=== PATIENT | female | born 1970 | race Caucasian/White ===

== ENCOUNTER 2016-07-06 14:39 | Emergency (ER) | payer MEDICAID ==
[~2016-07-06] VITALS: Ht 170.2 cm; Wt 65.8 kg
[~2016-07-06 14:39] MED LIST: DIVA500T53 PO; PROZAC; VEN75XRT PO
[2016-07-06 15:30] LABS: Basophils # (auto) 0 uL; Basophils % (auto) 0.4 % (0.0-2.0); Eosinophils # (auto) 0.1 uL; Eosinophils % (auto) 1.1 % (0.0-7.0); Hematocrit 39.8 % (36.0-46.0); Hemoglobin 13.2 g/dL (12.2-16.2); Lymphocytes # (auto) 1.6 uL; Lymphocytes % (auto) 24.5 % (10.0-50.0); Mean Corpuscular Hemoglobin 29.5 pg (28.0-32.0); Mean Corpuscular Hgb Conc. 33.1 g/dL (32.0-36.0); Mean Platelet Volume 8.3 fL (7.4-10.4); Monocytes # (auto) 0.4 uL; Monocytes % (auto) 5.5 % (0.0-12.0); Neutrophils # (auto) 4.6 uL; Neutrophils % (auto) 68.5 % (37.0-80.0); Platelet Count (auto) 298 10^3/uL (140-450); Red Cell Distribution Width 13.5 % (11.6-16.0); White Blood Cell 6.7 10^3/uL (4.4-10.8)
[2016-07-06 15:55] LABS: Albumin 3.4 g/dL (3.4-5.0); Alkaline Phosphatase 114 U/L (45-117); Anion Gap 11 (5-15); Aspartate Aminotransferase 30 U/L (15-37); Bilirubin, Total 0.3 mg/dL (0.2-1.0); Blood Urea Nitrogen 14 mg/dL (7-18); Calcium 8.7 mg/dL (8.5-10.1); Carbon Dioxide 30 mmol/L (21-32); Chloride 100 mmol/L (98-107); GFR African American 116 mL/min; GFR Non-African American 96 mL/min; Glucose 257 mg/dL (74-106); Magnesium 2.2 mg/dL (1.6-2.6); Potassium 3.8 mmol/L (3.5-5.1); Sodium 141 mmol/L (136-145)
[2016-07-06 20:36] LABS: Urine RBC None Seen /hpf (0 - 4)
[2016-07-06 20:48] LABS: Urine Bilirubin Negative (Negative); Urine Blood Negative /uL (Negative); Urine Color Yellow (Yellow); Urine Ketone Negative (Negative); Urine Nitrite Negative (Negative); Urine Squamous Epithelial Cell FEW /hpf (<5); Urine Urobilinogen Normal (Negative); Urine pH 6.5 (5.0-8.0)
[2016-07-06 20:49] LABS: Urine Glucose 4+ mg/dL (Normal)
[2016-07-06 20:55] VITALS: BP 155/93
[2016-07-06] MEDS ORDERED: LORazepam 2MG/ML-1ML VIAL IV ONE (21:00)
[2016-07-06] MEDS ORDERED: ONDANSETRON HCL 4 MG/2 ML VIAL IV ONE (21:00)
[2016-07-06] MEDS ORDERED: cloNIDine HCL 0.1 MG TAB PO ONE (21:00)
[2016-07-06] MEDS ORDERED: NALBUPHINE HCL 10 MG/1ml INJECTION IV ONE (21:00)
== END 2016-07-06 22:53 | disposition home or self-care (01) ==
LOC: ER 14:39
DX: F41.9 Anxiety disorder, unspecified (principal); E11.65 Type 2 diabetes mellitus with hyperglycemia; I10 Essential (primary) hypertension; F20.9 Schizophrenia, unspecified; F32.9 Major depressive disorder, single episode, unspecified
CPT/HCPCS: 36415; 71020; 80053; 81001; 82962; 83735; 84484; 85025; 93005; 96374; 96375; 99285; J2060; J2300; J2405

== ENCOUNTER 2016-09-25 07:03 | Emergency (ER) | payer SELFPAY ==
[~2016-09-25] VITALS: Ht 172.7 cm; Wt 65.8 kg
[2016-09-25 07:58] LABS: Urine RBC None Seen /hpf (0 - 4)
[2016-09-25] MEDS ORDERED: PHENAZOPYRIDINE HCL 100 MG TAB PO ONE (08:00)
[2016-09-25 08:07] LABS: Urine Blood Negative /uL (Negative); Urine Color Yellow (Yellow); Urine Ketone Negative (Negative); Urine Nitrite Negative (Negative); Urine Squamous Epithelial Cell FEW /hpf (<5); Urine Urobilinogen Normal (Negative); Urine pH 6.5 (5.0-8.0)
[2016-09-25 08:08] LABS: Urine Bilirubin Negative (Negative); Urine Glucose 4+ mg/dL (Normal)
[2016-09-25] MEDS ORDERED: SODIUM CHLORIDE 0.9% 1,000 ML IV ONE ×2 (08:45→10:30)
[2016-09-25 08:57] LABS: Basophils # (auto) 0 uL; Basophils % (auto) 0.4 % (0.0-2.0); CONDITION Y; Eosinophils # (auto) 0.2 uL; Eosinophils % (auto) 3.8 % (0.0-7.0); Hematocrit 42.5 % (36.0-46.0); Hemoglobin 14.7 g/dL (12.2-16.2); Lymphocytes # (auto) 1.6 uL; Lymphocytes % (auto) 34.3 % (10.0-50.0); Mean Corpuscular Hemoglobin 30.2 pg (28.0-32.0); Mean Corpuscular Hgb Conc. 34.6 g/dL (32.0-36.0); Mean Corpuscular Volume 87.2 fL (80.0-100.0); Mean Platelet Volume 9.2 fL (7.4-10.4); Monocytes # (auto) 0.3 uL; Monocytes % (auto) 6.3 % (0.0-12.0); Neutrophils # (auto) 2.6 uL; Neutrophils % (auto) 55.2 % (37.0-80.0); Platelet Count (auto) 182 10^3/uL (140-450); Red Cell Distribution Width 12.6 % (11.6-16.0); White Blood Cell 4.8 10^3/uL (4.4-10.8)
[2016-09-25 09:10] LABS: Albumin 3.7 g/dL (3.4-5.0); BUN/Creatinine Ratio 22.3; Bilirubin, Total 0.5 mg/dL (0.2-1.0); Calcium 9.1 mg/dL (8.5-10.1)
[2016-09-25 09:23] LABS: Potassium 4.7 mmol/L (3.5-5.1)
[2016-09-25] MEDS ORDERED: InsuLIN REG 1unit/0.01ml Soln (100units/ml) ONE ×2 (10:18→10:19)
[2016-09-25 10:26] VITALS: BP 169/95
[2016-09-25] MEDS ORDERED: InsuLIN REG 1unit/0.01ml Soln (100units/ml) IV ONE (10:30)
== END 2016-09-25 11:28 | disposition left against medical advice (07) ==
LOC: ER 07:07
DX: N39.0 Urinary tract infection, site not specified (principal); K59.00 Constipation, unspecified; E11.9 Type 2 diabetes mellitus without complications; I10 Essential (primary) hypertension; Z90.710 Acquired absence of both cervix and uterus; Z90.49 Acquired absence of other specified parts of digestive tract; Z88.6 Allergy status to analgesic agent
CPT/HCPCS: 36415; 74176; 80053; 81001; 81002; 82962; 85025; 96361; 96374; 99285; J1815; J7030

== ENCOUNTER 2018-03-13 22:13 | Emergency (ER) | payer SELFPAY ==
[~2018-03-13] VITALS: Ht 172.7 cm; Wt 61.2 kg
[~2018-03-13 22:13] MED LIST changes: -VEN75XRT PO; +VENL75CA3 PO
[2018-03-13 22:55] LABS: Basophils # (auto) 0 uL; Basophils % (auto) 0.7 % (0.0-2.0); Eosinophils # (auto) 0 uL; Eosinophils % (auto) 0.5 % (0.0-7.0); Hematocrit 44.7 % (36.0-46.0); Hemoglobin 15.1 g/dL (12.2-16.2); Lymphocytes # (auto) 2.4 uL; Lymphocytes % (auto) 43.9 % (10.0-50.0); Mean Corpuscular Hemoglobin 30.1 pg (28.0-32.0); Mean Corpuscular Hgb Conc. 33.8 g/dL (32.0-36.0); Mean Corpuscular Volume 88.9 fL (80.0-100.0); Monocytes # (auto) 0.3 uL; Neutrophils # (auto) 2.7 uL; Neutrophils % (auto) 48.9 % (37.0-80.0); Nucleated Red Blood Cells % 0.1 %; Platelet Count (auto) 195 10^3/uL (140-450); Red Blood Cells 5.03 10^6/uL (4.0-5.20); Red Cell Distribution Width 13.1 % (11.8-14.3); White Blood Cell 5.5 10^3/uL (4.4-10.8)
[2018-03-13 22:59] LABS: Urine Bacteria NONE SEEN /hpf (None Seen); Urine Blood Negative /uL (Negative); Urine Specific Gravity 1.013 (1.001-1.035); Urine WBC <1 /hpf (0 - 5)
[2018-03-13 23:12] LABS: Albumin 4.1 g/dL (3.4-5.0); BUN/Creatinine Ratio 10.8; Calcium 8.8 mg/dL (8.5-10.1); Potassium 3.5 mmol/L (3.5-5.1)
[2018-03-13 23:15] LABS: Bilirubin, Total 0.5 mg/dL (0.2-1.0); Total Protein 7.5 g/dL (6.4-8.2)
[2018-03-13] MEDS ORDERED: ONDANSETRON HCL 4 MG/2 ML VIAL IV ONE ×2 (23:30)
[2018-03-13] MEDS ORDERED: SODIUM CHLORIDE 0.9% 1,000 ML IV ONE (23:30)
[2018-03-14] MEDS ORDERED: InsuLIN REG 1unit/0.01ml Soln (100units/ml) IV ONE ×2 (00:30→01:15)
[2018-03-14] MEDS ORDERED: KETOROLAC TROMETH 30 MG/ML 1ML VIAL IV ONE (01:15)
[2018-03-14 02:09] VITALS: BP 145/93
[2018-03-14] MEDS ORDERED: ACETAMINOPHEN 325 MG TAB PO ONE (03:30)
== END 2018-03-14 05:04 | disposition home or self-care (01) ==
LOC: ER 22:13
DX: R10.31 Right lower quadrant pain (principal); E11.65 Type 2 diabetes mellitus with hyperglycemia; I10 Essential (primary) hypertension; Z90.710 Acquired absence of both cervix and uterus; Z90.49 Acquired absence of other specified parts of digestive tract; Z88.6 Allergy status to analgesic agent; Z91.041 Radiographic dye allergy status
CPT/HCPCS: 36415; 36600; 74176; 80053; 81001; 82010; 82150; 82805; 82962; 83690; 85025; 96361; 96374; 96375; 99284; J1815; J1885; J2405

== ENCOUNTER 2018-04-13 19:02 | Emergency (ER) | payer SELFPAY ==
[~2018-04-13] VITALS: Ht 172.7 cm; Wt 59.0 kg
[2018-04-13 20:12] VITALS: BP 129/78
[2018-04-13] MEDS ORDERED: cefTRIAXone SOD 1,000 MG VL IM ONE (20:45)
[2018-04-13] MEDS ORDERED: LIDOCAINE W/ EPINEPHRINE 1 % INJ 30ML ONE (21:06)
[2018-04-13] MEDS ORDERED: LIDOCAINE W/ EPINEPHRINE 2% INJ 20ML VIAL IJ ONE (21:15)
== END 2018-04-13 21:42 | disposition home or self-care (01) ==
LOC: ER 19:02
DX: S61.011A Laceration without foreign body of right thumb without damage to nail, initial encounter (principal); E11.9 Type 2 diabetes mellitus without complications; Z90.49 Acquired absence of other specified parts of digestive tract; Z90.710 Acquired absence of both cervix and uterus; Z88.6 Allergy status to analgesic agent; Z88.8 Allergy status to other drugs, medicaments and biological substances; X58.XXXA Exposure to other specified factors, initial encounter; Y93.89 Activity, other specified; Y99.8 Other external cause status; Y92.89 Other specified places as the place of occurrence of the external cause
CPT/HCPCS: 73130; 96372; 99283; J0696; J2001

== ENCOUNTER 2018-08-12 14:51 | Emergency (ER) | payer MEDICAID ==
[~2018-08-12] VITALS: Ht 172.7 cm; Wt 57.6 kg
[2018-08-12 15:10] VITALS: BP 123/76
[2018-08-12] MEDS ORDERED: cefTRIAXone 1GM/50ML D5W 50 ML IV ONE (16:15)
== END 2018-08-12 16:42 | disposition home or self-care (01) ==
LOC: ER 15:02
DX: S90.424A Blister (nonthermal), right lesser toe(s), initial encounter (principal); L08.9 Local infection of the skin and subcutaneous tissue, unspecified; I89.1 Lymphangitis; E11.9 Type 2 diabetes mellitus without complications; Z90.710 Acquired absence of both cervix and uterus; Z88.5 Allergy status to narcotic agent; Z88.8 Allergy status to other drugs, medicaments and biological substances; Z79.899 Other long term (current) drug therapy; Z90.49 Acquired absence of other specified parts of digestive tract; X58.XXXA Exposure to other specified factors, initial encounter; Y93.89 Activity, other specified; Y99.8 Other external cause status; Y92.89 Other specified places as the place of occurrence of the external cause
CPT/HCPCS: 96365; 99283; J0696

== ENCOUNTER 2018-11-07 20:55 | Emergency (ER) | payer MEDICAID ==
[~2018-11-07] VITALS: Ht 172.7 cm; Wt 56.7 kg
[2018-11-08 04:03] VITALS: BP 137/83
== END 2018-11-08 06:08 | disposition home or self-care (01) ==
LOC: ER 20:57
DX: M25.532 Pain in left wrist (principal)
CPT/HCPCS: 73110

== ENCOUNTER 2019-08-13 11:23 | Emergency (ER) | payer MEDICAID ==
[~2019-08-13] VITALS: Ht 172.7 cm; Wt 59.0 kg
[2019-08-13 11:29] VITALS: BP 192/94
[2019-08-13] MEDS ORDERED: KETOROLAC TROMETH 60MG/2ML VIAL IM ONE (14:30)
[2019-09-30] MEDS ORDERED: LISI40TA11 PO (02:05)
== END 2019-08-13 15:53 | disposition home or self-care (01) ==
LOC: ER 11:23
DX: S42.252A Displaced fracture of greater tuberosity of left humerus, initial encounter for closed fracture (principal); S70.212A Abrasion, left hip, initial encounter; E11.9 Type 2 diabetes mellitus without complications; Z90.49 Acquired absence of other specified parts of digestive tract; Z90.710 Acquired absence of both cervix and uterus; Z79.899 Other long term (current) drug therapy; Z88.5 Allergy status to narcotic agent; Z88.8 Allergy status to other drugs, medicaments and biological substances; W18.39XA Other fall on same level, initial encounter; Y93.89 Activity, other specified; Y92.89 Other specified places as the place of occurrence of the external cause; Y99.8 Other external cause status
CPT/HCPCS: 73030; 96372; 99283; J1885

== ENCOUNTER 2019-09-26 10:31 | Emergency (ER) | payer MEDICAID ==
[~2019-09-26] VITALS: Ht 172.7 cm; Wt 59.0 kg
[2019-09-26] MEDS ORDERED: CLINDAMYCIN 600MG IV 50 ML IV ONE (12:30)
[2019-09-26 12:34] VITALS: BP 132/95
== END 2019-09-26 14:24 | disposition home or self-care (01) ==
LOC: ER 10:31
DX: S90.465A Insect bite (nonvenomous), left lesser toe(s), initial encounter (principal); W57.XXXA Bitten or stung by nonvenomous insect and other nonvenomous arthropods, initial encounter; Y93.89 Activity, other specified; Y92.89 Other specified places as the place of occurrence of the external cause; Y99.8 Other external cause status
CPT/HCPCS: 96365; 99284; J3490

== ENCOUNTER 2019-09-28 23:43 | Inpatient (IN) | payer MEDICAID ==
[~2019-09-28] VITALS: Ht 172.7 cm; Wt 65.7 kg
[2019-09-29] MEDS ORDERED: cloNIDine HCL 0.1 MG TAB PO ONE (00:45)
[2019-09-29] MEDS: traMADol HCL 50 MG TAB PO PRN (05:36)
[2019-09-29] MEDS: ACCU-CHEK COMFORT CURVE STRIP VI SCH ×3 (05:45→23:57)
[2019-09-29] MEDS: InsuLIN REG 1unit/0.01ml Soln (100units/ml) SC SCH ×3 (05:50→23:57)
[2019-09-29] MEDS ORDERED: SODIUM CHLORIDE 0.9% 1,000 ML IV ONE ×2 (07:08)
[2019-09-29] MEDS ORDERED: PIPERACILLIN-TAZOB 3.375GM 100 ML IV ONE (07:30)
[2019-09-29 08:49] LABS: Basophils # (auto) 0 10 ^3/uL (0-0.2); Basophils % (auto) 0.4 % (0.0-2.0); Eosinophils # (auto) 0.1 10 ^3/uL (0-0.8); Hematocrit 40.8 % (36.0-46.0); Lymphocytes # (auto) 1.2 10 ^3/uL (0.4-5.4); Lymphocytes % (auto) 19.9 % (10.0-50.0); Mean Corpuscular Hemoglobin 30.2 pg (28.0-32.0); Mean Corpuscular Hgb Conc. 34.3 g/dL (32.0-36.0); Mean Corpuscular Volume 87.9 fL (80.0-100.0); Monocytes # (auto) 0.3 10 ^3/uL (0-1.3); Monocytes % (auto) 4.9 % (0.0-12.0); Neutrophils # (auto) 4.4 10 ^3/uL (1.6-8.6); Neutrophils % (auto) 73.8 % (37.0-80.0); Platelet Count (auto) 211 10^3/uL (140-450); Red Blood Cells 4.65 10^6/uL (4.0-5.20); Red Cell Distribution Width 13.1 % (11.8-14.3)
[2019-09-29 09:10] LABS: Calcium 9.5 mg/dL (8.5-10.1); Potassium 3.9 mmol/L (3.5-5.1)
[2019-09-29 09:12] LABS: INR 0.94 (0.9-1.15); Partial Thromboplastin Time 25.3 sec (23.64-32.05)
[2019-09-29 09:14] LABS: BUN/Creatinine Ratio 17.2; Bilirubin, Total 0.7 mg/dL (0.2-1.0); Total Protein 7.9 g/dL (6.4-8.2)
[2019-09-29] MEDS ORDERED: CLINDAMYCIN 600MG IV 50 ML IV ONE (12:15)
[2019-09-29] MEDS ORDERED: NITROGLYCERIN 0.4 MG SL TAB SL PRN (12:15)
[2019-09-29] MEDS ORDERED: INSULIN LANTUS (GLARGINE) 1 /0.01ml (100units/ml) SC ONE (12:45)
[2019-09-29] MEDS ORDERED: PROMETHAZINE HCL 25 MG/ML 1ML IV PRN (12:45)
[2019-09-29] MEDS ORDERED: TEMAZEPAM 15 MG CAP PO PRN (12:45)
[2019-09-29] MEDS ORDERED: LACTULOSE 20Gm/30ML SOLN PO PRN (12:45)
[2019-09-29] MEDS ORDERED: cefTRIAXone 1GM/50ML D5W 50 ML IV ONE (12:45)
[2019-09-29] MEDS ORDERED: DEXTROSE (50%) 50ML SYRG IV PRN (12:45)
[2019-09-29] MEDS ORDERED: CLINDAMYCIN 600MG IV 50 ML IV SCH (14:00)
[2019-09-29] MEDS: SODIUM CHLORIDE 0.9% 1,000 ML IV SCH ×2 (15:09→23:34)
[2019-09-29] MEDS: CLINDAMYCIN 600MG IV 50 ML IV SCH ×2 (15:18→22:37)
[2019-09-29 17:56] LABS: Urine Bacteria NONE SEEN /hpf (None Seen); Urine Blood Negative /uL (Negative); Urine Specific Gravity 1.038 (1.001-1.035); Urine WBC 1 /hpf (0 - 5)
[2019-09-29] MEDS ORDERED: InsuLIN REG 1unit/0.01ml Soln (100units/ml) IV ONE (19:15)
[2019-09-29] MEDS ORDERED: IBUPROFEN 400 MG TAB PO PRN (19:15)
[2019-09-29 21:45] VITALS: BP 113/68
--- NOTE | 2019-09-29 21:45 | NUR ---
Telemetry admit from ER LEOPOLDOMARTIN admitted to Telemetry unit. Patient oriented to TADEO SLADE RN primary RN, unit, room, bed, and unit policies regarding patient care and visiting hours. Fall and safety precautions in place. Call light within reach and demonstrates ability to use. Patient now on telemetry monitoring, tele box #[id number] and telemetry reading on arrival to unit is SR. Patient weighed by bedscale and encouraged to call as needed, patient verbalized understanding and in agreement. All questions and concerns addressed, patient verbalized understanding. Will continue to monitor q1h and prn.
[2019-09-29] MEDS: FAMOTIDINE 20 MG TAB PO SCH (22:37)
--- NOTE | 2019-09-29 23:40 | NUR ---
Re: Pain Spoke to on-call hosp at this time for patient complaint of insufficient pain medication management. Patient stated her pain is rated 9/10 using adult pain scale to her left shoulder and left third metatarsal. Updated MD on patient status, allergies, and medication at home used for patient's pain management. New orders received, read back and verified (see new orders). Will carry out. Will continue to monitor.
[2019-09-29] MEDS: IBUPROFEN 800 MG TAB PO PRN (23:47)
[2019-09-30] MEDS ORDERED: GABA300C10 PO (02:05)
[2019-09-30] MEDS ORDERED: INSREG3 SC (02:05)
[2019-09-30] MEDS ORDERED: METF-370 PO (02:05)
[2019-09-30] MEDS ORDERED: LISI40TA PO (02:05)
[2019-09-30] MEDS ORDERED: INSLANTI SC (02:05)
[2019-09-30] MEDS ORDERED: FLUO-126 PO (02:05)
[2019-09-30] MEDS: InsuLIN REG 1unit/0.01ml Soln (100units/ml) SC SCH ×5 (03:34→20:00)
[2019-09-30] MEDS: ACCU-CHEK COMFORT CURVE STRIP VI SCH ×5 (03:34→20:49)
[2019-09-30 05:00] VITALS: BP 126/80
[2019-09-30] MEDS: CLINDAMYCIN 600MG IV 50 ML IV SCH ×3 (05:11→22:42)
[2019-09-30] MEDS: traMADol HCL 50 MG TAB PO PRN ×2 (05:23→16:57)
[2019-09-30 07:00] LABS: Basophils # (auto) 0 10 ^3/uL (0-0.2); Basophils % (auto) 0.5 % (0.0-2.0); Eosinophils # (auto) 0.1 10 ^3/uL (0-0.8); Eosinophils % (auto) 1.2 % (0.0-7.0); Hematocrit 34.3 % (36.0-46.0); Hemoglobin 11.8 g/dL (12.2-16.2); Lymphocytes # (auto) 1.7 10 ^3/uL (0.4-5.4); Lymphocytes % (auto) 35.3 % (10.0-50.0); Mean Corpuscular Hemoglobin 30.2 pg (28.0-32.0); Mean Corpuscular Hgb Conc. 34.3 g/dL (32.0-36.0); Mean Corpuscular Volume 88.1 fL (80.0-100.0); Monocytes # (auto) 0.3 10 ^3/uL (0-1.3); Monocytes % (auto) 7.4 % (0.0-12.0); Neutrophils # (auto) 2.6 10 ^3/uL (1.6-8.6); Neutrophils % (auto) 55.6 % (37.0-80.0); Platelet Count (auto) 178 10^3/uL (140-450); Red Blood Cells 3.89 10^6/uL (4.0-5.20); Red Cell Distribution Width 12.9 % (11.8-14.3); White Blood Cell 4.7 10^3/uL (4.4-10.8)
[2019-09-30 07:24] LABS: Albumin 2.7 g/dL (3.4-5.0); Calcium 8.2 mg/dL (8.5-10.1); Potassium 3.5 mmol/L (3.5-5.1)
[2019-09-30 07:27] LABS: BUN/Creatinine Ratio 26.2; Bilirubin, Total 0.4 mg/dL (0.2-1.0); Total Protein 5.7 g/dL (6.4-8.2)
--- NOTE | 2019-09-30 07:30 | NUR ---
Opening Shift Note Assuming care of patient at this time. Patient is awake and alert. Patient denies pain at this time. Patient shows no signs or symptoms of distress or shortness of breath. Bed is locked and lowered with side rails up x2. Instructed patient on the plan of care for today and to call for assistance as needed. Call light within reach.
[2019-09-30] MEDS: SODIUM CHLORIDE 0.9% 1,000 ML IV SCH ×2 (08:43→18:43)
[2019-09-30 09:00] VITALS: BP 154/94
[2019-09-30] MEDS: cefTRIAXone 1GM/50ML D5W 50 ML IV SCH (09:00)
[2019-09-30] MEDS ORDERED: ceFAZolin 1GM VL ONE (09:01)
[2019-09-30] MEDS ORDERED: fentaNYL CITRATE 100 MCG/2 ML VL ONE (09:10)
[2019-09-30] MEDS ORDERED: MIDAZOLAM HCL 1MG/1ML-2 ML VIAL ONE (09:10)
--- NOTE | 2019-09-30 09:10 | NUR ---
Patient Off Unit Patient taken to OR at this time.
[2019-09-30] MEDS ORDERED: ceFAZolin 1GM/50ML 50 ML IV ONE (09:23)
[2019-09-30] MEDS ORDERED: NEOMYCIN-BACITRACIN-POLYM 15GM TOP OINT TOP ONE (09:44)
[2019-09-30] MEDS ORDERED: ONDANSETRON HCL 4 MG/2 ML VIAL ONE (09:56)
[2019-09-30] MEDS ORDERED: PROPOFOL 10 MG/ML 20 ML IV ONE (09:56)
[2019-09-30] MEDS: ENOXAPARIN SOD 40 MG/0.4 ML SYRINGE SC SCH (10:00)
[2019-09-30] MEDS: FAMOTIDINE 20 MG TAB PO SCH ×2 (10:00→22:41)
[2019-09-30] MEDS ORDERED: ACCU-CHEK COMFORT CURVE STRIP VI ONE (10:15)
[2019-09-30] MEDS ORDERED: fentaNYL CITRATE 100 MCG/2 ML VL IV PRN (10:15)
[2019-09-30] MEDS ORDERED: METOCLOPRAMIDE HCL 5MG/ml INJ 2ml VIAL IV PRN (10:15)
--- NOTE | 2019-09-30 10:43 | NUR ---
Report Received Report received from [employer] DUPLICATING UNIT SUPERVISOR at this time. Awaiting patient's return to floor.
--- NOTE | 2019-09-30 10:58 | NUR ---
Patient back on unit Patient back on unit at this time. No distress noted. Dressing to patient's left foot is clean, dry, and intact.
[2019-09-30] MEDS: INSULIN LANTUS (GLARGINE) 1 /0.01ml (100units/ml) SC SCH (11:23)
[2019-09-30] MEDS: IBUPROFEN 800 MG TAB PO PRN (12:11)
[2019-09-30 13:00] VITALS: BP 136/79
[2019-09-30 16:52] VITALS: BP 124/71
--- NOTE | 2019-09-30 19:03 | NUR ---
Closing Shift Note Patient resting in bed. No distress noted. Will endorse care to the tag stringer RN.
--- NOTE | 2019-09-30 19:30 | NUR ---
Pt called stated she is having allergic reaction to the tramadol she took 2hrs ago. itchiness stated and scratches due to itchiness noted on the left arm. denies SOB. paged hospitalist right away and informed the pt.
[2019-09-30] MEDS ORDERED: diphenhdrAMINE HCL 25 MG CAP PO ONE (20:30)
--- NOTE | 2019-09-30 20:35 | NUR ---
Received a call from the hospitalist (Dr. Cope) stated "It is not an allergic reaction if happened 2hrs ago.Reaction happens 15mns after taking med.New order received.
--- NOTE | 2019-09-30 20:40 | NUR ---
pt wanted to talk to the CN stated she was upset about waiting for the medicine for allergic reaction. I offered lotion to ease itchiness but no improvement she said. informed CN
[2019-09-30] MEDS ORDERED: diphenhdrAMINE HCL 25 MG CAP PO PRN (21:00)
[2019-09-30 22:30] VITALS: BP 127/69
--- NOTE | 2019-09-30 22:30 | NUR ---
IV insertion IV access obtained, via clean sterile technique by inserting 22 gauge catheter at right AC after 1 attempt(s). IV secured properly. No trauma to site. Patient tolerated procedure well. IV removal IV DC'd with sterile technique, catheter fully intact. Pressure dressing applied to site. Patient tolerated procedure well. NOTE: pt stated she gonna file a complaint to the grievance dept regarding waiting for too long getting med for allergic reaction.
[2019-10-01] MEDS: ACCU-CHEK COMFORT CURVE STRIP VI SCH ×5 (00:31→16:00)
[2019-10-01 04:00] VITALS: BP 156/92
[2019-10-01] MEDS: InsuLIN REG 1unit/0.01ml Soln (100units/ml) SC SCH ×5 (04:00→16:00)
[2019-10-01] MEDS: IBUPROFEN 800 MG TAB PO PRN (04:07)
[2019-10-01] MEDS: SODIUM CHLORIDE 0.9% 1,000 ML IV SCH ×2 (04:43→14:43)
[2019-10-01] MEDS: CLINDAMYCIN 600MG IV 50 ML IV SCH ×2 (05:43→14:00)
[2019-10-01 09:00] VITALS: BP 129/75
[2019-10-01] MEDS: FAMOTIDINE 20 MG TAB PO SCH (09:38)
[2019-10-01] MEDS: ENOXAPARIN SOD 40 MG/0.4 ML SYRINGE SC SCH (09:38)
[2019-10-01] MEDS: INSULIN LANTUS (GLARGINE) 1 /0.01ml (100units/ml) SC SCH (09:41)
[2019-10-01] MEDS: cefTRIAXone 1GM/50ML D5W 50 ML IV SCH (10:00)
[2019-10-01 13:00] VITALS: BP 132/59
--- NOTE | 2019-10-01 13:30 | NUR ---
IV discomfort Patient is complaining that patient is in an uncomfortable position and would like it removed. This RN removed IV at this time. Patient states, "I need a break from that." Educated patient on the need for IV access, but patient would like to wait. Possible plan for discharge per Dr. Briceño's note. Will wait to see if patient is discharged.
[2019-10-01 17:00] VITALS: BP 130/84
[2019-10-01 17:10] VITALS: BP 168/99
--- NOTE | 2019-10-01 18:23 | NUR ---
Discharge Discharge instructions given as ordered. Encourage to follow up with PMD as instructed. All questions and concerns addressed. Patient verbalized understanding. IV removed with catheter intact, pressure dressing applied. Telemetry unit returned to ICU. Patient taken to vehicle via wheelchair with all personal belongings, accompanied by staff and family member. No distress noted at time of departure.
== END 2019-10-01 18:30 | disposition home or self-care (01) | DRG 383 ==
LOC: ER 23:44 → TELE 23:45 → TELE-WESTW 09-29 21:55
PROVIDERS: ADMIT Internal Medicine; ATTEND Internal Medicine
PROC: 0Y9N0ZZ Drainage of Left Foot, Open Approach (ICD-10-PCS; principal; 2019-09-30 09:27)
DX: L03.032 Cellulitis of left toe (principal); L02.612 Cutaneous abscess of left foot; T63.311A Toxic effect of venom of black widow spider, accidental (unintentional), initial encounter; B95.62 Methicillin resistant Staphylococcus aureus infection as the cause of diseases classified elsewhere; I10 Essential (primary) hypertension; E88.09 Other disorders of plasma-protein metabolism, not elsewhere classified; F41.9 Anxiety disorder, unspecified; Z90.49 Acquired absence of other specified parts of digestive tract; Z90.710 Acquired absence of both cervix and uterus; Z83.3 Family history of diabetes mellitus; Z82.49 Family history of ischemic heart disease and other diseases of the circulatory system; Z88.6 Allergy status to analgesic agent; Z88.4 Allergy status to anesthetic agent; Z88.5 Allergy status to narcotic agent; Z79.4 Long term (current) use of insulin; Z79.899 Other long term (current) drug therapy; Z91.14 Patient's other noncompliance with medication regimen; Y92.89 Other specified places as the place of occurrence of the external cause; E11.65 Type 2 diabetes mellitus with hyperglycemia
CPT/HCPCS: 36415; 71045; 73700; 80053; 81001; 82962; 83036; 83605; 85025; 85610; 85652; 85730; 87040; 87070; 87075; 87077; 87186; 87205; 96365; 96367; 96368; 96372; 96375; G0378; J0690; J0696; J1815; J2250; J2405; J2543; J2704; J3490

== ENCOUNTER 2020-04-11 13:54 | Inpatient (IN) | payer MEDICAID ==
[~2020-04-11] VITALS: Ht 172.7 cm; Wt 56.9 kg
[~2020-04-11 13:54] MED LIST changes: -DIVA500T53 PO; +FLUO-126 PO; +GABA300C10 PO; +INSLANTI SC; +INSREG3 SC; +LISI40TA11 PO; +METF-370 PO; -PROZAC; -VENL75CA3 PO
[2020-04-11 14:43] LABS: Basophils # (auto) 0 10 ^3/uL (0-0.2); Basophils % (auto) 0.4 % (0.0-2.0); Eosinophils # (auto) 0 10 ^3/uL (0-0.8); Eosinophils % (auto) 0.5 % (0.0-7.0); Hematocrit 37.8 % (36.0-46.0); Hemoglobin 13.5 g/dL (12.2-16.2); Lymphocytes # (auto) 1.3 10 ^3/uL (0.4-5.4); Lymphocytes % (auto) 22.6 % (10.0-50.0); Mean Corpuscular Hemoglobin 31.4 pg (28.0-32.0); Mean Corpuscular Hgb Conc. 35.6 g/dL (32.0-36.0); Mean Corpuscular Volume 88.2 fL (80.0-100.0); Monocytes # (auto) 0.3 10 ^3/uL (0-1.3); Monocytes % (auto) 5.1 % (0.0-12.0); Neutrophils # (auto) 4.2 10 ^3/uL (1.6-8.6); Neutrophils % (auto) 71.4 % (37.0-80.0); Nucleated Red Blood Cells % 0.1 %; Platelet Count (auto) 224 10^3/uL (140-450); Red Blood Cells 4.29 10^6/uL (4.0-5.20); Red Cell Distribution Width 12.4 % (11.8-14.3); White Blood Cell 5.9 10^3/uL (4.4-10.8)
[2020-04-11 15:02] LABS: Albumin 3.3 g/dL (3.4-5.0); Anion Gap 3 (5-15); Blood Urea Nitrogen 14 mg/dL (7-18); Calcium 8.2 mg/dL (8.5-10.1); Carbon Dioxide 33 mmol/L (21-32); Chloride 101 mmol/L (98-107); Glucose 283 mg/dL (74-106); Lipase 1096 U/L (73-393); Potassium 3.6 mmol/L (3.5-5.1); Sodium 137 mmol/L (136-145)
[2020-04-11 15:10] LABS: Alanine Aminotransferase 26 U/L (13-56); Alkaline Phosphatase 98 U/L (45-117); Aspartate Aminotransferase 17 U/L (15-37); BUN/Creatinine Ratio 16.9; Bilirubin, Total 0.5 mg/dL (0.2-1.0); GFR African American 94 mL/min; GFR Non-African American 77 mL/min; Total Protein 6.8 g/dL (6.4-8.2)
[2020-04-11] MEDS ORDERED: TEMAZEPAM 15 MG CAP PO PRN (18:45)
[2020-04-11] MEDS ORDERED: KETOROLAC TROMETH 30 MG/ML 1ML VIAL IV PRN (18:45)
[2020-04-11] MEDS ORDERED: NITROGLYCERIN 0.4 MG SL TAB SL PRN (18:45)
[2020-04-11] MEDS ORDERED: ONDANSETRON HCL 4 MG/2 ML VIAL IV PRN (18:45)
[2020-04-11] MEDS ORDERED: DEXTROSE (50%) 50ML SYRG IV PRN (18:45)
[2020-04-11] MEDS ORDERED: ALUM & MAG HYDROX-SIMETH LIQ(MAALOX) 30 ML PO PRN (18:45)
[2020-04-12] MEDS: LACTULOSE 20Gm/30ML SOLN PO SCH ×4 (02:05→22:27)
[2020-04-12] MEDS: GABAPENTIN 300 MG CAP PO SCH ×4 (02:05→22:28)
[2020-04-12] MEDS: ACCU-CHEK COMFORT CURVE STRIP VI SCH ×4 (02:10→17:58)
[2020-04-12] MEDS: FLUoxetine HCL 10 MG CAP PO SCH ×2 (02:10→22:28)
[2020-04-12] MEDS: InsuLIN REG 1unit/0.01ml Soln (100units/ml) SC SCH ×4 (02:16→17:59)
[2020-04-12] MEDS: INSULIN LANTUS (GLARGINE) 1 /0.01ml (100units/ml) SC SCH ×3 (02:16→22:29)
[2020-04-12] MEDS: D5W/SOD CHL 0.45% 1,000 ML IV SCH ×2 (03:27→11:53)
[2020-04-12] MEDS ORDERED: AMIODARONE HCL 150 MG in D5W 5% 100 ML IV ONE (06:15)
[2020-04-12] MEDS ORDERED: AMIODARONE 450mg/250ml AE 250 ML IV SCH ×2 (06:30→12:30)
[2020-04-12] MEDS ORDERED: ENOXAPARIN SOD 80 MG/0.8ML SYRINGE SC ONE (07:00)
[2020-04-12] MEDS: IBUPROFEN 800 MG TAB PO PRN ×2 (12:10→18:36)
[2020-04-12 16:00] VITALS: BP 150/80
[2020-04-12 20:00] VITALS: BP 134/79
[2020-04-12 22:00] VITALS: BP 134/79
[2020-04-12] MEDS: METOPROLOL TARTRATE 25 MG TAB PO SCH (22:28)
[2020-04-13] MEDS: InsuLIN REG 1unit/0.01ml Soln (100units/ml) SC SCH ×3 (00:56→14:30)
[2020-04-13] MEDS: ACCU-CHEK COMFORT CURVE STRIP VI SCH ×3 (00:56→14:30)
[2020-04-13 05:30] VITALS: BP 129/78
[2020-04-13] MEDS: LACTULOSE 20Gm/30ML SOLN PO SCH ×2 (07:08→14:45)
[2020-04-13] MEDS: GABAPENTIN 300 MG CAP PO SCH ×2 (07:08→14:31)
[2020-04-13] MEDS: IBUPROFEN 800 MG TAB PO PRN (07:09)
[2020-04-13 08:00] VITALS: BP 118/55
[2020-04-13] MEDS: METOPROLOL TARTRATE 25 MG TAB PO SCH (10:22)
[2020-04-13] MEDS ORDERED: MET25T PO (11:42)
[2020-04-13] MEDS ORDERED: APIX5TAB PO (11:42)
[2020-04-13] MEDS ORDERED: IBUP800T26 PO (11:42)
[2020-04-13] MEDS ORDERED: FAMO20TA10 PO (11:43)
[2020-04-13] MEDS ORDERED: PANT40TA2 PO (11:49)
[2020-04-13] MEDS: INSULIN LANTUS (GLARGINE) 1 /0.01ml (100units/ml) SC SCH (13:39)
[2020-04-13 13:45] VITALS: BP 118/55
== END 2020-04-13 15:30 | disposition home or self-care (01) | DRG 282 ==
LOC: ER 13:54 → OVERFLOW 13:55 → WEST WING 04-12 15:04
PROVIDERS: ADMIT Hospitalist; ATTEND Hospitalist
DX: K85.90 Acute pancreatitis without necrosis or infection, unspecified (principal); E11.65 Type 2 diabetes mellitus with hyperglycemia; I48.0 Paroxysmal atrial fibrillation; K59.00 Constipation, unspecified; I11.9 Hypertensive heart disease without heart failure; F41.9 Anxiety disorder, unspecified; Z20.822 Contact with and (suspected) exposure to COVID-19; Z80.3 Family history of malignant neoplasm of breast; Z82.49 Family history of ischemic heart disease and other diseases of the circulatory system; Z86.73 Personal history of transient ischemic attack (TIA), and cerebral infarction without residual deficits; Z90.49 Acquired absence of other specified parts of digestive tract; Z90.710 Acquired absence of both cervix and uterus; Z79.01 Long term (current) use of anticoagulants; Z88.1 Allergy status to other antibiotic agents; Z88.5 Allergy status to narcotic agent; Z88.8 Allergy status to other drugs, medicaments and biological substances
CPT/HCPCS: 36415; 74176; 80053; 82962; 83036; 83690; 84484; 85025; 87426; 93005; 93306; 96361; 96372; 96374; G0378; J1815; J1885; J2405; J7060

== ENCOUNTER 2021-07-29 15:32 | Emergency (ER) | payer MEDICAID ==
[~2021-07-29] VITALS: Ht 172.7 cm; Wt 44.0 kg
[~2021-07-29 15:32] MED LIST changes: +APIX5TAB PO; +IBUP800T26 PO; -LISI40TA11 PO; +MET25T PO; +PANT40TA2 PO
[2021-07-29] MEDS ORDERED: KETOROLAC TROMETH 60MG/2ML VIAL IM ONE (16:00)
[2021-07-29] MEDS ORDERED: IBU600T PO (16:02)
[2021-07-29 19:25] VITALS: BP 146/90
== END 2021-07-29 20:48 | disposition home or self-care (01) ==
LOC: ER 15:32
DX: S96.911A Strain of unspecified muscle and tendon at ankle and foot level, right foot, initial encounter (principal); E11.9 Type 2 diabetes mellitus without complications; Z90.49 Acquired absence of other specified parts of digestive tract; Z90.710 Acquired absence of both cervix and uterus; Z79.4 Long term (current) use of insulin; Z79.899 Other long term (current) drug therapy; Z88.5 Allergy status to narcotic agent; Z88.8 Allergy status to other drugs, medicaments and biological substances; W20.8XXA Other cause of strike by thrown, projected or falling object, initial encounter; Y93.89 Activity, other specified; Y92.89 Other specified places as the place of occurrence of the external cause; Y99.8 Other external cause status
CPT/HCPCS: 73620; J1885

== ENCOUNTER 2021-09-12 12:06 | Emergency (ER) | payer MEDICAID ==
[~2021-09-12] VITALS: Ht 172.7 cm; Wt 43.1 kg
[~2021-09-12 12:06] MED LIST changes: +IBU600T PO
[2021-09-12] MEDS ORDERED: methylPREDNISolone SOD SUCC 125 MG/2 ML VL IM ONE (12:45)
[2021-09-12] MEDS ORDERED: EPINEPHrine HCL 1 MG/1 ML AMP SC ONE (12:45)
[2021-09-12] MEDS ORDERED: CEPH-509 PO (13:13)
[2021-09-12] MEDS ORDERED: METH4PAK PO (13:13)
[2021-09-12] MEDS ORDERED: HYDR25CA PO (13:13)
[2021-09-12 13:22] VITALS: BP 142/78
== END 2021-09-12 13:29 | disposition home or self-care (01) ==
LOC: ER 12:06
DX: T78.40XA Allergy, unspecified, initial encounter (principal); T50.905A Adverse effect of unspecified drugs, medicaments and biological substances, initial encounter; H00.014 Hordeolum externum left upper eyelid; Z90.49 Acquired absence of other specified parts of digestive tract; Z90.710 Acquired absence of both cervix and uterus; Y92.89 Other specified places as the place of occurrence of the external cause
CPT/HCPCS: 96372; 99284; J0171; J2930

== ENCOUNTER 2021-11-08 11:16 | Emergency (ER) | payer MEDICARE, MEDICAID ==
[~2021-11-08] VITALS: Ht 172.7 cm; Wt 45.0 kg
[~2021-11-08 11:16] MED LIST changes: +CEPH-509 PO; +HYDR25CA PO; +METH4PAK PO
[2021-11-08 14:26] VITALS: BP 152/76
[2021-11-08] MEDS ORDERED: CEPH-510 PO (14:49)
== END 2021-11-08 14:57 | disposition home or self-care (01) ==
LOC: ER 11:20
DX: L04.0 Acute lymphadenitis of face, head and neck (principal)
CPT/HCPCS: 76536

== ENCOUNTER 2022-06-10 10:29 | Emergency (ER) | payer OTHER, MEDICAID ==
[~2022-06-10] VITALS: Ht 172.7 cm; Wt 57.0 kg
[~2022-06-10 10:29] MED LIST changes: +CEPH-510 PO
[2022-06-10 10:39] VITALS: BP 107/68
[2022-06-10] MEDS ORDERED: cloNIDine HCL 0.1 MG TAB PO ONE (10:45)
[2022-06-10] MEDS ORDERED: LISI20TA28 PO ×2 (12:15)
[2022-06-10] MEDS ORDERED: LISI-716 PO (12:29)
== END 2022-06-10 12:47 | disposition home or self-care (01) ==
LOC: ER 10:29
DX: I10 Essential (primary) hypertension (principal); Z90.49 Acquired absence of other specified parts of digestive tract; Z90.710 Acquired absence of both cervix and uterus; Z88.6 Allergy status to analgesic agent; Z88.8 Allergy status to other drugs, medicaments and biological substances

== ENCOUNTER 2023-06-29 11:39 | Emergency (ER) | payer OTHER, MEDICAID ==
[~2023-06-29] VITALS: Ht 172.7 cm; Wt 58.4 kg
[~2023-06-29 11:39] MED LIST changes: +GABA-1250 PO; -GABA300C10 PO; +IBUP-1455 PO; -IBUP800T26 PO; +LISI10TA34 PO
[2023-06-29] MEDS: cefTRIAXone SOD 500 MG VL IM ONE (16:40)
[2023-06-29 17:39] VITALS: BP 169/89; PULSE 100; RESP 18; TEMP 98; O2SAT 100
== END 2023-06-29 17:48 | disposition home or self-care (01) ==
LOC: ER 11:39
DX: M79.641 Pain in right hand (principal); I10 Essential (primary) hypertension; Z90.49 Acquired absence of other specified parts of digestive tract; Z90.710 Acquired absence of both cervix and uterus; Z88.6 Allergy status to analgesic agent; Z88.8 Allergy status to other drugs, medicaments and biological substances
CPT/HCPCS: 73130; 96372; 99283; J0696

== ENCOUNTER 2024-02-06 20:20 | Emergency (ER) | payer BC, MEDICAID ==
[~2024-02-06] VITALS: Ht 172.7 cm; Wt 56.1 kg
[2024-02-06] MEDS ORDERED: OFL50TS OT (23:50)
--- NOTE | 2024-02-06 23:50 | ED.PDOC ---
Eye-HPI HPI Comments This is a 53-year-old female patient presents to the ED chief complaint right ear pain. And states sudden onset of right ear pain pressure then she heard a pop and then started to bleed. She notes pain has improved since she heard the pop. Denies any change in hearing, fever, chills, recent travel recent altitude changes. Chest pain shortness breath or difficulty breathing. Chief Complaint: Earache Time Seen by MD: 20:50 Primary Care Provider: DR AGUILAR Reviewed Notes: Nurses Notes, Medications, Allergies Allergies: Coded Allergies: Tramadol (Verified Allergy, Severe, itching,hives, 09/30/19) Hydromorphone (Verified Allergy, Intermediate, 01/31/15) Morphine (Verified Allergy, Intermediate, n/v, 01/31/15) Acetaminophen (Verified Allergy, Unknown, 03/13/18) Hydrocodone (Verified Allergy, Unknown, 03/13/18) Lidocaine (Verified Allergy, Unknown, 03/13/18) Home Meds Active Scripts Ofloxacin (Otic) (FLOXIN OTIC) [address], 10 DROP OT BID for 14 Days, #5 ML Prov:CANDICE WHEELER 02/06/24 Lisinopril (Lisinopril) 10 Mg Tab, 10 MG PO DAILY, #30 TAB Prov:SEJAL POOLE 06/10/22 Cephalexin ( Keflex 500) 500 Mg Cap, 1 CAP PO TID, #30 CAP Prov:SEJAL POOLE 11/08/21 Methylprednisolone (Medrol Dosepak) 4 Mg Chase, 4 MG PO UD, #21 TAB UAD Prov:SEJAL POOLE 09/12/21 Hydroxyzine Pamoate (Vistaril) 25 Mg Cap, 25 MG PO TID, #24 CAP Prov:SEJAL POOLE 09/12/21 Cephalexin (KEFLEX 500) 500 Mg Cap, 1 CAP PO TID, #30 CAP Prov:SEJAL POOLE 09/12/21 Ibuprofen Micronized (MOTRIN TABLET) 600 Mg Tb, 600 MG PO TID PRN for 5 Days, #15 TAB *Black box warning-NSAIDS can increase risk of AR & hypertension, GI irritation, ulceration, bleed, perferation. Do not use post cardiac surgery. Use short duration/lowest effective dose. Prov:FRANCISCA ROCHA MD 07/29/21 Pantoprazole Sodium Sesquihydr (Protonix) 40 Mg Tab, 40 MG PO BID, #60 TAB Prov:ANDREA BEARDEN MD 04/13/20 Apixaban Base (ELIQUIS) 5 Mg Tab, 5 MG PO BID, #60 TAB Prov:ANDREA BEARDEN MD 04/13/20 Metoprolol Tartrate (Lopressor) 25 Mg Tb, 25 MG PO BID, #90 TAB Prov:ANDREA BEARDEN MD 04/13/20 Ibuprofen Micronized (Ibuprofen) 800 Mg Tab, 800 MG PO Q6HP PRN, #30 TAB Prov:ANDREA BEARDEN MD 04/13/20 Reported Medications Metformin Hydrochloride (Metformin Hcl) 500 Mg Tab, 1000 MG PO DAILY for 30 Days, MG 09/30/19 Gabapentin (Gabapentin) 300 Mg Cap, 300 MG PO TID for 30 Days, MG 09/30/19 Fluoxetine Hcl (Fluoxetine Hcl) 10 Mg Cap, 10 MG PO HS for 30 Days, MG 09/30/19 Insulin Regular (Human) (Humulin R) 100 Unit/Ml Inj, 10 UNIT SC BID, INJ 09/30/19 Insulin Glargine (Lantus) 100 Unit/Ml Inj, 40 UNIT SC BID, INJ 09/30/19 Mode of Arrival: Ambulatory Past Medical History PAST MEDICAL HISTORY: Anxiety, HTN Surgical History: Cholecystectomy, , Hysterectomy SMALL BUSINESS DIRECTOR History: No Pertinent SMALL BUSINESS DIRECTOR History Family History Family History: Reviewed,noncontributory to illness Social History Smoker: Non-Smoker Alcohol: Denies ETOH Use Drugs: Denies Drug Use Lives In: Home Constitutional: denies: chills, diaphoresis, fatigue, fever, malaise, sweats, weakness, others EENTM: reports: eye pain (Right); denies: blurred vision, double vision, ear bleeding, ear discharge, ear drainage, ear pain, ear ringing, eye redness, hearing loss, mouth pain, mouth swelling, nasal discharge, nose bleeding, nose congestion, nose pain, photophobia, tearing, throat pain, throat swelling, voice changes, others Respiratory: denies: cough, hemoptysis, orthopnea, SOB at rest, shortness of breath, SOB with excertion, stridor, wheezing, others Cardiovascular: denies: chest pain, dizzy spells, diaphoresis, Dyspnea on exertion, edema, irregular heart beat, left arm pain, lightheadedness, palpitations, PND, syncope, others Gastrointestinal: denies: abdomen distended, abdominal pain, blood streaked bowels, constipated, diarrhea, dysphagia, difficulty swallowing, hematemesis, melena, nausea, poor appetite, poor fluid intake, rectal bleeding, rectal pain, vomiting, others Genitourinary: denies: abnormal vagina bleeding, burning, dyspareunia, dysuria, flank pain, frequency, hematuria, incontinence, pain, , vagina discharge, urgency, others Neurological: denies: dizziness, fainting, headache, left sided numbness, left sided weakness, numbness, paresthesia, pre-existing deficit, right sided numbness, right sided weakness, seizure, speech problems, tingling, tremors, weakness, others Musculoskeletal: denies: back pain, gout, joint pain, joint swelling, muscle pain, muscle stiffness, neck pain, others Integumetry: denies: bruises, change in color, change in hair/nails, dryness, laceration, lesions, lumps, rash, wounds, others Allergic/Immunocompromised: denies: Difficulty Healing, Frequent Infections, Hives, Itching, others Hematologic/Lymphatic: denies: anemia, blood clots, easy bleeding, easy bruising, swollen glands, others Endocrine: denies: excessive hunger, excessive sweating, excessive thirst, excessive urination, flushing, intolerance to cold, intolerance to heat, unexplained weight gain, unexplained weight loss, others Psychiatric: denies: anxiety, bipolar disorder, depression, hopeless, panic disorder, schizophrenia, sleepless, suicidal, others Physical Exam General Appearance: No Apparent Distress, Normal HEENT: Pharynx Normal, TM Abnormal (R) (Perforated eardrum bones intact dried blood noted.) Neck: Full Range of Motion, Non-Tender Respiratory: Lungs Clear, No Respiratory Distress, Normal Breath Sounds Cardiovascular: No Murmur, Normal Peripheral Pulses, Regular Rate/Rhythm Breast Exam: Deferred Gastrointestinal: Non Tender, Soft Genitalia: Deferred Pelvic: Deferred Rectal: Deferred Extremities: Normal inspection, Normal range of motion Musculoskeletal : Apperance: Normal Neurologic: Alert, osd clerk II-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 Was a procedure done?: No EENT DIFF Eye: N/A Ear: Otitis Media, Perforation X-Ray, Labs, Meds, VS Vital Signs Date Time Temp Pulse Resp B/P (MAP) Pulse Ox O2 Delivery O2 Flow Rate FiO2 02/07/24 00:11 111 16 95 Room Air 02/07/24 00:11 98.7 111 16 155/84 (107) 95 98.7 02/06/24 20:29 98.3 118 16 174/108 (130) 97 X-Ray, Labs, Meds, VS Comment Rated eardrum. Advised to use ear plugs not to take baths or swim exposed water in the ear. We will start trial of moxifloxacin drops. Advised to follow up PCP in 2-3 days for re-evaluation of the ear. ED return precautions given. Patient agrees with discharge plan of care. Time of 1ST Reevaluation: 00:16 Reevaluation 1ST: Improved Patient Education/Counseling: Diagnosis, Treatment, Prognosis, Need For Follow Up Family Education/Counseling: Need For Follow Up Departure 1 Departure Time of Disposition: 00:13 Impression: Primary Impression: Perforated eardrum Qualified Codes: H72.91 - Unspecified perforation of tympanic membrane, right ear Disposition: HOME / SELF CARE / HOMELESS Condition: Stable e-Prescriptions Ofloxacin (Otic) (FLOXIN OTIC) [address] 10 DROP OT BID for 14 Days, #5 ML Prov: CANDICE WHEELER 02/06/24 Critical Care Note Critical Care Time?: No Stability Stability form required: CANDICE Peng Feb 06, 2024 23:50
[2024-02-07 00:11] VITALS: BP 155/84; PULSE 111; RESP 16; TEMP 98.7; O2SAT 95
== END 2024-02-07 00:12 | disposition home or self-care (01) ==
LOC: ER 20:20
DX: H72.91 Unspecified perforation of tympanic membrane, right ear (principal); F41.9 Anxiety disorder, unspecified; I10 Essential (primary) hypertension; Z90.49 Acquired absence of other specified parts of digestive tract; Z88.8 Allergy status to other drugs, medicaments and biological substances; Z79.899 Other long term (current) drug therapy; Z90.710 Acquired absence of both cervix and uterus; Z98.890 Other specified postprocedural states

== ENCOUNTER 2024-05-07 16:52 | Inpatient (IN) | payer OTHER, MEDICAID ==
[~2024-05-07] VITALS: Ht 172.7 cm; Wt 45.0 kg
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
--- NOTE | 2024-05-07 18:30 | DVH ---
CLINICAL INDICATION: injury TECHNIQUE: 2 radiographic views of the left ankle were obtained. Comparison: R FOOT LIMITED XRAY on DOS: 07/29/21 FINDINGS/IMPRESSION: There is no evidence of acute fracture or dislocation. Erosive bony changes of the posterior calcaneu s. Osteomyelitis can not be excluded. Diffuse demineralization. There is partially visualized plate and screw fixation of the fibula and distal tibia and screw fixat ion of the medial malleolus. Soft tissue edema of the forefoot.
[2024-05-07 20:57] LABS: Anion Gap 17 (5-15); Calcium 10.1 mg/dL (8.7-10.4); Carbon Dioxide 25 mmol/L (20-31)
[2024-05-07 20:58] LABS: Chloride 85 mmol/L (98-107); Sodium 127 mmol/L (136-145)
[2024-05-07 20:59] LABS: Basophils # (auto) 0 10 ^3/uL (0-0.2); Basophils % (auto) 0.5 % (0.0-2.0); Eosinophils # (auto) 0 10 ^3/uL (0-0.8); Eosinophils % (auto) 0.1 % (0.0-7.0); Hematocrit 44.4 % (36.0-46.0); Hemoglobin 14.9 g/dL (12.2-16.2); Lymphocytes # (auto) 1.5 10 ^3/uL (0.4-5.4); Lymphocytes % (auto) 20.6 % (10.0-50.0); Mean Corpuscular Hemoglobin 30.4 pg (28.0-32.0); Mean Corpuscular Hgb Conc. 33.5 g/dL (32.0-36.0); Mean Corpuscular Volume 90.8 fL (80.0-100.0); Monocytes # (auto) 0.4 10 ^3/uL (0-1.3); Monocytes % (auto) 5.6 % (0.0-12.0); Neutrophils # (auto) 5.5 10 ^3/uL (1.6-8.6); Neutrophils % (auto) 73.2 % (37.0-80.0); Nucleated Red Blood Cells % 0.3 %; Platelet Count (auto) 223 10^3/uL (140-450); Red Blood Cells 4.89 10^6/uL (4.0-5.20); Red Cell Distribution Width 13.3 % (11.8-14.3); White Blood Cell 7.5 10^3/uL (4.4-10.8)
[2024-05-07 21:02] LABS: BUN/Creatinine Ratio 11.7 (10.0-20.0); Blood Urea Nitrogen 14 mg/dL (9-23)
[2024-05-07 21:06] LABS: Glucose 657 mg/dL (74-106)
[2024-05-07] MEDS ORDERED: VANCOMYCIN PER PHARMACY 0 MG IV SCH (22:00)
[2024-05-07] MEDS ORDERED: PIPERACILLIN-TAZOB 3.375GM 100 ML IV SCH (22:00)
[2024-05-07] MEDS ORDERED: ONDANSETRON HCL 4 MG/2 ML VIAL IV PRN (22:00)
[2024-05-07] MEDS ORDERED: NITROGLYCERIN 0.4 MG SL TAB SL PRN (22:00)
[2024-05-07] MEDS ORDERED: DEXTROSE (50%) 50ML SYRG IV PRN (22:00)
--- NOTE | 2024-05-07 22:38 | DVH ---
EXAMINATION: CT CT L FOOT WO CONTRAST INDICATION: ankle injury COMPARISON: CT L FOOT WO CONTRAST on DOS: 09/29/19 TECHNIQUE: CT of the left foot was performed without contrast. Volume transverse images were obtained reconstructed in multiple planes using bone and soft tissue algorithms. CONTRAST: None CTDI volume 7.8 mGy. Total DLP 264 mGy-cm Findings/ IMPRESSION: Avulsion fracture of the achilles tendon of unknown chronicity.. Plate and screw fixation of the late ral malleolus. Screw fixation of the medial malleolus. Osseous fragments adjacent to the lateral mal leolus most likely chronic. Small osseous fragments are seen in the ankle joint space. Mild diffuse soft tissue edema.
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
[2024-05-08] MEDS: GABAPENTIN 300 MG CAP PO SCH (00:25)
[2024-05-08] MEDS: ATORVASTATIN 20 MG TAB PO SCH (00:25)
[2024-05-08] MEDS: METOPROLOL TARTRATE 25 MG TAB PO SCH (00:25)
[2024-05-08 00:30] VITALS: PULSE 122; RESP 18; O2SAT 95
[2024-05-08] MEDS: ACCU-CHEK COMFORT CURVE STRIP VI SCH ×2 (00:32→11:48)
[2024-05-08] MEDS: cefTRIAXone 1GM/50ML D5W 50 ML IV ONE (01:00)
[2024-05-08] MEDS: SODIUM CHLORIDE 0.9% 1,000 ML IV ONE ×2 (01:00→01:40)
[2024-05-08] MEDS: VANCOMYCIN 1GM/250ML KIT 250 ML IV ONE (01:30)
[2024-05-08] MEDS: InsuLIN REG 1unit/0.01ml Soln (100units/ml) IV ONE (02:00)
[2024-05-08] MEDS: dilTIAZem 25 MG/5 ML VIAL IV ONE (03:37)
[2024-05-08] MEDS: KETOROLAC TROMETH 30 MG/ML 1ML VIAL IV PRN (04:07)
[2024-05-08 05:23] LABS: Basophils # (auto) 0 10 ^3/uL (0-0.2); Basophils % (auto) 0.6 % (0.0-2.0); Eosinophils # (auto) 0 10 ^3/uL (0-0.8); Eosinophils % (auto) 0.6 % (0.0-7.0); Hematocrit 40.4 % (36.0-46.0); Hemoglobin 13.9 g/dL (12.2-16.2); Lymphocytes # (auto) 2.1 10 ^3/uL (0.4-5.4); Lymphocytes % (auto) 28.2 % (10.0-50.0); Mean Corpuscular Hemoglobin 30.3 pg (28.0-32.0); Mean Corpuscular Hgb Conc. 34.4 g/dL (32.0-36.0); Mean Corpuscular Volume 88.1 fL (80.0-100.0); Monocytes # (auto) 0.6 10 ^3/uL (0-1.3); Monocytes % (auto) 7.8 % (0.0-12.0); Neutrophils # (auto) 4.7 10 ^3/uL (1.6-8.6); Neutrophils % (auto) 62.8 % (37.0-80.0); Platelet Count (auto) 225 10^3/uL (140-450); Red Blood Cells 4.58 10^6/uL (4.0-5.20); Red Cell Distribution Width 12.9 % (11.8-14.3); White Blood Cell 7.5 10^3/uL (4.4-10.8)
[2024-05-08 05:43] LABS: Anion Gap 10 (5-15); Carbon Dioxide 29 mmol/L (20-31); Sodium 136 mmol/L (136-145)
[2024-05-08 05:44] LABS: Calcium 9.8 mg/dL (8.7-10.4)
[2024-05-08 05:49] LABS: BUN/Creatinine Ratio 14.6 (10.0-20.0); Blood Urea Nitrogen 13 mg/dL (9-23)
[2024-05-08 06:18] LABS: Chloride 97 mmol/L (98-107); Glucose 65 mg/dL (74-106); Potassium 3.2 mmol/L (3.5-5.1)
[2024-05-08] MEDS: CLINDAMYCIN 600MG IV 50 ML IV SCH (06:28)
[2024-05-08] MEDS ORDERED: DEXTROSE (50%) 50ML SYRG IV PRN (09:15)
[2024-05-08] MEDS: cefTRIAXone 1GM/50ML D5W 50 ML IV SCH (09:39)
[2024-05-08] MEDS: LISINOPRIL 5 MG TAB PO SCH (10:00)
[2024-05-08] MEDS: POTASSIUM CHL 20 Meq TABLET PO ONE (11:18)
[2024-05-08] MEDS: FLUoxetine HCL 10 MG CAP PO SCH (11:19)
[2024-05-08] MEDS: InsuLIN REG 1unit/0.01ml Soln (100units/ml) SC SCH ×3 (11:51→21:44)
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
[2024-05-08 19:30] VITALS: PULSE 103; RESP 17; O2SAT 98
[2024-05-09 06:57] LABS: Anion Gap 8 (5-15); Carbon Dioxide 29 mmol/L (20-31); Chloride 100 mmol/L (98-107); Potassium 4.3 mmol/L (3.5-5.1); Sodium 137 mmol/L (136-145)
[2024-05-09 06:58] LABS: Calcium 10.1 mg/dL (8.7-10.4)
[2024-05-09 07:03] LABS: BUN/Creatinine Ratio 26.2 (10.0-20.0); Blood Urea Nitrogen 17 mg/dL (9-23)
[2024-05-09 07:04] LABS: Magnesium 1.8 mg/dL (1.6-2.6)
[2024-05-09 07:08] LABS: Glucose 214 mg/dL (74-106)
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
[2024-05-09 15:23] VITALS: PULSE 94
[2024-05-09 15:29] VITALS: PULSE 98; RESP 20; O2SAT 98
[2024-05-09 17:52] VITALS: BP 111/62; PULSE 98; RESP 20; TEMP 97.8; O2SAT 98
[2024-05-09 20:00] VITALS: PULSE 107; PULSE 95; RESP 20; O2SAT 98
[2024-05-09 21:00] VITALS: BP 141/94; PULSE 100; RESP 20; TEMP 98; O2SAT 99
[2024-05-10] VITALS (7 sets, daily range): BP systolic 125–188; BP diastolic 82–111; PULSE 79–108; RESP 16–20; TEMP 97.6–98.3; O2SAT 97–99
[2024-05-10] MEDS ORDERED: AUG875T PO (11:00)
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
[2024-05-10] MEDS ORDERED: MUPI2CRE17 EX (16:26)
== END 2024-05-10 17:29 | disposition home or self-care (01) | DRG 602 ==
LOC: ER 16:52 → OVERFLOW 22:00 → TELE-CENTR 05-09 14:15
PROVIDERS: ADMIT Internal Medicine Geriatric Medicine; ATTEND Internal Medicine Geriatric Medicine
DX: L03.116 Cellulitis of left lower limb (principal); N17.0 Acute kidney failure with tubular necrosis; N18.9 Chronic kidney disease, unspecified; E11.22 Type 2 diabetes mellitus with diabetic chronic kidney disease; E11.65 Type 2 diabetes mellitus with hyperglycemia; L97.529 Non-pressure chronic ulcer of other part of left foot with unspecified severity; I12.9 Hypertensive chronic kidney disease with stage 1 through stage 4 chronic kidney disease, or unspecified chronic kidney disease; E11.69 Type 2 diabetes mellitus with other specified complication; F41.9 Anxiety disorder, unspecified; Z88.5 Allergy status to narcotic agent; Z88.6 Allergy status to analgesic agent; Z88.8 Allergy status to other drugs, medicaments and biological substances; Z79.899 Other long term (current) drug therapy; Z90.49 Acquired absence of other specified parts of digestive tract; Z98.891 History of uterine scar from previous surgery; Z83.3 Family history of diabetes mellitus; Z82.3 Family history of stroke; Z80.3 Family history of malignant neoplasm of breast; Z82.49 Family history of ischemic heart disease and other diseases of the circulatory system; Z79.4 Long term (current) use of insulin; Z90.710 Acquired absence of both cervix and uterus
CPT/HCPCS: 36415; 73620; 73700; 80048; 82962; 83605; 83735; 85025; 87040; 87081; 99291; G0378; J1815; J1885; J3490

== ENCOUNTER 2024-06-21 14:06 | Inpatient (IN) | payer MEDICAID, OTHER ==
[~2024-06-21] VITALS: Ht 172.7 cm; Wt 55.4 kg
[~2024-06-21 14:06] MED LIST changes: +AUG875T PO; -CEPH-509 PO; -CEPH-510 PO; +GABA800T97 PO; -IBU600T PO; +MUPI2CRE17 EX
--- NOTE | 2024-06-21 14:31 | ED.PDOC ---
History of present illness HPI Comments HPI: 53 y/o F, BIBA with PMHX of anxiety, DM, HTN, and L-ankle FX presents to the ED for CC of hyperglycemia. EMS reports, patient is coming from home where she has been experiencing high blood sugar readings with associated substernal chest pain since last night (06/20/24). Patient comments on, chest pain to be sharp in nature. Patient complains of current 10/10 pain. Per EMS, patient's blood sugar read High on glucometer; reading up to 600. Patient was given IV fluids and 324mg of Aspirin in route to the ED. Patient denies nausea, vomiting, fever, dizziness, headache, or palpitations. No other symptoms or modifying factors present at this time. VITALS: Temp: 97.4 BP:152/81 HR:130 RR:28 SPO2:97% Past medical history: ANXIETY, DM, HTN, L-ANKLE FX Past surgical history: DENIES ANY WALL: HPI: Poor Historian. REVIEW OF SYSTEMS: CONSTITUTIONAL: Denies acute: fever, diaphoresis, chills, HEAD: Denies acute: headache, photophobia Eyes: Denies acute: Double vision, vision loss, eye pain, eye discharge. EARS: Denies acute: tinnitus, hearing loss, ear discharge, ear pain, THROAT: Denies acute: sore throat, swelling, difficulty swallowing , pain with swallowing, change in voice. NECK: Denies acute: neck pain, neck swelling, stiff neck. HEART: Denies acute : palpitations, LUNGS: Denies acute: , wheezing, cough, hemoptysis ABDOMEN: Denies acute: abdominal pain, Nausea, Vomiting, diarrhea, melena , hematemesis, hematochezia SKIN: Denies acute: rash, redness, lesions, itchiness. EXTREMITIES: Denies acute: calf pain, numbness, tingling, weakness, denies pain in extremity. Denies acute: Low back pain. Neuro: Denies acute: focal neurological deficit, motor or sensory focal neurological deficit, tremors, seizure like activity, confusion, dizziness, change in mental status, loss of bowel or bladder function, cauda equina like symptoms. : Denies acute: dysuria, hematuria, flank pain, increase in urinary frequency. PSYCH: Denies acute: hallucination, suicidal ideation, homicidal ideation. FEMALE: Denies acute: abnormal vaginal bleeding, foul odor, unusual discharge. PHYSICAL EXAM: General: ----rhvc-rb-fjmcgdct----acute distress, awake and alert. Head: normocephalic, atraumatic. Neck: supple, trachea is midline, no swelling. Throat: Normal phonation. Eyes:, no erythema, no purulent discharge, no proptosis, no icterus. Heart: regular tachycardia, no significant murmur appreciated. Lungs: no apparent respiratory distress, Able to speak in full sentences. No wheezing, no rhonchi, no crackles. No stridors Clear to auscultation bilaterally. Abdomen: Nonspecific generalized tender to palpation, non distended, soft, no guarding, no rebound, + bowel sounds. Neuro: Awake, Alert, oriented to name, self, situation, follows commands GCS=15. Speech is normal. Skin: no petechia, no purpura, no cyanosis, non-pale, not jaundice. Lower extremities: --no - Pitting edema no acute deformity, no focal swelling, no calf TTP. Makes eye contact. moves all four extremities. Face: no apparent facial droop. ED COURSE: Chief Complaint: Hyperglycemia Time Seen by MD: 14:00 Primary Care Provider: UNKNOWN History of present illness: Nurses Notes, Cartoonist Special Effects Notes, Allergies Allergies: Coded Allergies: Fentanyl (Verified Allergy, Severe, 05/07/24) Tramadol (Verified Allergy, Severe, itching,hives, 09/30/19) Hydromorphone (Verified Allergy, Intermediate, 01/31/15) Morphine (Verified Allergy, Intermediate, n/v, 01/31/15) Acetaminophen (Verified Allergy, Unknown, 03/13/18) Hydrocodone (Verified Allergy, Unknown, 03/13/18) Lidocaine (Verified Allergy, Unknown, 03/13/18) Home Meds Active Scripts Mupirocin Calcium (Topical) (MUPIROCIN) 2 % Cre, 2 % EX BID for 5 Days, #15 GRAMS Prov:DEANNE AGUIRRE MD 05/10/24 Amoxicillin & Pot Clavulanate (AUGMENTIN TABLET) 875 Mg Tb, 875 MG PO BID for 7 Days, #14 TAB Prov:DEANNE AGUIRRE MD 05/10/24 Lisinopril (Lisinopril) 10 Mg Tab, 10 MG PO DAILY, #30 TAB Prov:SEJAL POOLE 06/10/22 Methylprednisolone (Medrol Dosepak) 4 Mg Chase, 4 MG PO UD, #21 TAB UAD Prov:SEJAL POOLE 09/12/21 Hydroxyzine Pamoate (Vistaril) 25 Mg Cap, 25 MG PO TID, #24 CAP Prov:SEJAL POOLE 09/12/21 Pantoprazole Sodium Sesquihydr (Protonix) 40 Mg Tab, 40 MG PO BID, #60 TAB Prov:ANDREA BEARDEN MD 04/13/20 Apixaban Base (ELIQUIS) 5 Mg Tab, 5 MG PO BID, #60 TAB Prov:ANDREA BEARDEN MD 04/13/20 Metoprolol Tartrate (Lopressor) 25 Mg Tb, 25 MG PO BID, #90 TAB Prov:ANDREA BEARDEN MD 04/13/20 Ibuprofen Micronized (Ibuprofen) 800 Mg Tab, 800 MG PO Q6HP PRN, #30 TAB Prov:ANDREA BEARDEN MD 04/13/20 Reported Medications Metformin Hydrochloride (Metformin Hcl) 500 Mg Tab, 1000 MG PO DAILY for 30 Day s, MG 09/30/19 Gabapentin (Gabapentin) 300 Mg Cap, 300 MG PO TID for 30 Days, MG 09/30/19 Fluoxetine Hcl (Fluoxetine Hcl) 10 Mg Cap, 10 MG PO HS for 30 Days, MG 09/30/19 Insulin Regular (Human) (Humulin R) 100 Unit/Ml Inj, 10 UNIT SC BID, INJ 09/30/19 Insulin Glargine (Lantus) 100 Unit/Ml Inj, 40 UNIT SC BID, INJ 09/30/19 Information Source: Patient, Emergency Med Personnel Mode of Arrival: EMS Timing: Days Duration: Since onset Prehospital treatment: None Liberty: None History of: Diabetes Modifying factors: Nothing Associated signs and symptoms: Chest Pain Was a procedure done? Was a procedure done?: No Differential Diagnosis (DM) Differential Diagnosis: Other (Ddx include but not limitied to gastritis, musculoskeletal pain, radiculopathy, atypical chest pain, dissection, aneurysm, ACS, unstable angina, hiatal hernia, GERD, anxiety, costochondritis, PE, pneumothroax, neoplasm, cardiac ischemia, drug abuse, anemia.) X-Ray, Labs, Meds, VS Vital Signs Date Time Temp Pulse Resp B/P (MAP) Pulse Ox O2 Delivery O2 Flow Rate FiO2 06/21/24 17:00 98.1 132 24 140/74 (96) 88 98.1 06/21/24 17:00 132 06/21/24 15:00 97.7 127 20 109/64 (79) 94 97.7 06/21/24 15:00 127 20 94 Nasal Cannula* 4 36 06/21/24 14:30 129 06/21/24 14:16 97.4 130 28 152/81 (104) 97 97.4 Lab Test 06/21/24 15:50 06/21/24 15:45 06/21/24 15:31 06/21/24 14:35 Range/Units Blood Gas Specimen Type Arterial Blood Gas Sample Site Left radial Blood Gas Patient Temperature 37.0 Arterial Blood Date Drawn [id number] Arterial Blood pH 7.139 *L 7.350-7.450 Arterial Blood Partial Pressure CO2 16.4 *L 32.0-45.0 mmHg Arterial Blood Partial Pressure O2 79.6 L 83.0-108.0 mmHg Arterial Blood HCO3 5.4 L 21.0-28.0 mmol/L Arterial Blood Oxygen Saturation 93.1 L 94.0-98.0 % Arterial Blood Base Excess -21.4 L -2.0-3.0 mmol/L Arterial Blood Oxyhemoglobin 91.9 L 94.0-98.0 % Arterial Blood Carboxyhemoglobin 0.7 0.5-1.5 % Arterial Blood Methemoglobin 0.6 0.0-1.5 % Jeremy Test Yes Blood Gas Total Hemoglobin 13.80 12.0-16.0 g/dL Blood Gas Liter Flow 4.00 Blood Gas Modality Nasal cannula FiO2 % 36.0 Blood Gas Critical Value Read Back yes Blood Gas Notified Whom Blood Gas Notified Time [id number] Blood Gas Notified By magdi lozoya Urine Color Light-yellow Yellow Urine Clarity Clear Clear Urine pH 5.0 5.0-9.0 Urine Specific Viper 1.020 1.001-1.035 Urine Protein Trace H Negative Urine Ketones 3+ H Negative Urine Blood Negative Negative /uL Urine Nitrite Negative Negative Urine Bilirubin Negative Negative Urine Urobilinogen Normal Negative mg/dL Urine Leukocyte Esterase Negative Negative /uL Urine RBC 1 0 - 4 /hpf Urine Microscopic WBC 1 0-5 /HPF Urine Squamous Epithelial Cells Few <5 /hpf Urine Bacteria None seen None Seen /hpf Urine Yeast (Budding) Occasional None Seen /hpf Urine Glucose 4+ H Normal mg/dL Urine Opiates Screen Pos NEGATIVE Urine Fentanyl Screen Neg NEGATIVE Urine Barbiturates Screen Neg NEGATIVE Urine Phencyclidine Screen Neg NEGATIVE Urine Amphetamines Screen Neg NEGATIVE Urine Benzodiazepines Screen Neg NEGATIVE Urine Cocaine Screen Neg NEGATIVE Urine Cannabinoids Screen Neg NEGATIVE Phosphorus Level 6.2 H 2.4-5.1 mg/dL Troponin I High Sensitivity 21 21 </=34 ng/L Beta-Hydroxybutyric Acid > 4.500 H > 4.500 H < 0.4 mmol/L White Blood Count 6.3 4.4-10.8 10^3/uL Red Blood Count 4.96 4.0-5.20 10^6/uL Hemoglobin 15.0 12.2-16.2 g/dL Hematocrit 47.9 H 36.0-46.0 % Mean Corpuscular Volume 96.5 80.0-100.0 fL Mean Corpuscular Hemoglobin 30.3 28.0-32.0 pg Mean Corpuscular Hemoglobin Concent 31.4 L 32.0-36.0 g/dL Red Cell Distribution Width 14.5 H 11.8-14.3 % Platelet Count 141 140-450 10^3/uL Mean Platelet Volume 10.1 6.9-10.8 fL Neutrophils (%) (Auto) 81.8 H 37.0-80.0 % Lymphocytes (%) (Auto) 13.2 10.0-50.0 % Monocytes (%) (Auto) 3.6 0.0-12.0 % Eosinophils (%) (Auto) 0.2 0.0-7.0 % Basophils (%) (Auto) 1.2 0.0-2.0 % Neutrophils # (Auto) 5.1 1.6-8.6 10 ^3/uL Lymphocytes # (Auto) 0.8 0.4-5.4 10 ^3/uL Monocytes # (Auto) 0.2 0-1.3 10 ^3/uL Eosinophils # (Auto) 0 0-0.8 10 ^3/uL Basophils # (Auto) 0.1 0-0.2 10 ^3/uL Nucleated Red Blood Cells 0.1 % Sodium Level 132 L 136-145 mmol/L Potassium Level 3.6 3.5-5.1 mmol/L Chloride Level 94 L 98-107 mmol/L Carbon Dioxide Level < 10 *L 20-31 mmol/L Anion Gap 28.66943 H 5-15 Blood Urea Nitrogen 31 H 9-23 mg/dL Creatinine 1.64 H 0.550-1.02 mg/dL Glomerular Filtration Rate Calc 37 >90 mL/min BUN/Creatinine Ratio 18.9 10.0-20.0 Serum Glucose 816 *H 74-106 mg/dL Serum Osmolality 347 H 278-298 mOsm/kg Lactic Acid Level 4.7 *H 0.4-2.0 mmol/L Calcium Level 8.6 L 8.7-10.4 mg/dL Magnesium Level 2.1 1.6-2.6 mg/dL Total Bilirubin 0.5 0.2-1.0 mg/dL Aspartate Amino Transferase (AST) 55 H 13-40 U/L Alanine Aminotransferase (ALT) 57 H 7-40 U/L Alkaline Phosphatase 170 H 46-116 U/L B-Type Natriuretic Peptide 80.89 0-100 pg/mL Total Protein 6.1 5.7-8.2 g/dL Albumin 4.0 3.2-4.8 g/dL Lipase 15 12-53 U/L Current Medications Medications (Trade) Dose Ordered Sig/Eugene Route Start Time Stop Time Status Last Admin Insulin Human Regular (InsuLIN R) 5 units ONCE ONCE IV 06/21/24 14:30 06/21/24 14:31 DC 06/21/24 15:14 Sodium Chloride 1,000 ml @ 1,000 mls/hr Q1H ONCE IV 06/21/24 15:00 06/21/24 15:59 DC 06/21/24 15:17 Piperacillin Sod/ Tazobactam Sod 100 ml @ 100 mls/hr ONCE ONCE IV 06/21/24 15:30 06/21/24 16:29 DC 06/21/24 16:09 Sodium Chloride 1,000 ml @ 500 mls/hr Q2H IV 06/21/24 15:45 06/21/24 19:44 DC 06/21/24 18:58 Insulin Human (Reg)/Sodium Chloride 100 ml @ 0.5 mls/hr Q24H IV 06/21/24 15:45 06/21/24 16:13 Sodium Bicarbonate 150 ml ONCE ONCE IV 06/21/24 15:45 06/21/24 15:52 DC 06/21/24 16:10 Sodium Chloride 1,000 ml @ 1,000 mls/hr Q1H ONCE IV 06/21/24 15:45 06/21/24 16:44 DC 06/21/24 16:06 [place] [address] Ph: [phone] DIAGNOSTIC IMAGING Diagnostic Imaging Report : [id number] Signed PATIENT: MARTIN MINA ACCT: [id number] UNIT: [id number] : 1970 LOC: ER ROOM / BED: / AGE / SEX: 53 / F ADM STATUS: REG ER SERVICE ORDERING PHYSICIAN: RAMEZ PETERSON DO PROCEDURE(s): CXRP - CHEST PORTABLE REASON: cp ORDER NUMBER(s): [id number], ACCESSION NUMBER(s): [id number] EXAM: XY CHEST PORTABLE Indication: cp Technique: Single frontal view of the chest was obtained Comparison: CHEST PORTABLE on DOS: 09/29/19 FINDINGS: Lines and Tubes: None Lungs: Multifocal left lung consolidative opacities. Pleura: No effusion. No pneumothorax. Cardiomediastinal contours: Unremarkable Bones: No acute osseous abnormality. IMPRESSION: Multifocal left lung consolidative opacities. ATED BY: LICO HOFFMAN MD DICTATED DATE/TIME: 06/21/241504 SIGNED BY: LICO HOFFMAN MD SIGNED DATE/TIME: 06/21/24 150 CC: [address] [address] Ph: [phone] DIAGNOSTIC IMAGING Diagnostic Imaging Report : [id number] Signed PATIENT: MARTIN MINA ACCT: [id number] UNIT: [id number] : 1970 LOC: ER ROOM / BED: / AGE / SEX: 53 / F ADM STATUS: REG ER SERVICE 1416 ORDERING PHYSICIAN: RAMEZ PETERSON DO PROCEDURE(s): ABPL - CT AB PEL WO CON-NO ORAL OR IV REASON: abd pain ORDER NUMBER(s): [id number], ACCESSION NUMBER(s): [id number] EXAM: CT CT AB PEL WO CON-NO ORAL OR IV HISTORY: abd pain COMPARISON: CT ABD PELVIS WO CONTRAST on DOS: 04/11/20, chest x-ray from earlier same day. TECHNIQUE: Helical CT images of the abdomen and pelvis were performed without IV contrast. Sagittal and coronal reformatted images were obtained. This CT exam was performed using one or more of the following dose reduction techniques: Automated exposure control, adjustment of the mA and/or kv according to patient size, or the use of iterative reconstruction techniques. Radiation Dose: Abdomen/Pelvis: CTDIvol 5.07 mGy, DLP 279.99 mGy*cm. FINDINGS: CT abdomen: There are consolidative infiltrates in the bilateral lower lobes and lingula. There are coronary artery calcifications. The heart is not enlarged. There are calcified granulomas in the liver and spleen. The liver is likely diffusely fatty density, although evaluation of liver density is limited by patient motion artifact. The gallbladder is surgically absent. There is mild left hydronephrosis without visualization of obstructing calculi. The noncontrast pancreas and adrenal glands are unremarkable. No abdominal aortic aneurysm. CT pelvis: No abnormal bowel dilatation, free air, or free fluid. Although the appendix is not dilated, there is subtle right lower quadrant periappendiceal fat stranding and probable appendicolith (images 49-51, series 2). The urinary bladder is quite distended. There is a chronic superior endplate compression fracture of T12 versus appearance due to prominent Schmorl's node. IMPRESSION: 1. Bilateral lung base pneumonia, [id number]-vlrb-right. 2. Coronary artery disease. 3. 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 The liver is likely diffusely fatty density. 4. Postoperative changes of cholecystectomy. 5. Mild bilateral hydronephrosis without visualization of obstructing calculi. This appearance is likely due to vesicoureteral reflux as the urinary bladder is quite distended. Consider Holcomb catheter placement and/or urology consultation. 6. Although the appendix is not dilated, there is subtle periappendiceal fat str anding and probable appendicolith. If the patient demonstrates right lower quadrant abdominal pain, tenderness at McBurney's point, or other clinical signs and symptoms of acute appendicitis, recommend surgical consultation. If the patient's clinical presentation is equivocal, short interval follow-up pelvic CT scan may be useful. 7. No evidence of bowel obstruction or other acute process in the abdomen or pelvis. ATED BY: DANIE GARCES MD DICTATED DATE/TIME: 06/21/24 1520 SIGNED BY: DANIE GARCES MD SIGNED DATE/TIME: 06/21/24 1520 CC: Time of 1ST Reevaluation: 14:30 Reevaluation 1ST: Unchanged Time of 2ND Reevaluation: 21:11 Reevaluation 2ND: Improved Patient Education/Counseling: Diagnosis, Treatment Family Education/Counseling: Other Comments Patient presented with the above HPI.--hyperglycemia/cardiac----workup was initiated. patient was found with the above mentioned diagnosis. the following medications were ordered: please refer to order lists of meds and tests obtained by myself Dr. Peterson. Patient ED course and VS have been stabilized. Patient has been reassessed in the ED and remained in a stable condition. Pertinent incidental findings were discussed with the patient and/or family. Patient/family voices understanding and is agreeable with plan. Patient has been observed in the ED adequate length of time to insure improvement/stability. Escalation of care considered: Consideration of escalation to observation or admission Sepsis protocol was initiated. Antibiotics given. Fluid resuscitation given according to protocol. DKA protocol was initiated. Patient was ADMITTED to the medicine team for further evaluation and treatment of their presentation. All the reports of any imaging studies that were ordered by myself were reviewed by myself. Departure 1 Departure Time of Disposition: 15:44 Impression: Primary Impression: DKA (diabetic ketoacidosis) Additional Impressions: Sepsis Pneumonia Elevated troponin Hyperphosphatemia Hypokalemia Disposition: ADMITTED INPATIENT Admit to: ICU Condition: Critical Additional Instructions: [address] [address] Ph: [phone] DIAGNOSTIC IMAGING Diagnostic Imaging Report : [id number] Signed PATIENT: MARTIN MINA ACCT: [id number] UNIT: [id number] : 1970 LOC: ER ROOM / BED: / AGE / SEX: 53 / F ADM STATUS: REG ER SERVICE 1416 ORDERING PHYSICIAN: RAMEZ PETERSON DO PROCEDURE(s): CXRP - CHEST PORTABLE REASON: cp ORDER NUMBER(s): [id number], ACCESSION NUMBER(s): [id number] EXAM: XY CHEST PORTABLE Indication: cp Technique: Single frontal view of the chest was obtained Comparison: CHEST PORTABLE on DOS: 09/29/19 FINDINGS: Lines and Tubes: None Lungs: Multifocal left lung consolidative opacities. Pleura: No effusion. No pneumothorax. Cardiomediastinal contours: Unremarkable Bones: No acute osseous abnormality. IMPRESSION: Multifocal left lung consolidative opacities. ATED BY: LICO HOFFMAN MD DICTATED DATE/TIME: 06/21/24 150 SIGNED BY: LICO HOFFMAN MD SIGNED DATE/TIME: 06/21/24 150 CC: [place] [address] Ph: [phone] DIAGNOSTIC IMAGING Diagnostic Imaging Report : [id number] Signed PATIENT: MARTIN MINA ACCT: [id number] UNIT: [id number] : 1970 LOC: ER ROOM / BED: / AGE / SEX: 53 / F ADM STATUS: REG ER SERVICE 1416 ORDERING PHYSICIAN: RAMEZ PETERSON DO PROCEDURE(s): ABPL - CT AB PEL WO CON-NO ORAL OR IV REASON: abd pain ORDER NUMBER(s): [id number], ACCESSION NUMBER(s): [id number] EXAM: CT CT AB PEL WO CON-NO ORAL OR IV HISTORY: abd pain COMPARISON: CT ABD PELVIS WO CONTRAST on DOS: 04/11/20, chest x-ray from earlier same day. TECHNIQUE: Helical CT images of the abdomen and pelvis were performed without IV contrast. Sagittal and coronal reformatted images were obtained. This CT exam was performed using one or more of the following dose reduction techniques: Automated exposure control, adjustment of the mA and/or kv according to patient size, or the use of iterative reconstruction techniques. Radiation Dose: Abdomen/Pelvis: CTDIvol 5.07 mGy, DLP 279.99 mGy*cm. FINDINGS: CT abdomen: There are consolidative infiltrates in the bilateral lower lobes and lingula. There are coronary artery calcifications. The heart is not enlarged. There are calcified granulomas in the liver and spleen. The liver is likely diffusely fatty density, although evaluation of liver density is limited by patient motion artifact. The gallbladder is surgically absent. There is mild left hydronephrosis without visualization of obstructing calculi. The noncontrast pancreas and adrenal glands are unremarkable. No abdominal aortic aneurysm. CT pelvis: No abnormal bowel dilatation, free air, or free fluid. Although the appendix is not dilated, there is subtle right lower quadrant periappendiceal fat stranding and probable appendicolith (images 49-51, series 2). The urinary bladder is quite distended. There is a chronic superior endplate compression fracture of T12 versus appearance due to prominent Schmorl's node. IMPRESSION: 1. Bilateral lung base pneumonia, iyxf-eyvibxd-txfz-right. 2. Coronary artery disease. 3. 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 The liver is likely diffusely fatty density. 4. Postoperative changes of cholecystectomy. 5. Mild bilateral hydronephrosis without visualization of obstructing calculi. This appearance is likely due to vesicoureteral reflux as the urinary bladder is quite distended. Consider Holcomb catheter placement and/or urology consultation. 6. Although the appendix is not dilated, there is subtle periappendiceal fat stranding and probable appendicolith. If the patient demonstrates right lower quadrant abdominal pain, tenderness at McBurney's point, or other clinical signs and symptoms of acute appendicitis, recommend surgical consultation. If the patient's clinical presentation is equivocal, short interval follow-up pelvic CT scan may be useful. 7. No evidence of bowel obstruction or other acute process in the abdomen or pelvis. ATED BY: DANIE GARCES MD DICTATED DATE/TIME: 06/21/24 1520 SIGNED BY: DANIE GARCES MD SIGNED DATE/TIME: 06/21/24 1520 CC: Discharged With: Self Critical Care Note Critical Care Time?: Yes (1 hr-critical care time only) Heart Score Heart Score: Heart Score Response (Comments) Value History N/A 0 EKG N/A 0 Age N/A 0 Risk Factors N/A 0 Troponin N/A 0 Total 0 I personally scribed for RAMEZ PETERSON DO ([email or web address]) on 06/21/24 at 14:31. Electronically submitted by Addis Shah [email or web address]). I personally scribed for RAMEZ PETERSON DO ([email or web address]) on 06/21/24 at 14:56. Electronically submitted by Addis Shah [email or web address]). I personally scribed for RAMEZ PETERSON DO ([email or web address]) on 06/21/24 at 15:18. Electronically submitted by Addis Shah [email or web address]). I personally scribed for RAMEZ PETERSON DO ([email or web address]) on 06/21/24 at 16:28. Electronically submitted by Addis Shah [email or web address]). RAMEZ PETERSON DO Jun 21, 2024 14:31
[2024-06-21 14:51] LABS: Basophils # (auto) 0.1 10 ^3/uL (0-0.2); Basophils % (auto) 1.2 % (0.0-2.0); Eosinophils # (auto) 0 10 ^3/uL (0-0.8); Eosinophils % (auto) 0.2 % (0.0-7.0); Hematocrit 47.9 % (36.0-46.0); Lymphocytes # (auto) 0.8 10 ^3/uL (0.4-5.4); Lymphocytes % (auto) 13.2 % (10.0-50.0); Mean Corpuscular Hemoglobin 30.3 pg (28.0-32.0); Mean Corpuscular Hgb Conc. 31.4 g/dL (32.0-36.0); Mean Corpuscular Volume 96.5 fL (80.0-100.0); Monocytes # (auto) 0.2 10 ^3/uL (0-1.3); Monocytes % (auto) 3.6 % (0.0-12.0); Neutrophils # (auto) 5.1 10 ^3/uL (1.6-8.6); Neutrophils % (auto) 81.8 % (37.0-80.0); Nucleated Red Blood Cells % 0.1 %; Platelet Count (auto) 141 10^3/uL (140-450); Red Blood Cells 4.96 10^6/uL (4.0-5.20); Red Cell Distribution Width 14.5 % (11.8-14.3); White Blood Cell 6.3 10^3/uL (4.4-10.8)
[2024-06-21 15:00] VITALS: PULSE 127; RESP 20; O2SAT 94
--- NOTE | 2024-06-21 15:08 | DVH ---
EXAM: XY CHEST PORTABLE Indication: cp Technique: Single frontal view of the chest was obtained Comparison: CHEST PORTABLE on DOS: 09/29/19 FINDINGS: Lines and Tubes: None Lungs: Multifocal left lung consolidative opacities. Pleura: No effusion. No pneumothorax. Cardiomediastinal contours: Unremarkable Bones: No acute osseous abnormality. IMPRESSION: Multifocal left lung consolidative opacities.
[2024-06-21 15:13] LABS: Bilirubin, Total 0.5 mg/dL (0.2-1.0)
[2024-06-21] MEDS: InsuLIN REG 1unit/0.01ml Soln (100units/ml) IV ONE (15:14)
[2024-06-21] MEDS: SODIUM CHLORIDE 0.9% 1,000 ML IV ONE ×2 (15:17→16:06)
[2024-06-21 15:22] LABS: Anion Gap 28.00001 (5-15)
--- NOTE | 2024-06-21 15:22 | DVH ---
EXAM: CT CT AB PEL WO CON-NO ORAL OR IV HISTORY: abd pain COMPARISON: CT ABD PELVIS WO CONTRAST on DOS: 04/11/20, chest x-ray from earlier same day. TECHNIQUE: Helical CT images of the abdomen and pelvis were performed without IV contrast. Sagittal a nd coronal reformatted images were obtained. This CT exam was performed using one or more of the foll owing dose reduction techniques: Automated exposure control, adjustment of the mA and/or kv according to patient size, or the use of iterative reconstruction techniques. Radiation Dose: Abdomen/Pelvis: CTDIvol 5.07 mGy, DLP 279.99 mGy*cm. FINDINGS: CT abdomen: There are consolidative infiltrates in the bilateral lower lobes and lingula. There are coronary artery calcifications. The heart is not enlarged. There are calcified granulomas in the live r and spleen. The liver is likely diffusely fatty density, although evaluation of liver density is li mited by patient motion artifact. The gallbladder is surgically absent. There is mild left hydroneph rosis without visualization of obstructing calculi. The noncontrast pancreas and adrenal glands are unremarkable. No abdominal aortic aneurysm. CT pelvis: No abnormal bowel dilatation, free air, or free fluid. Although the appendix is not dilate d, there is subtle right lower quadrant periappendiceal fat stranding and probable appendicolith (liliya ges 49-51, series 2). The urinary bladder is quite distended. There is a chronic superior endplate co mpression fracture of T12 versus appearance due to prominent Schmorl's node. IMPRESSION: 1. Bilateral lung base pneumonia, qbci-iussqvi-ruze-right. 2. Coronary artery disease. 3. 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 The liver is likely diffusely fatty density. 4. Postoperative changes of cholecystectomy. 5. Mild bilateral hydronephrosis without visualization of obstructing calculi. This appearance is li amalia due to vesicoureteral reflux as the urinary bladder is quite distended. Consider Holcomb catheter placement and/or urology consultation. 6. Although the appendix is not dilated, there is subtle periappendiceal fat stranding and probable a ppendicolith. If the patient demonstrates right lower quadrant abdominal pain, tenderness at McBurney 's point, or other clinical signs and symptoms of acute appendicitis, recommend surgical consultation . If the patient's clinical presentation is equivocal, short interval follow-up pelvic CT scan may b e useful. 7. No evidence of bowel obstruction or other acute process in the abdomen or pelvis.
[2024-06-21 15:27] LABS: BUN/Creatinine Ratio 18.9 (10.0-20.0)
[2024-06-21 15:29] LABS: Alanine Aminotransferase 57 U/L (7-40); Alkaline Phosphatase 170 U/L (46-116); Aspartate Aminotransferase 55 U/L (13-40); Blood Urea Nitrogen 31 mg/dL (9-23); Calcium 8.6 mg/dL (8.7-10.4); Chloride 94 mmol/L (98-107); Potassium 3.6 mmol/L (3.5-5.1); Sodium 132 mmol/L (136-145); Total Protein 6.1 g/dL (5.7-8.2)
[2024-06-21 15:30] LABS: Lipase 15 U/L (12-53); Magnesium 2.1 mg/dL (1.6-2.6)
[2024-06-21 15:31] LABS: Carbon Dioxide < 10 mmol/L (20-31); Glucose 816 mg/dL (74-106); Lactic Acid w/Reflex 4.7 mmol/L (0.4-2.0)
[2024-06-21] MEDS ORDERED: DEXTROSE (50%) 50ML SYRG IV PRN (15:45)
[2024-06-21 15:54] LABS: Base Excess -21.4 mmol/L (-2.0-3.0)
[2024-06-21 16:05] LABS: Urine Bacteria None Seen /hpf (None Seen)
[2024-06-21] MEDS: PIPERACILLIN-TAZOB 3.375GM 100 ML IV ONE (16:09)
[2024-06-21] MEDS: SODIUM BICARB 8.4% 50Meq/50ml SYR Vial IV ONE (16:10)
[2024-06-21] MEDS: INSULIN DRIP 100 UNIT/100ML 100 ML IV SCH (16:13)
[2024-06-21 16:26] LABS: Amphetamine Screen, Urine Neg (NEGATIVE); Barbiturate Scree,Urine Neg (NEGATIVE); Benzodiazephine Screen, Urine Neg (NEGATIVE); Cannabinoid Screen, Urine Neg (NEGATIVE); Cocaine Screen, Urine Neg (NEGATIVE); Opiate Scree,Urine Pos (NEGATIVE); Phencyclidine Screen, Urine Neg (NEGATIVE)
[2024-06-21] MEDS ORDERED: ACCU-CHEK COMFORT CURVE STRIP VI SCH (16:30)
[2024-06-21 16:39] LABS: Urine Blood Negative /uL (Negative); Urine Budding Yeast OCCASIONAL /hpf (None Seen); Urine Clarity Clear (Clear); Urine Color Light-Yellow (Yellow); Urine Protein, UAD TRACE (Negative); Urine Squamous Epithelial Cell FEW /hpf (<5); Urine Urobilinogen Normal (Negative); Urine WBC 1 /HPF (0-5)
--- NOTE | 2024-06-21 17:13 | DVHHP2 ---
History of Present Illness Reason for Visit: Higher blood glucose History of Present Illness 53 year old female with history of insulin-dependent diabetes who ran out of her Lantus 2 days ago and her blood sugar became to be elevated She was only taking the regular insulin per sliding scale She seen here earlier today and she is diagnosed with a DKA Cardiovascular: HTN Endocrine: Diabetes Review of Systems Allergies: Coded Allergies: Fentanyl (Verified Allergy, Severe, 05/07/24) Tramadol (Verified Allergy, Severe, itching,hives, 09/30/19) Hydromorphone (Verified Allergy, Intermediate, 01/31/15) Morphine (Verified Allergy, Intermediate, n/v, 01/31/15) Acetaminophen (Verified Allergy, Unknown, 03/13/18) Hydrocodone (Verified Allergy, Unknown, 03/13/18) Lidocaine (Verified Allergy, Unknown, 03/13/18) Medications Current Medications Medications Dose Ordered Sig/Eugene Route Start Time Stop Time Status Last Admin Dose Admin Sodium Chloride 1,000 ml @ 500 mls/hr Q2H IV 06/21/24 15:45 06/21/24 19:44 Sodium Chloride 1,000 ml @ 250 mls/hr Q4H IV 06/21/24 19:45 06/21/24 21:44 Sodium Chloride 1,000 ml @ 150 mls/hr Q6H40M IV 06/21/24 21:45 Insulin Human (Reg)/Sodium Chloride 100 ml @ 0.5 mls/hr Q24H IV 06/21/24 15:45 06/21/24 16:13 6 MLS/HR Dextrose 50 ml UD PRN IV 06/21/24 15:45 Diagnostic Test (Pha) 1 strip Q90MIN 06/21/24 16:30 Exam Vital Signs Vital Signs Date Time Temp Pulse Resp B/P (MAP) Pulse Ox O2 Delivery O2 Flow Rate FiO2 06/21/24 14:30 129 06/21/24 14:16 97.4 28 152/81 (104) 97 97.4 General Appearance: Alert, Oriented X3, Cooperative, No acute distress Respiratory: Clear to auscultation, Normal air movement Cardiovascular: Other (Sinus tachycardia) Abdominal: Normal bowel sounds, Soft, No tenderness Extremities: No edema Labs/Xrays Labs Test 06/21/24 15:50 06/21/24 15:45 06/21/24 15:31 06/21/24 14:35 Range/Units Blood Gas Specimen Type Arterial Blood Gas Sample Site Left radial Blood Gas Patient Temperature 37.0 Arterial Blood Date Drawn [id number] Arterial Blood pH 7.139 *L 7.350-7.450 Arterial Blood Partial Pressure CO2 16.4 *L 32.0-45.0 mmHg Arterial Blood Partial Pressure O2 79.6 L 83.0-108.0 mmHg Arterial Blood HCO3 5.4 L 21.0-28.0 mmol/L Arterial Blood Oxygen Saturation 93.1 L 94.0-98.0 % Arterial Blood Base Excess -21.4 L -2.0-3.0 mmol/L Arterial Blood Oxyhemoglobin 91.9 L 94.0-98.0 % Arterial Blood Carboxyhemoglobin 0.7 0.5-1.5 % Arterial Blood Methemoglobin 0.6 0.0-1.5 % Jeremy Test Yes Blood Gas Total Hemoglobin 13.80 12.0-16.0 g/dL Blood Gas Liter Flow 4.00 Blood Gas Modality Nasal cannula FiO2 % 36.0 Blood Gas Critical Value Read Back yes Blood Gas Notified Whom Blood Gas Notified Time [id number] Blood Gas Notified By dry cleaning machine operator helper devora Urine Color Light-yellow Yellow Urine Clarity Clear Clear Urine pH 5.0 5.0-9.0 Urine Specific [place] 1.020 1.001-1.035 Urine Protein Trace H Negative Urine Ketones 3+ H Negative Urine Blood Negative Negative /uL Urine Nitrite Negative Negative Urine Bilirubin Negative Negative Urine Urobilinogen Normal Negative mg/dL Urine Leukocyte Esterase Negative Negative /uL Urine RBC 1 0 - 4 /hpf Urine Microscopic WBC 1 0-5 /HPF Urine Squamous Epithelial Cells Few <5 /hpf Urine Bacteria None seen None Seen /hpf Urine Yeast (Budding) Occasional None Seen /hpf Urine Glucose 4+ H Normal mg/dL Urine Opiates Screen Pos NEGATIVE Urine Fentanyl Screen Neg NEGATIVE Urine Barbiturates Screen Neg NEGATIVE Urine Phencyclidine Screen Neg NEGATIVE Urine Amphetamines Screen Neg NEGATIVE Urine Benzodiazepines Screen Neg NEGATIVE Urine Cocaine Screen Neg NEGATIVE Urine Cannabinoids Screen Neg NEGATIVE Phosphorus Level 6.2 H 2.4-5.1 mg/dL Troponin I High Sensitivity 21 </=34 ng/L Beta-Hydroxybutyric Acid > 4.500 H < 0.4 mmol/L White Blood Count 6.3 4.4-10.8 10^3/uL Red Blood Count 4.96 4.0-5.20 10^6/uL Hemoglobin 15.0 12.2-16.2 g/dL Hematocrit 47.9 H 36.0-46.0 % Mean Corpuscular Volume 96.5 80.0-100.0 fL Mean Corpuscular Hemoglobin 30.3 28.0-32.0 pg Mean Corpuscular Hemoglobin Concent 31.4 L 32.0-36.0 g/dL Red Cell Distribution Width 14.5 H 11.8-14.3 % Platelet Count 141 140-450 10^3/uL Mean Platelet Volume 10.1 6.9-10.8 fL Neutrophils (%) (Auto) 81.8 H 37.0-80.0 % Lymphocytes (%) (Auto) 13.2 10.0-50.0 % Monocytes (%) (Auto) 3.6 0.0-12.0 % Eosinophils (%) (Auto) 0.2 0.0-7.0 % Basophils (%) (Auto) 1.2 0.0-2.0 % Neutrophils # (Auto) 5.1 1.6-8.6 10 ^3/uL Lymphocytes # (Auto) 0.8 0.4-5.4 10 ^3/uL Monocytes # (Auto) 0.2 0-1.3 10 ^3/uL Eosinophils # (Auto) 0 0-0.8 10 ^3/uL Basophils # (Auto) 0.1 0-0.2 10 ^3/uL Nucleated Red Blood Cells 0.1 % Sodium Level 132 L 136-145 mmol/L Potassium Level 3.6 3.5-5.1 mmol/L Chloride Level 94 L 98-107 mmol/L Carbon Dioxide Level < 10 *L 20-31 mmol/L Anion Gap 28.39176 H 5-15 Blood Urea Nitrogen 31 H 9-23 mg/dL Creatinine 1.64 H 0.550-1.02 mg/dL Glomerular Filtration Rate Calc 37 >90 mL/min BUN/Creatinine Ratio 18.9 10.0-20.0 Serum Glucose 816 *H 74-106 mg/dL Serum Osmolality 347 H 278-298 mOsm/kg Lactic Acid Level 4.7 *H 0.4-2.0 mmol/L Calcium Level 8.6 L 8.7-10.4 mg/dL Magnesium Level 2.1 1.6-2.6 mg/dL Total Bilirubin 0.5 0.2-1.0 mg/dL Aspartate Amino Transferase (AST) 55 H 13-40 U/L Alanine Aminotransferase (ALT) 57 H 7-40 U/L Alkaline Phosphatase 170 H 46-116 U/L B-Type Natriuretic Peptide 80.89 0-100 pg/mL Total Protein 6.1 5.7-8.2 g/dL Albumin 4.0 3.2-4.8 g/dL Lipase 15 12-53 U/L Assessment/Plan Assessment/Plan Acute DKA Medical noncompliance Hypertension Recent left ankle fracture Left ankle wound with possible cellulitis Anxiety Hyponatremia Plan Admit to ICU IV fluids IV insulin drip Replace potassium Accu-Cheks every 90 minutes Start Lantus Repeat the chemistries this evening Monitor closely Cefazolin IV Full code Plan discussed with: Patient Date of Service: Jun 21, 2024 Billing Provider: DEANNE AGUIRRE MD Common Visit Codes: NOT BILLABLE DEANNE AGUIRRE MD Jun 21, 2024 17:13
[2024-06-21] MEDS ORDERED: MORPHINE SULFATE INJ 2 MG/ml SYRG IV PRN (17:15)
[2024-06-21] MEDS ORDERED: ACETAMINOPHEN 325 MG TAB PO PRN (17:30)
[2024-06-21] MEDS: ACCU-CHEK COMFORT CURVE STRIP VI SCH (17:38)
--- NOTE | 2024-06-21 18:39 | DVH ---
CHEST RADIOGRAPH Indication: FOLLOW UP AFTER 2LITERS FLUIDS Technique: Single frontal view of the chest was obtained Comparison: XY CHEST PORTABLE on DOS: 06/21/24, CHEST PORTABLE on DOS: 09/29/19 FINDINGS: Lines and Tubes: None Lungs: Bilateral perihilar infiltrates extending into the lower lung rivera. No findings to suggest p leural effusion. Probable skin fold superimposed over the right chest. If pneumothorax is of clinical concern recommend expiratory chest x-ray or CT of the chest. Pleura: No effusion. No pneumothorax. Cardiomediastinal contours: Unremarkable Bones: No acute osseous abnormality. IMPRESSION: 1. Unimproved bilateral airspace disease.
[2024-06-21] MEDS: SODIUM CHLORIDE 0.9% 1,000 ML IV SCH (18:58)
[2024-06-21 20:27] LABS: Chloride 104 mmol/L (98-107); Sodium 142 mmol/L (136-145)
[2024-06-21 20:28] LABS: Anion Gap 19 (5-15); Calcium 8.9 mg/dL (8.7-10.4)
[2024-06-21 20:33] LABS: Blood Urea Nitrogen 22 mg/dL (9-23)
[2024-06-21 20:36] LABS: Carbon Dioxide 19 mmol/L (20-31); Glucose 392 mg/dL (74-106); Potassium 2.9 mmol/L (3.5-5.1)
[2024-06-21] MEDS ORDERED: POTASSIUM CHL 20 Meq TABLET PO ONE ×2 (21:15→21:45)
[2024-06-21 21:52] VITALS: PULSE 150; RESP 22; O2SAT 90
[2024-06-21] MEDS: SODIUM CHLORIDE 0.9% 500 ML IV ONE (22:30)
[2024-06-21] MEDS: ceFAZolin 1GM/50ML 50 ML IV SCH (22:30)
[2024-06-21] MEDS: IBUPROFEN 600 MG TAB PO ONE (23:00)
--- NOTE | 2024-06-21 23:31 | DVH ---
CHEST RADIOGRAPH Indication: ng tube placement Technique: Single frontal view of the chest was obtained Comparison: XY CHEST XRAY 1 VIEW on DOS: 06/21/24, XY CHEST PORTABLE on DOS: 06/21/24, CHEST PORTABLE on DOS: 09/29/19 Findings/ IMPRESSION: Enteric tube side port projects below the GE junction. Bilateral mid to lower lung zone patchy consol idations concerning for multifocal pneumonia versus underlying mass. No pneumothorax
[2024-06-21] MEDS: INSULIN LANTUS (GLARGINE) 1 /0.01ml (100units/ml) SC SCH (23:32)
[2024-06-21] MEDS: POTASSIUM CHL 20MEQ/50ML 50 ML IV ONE (23:54)
[2024-06-21] MEDS: POTASSIUM CHL 20MEQ/100ML 100 ML IV ONE (23:54)
[2024-06-22] VITALS (7 sets, daily range): BP systolic 143–152; BP diastolic 77–86; PULSE 90–106; RESP 14–18; TEMP 97.6–98.3; O2SAT 94–99
[2024-06-22] MEDS: POTASSIUM CHL 20MEQ/100ML 100 ML IV ONE
[2024-06-22] MEDS: SODIUM CHLORIDE 0.9% 1,000 ML IV SCH ×2 (00:18→04:46)
[2024-06-22] MEDS: dilTIAZem 25 MG/5 ML VIAL IV ONE (02:01)
[2024-06-22 04:50] LABS: Hematocrit 40.3 % (36.0-46.0); Hemoglobin 13.9 g/dL (12.2-16.2); Mean Corpuscular Hgb Conc. 34.6 g/dL (32.0-36.0); Mean Corpuscular Volume 86.7 fL (80.0-100.0); Platelet Count (auto) 128 10^3/uL (140-450); Red Blood Cells 4.64 10^6/uL (4.0-5.20); Red Cell Distribution Width 13.6 % (11.8-14.3); White Blood Cell 3.5 10^3/uL (4.4-10.8)
[2024-06-22 04:56] LABS: Basophils % (manual) 0 (0.0-2.0); Blast Cells 0; Eosinophils % (manual) 0 (0-7); Promyelocytes % 0; Reactive Lymphocytes 0
[2024-06-22 04:57] LABS: Alkaline Phosphatase 108 U/L (46-116)
[2024-06-22 04:58] LABS: Alanine Aminotransferase 33 U/L (7-40); Albumin 3.7 g/dL (3.2-4.8); Anion Gap 10 (5-15); BUN/Creatinine Ratio 22.3 (10.0-20.0); Bilirubin, Total 0.4 mg/dL (0.2-1.0); Carbon Dioxide 28 mmol/L (20-31); Magnesium 1.8 mg/dL (1.6-2.6)
[2024-06-22 05:10] LABS: Aspartate Aminotransferase 43 U/L (13-40); Blood Urea Nitrogen 25 mg/dL (9-23); Calcium 8.7 mg/dL (8.7-10.4); Chloride 108 mmol/L (98-107); Glucose 131 mg/dL (74-106); Potassium 2.6 mmol/L (3.5-5.1); Sodium 146 mmol/L (136-145)
[2024-06-22] MEDS ORDERED: VANCOMYCIN PER PHARMACY 0 MG IV SCH (05:15)
[2024-06-22] MEDS: PANTOPRAZOLE 40 MG TAB PO SCH (06:00)
[2024-06-22] MEDS: VANCOMYCIN 1GM/250mL NS or D5W KIT IV ONE (06:07)
[2024-06-22] MEDS: DEXTROSE (50%) 50ML SYRG IV PRN (06:43)
[2024-06-22 06:47] LABS: Lymphocytes % (manual) 23 (10.0-50.0); Metamyelocytes % 4; Myelocytes % 4
[2024-06-22 06:48] LABS: Monocytes % (manual) 3 (0-12)
[2024-06-22 06:49] LABS: Band Neutrophils % (manual) 30; Platelet Estimate Decreased
--- NOTE | 2024-06-22 07:12 | ECG ---
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
[2024-06-22] MEDS: SODIUM CHLORIDE 0.9% 1,000 ML IV ONE (07:48)
[2024-06-22 08:50] LABS: Alanine Aminotransferase 25 U/L (7-40); Alkaline Phosphatase 89 U/L (46-116); Anion Gap 9 (5-15); Aspartate Aminotransferase 31 U/L (13-40); BUN/Creatinine Ratio 26.8 (10.0-20.0); Carbon Dioxide 26 mmol/L (20-31); Sodium 145 mmol/L (136-145)
[2024-06-22 08:51] LABS: Bilirubin, Total 0.4 mg/dL (0.2-1.0)
[2024-06-22 08:56] LABS: Blood Urea Nitrogen 26 mg/dL (9-23); Chloride 110 mmol/L (98-107); Glucose 166 mg/dL (74-106); Potassium 2.3 mmol/L (3.5-5.1)
[2024-06-22 08:57] LABS: Albumin 2.9 g/dL (3.2-4.8); Calcium 7.8 mg/dL (8.7-10.4); Total Protein 4.7 g/dL (5.7-8.2)
[2024-06-22] MEDS: ACCU-CHEK COMFORT CURVE STRIP VI SCH ×2 (08:59→11:45)
[2024-06-22] MEDS: MAGNESIUM SULFATE 1GM/100ML 100 ML IV ONE (09:40)
[2024-06-22] MEDS: SODIUM CHL 0.9% 50 ML IV SCH (09:40)
[2024-06-22] MEDS: POTASSIUM CHL 20MEQ/50ML 50 ML IV SCH (09:40)
[2024-06-22] MEDS: InsuLIN REG 1unit/0.01ml Soln (100units/ml) SC SCH ×2 (09:57→11:45)
[2024-06-22] MEDS: POTASSIUM CHL 20 Meq TABLET PO ONE (09:59)
--- NOTE | 2024-06-22 11:41 | DVHPN2 ---
Subjective No new complaint Changes from previous H/P or p: Changes Objective Vitals Vital Signs Date Time Temp Pulse Resp B/P (MAP) Pulse Ox O2 Delivery O2 Flow Rate FiO2 06/22/24 08:02 89 06/22/24 08:00 98.0 14 103/57 (72) 97 98.0 06/22/24 08:00 Nasal Cannula* 2 28 Intake/Output Intake and Output 06/22/24 07:00 Intake Total 1009.75 ml Balance 1009.75 ml Intake IV Total 1009.75 ml General Appearance: Alert, Oriented X3, Cooperative Lungs: Clear to auscultation, Normal air movement Cardiovascular: Regular rate, Normal S1, Normal S2 Abdomen: Normal bowel sounds, Soft, No tenderness Extremities: No edema Medications Current Medications Medications Dose Ordered Sig/Eug[place] Route Start Time Stop Time Status Last Admin Dose Admin Nitroglycerin 0.4 mg Q5MINP PRN SL 06/21/24 17:15 Cefazolin Sodium 50 ml @ 100 mls/hr Q8HR IV 06/21/24 22:00 06/22/24 06:28 100 MLS/HR Ondansetron HCl 4 mg Q4HPRN PRN IV 06/21/24 17:15 Insulin Glargine 15 units BID@0700,2200 SC 06/21/24 22:00 06/21/24 23:32 15 UNITS Pantoprazole Sodium 40 mg DAILY@0600 PO 06/22/24 06:00 Vancomycin HCl 0 ml @ 0 mls/hr UD IV 06/22/24 05:15 Diagnostic Test (Pha) 1 strip IQ4HR 06/22/24 08:00 06/22/24 08:59 1 STRIP Insulin Human Regular IQ4HR SC 06/22/24 08:00 Dextrose 50 ml UD PRN IV 06/22/24 05:15 06/22/24 06:43 50 ML Potassium Chloride 50 ml @ 25 mls/hr Q2H IV 06/22/24 09:30 06/22/24 13:29 06/22/24 11:10 25 MLS/HR Sodium Chloride 50 ml @ 12.5 mls/hr Q2H IV 06/22/24 09:30 06/22/24 13:29 06/22/24 11:10 12.5 MLS/HR Vancomycin HCl 100 ml @ 100 mls/hr Q12H IV 06/22/24 18:00 Acetaminophen 650 mg Q6HP PRN PO 06/22/24 11:30 Laboratory Results Laboratory Tests 06/22/24 03:52 06/22/24 08:17 Chemistry Test 06/21/24 14:35 06/21/24 15:31 06/21/24 20:02 06/22/24 03:52 Albumin 4.0 g/dL (3.2-4.8) 3.7 g/dL (3.2-4.8) Calcium Level 8.6 mg/dL (8.7-10.4) L 8.9 mg/dL (8.7-10.4) 8.7 mg/dL (8.7-10.4) Magnesium Level 2.1 mg/dL (1.6-2.6) 1.8 mg/dL (1.6-2.6) Total Protein 6.1 g/dL (5.7-8.2) 6.0 g/dL (5.7-8.2) Phosphorus Level 6.2 mg/dL (2.4-5.1) H Test 06/22/24 08:17 Albumin 2.9 g/dL (3.2-4.8) L Calcium Level 7.8 mg/dL (8.7-10.4) L Total Protein 4.7 g/dL (5.7-8.2) L Lipid panel Test 06/21/24 14:35 Lipase 15 U/L (12-53) Cardiac Markers Test 06/21/24 14:35 06/22/24 08:17 B-Type Natriuretic Peptide 80.89 pg/mL (0-100) 125.69 pg/mL (0-100) LFT Test 06/21/24 14:35 06/22/24 03:52 06/22/24 08:17 Alanine Aminotransferase (ALT) 57 U/L (7-40) H 33 U/L (7-40) 25 U/L (7-40) Alkaline Phosphatase 170 U/L (46-116) H 108 U/L (46-116) 89 U/L (46-116) Aspartate Amino Transferase (AST) 55 U/L (13-40) H 43 U/L (13-40) H 31 U/L (13-40) Total Bilirubin 0.5 mg/dL (0.2-1.0) 0.4 mg/dL (0.2-1.0) 0.4 mg/dL (0.2-1.0) Urinalysis Test 06/21/24 15:45 Urine Color Light-yellow (Yellow) Urine Clarity Clear (Clear) Urine pH 5.0 (5.0-9.0) Urine Specific [place] 1.020 (1.001-1.035) Urine Protein Trace (Negative) H Urine Ketones 3+ (Negative) H Urine Blood Negative /uL (Negative) Urine Nitrite Negative (Negative) Urine Bilirubin Negative (Negative) Urine Urobilinogen Normal mg/dL (Negative) Urine Leukocyte Esterase Negative /uL (Negative) Urine RBC 1 /hpf (0 - 4) Urine Microscopic WBC 1 /HPF (0-5) Urine Squamous Epithelial Cells Few /hpf (<5) Urine Bacteria None seen /hpf (None Seen) Urine Yeast (Budding) Occasional /hpf (None Urine Glucose 4+ mg/dL (Normal) H Blood Gas Results Test 06/21/24 15:50 Arterial Blood pH 7.139 (7.350-7.450) FiO2 % 36.0 Microbiology Microbiology Date/Time Source Procedure Growth Status 06/21/24 14:35 Blood Blood Culture - Preliminary Resulted Assessment/Plan Assessment/Plan Acute DKA Medical noncompliance Hypertension Recent left ankle fracture Left ankle wound with possible cellulitis Anxiety Hyponatremia Plan Admit to ICU IV fluids IV insulin drip Replace potassium Accu-Cheks every 90 minutes Start Lantus Repeat the chemistries this evening Monitor closely Cefazolin IV Full code 06/22/2024: Discontinue the NG tube Dysphagia: Start soft mechanical diet Hypokalemia: Replace potassium IV Start IV fluids D5 half NS with potassium Hypomagnesemia: Replace magnesium IV Sepsis with possible underlying pneumonia: IV antibiotics Left foot wound: Cefazolin Downgrade to telemetry Plan discussed with: Patient My Orders Orders - DEANNE AGUIRRE MD Procedure Category Date Status Time Admit ADMIT 06/21/24 Transmitted 17:03 Nitroglycerin PHA 06/21/24 In Process Sublingual (Ntrostat 17:15 Stat Ekg For Chest SIDRA 06/21/24 In Process Pain 17:03 Notify Of Changes SIDRA 06/21/24 In Process From Base 17:03 Rum Processing Operator For SIDRA 06/21/24 In Process 24 Hours 17:03 Emergency Dysrhythmia SIDRA 06/21/24 In Process Protocol 17:03 Rhythm Strips Once SIDRA 06/21/24 In Process Every Shift 17:03 Oxygen By Nasal RT 06/21/24 Transmitted Cannula 17:03 Cefazolin 1gm/50ml PHA 06/21/24 In Process (Ancef) 22:00 Ondansetron Hcl PHA 06/21/24 In Process (Zofran) 17:15 Insulin Lantus PHA 06/21/24 In Process (Glargine) (Lantus) 22:00 Consistent DIET 06/21/24 Transmitted Carb(Ccho)Diabetes Dinner Pantoprazole Tablet PHA 06/22/24 In Process (Protonix Tablet) 06:00 Acetaminophen Tablet PHA 06/22/24 In Process (Tylenol Tablet) 11:30 Discontinue Ng ORDERS 06/22/24 Transmitted 11:33 Mechanical Soft Diet DIET 06/22/24 Transmitted Lunch Date of Service: Jun 22, 2024 Billing Provider: DEANNE AGUIRRE MD Common Visit Codes: NOT BILLABLE DEANNE AGUIRRE MD Jun 22, 2024 11:41
[2024-06-22 14:36] LABS: Hepatitis B Surface Antigen Negative (Negative)
[2024-06-22 15:00] LABS: Hepatitis C Antibody Negative (Negative)
[2024-06-22] MEDS: D5W/SOD CHL 0.45%/KCL 20MEQ 1,000 ML IV SCH (15:27)
[2024-06-22 16:16] LABS: Sodium 140 mmol/L (136-145)
[2024-06-22 16:17] LABS: Anion Gap 8 (5-15); Carbon Dioxide 24 mmol/L (20-31)
[2024-06-22 16:22] LABS: BUN/Creatinine Ratio 26.4 (10.0-20.0)
[2024-06-22 16:27] LABS: Blood Urea Nitrogen 24 mg/dL (9-23); Calcium 8.4 mg/dL (8.7-10.4); Chloride 108 mmol/L (98-107); Glucose 197 mg/dL (74-106); Potassium 3.1 mmol/L (3.5-5.1)
[2024-06-22] MEDS: VANCOMYCIN 750mg/150ml 150 ML IV SCH (17:20)
[2024-06-22] MEDS: ACETAMINOPHEN 325 MG TAB PO PRN (17:54)
[2024-06-22] MEDS: POTASSIUM EFFERVESENT TAB 25 MEQ PO ONE (19:47)
[2024-06-22] MEDS: HYDROcodone-ACET 5/325MG TAB PO PRN (21:23)
[2024-06-22] MEDS: ONDANSETRON HCL 4 MG/2 ML VIAL IV PRN (23:23)
[2024-06-23] VITALS (8 sets, daily range): BP systolic 95–167; BP diastolic 59–98; PULSE 88–119; RESP 17–20; TEMP 97.5–98.6; O2SAT 92–99
[2024-06-23 07:58] LABS: Hemoglobin 12.3 g/dL (12.2-16.2); Mean Corpuscular Hemoglobin 29.3 pg (28.0-32.0); Mean Corpuscular Hgb Conc. 34.1 g/dL (32.0-36.0); Platelet Count (auto) 118 10^3/uL (140-450); Red Blood Cells 4.18 10^6/uL (4.0-5.20); Red Cell Distribution Width 13.7 % (11.8-14.3)
[2024-06-23 08:07] LABS: Basophils % (manual) 0 (0.0-2.0); Blast Cells 0; Eosinophils % (manual) 0 (0-7); Myelocytes % 0; Promyelocytes % 0
[2024-06-23 08:16] LABS: Alanine Aminotransferase 20 U/L (7-40); Alkaline Phosphatase 104 U/L (46-116); Anion Gap 8 (5-15); Aspartate Aminotransferase 32 U/L (13-40); BUN/Creatinine Ratio 26.3 (10.0-20.0); Bilirubin, Total 0.3 mg/dL (0.2-1.0); Blood Urea Nitrogen 15 mg/dL (9-23); Carbon Dioxide 24 mmol/L (20-31); Chloride 105 mmol/L (98-107); Magnesium 1.6 mg/dL (1.6-2.6); Sodium 137 mmol/L (136-145)
[2024-06-23 08:24] LABS: Albumin 2.9 g/dL (3.2-4.8); Calcium 8.3 mg/dL (8.7-10.4); Glucose 135 mg/dL (74-106); Total Protein 4.7 g/dL (5.7-8.2)
[2024-06-23 08:53] LABS: Band Neutrophils % (manual) 19; Lymphocytes % (manual) 16 (10.0-50.0); Metamyelocytes % 2; Monocytes % (manual) 3 (0-12); Reactive Lymphocytes 1
[2024-06-23 08:55] LABS: Platelet Estimate Decreased; RBC Morphology Normal
[2024-06-23] MEDS: POTASSIUM EFFERVESENT TAB 25 MEQ PO ONE (11:08)
[2024-06-23] MEDS: MAGNESIUM SULFATE 1GM/100ML 100 ML IV SCH (11:08)
--- NOTE | 2024-06-23 12:28 | DVHPN2 ---
Subjective Patient continues to report having generalized weakness and abdominal pain. Reviewed: Care Plan, H&P, Labs, Medications Changes from previous H/P or p: No Changes General: Per HPI Objective Vitals Vital Signs Date Time Temp Pulse Resp B/P (MAP) Pulse Ox O2 Delivery O2 Flow Rate FiO2 06/23/24 09:00 98.2 100 17 95/59 (71) 96 98.2 06/22/24 20:00 Nasal Cannula* 3 32 Intake/Output Intake and Output 06/23/24 07:00 Intake Total 3150 ml Output Total 1750 ml Balance 1400 ml Intake Oral 2700 ml IV Total 450 ml Output Urine Total 1750 ml # Bowel Movements 1 General Appearance: Alert, Oriented X3, Cooperative Lungs: Clear to auscultation, Normal air movement Cardiovascular: Regular rate, Normal S1, Normal S2 Abdomen: Normal bowel sounds, Soft, No tenderness Extremities: No edema Psych/Mental Status: Mental status NL, Mood NL Medications Current Medications Medications Dose Ordered Sig/Eugene Route Start Time Stop Time Status Last Admin Dose Admin Nitroglycerin 0.4 mg Q5MINP PRN SL 06/21/24 17:15 Cefazolin Sodium 50 ml @ 100 mls/hr Q8HR IV 06/21/24 22:00 06/23/24 05:18 100 MLS/HR Ondansetron HCl 4 mg Q4HPRN PRN IV 06/21/24 17:15 06/22/24 23:23 4 MG Insulin Glargine 15 units BID@0700,2200 SC 06/21/24 22:00 06/23/24 06:35 15 UNITS Pantoprazole Sodium 40 mg DAILY@0600 PO 06/22/24 06:00 06/23/24 06:29 40 MG Vancomycin HCl 0 ml @ 0 mls/hr UD IV 06/22/24 05:15 Dextrose 50 ml UD PRN IV 06/22/24 05:15 06/22/24 06:43 50 ML Vancomycin HCl 150 ml @ 150 mls/hr Q12H IV 06/22/24 18:00 06/23/24 06:07 150 MLS/HR Acetaminophen 650 mg Q6HP PRN PO 06/22/24 11:30 06/22/24 17:54 650 MG Potassium Chloride/Dextrose/ Sod Cl 1,000 ml @ 75 mls/hr [id number] IV 06/22/24 11:45 06/22/24 15:27 75 MLS/HR Diagnostic Test (Pha) 1 strip ACHS 06/22/24 11:45 06/23/24 06:30 1 STRIP Insulin Human Regular ACHS SC 06/22/24 11:45 06/23/24 06:34 3 UNITS Acetaminophen/ Hydrocodone Bitart 1 tab Q6HPRN PRN PO 06/22/24 20:30 06/23/24 06:30 1 TAB Magnesium Sulfate/ Dextrose 100 ml @ 100 mls/hr Q1HR IV 06/23/24 11:00 06/23/24 12:59 06/23/24 11:08 100 MLS/HR Laboratory Results Laboratory Tests 06/23/24 07:19 Chemistry Test 06/22/24 15:57 06/23/24 07:19 Calcium Level 8.4 mg/dL (8.7-10.4) L 8.3 mg/dL (8.7-10.4) L Albumin 2.9 g/dL (3.2-4.8) L Magnesium Level 1.6 mg/dL (1.6-2.6) Total Protein 4.7 g/dL (5.7-8.2) L LFT Test 06/23/24 07:19 Alanine Aminotransferase (ALT) 20 U/L (7-40) Alkaline Phosphatase 104 U/L (46-116) Aspartate Amino Transferase (AST) 32 U/L (13-40) Total Bilirubin 0.3 mg/dL (0.2-1.0) Urinalysis Test 06/21/24 15:45 Urine Color Light-yellow (Yellow) Urine Clarity Clear (Clear) Urine pH 5.0 (5.0-9.0) Urine Specific [place] 1.020 (1.001-1.035) Urine Protein Trace (Negative) H Urine Ketones 3+ (Negative) H Urine Blood Negative /uL (Negative) Urine Nitrite Negative (Negative) Urine Bilirubin Negative (Negative) Urine Urobilinogen Normal mg/dL (Negative) Urine Leukocyte Esterase Negative /uL (Negative) Urine RBC 1 /hpf (0 - 4) Urine Microscopic WBC 1 /HPF (0-5) Urine Squamous Epithelial Cells Few /hpf (<5) Urine Bacteria None seen /hpf (None Seen) Urine Yeast (Budding) Occasional /hpf (None Urine Glucose 4+ mg/dL (Normal) H Microbiology Microbiology Date/Time Source Procedure Growth Status 06/21/24 14:35 Blood Blood Culture - Preliminary Resulted Labs and/or images reviewed: Labs reviewed by me, Image(s) reviewed by me Assessment/Plan Assessment/Plan Impression: -Acute DKA -Medical noncompliance -Hypertension -Recent left ankle fracture -Left ankle wound with possible cellulitis -Anxiety -Hyponatremia -rule out appendicitis -hypokalemia Plan: -patient continues to have abdominal pain. Generalized in nature. Noted tenderness with palpation, more so in right lower quadrant. Obturator sign negative. -ultrasound of right lower quadrant to rule out appendicitis -potassium replacement -okay with clear liquid diet -pain management -continue regular insulin sliding scale with Lantus -continue IV hydration -repeat BMP today, a.m. labs -consider repeat CT scan with IV and oral contrast based on findings of ultrasound. Total time spent with patient discussing and formulating plan of care: 35 minutes. This medical document was created using an electronic medical record system with [employer] dictation system. Although this document has been carefully reviewed, there may still be some phonetic and typographical errors. These areas are purely typographical due to imperfections of the software programs, and do not reflect any compromise in the patient's medical care. Plan discussed with: Patient, Other (RN) My Orders Orders - ZINA NGUYỄN NP Procedure Category Date Status Time Magnesium Sulfate PHA 06/23/24 In Process 1gm/100ml 11:00 Blood Culture PRINCE 06/23/24 Logged 12:13 Abdomen Limited US 06/23/24 Logged 12:19 Basic Metabolic Panel LAB 06/23/24 Verified 14:00 Ceftriaxone Ivpb PHA 06/24/24 Verified Rocephin 09:00 Basic Metabolic Panel LAB 06/24/24 Verified 04:00 Complete Blood Count LAB 06/24/24 Verified 04:00 Clear Liq Diet DIET 06/23/24 Verified Lunch Morphine Sulfate PHA 06/23/24 Verified Injection 12:30 Date of Service: Jun 23, 2024 Billing Provider: ZINA NGUYỄN NP Common Visit Codes: [id number] INP/OBS CARE(HIGH) ZINA NGUYỄN NP Jun 23, 2024 12:28
--- NOTE | 2024-06-23 13:41 | DVH ---
INDICATION: rule out appendicitis TECHNIQUE: Graded compression technique along with Multiple real-time sonographic images were obtain ed for evaluation of the right lower quadrant. FINDINGS: The appendix was not visualized. No free fluid or lymph nodes are seen on this exam. IMPRESSION: 1.Nonvisualization of the appendix, thus cannot exclude appendicitis.
[2024-06-23] MEDS: cefTRIAXone 1GM/50ML D5W 50 ML IV SCH (14:14)
[2024-06-23 14:33] LABS: Chloride 107 mmol/L (98-107); Potassium 3.7 mmol/L (3.5-5.1); Sodium 139 mmol/L (136-145)
[2024-06-23 14:34] LABS: Anion Gap 5 (5-15); Carbon Dioxide 27 mmol/L (20-31)
[2024-06-23 14:40] LABS: BUN/Creatinine Ratio 26.1 (10.0-20.0); Blood Urea Nitrogen 12 mg/dL (9-23)
[2024-06-23 14:47] LABS: Calcium 8.5 mg/dL (8.7-10.4); Glucose 108 mg/dL (74-106)
[2024-06-23] MEDS: MORPHINE SULFATE INJ 2 MG/ml SYRG IV PRN (16:41)
[2024-06-24] VITALS (8 sets, daily range): BP systolic 142–153; BP diastolic 80–89; PULSE 90–123; RESP 18–20; TEMP 97.9–98.7; O2SAT 93–99
[2024-06-24 06:02] LABS: Hematocrit 34.4 % (36.0-46.0); Hemoglobin 11.7 g/dL (12.2-16.2); Mean Corpuscular Hemoglobin 29.4 pg (28.0-32.0); Mean Corpuscular Hgb Conc. 34.1 g/dL (32.0-36.0); Mean Corpuscular Volume 86.5 fL (80.0-100.0); Platelet Count (auto) 117 10^3/uL (140-450); Red Blood Cells 3.98 10^6/uL (4.0-5.20); Red Cell Distribution Width 13.5 % (11.8-14.3); White Blood Cell 4.7 10^3/uL (4.4-10.8)
[2024-06-24 06:04] LABS: Chloride 100 mmol/L (98-107); Potassium 3.7 mmol/L (3.5-5.1)
[2024-06-24 06:05] LABS: Anion Gap 8 (5-15); Carbon Dioxide 27 mmol/L (20-31)
[2024-06-24 06:10] LABS: BUN/Creatinine Ratio 14.6 (10.0-20.0); Basophils % (manual) 0 (0.0-2.0); Blast Cells 0; Eosinophils % (manual) 0 (0-7); Metamyelocytes % 0; Myelocytes % 0; Promyelocytes % 0; Reactive Lymphocytes 0
[2024-06-24 06:11] LABS: Blood Urea Nitrogen 7 mg/dL (9-23); Calcium 8.3 mg/dL (8.7-10.4); Glucose 161 mg/dL (74-106); Sodium 135 mmol/L (136-145)
[2024-06-24 06:57] LABS: Band Neutrophils % (manual) 14; Lymphocytes % (manual) 24 (10.0-50.0); Monocytes % (manual) 2 (0-12)
[2024-06-24 06:58] LABS: Platelet Estimate Decreased
--- NOTE | 2024-06-24 09:15 | DVHPN2 ---
Subjective Continues to have generalized abdominal pain. Now reporting cough. Reviewed: Care Plan, H&P, Labs, Medications Changes from previous H/P or p: Changes General: Per HPI Objective Vitals Vital Signs Date Time Temp Pulse Resp B/P (MAP) Pulse Ox O2 Delivery O2 Flow Rate FiO2 06/24/24 05:50 115 14 142/89 06/24/24 05:00 98.6 99 98.6 06/23/24 20:00 Nasal Cannula* 3 32 Intake/Output Intake and Output 06/24/24 07:00 Intake Total 2580 ml Output Total 6320 ml Balance -3740 ml Intake Oral 880 ml IV Total 1700 ml Output Urine Total 6320 ml General Appearance: Alert, Oriented X3, Cooperative Lungs: Clear to auscultation, Normal air movement Cardiovascular: Regular rate, Normal S1, Normal S2 Abdomen: Normal bowel sounds, Soft, No tenderness Extremities: No edema Skin: Dry, Intact Psych/Mental Status: Mental status NL, Mood NL Medications Current Medications Medications Dose Ordered Sig/[place]ug[place] Route Start Time Stop Time Status Last Admin Dose Admin Nitroglycerin 0.4 mg Q5MINP PRN SL 06/21/24 17:15 Ondansetron HCl 4 mg Q4HPRN PRN IV 06/21/24 17:15 06/24/24 08:47 4 MG Insulin Glargine 15 units BID@0700,2200 SC 06/21/24 22:00 06/24/24 05:53 15 UNITS Pantoprazole Sodium 40 mg DAILY@0600 PO 06/22/24 06:00 06/24/24 05:37 40 MG Vancomycin HCl 0 ml @ 0 mls/hr UD IV 06/22/24 05:15 Dextrose 50 ml UD PRN IV 06/22/24 05:15 06/22/24 06:43 50 ML Vancomycin HCl 150 ml @ 150 mls/hr Q12H IV 06/22/24 18:00 06/24/24 05:19 150 MLS/HR Acetaminophen 650 mg Q6HP PRN PO 06/22/24 11:30 06/22/24 17:54 650 MG Potassium Chloride/Dextrose/ Sod Cl 1,000 ml @ 75 mls/hr [id number] IV 06/22/24 11:45 06/24/24 05:03 75 MLS/HR Diagnostic Test (Pha) 1 strip ACHS 06/22/24 11:45 06/24/24 06:38 1 STRIP Insulin Human Regular ACHS SC 06/22/24 11:45 06/23/24 22:23 4 UNITS Acetaminophen/ Hydrocodone Bitart 1 tab Q6HPRN PRN PO 06/22/24 20:30 06/24/24 08:48 1 TAB Ceftriaxone Sodium 50 ml @ 100 mls/hr DAILY@09 IV 06/23/24 14:00 06/24/24 08:47 100 MLS/HR Morphine Sulfate 2 mg Q6HPRN PRN IV 06/23/24 12:30 06/24/24 05:20 2 MG Laboratory Results Laboratory Tests 06/24/24 05:04 Chemistry Test 06/23/24 13:51 06/24/24 05:04 Calcium Level 8.5 mg/dL (8.7-10.4) L 8.3 mg/dL (8.7-10.4) L Urinalysis Test 06/21/24 15:45 Urine Color Light-yellow (Yellow) Urine Clarity Clear (Clear) Urine pH 5.0 (5.0-9.0) Urine Specific [place] 1.020 (1.001-1.035) Urine Protein Trace (Negative) H Urine Ketones 3+ (Negative) H Urine Blood Negative /uL (Negative) Urine Nitrite Negative (Negative) Urine Bilirubin Negative (Negative) Urine Urobilinogen Normal mg/dL (Negative) Urine Leukocyte Esterase Negative /uL (Negative) Urine RBC 1 /hpf (0 - 4) Urine Microscopic WBC 1 /HPF (0-5) Urine Squamous Epithelial Cells Few /hpf (<5) Urine Bacteria None seen /hpf (None Seen) Urine Yeast (Budding) Occasional /hpf (None Urine Glucose 4+ mg/dL (Normal) H Microbiology Microbiology Date/Time Source Procedure Growth Status 06/21/24 14:35 Blood Blood Culture - Preliminary Resulted Labs and/or images reviewed: Labs reviewed by me, Image(s) reviewed by me Assessment/Plan Assessment/Plan Impression: -Acute DKA -Medical noncompliance -Hypertension -Recent left ankle fracture -Left ankle wound with possible cellulitis -Anxiety -Hyponatremia -rule out appendicitis -hypokalemia Plan: -ultrasound of abdomen with no visualization of appendix. Given patient continued abdominal pain, CT scan with oral contrast ordered. -stop IV fluids -antitussives -okay with clear liquid diet -pain management -continue regular insulin sliding scale with Lantus -continue IV hydration -repeat BMP today, a.m. labs Total time spent with patient discussing and formulating plan of care: 35 minutes. This medical document was created using an electronic medical record system with [employer] dictation system. Although this document has been carefully reviewed, there may still be some phonetic and typographical errors. These areas are purely typographical due to imperfections of the software programs, and do not reflect any compromise in the patient's medical care. Plan discussed with: Patient, Other (RN) My Orders Orders - ZINA NGUYỄN NP Procedure Category Date Status Time Blood Culture PRINCE 06/23/24 In Process 12:13 Clear Liq Diet DIET 06/23/24 Transmitted Lunch Morphine Sulfate PHA 06/23/24 In Process Injection 12:30 Right Lower Quad US 06/23/24 Resulted 12:19 Ceftriaxone 1gm/50ml PHA 06/23/24 In Process D5w (Rocephin) 14:00 Apply Barrier Cream SIDRA 06/23/24 In Process 10:37 Date of Service: Jun 24, 2024 Billing Provider: ZINA NGUYỄN NP Common Visit Codes: [id number] INP/OBS CARE(HIGH) ZINA NGUYỄN NP Jun 24, 2024 09:15
[2024-06-24] MEDS: GASTROGRAFIN 30 ML SOL ONE (09:16)
--- NOTE | 2024-06-24 09:43 | DVH ---
EXAM: XY CHEST XRAY 1 VIEW HISTORY: shortness of breath, chf COMPARISON: XY CHEST XRAY 1 VIEW on DOS: 06/21/24, XY CHEST XRAY 1 VIEW on DOS: 06/21/24, XY CHEST PORTAB LE on DOS: 06/21/24, CHEST PORTABLE on DOS: 09/29/19 TECHNIQUE: Portable upright AP view of the chest was performed. FINDINGS: There is infiltrate in the left mid to lower lung obscuring the left hemidiaphragm, slightly increase d versus prior chest x-ray. There is stable prominence of the right hilum. There is stable central in terstitial prominence. No pneumothorax. The heart is not enlarged. There has been interval removal of the NG tube. IMPRESSION: 1. Increased left-sided pneumonia. 2. Interstitial prominence suggestive of CHF. 3. Stable prominence of the right hilum. Recommend follow-up CT scan of the chest to exclude mass or lymphadenopathy.
--- NOTE | 2024-06-24 14:53 | DVH ---
Exam: CT CT AB PEL WITH ORAL CON ONLY History: abdominal pain, appendicitis Comparison Study: None available at time of dictation. TECHNIQUE: Multidetector CT of the abdomen was performed from lung bases to pubic symphysis. Imaging was performed without IV contrast. Axial, coronal and sagittal multiplanar reformats were obtained fr om the axial data set by the technologist. Radiation Dose Information: CT Dose: CTDI volume is 5.13 mGy. Dose-length product is 241.99 mGy*cm FINDINGS: Evaluation of solid organs is limited due to lack of intravenous contrast use. Findings: Lung Bases: Consolidation left lower lobe with airspace disease medially in the right lower lobe.. N ormal heart size. No pleural or pericardial effusion. Liver: The liver is normal in size. No focal lesions. Gallbladder and Biliary Tree: Gallbladder is surgically removed Spleen: Calcified splenic granulomas Pancreas: The pancreas is grossly normal in appearance. Adrenal Glands: Unremarkable Kidneys: Kidneys are grossly normal without calculi or hydronephrosis. Bladder: Grossly unremarkable for degree of distention. Holcomb catheter in the bladder Bowel: The stomach is grossly normal in appearance. Small bowel and colon are normal in caliber and d istribution. No findings suggest bowel obstruction. The appendix is not visualized; however, no seco ndary findings of acute appendicitis identified. Ascites: Absent Lymphadenopathy: No mesenteric, retroperitoneal or periportal lymphadenopathy. Abdominal Wall and Mesentery: Unremarkable. Vasculature: The visualized abdominal aorta is normal in size and caliber. Evaluation of abdominal a nd pelvic vessels is limited due to lack of intravenous contrast. Pelvic Organs: Unremarkable Musculoskeletal: No aggressive focal bony lesions, acute fractures or dislocation. Soft tissues: Unremarkable IMPRESSION: 1. Airspace disease left lower lobe with almost complete consolidation. Airspace disease medially in the right lower lobe. 2. No findings of bowel obstruction. 3. Appendix not visualized. 4. Gallbladder is been surgically removed. Radiation optimization: All CT scans at this facility use at least one of these dose optimization te chniques: automated exposure control mA and/or kV adjustment per patient size (includes targeted exa ms where dose is matched to clinical indication) or iterative reconstruction.
[2024-06-24] MEDS: guaiFENesin-CODEINE Liq 5 ML UD PO PRN (15:55)
[2024-06-24] MEDS: ASCORBIC ACID 500 MG TAB PO SCH (21:02)
[2024-06-25] VITALS (12 sets, daily range): BP systolic 121–174; BP diastolic 66–98; PULSE 92–125; RESP 16–20; TEMP 97.4–98.2; O2SAT 90–100
[2024-06-25 06:15] LABS: Hematocrit 37.7 % (36.0-46.0); Hemoglobin 12.8 g/dL (12.2-16.2); Mean Corpuscular Hemoglobin 29.4 pg (28.0-32.0); Mean Corpuscular Hgb Conc. 33.9 g/dL (32.0-36.0); Mean Corpuscular Volume 86.6 fL (80.0-100.0); Platelet Count (auto) 125 10^3/uL (140-450); Red Blood Cells 4.35 10^6/uL (4.0-5.20); Red Cell Distribution Width 13.9 % (11.8-14.3); White Blood Cell 6.2 10^3/uL (4.4-10.8)
[2024-06-25 06:22] LABS: Band Neutrophils % (manual) 0; Basophils % (manual) 0 (0.0-2.0); Blast Cells 0; Eosinophils % (manual) 0 (0-7); Metamyelocytes % 0; Myelocytes % 0; Promyelocytes % 0; Reactive Lymphocytes 0
[2024-06-25 06:28] LABS: Anion Gap 9 (5-15); Carbon Dioxide 30 mmol/L (20-31)
[2024-06-25 06:29] LABS: Calcium 8.7 mg/dL (8.7-10.4)
[2024-06-25 06:34] LABS: BUN/Creatinine Ratio 12.2 (10.0-20.0)
[2024-06-25 06:35] LABS: Chloride 96 mmol/L (98-107); Potassium 2.8 mmol/L (3.5-5.1); Sodium 135 mmol/L (136-145)
[2024-06-25 06:37] LABS: Blood Urea Nitrogen 5 mg/dL (9-23); Glucose 45 mg/dL (74-106)
[2024-06-25 06:44] LABS: Lymphocytes % (manual) 11 (10.0-50.0); Monocytes % (manual) 5 (0-12); Platelet Estimate Decreased
--- NOTE | 2024-06-25 09:50 | DVHPN2 ---
Subjective Patient now reporting mediastinal pain, worsening cough Reviewed: Care Plan, H&P, Labs, Medications Changes from previous H/P or p: No Changes General: Per HPI Objective Vitals Vital Signs Date Time Temp Pulse Resp B/P (MAP) Pulse Ox O2 Delivery O2 Flow Rate FiO2 06/25/24 09:00 97.8 100 18 121/76 (91) 98 97.8 06/24/24 20:00 Nasal Cannula* 3 32 Intake/Output Intake and Output 06/25/24 07:00 Intake Total 870 ml Output Total 4200 ml Balance -3330 ml Intake Oral 820 ml IV Total 50 ml Output Urine Total 4200 ml General Appearance: Alert, Oriented X3, Cooperative, mild distress Lungs: Other (Rhonchi bilaterally. Nasal cannula 3 L.) Cardiovascular: Regular rate, Normal S1, Normal S2 Abdomen: Normal bowel sounds, Soft, No tenderness Extremities: No edema Neuro: Normal gait, Normal speech Skin: Dry, Intact Psych/Mental Status: Mental status NL, Mood NL Medications Current Medications Medications Dose Ordered Sig/[place] Route Start Time Stop Time Status Last Admin Dose Admin Nitroglycerin 0.4 mg Q5MINP PRN SL 06/21/24 17:15 Ondansetron HCl 4 mg Q4HPRN PRN IV 06/21/24 17:15 06/24/24 18:27 4 MG Pantoprazole Sodium 40 mg DAILY@0600 PO 06/22/24 06:00 06/25/24 05:12 40 MG Vancomycin HCl 0 ml @ 0 mls/hr UD IV 06/22/24 05:15 Dextrose 50 ml UD PRN IV 06/22/24 05:15 06/22/24 06:43 50 ML Vancomycin HCl 150 ml @ 150 mls/hr Q12H IV 06/22/24 18:00 06/25/24 05:12 150 MLS/HR Acetaminophen 650 mg Q6HP PRN PO 06/22/24 11:30 06/22/24 17:54 650 MG Diagnostic Test (Pha) 1 strip ACHS 06/22/24 11:45 06/25/24 06:03 1 STRIP Insulin Human Regular ACHS SC 06/22/24 11:45 06/24/24 21:28 2 UNITS Morphine Sulfate 2 mg Q6HPRN PRN IV 06/23/24 12:30 06/25/24 00:50 2 MG Guaifenesin/ Codeine Phosphate 5 ml Q4HPRN PRN PO 06/24/24 09:15 06/24/24 21:02 5 ML Amino Acid Protein 30 ml DAILY PO 06/25/24 10:00 Ascorbic Acid 500 mg BID PO 06/24/24 22:00 06/24/24 21:02 500 MG Insulin Glargine 15 units DAILY SC 06/25/24 10:00 Meropenem 50 ml @ 17 mls/hr Q8HR IV 06/25/24 14:00 Levalbuterol HCl 1.25 mg Q6HR NEB 06/25/24 12:00 Ipratropium [place] 0.5 mg Q6HR NEB 06/25/24 12:00 Acetylcysteine 100 mg Q6HR NEB 06/25/24 12:00 06/27/24 06:01 Oxycodone/ Acetaminophen 1 tab Q6HP PRN PO 06/25/24 09:45 UNV Laboratory Results Laboratory Tests 06/25/24 05:02 Chemistry Test 06/25/24 05:02 Calcium Level 8.7 mg/dL (8.7-10.4) Urinalysis Test 06/21/24 15:45 Urine Color Light-yellow (Yellow) Urine Clarity Clear (Clear) Urine pH 5.0 (5.0-9.0) Urine Specific [place] 1.020 (1.001-1.035) Urine Protein Trace (Negative) H Urine Ketones 3+ (Negative) H Urine Blood Negative /uL (Negative) Urine Nitrite Negative (Negative) Urine Bilirubin Negative (Negative) Urine Urobilinogen Normal mg/dL (Negative) Urine Leukocyte Esterase Negative /uL (Negative) Urine RBC 1 /hpf (0 - 4) Urine Microscopic WBC 1 /HPF (0-5) Urine Squamous Epithelial Cells Few /hpf (<5) Urine Bacteria None seen /hpf (None Seen) Urine Yeast (Budding) Occasional /hpf (None Urine Glucose 4+ mg/dL (Normal) H Microbiology Microbiology Date/Time Source Procedure Growth Status 06/23/24 13:03 Blood Blood Culture - Preliminary NO GROWTH AFTER 24 HOURS OF INCUBATION. Resulted Labs and/or images reviewed: Labs reviewed by me, Image(s) reviewed by me Assessment/Plan Assessment/Plan Impression: -Acute DKA -Medical noncompliance -Hypertension -Recent left ankle fracture -Left ankle wound with possible cellulitis -Anxiety -Hyponatremia -ruled out appendicitis -hypokalemia -acute hypoxic respiratory failure -community-acquired pneumonia, probable Gram-positive/Gram-negative etiology Plan: -chest x-ray revealing left lower lobe pneumonia. CT abdomen and pelvis reveals that abdomen is essentially benign, with the patient having right and left lower lobe pneumonia. -Change antibiotic therapy to meropenem and vancomycin -antitussives -advanced to consistent carbohydrate diet -bronchodilators, Mucomyst -out of bed as tolerated, incentive spirometer -continue regular insulin sliding scale, decrease Lantus to daily -change pain management from [place] to Percocet -repeat labs and chest x-ray in a.m. Total time spent with patient discussing and formulating plan of care: 35 minutes. This medical document was created using an electronic medical record system with [employer] dictation system. Although this document has been carefully reviewed, there may still be some phonetic and typographical errors. These areas are purely typographical due to imperfections of the software programs, and do not reflect any compromise in the patient's medical care. Plan discussed with: Patient, Other (RN) My Orders Orders - ZINA NGUYỄN [employer]IN[employer]IAISON OFFICER Procedure Category Date Status Time Amino Acids-Protein PHA 06/25/24 In Process Hydrolysat (Pro-Stat 10:00 Ascorbic Acid Tablet PHA 06/24/24 In Process (Vitamin C Tablet) 22:00 Insulin Lantus PHA 06/25/24 In Process (Glargine) (Lantus) 10:00 Meropenem 1gm Ivpb PHA 06/25/24 In Process (Merrem 1gm/ Ns) 14:00 Levalbuterol Hcl PHA 06/25/24 In Process (Xopenex Medneb) 12:00 Ipratropium Medneb PHA 06/25/24 In Process (Atrovent Medneb) 12:00 Oob To Chair SIDRA 06/25/24 In Process 08:58 Incentive Spirometry ORDERS 06/25/24 Transmitted Q 1hr 08:58 Consistent DIET 06/25/24 Transmitted Carb(Ccho)Diabetes Breakfast Pt Request For Service PT 06/25/24 Logged 08:58 Acetylcysteine PHA 06/25/24 In Process Inhalation 10% 12:00 Basic Metabolic Panel LAB 06/26/24 Verified 04:00 Chest Portable XY 06/26/24 Logged 04:00 Potassium Effervesent PHA 06/25/24 Transmitted Tab (Klor-Con/Ef) 09:45 Oxycodone W/ Acet PHA 06/25/24 Transmitted 5/325mg Tab (Percocet 09:45 Date of Service: Jun 25, 2024 Billing Provider: ZINA NGUYỄN NP Common Visit Codes: [id number] INP/OBS CARE(HIGH) ZINA NGUYỄN NP Jun 25, 2024 09:50
[2024-06-25] MEDS: IPRATROPIUM BROM 0.5 MG/2.5ML INH SOL NEB SCH (11:21)
[2024-06-25] MEDS: LEVALBUTEROL HCL 1.25 MG/3 ML NEB NEB SCH (11:21)
[2024-06-25] MEDS: ACETYLCYSTEINE 10 %(100MG/ML) SOL 4ML NEB SCH (11:21)
[2024-06-25] MEDS: METOPROLOL SUCCINATE XL 50 MG TAB PO SCH (11:30)
[2024-06-25] MEDS: POTASSIUM EFFERVESENT TAB 25 MEQ PO ONE (11:31)
[2024-06-25] MEDS: INSULIN LANTUS (GLARGINE) 1 /0.01ml (100units/ml) SC SCH (11:37)
[2024-06-25] MEDS: Pro-Stat SF 30ml Vanilla PO SCH (12:15)
[2024-06-25] MEDS: MEROPENEM 1GM IVPB 50 ML IV SCH (14:57)
[2024-06-25] MEDS: OXYCODONE W/ ACETAMINOPHEN 5/325MG TABLET PO PRN (14:57)
[2024-06-25] MEDS: VANCOMYCIN 750MG KIT 100 ML IV SCH (18:48)
[2024-06-25] MEDS: guaiFENesin-DM 100/10mg/5ml SYR PO PRN (21:12)
[2024-06-26] VITALS (17 sets, daily range): BP systolic 110–155; BP diastolic 66–90; PULSE 106–126; RESP 14–20; TEMP 97.9–99.6; O2SAT 91–99
--- NOTE | 2024-06-26 06:23 | DVH ---
EXAM: XR Chest, 1 View CLINICAL INDICATION: pna TECHNIQUE: Frontal view of the chest. COMPARISON: XY CHEST XRAY 1 VIEW on DOS: 06/24/24, XY CHEST XRAY 1 VIEW on DOS: 06/21/24, XY CHEST XRAY 1 VIEW on DOS: 06/21/24, XY CHEST PORTABLE on DOS: 06/21/24, CHEST PORTABLE on DOS: 09/29/19 FINDINGS: LUNGS AND PLEURAL SPACES: Patchy airspace disease of the lower left lung field, likely pneumonia. No pneumothorax. HEART: Unremarkable. No cardiomegaly. MEDIASTINUM: Unremarkable. Normal mediastinal contour. BONES/JOINTS: Unremarkable. No acute fracture. OTHER FINDINGS: . IMPRESSION: Patchy airspace disease of the lower left lung field, likely pneumonia.
[2024-06-26 06:33] LABS: Basophils # (auto) 0 10 ^3/uL (0-0.2); Basophils % (auto) 0.2 % (0.0-2.0); Eosinophils # (auto) 0 10 ^3/uL (0-0.8); Eosinophils % (auto) 0.3 % (0.0-7.0); Hemoglobin 11.9 g/dL (12.2-16.2); Lymphocytes # (auto) 1.1 10 ^3/uL (0.4-5.4); Lymphocytes % (auto) 18.1 % (10.0-50.0); Mean Corpuscular Hemoglobin 29.8 pg (28.0-32.0); Mean Corpuscular Hgb Conc. 34.9 g/dL (32.0-36.0); Mean Corpuscular Volume 85.3 fL (80.0-100.0); Monocytes # (auto) 0.3 10 ^3/uL (0-1.3); Monocytes % (auto) 5.6 % (0.0-12.0); Neutrophils # (auto) 4.7 10 ^3/uL (1.6-8.6); Neutrophils % (auto) 75.8 % (37.0-80.0); Platelet Count (auto) 184 10^3/uL (140-450); Red Blood Cells 3.98 10^6/uL (4.0-5.20); Red Cell Distribution Width 13.7 % (11.8-14.3); White Blood Cell 6.2 10^3/uL (4.4-10.8)
[2024-06-26 07:01] LABS: Anion Gap 8 (5-15); Carbon Dioxide 31 mmol/L (20-31)
[2024-06-26 07:02] LABS: Calcium 8.9 mg/dL (8.7-10.4)
[2024-06-26 07:07] LABS: Glucose 85 mg/dL (74-106)
[2024-06-26 07:08] LABS: Blood Urea Nitrogen 7 mg/dL (9-23); Chloride 95 mmol/L (98-107); Potassium 3.5 mmol/L (3.5-5.1); Sodium 134 mmol/L (136-145)
--- NOTE | 2024-06-26 09:58 | DVHPN2 ---
Subjective She is complaining of cough Generalized weakness Temperature was 99.6 this morning Heart rate is 100-110 Reviewed: Care Plan, H&P, Labs, Medications Changes from previous H/P or p: Changes General: Per HPI Objective Vitals Vital Signs Date Time Temp Pulse Resp B/P (MAP) Pulse Ox O2 Delivery O2 Flow Rate FiO2 06/26/24 09:00 98.6 117 16 110/66 (81) 93 98.6 06/26/24 07:58 Nasal Cannula 3.0 06/26/24 07:58 32 Intake/Output Intake and Output 06/26/24 07:00 Intake Total 1650 ml Output Total 2800 ml Balance -1150 ml Intake Oral 1650 ml Output Urine Total 2800 ml # Bowel Movements 1 General Appearance: Alert, Oriented X3, Cooperative, mild distress Lungs: Other (Rhonchi bilaterally. Nasal cannula 3 L.) Cardiovascular: Regular rate, Normal S1, Normal S2 Abdomen: Normal bowel sounds, Soft, No tenderness Extremities: No edema Neuro: Normal gait, Normal speech Skin: Dry, Intact Psych/Mental Status: Mental status NL, Mood NL Medications Current Medications Medications Dose Ordered Sig/[place] Route Start Time Stop Time Status Last Admin Dose Admin Nitroglycerin 0.4 mg Q5MINP PRN SL 06/21/24 17:15 Ondansetron HCl 4 mg Q4HPRN PRN IV 06/21/24 17:15 06/24/24 18:27 4 MG Pantoprazole Sodium 40 mg DAILY@0600 PO 06/22/24 06:00 06/26/24 05:03 40 MG Vancomycin HCl 0 ml @ 0 mls/hr UD IV 06/22/24 05:15 Dextrose 50 ml UD PRN IV 06/22/24 05:15 06/22/24 06:43 50 ML Acetaminophen 650 mg Q6HP PRN PO 06/22/24 11:30 06/22/24 17:54 650 MG Diagnostic Test (Pha) 1 strip ACHS 06/22/24 11:45 06/26/24 06:25 1 STRIP Insulin Human Regular ACHS SC 06/22/24 11:45 06/25/24 12:32 4 UNITS Morphine Sulfate 2 mg Q6HPRN PRN IV 06/23/24 12:30 06/25/24 17:41 2 MG Amino Acid Protein 30 ml DAILY PO 06/25/24 10:00 4/6/25 12:15 30 ML Ascorbic Acid 500 mg BID PO 06/24/24 22:00 06/25/24 21:10 500 MG Insulin Glargine 15 units DAILY SC 06/25/24 10:00 06/25/24 11:37 15 UNITS Meropenem 50 ml @ 17 mls/hr Q8HR IV 06/25/24 14:00 06/26/24 05:02 17 MLS/HR Levalbuterol HCl 1.25 mg Q6HR NEB 06/25/24 12:00 06/26/24 07:58 1.25 MG Ipratropium [place] 0.5 mg Q6HR NEB 06/25/24 12:00 06/26/24 07:58 0.5 MG Acetylcysteine 100 mg Q6HR NEB 06/25/24 12:00 06/27/24 06:01 06/26/24 07:58 100 MG Oxycodone/ Acetaminophen 1 tab Q6HP PRN PO 06/25/24 09:45 06/26/24 06:32 1 TAB Guaifenesin/ Dextromethorphan 10 ml Q4HP PRN PO 06/25/24 10:00 06/25/24 21:12 10 ML Metoprolol Succinate 25 mg DAILY PO 06/25/24 10:00 06/25/24 11:30 25 MG Vancomycin HCl 100 ml @ 100 mls/hr Q12H IV 06/25/24 18:00 06/26/24 05:02 100 MLS/HR Laboratory Results Laboratory Tests 06/26/24 05:14 Chemistry Test 06/26/24 05:14 Calcium Level 8.9 mg/dL (8.7-10.4) Urinalysis Test 06/21/24 15:45 Urine Color Light-yellow (Yellow) Urine Clarity Clear (Clear) Urine pH 5.0 (5.0-9.0) Urine Specific [place] 1.020 (1.001-1.035) Urine Protein Trace (Negative) H Urine Ketones 3+ (Negative) H Urine Blood Negative /uL (Negative) Urine Nitrite Negative (Negative) Urine Bilirubin Negative (Negative) Urine Urobilinogen Normal mg/dL (Negative) Urine Leukocyte Esterase Negative /uL (Negative) Urine RBC 1 /hpf (0 - 4) Urine Microscopic WBC 1 /HPF (0-5) Urine Squamous Epithelial Cells Few /hpf (<5) Urine Bacteria None seen /hpf (None Seen) Urine Yeast (Budding) Occasional /hpf (None Urine Glucose 4+ mg/dL (Normal) H Microbiology Microbiology Date/Time Source Procedure Growth Status 06/23/24 13:03 Blood Blood Culture - Preliminary NO GROWTH AFTER 48 HOURS OF INCUBATION. Resulted Assessment/Plan Assessment/Plan Acute DKA, resolved Insulin-dependent diabetes Medical noncompliance Hypertension Recent left ankle fracture Left ankle wound with possible cellulitis Anxiety Hyponatremia Left lower lobe pneumonia g positive versus Gram-negative etiology Acute hypoxic respiratory failure Thrombocytopenia, resolved Plan Continue IV antibiotic meropenem and vancomycin Rule out COVID and influenza Discontinue Holcomb Out of bed as tolerated Physical therapy The patient needs her boot for her left foot ankle which she will bring from home so she can start physical therapy Continue Lantus Monitor closely Lovenox for DVT prophylaxis Protonix for GI prophylaxis Plan discussed with: Patient Date of Service: Jun 26, 2024 Billing Provider: DEANNE AGUIRRE MD Common Visit Codes: NOT BILLABLE DEANNE AGUIRRE MD Jun 26, 2024 09:58
[2024-06-26] MEDS: ENOXAPARIN SOD 30 MG/0.3 ML SYRINGE SC SCH (11:25)
[2024-06-26 17:24] LABS: COVID19 ANTIGEN SOFIA FIA NEGATIVE (NEGATIVE)
[2024-06-26 17:25] LABS: Rapid Influenza A Negative (Negative); Rapid Influenza B Negative (Negative)
[2024-06-27] VITALS (14 sets, daily range): BP systolic 115–168; BP diastolic 67–92; PULSE 109–120; RESP 14–20; TEMP 97.8–98.9; O2SAT 93–99
[2024-06-27] MEDS: NITROGLYCERIN 0.4 MG SL TAB SL PRN (00:23)
[2024-06-27] MEDS ORDERED: MORPHINE SULFATE INJ 2 MG/ml SYRG IV PRN (01:15)
[2024-06-27 08:03] LABS: Basophils # (auto) 0 10 ^3/uL (0-0.2); Basophils % (auto) 0.5 % (0.0-2.0); Eosinophils # (auto) 0.1 10 ^3/uL (0-0.8); Eosinophils % (auto) 0.8 % (0.0-7.0); Hematocrit 31.8 % (36.0-46.0); Hemoglobin 11.1 g/dL (12.2-16.2); Lymphocytes # (auto) 1.6 10 ^3/uL (0.4-5.4); Lymphocytes % (auto) 23.7 % (10.0-50.0); Mean Corpuscular Hemoglobin 29.7 pg (28.0-32.0); Mean Corpuscular Hgb Conc. 34.9 g/dL (32.0-36.0); Mean Corpuscular Volume 85.1 fL (80.0-100.0); Monocytes # (auto) 0.4 10 ^3/uL (0-1.3); Monocytes % (auto) 6.3 % (0.0-12.0); Neutrophils # (auto) 4.6 10 ^3/uL (1.6-8.6); Neutrophils % (auto) 68.7 % (37.0-80.0); Nucleated Red Blood Cells % 0.1 %; Platelet Count (auto) 231 10^3/uL (140-450); Red Blood Cells 3.73 10^6/uL (4.0-5.20); Red Cell Distribution Width 13.7 % (11.8-14.3); White Blood Cell 6.7 10^3/uL (4.4-10.8)
[2024-06-27 08:18] LABS: Calcium 8.9 mg/dL (8.7-10.4); Chloride 98 mmol/L (98-107); Potassium 3.6 mmol/L (3.5-5.1); Sodium 137 mmol/L (136-145)
[2024-06-27 08:19] LABS: Anion Gap 8 (5-15); Carbon Dioxide 31 mmol/L (20-31)
[2024-06-27 08:24] LABS: BUN/Creatinine Ratio 12.8 (10.0-20.0); Magnesium 1.7 mg/dL (1.6-2.6)
[2024-06-27 08:25] LABS: Blood Urea Nitrogen 6 mg/dL (9-23); Glucose 162 mg/dL (74-106)
--- NOTE | 2024-06-27 11:08 | DVHPN2 ---
Subjective She is still not feeling better She is having nonproductive cough No fever today Tachycardic heart rate 110 Reviewed: Care Plan, H&P, Labs, Medications Changes from previous H/P or p: Changes General: Per HPI Objective Vitals Vital Signs Date Time Temp Pulse Resp B/P (MAP) Pulse Ox O2 Delivery O2 Flow Rate FiO2 06/27/24 10:24 114 124/73 06/27/24 08:49 97.9 18 94 97.9 06/27/24 06:01 Nasal Cannula 3.0 06/27/24 06:01 32 Intake/Output Intake and Output 06/27/24 07:00 Intake Total 1940 ml Output Total 1550 ml Balance 390 ml Intake Oral 1640 ml IV Total 300 ml Output Urine Total 1550 ml # Voids 8 General Appearance: Alert, Oriented X3, Cooperative, mild distress Lungs: Other (Rhonchi bilaterally. Nasal cannula 3 L.) Cardiovascular: Regular rate, Normal S1, Normal S2 Abdomen: Normal bowel sounds, Soft, No tenderness Extremities: No edema Neuro: Normal gait, Normal speech Skin: Dry, Intact Psych/Mental Status: Mental status NL, Mood NL Medications Current Medications Medications Dose Ordered Sig/[place] Route Start Time Stop Time Status Last Admin Dose Admin Nitroglycerin 0.4 mg Q5MINP PRN SL 06/21/24 17:15 06/27/24 00:23 0.4 MG Ondansetron HCl 4 mg Q4HPRN PRN IV 06/21/24 17:15 06/24/24 18:27 4 MG Pantoprazole Sodium 40 mg DAILY@0600 PO 06/22/24 06:00 06/27/24 05:36 40 MG Vancomycin HCl 0 ml @ 0 mls/hr UD IV 06/22/24 05:15 Dextrose 50 ml UD PRN IV 06/22/24 05:15 06/22/24 06:43 50 ML Acetaminophen 650 mg Q6HP PRN PO 06/22/24 11:30 06/22/24 17:54 650 MG Diagnostic Test (Pha) 1 strip ACHS 06/22/24 11:45 06/27/24 05:56 1 STRIP Insulin Human Regular ACHS SC 06/22/24 11:45 06/27/24 06:16 3 UNITS Morphine Sulfate 2 mg Q6HPRN PRN IV 06/23/24 12:30 06/27/24 05:55 2 MG Amino Acid Protein 30 ml DAILY PO 06/25/24 10:00 06/25/24 12:15 30 ML Ascorbic Acid 500 mg BID PO 06/24/24 22:00 06/27/24 10:22 500 MG Insulin Glargine 15 units DAILY SC 06/25/24 10:00 06/27/24 10:00 15 UNITS Meropenem 50 ml @ 17 mls/hr Q8HR IV 06/25/24 14:00 06/27/24 05:36 17 MLS/HR Levalbuterol HCl 1.25 mg Q6HR NEB 06/25/24 12:00 06/27/24 06:00 1.25 MG Ipratropium [place] 0.5 mg Q6HR NEB 06/25/24 12:00 06/27/24 06:00 0.5 MG Oxycodone/ Acetaminophen 1 tab Q6HP PRN PO 06/25/24 09:45 06/27/24 10:21 1 TAB Guaifenesin/ Dextromethorphan 10 ml Q4HP PRN PO 06/25/24 10:00 06/27/24 10:21 10 ML Metoprolol Succinate 25 mg DAILY PO 06/25/24 10:00 06/27/24 10:24 25 MG Vancomycin HCl 100 ml @ 100 mls/hr Q12H IV 06/25/24 18:00 06/27/24 05:58 100 MLS/HR Enoxaparin Sodium 30 mg DAILY SC 06/26/24 10:00 06/27/24 10:21 30 MG Morphine Sulfate 2 mg [id number] PRN IV 06/27/24 01:15 Laboratory Results Laboratory Tests 06/27/24 05:52 Chemistry Test 06/27/24 05:52 Calcium Level 8.9 mg/dL (8.7-10.4) Magnesium Level 1.7 mg/dL (1.6-2.6) Urinalysis Test 06/21/24 15:45 Urine Color Light-yellow (Yellow) Urine Clarity Clear (Clear) Urine pH 5.0 (5.0-9.0) Urine Specific [place] 1.020 (1.001-1.035) Urine Protein Trace (Negative) H Urine Ketones 3+ (Negative) H Urine Blood Negative /uL (Negative) Urine Nitrite Negative (Negative) Urine Bilirubin Negative (Negative) Urine Urobilinogen Normal mg/dL (Negative) Urine Leukocyte Esterase Negative /uL (Negative) Urine RBC 1 /hpf (0 - 4) Urine Microscopic WBC 1 /HPF (0-5) Urine Squamous Epithelial Cells Few /hpf (<5) Urine Bacteria None seen /hpf (None Seen) Urine Yeast (Budding) Occasional /hpf (None Urine Glucose 4+ mg/dL (Normal) H Microbiology Microbiology Date/Time Source Procedure Growth Status 06/23/24 13:03 Blood Blood Culture - Preliminary NO GROWTH AFTER 72 HOURS OF INCUBATION. Resulted Assessment/Plan Assessment/Plan Acute DKA, resolved Insulin-dependent diabetes Medical noncompliance Hypertension Recent left ankle fracture Left ankle wound with possible cellulitis Anxiety Hyponatremia Left lower lobe pneumonia g positive versus Gram-negative etiology Acute hypoxic respiratory failure Thrombocytopenia, resolved Plan Continue IV antibiotic meropenem and vancomycin Rule out COVID and influenza Discontinue Holcomb Out of bed as tolerated Physical therapy The patient needs her boot for her left foot ankle which she will bring from home so she can start physical therapy Continue Lantus Monitor closely Lovenox for DVT prophylaxis Protonix for GI prophylaxis 06/27/2024: Pneumonia most likely Gram-positive cocci likely Streptococcus pneumoniae Bacteremia with Streptococcus pneumoniae Discontinue vancomycin Start doxycycline Diabetes: Continue Lantus Oxygen as needed Incentive spirometry Pulmonary consult Med neb treatments as needed Right ankle fracture: The patient is supposed to get the walking boot from home so she can start physical therapy Out of bed as tolerated Monitor closely Plan discussed with: Patient My Orders Orders - DEANNE AGUIRRE MD Procedure Category Date Status Time Magnesium Aba PHA 06/27/24 Verified 12:00 Date of Service: Jun 27, 2024 Billing Provider: DEANNE AGUIRRE MD Common Visit Codes: NOT BILLABLE DEANNE AGUIRRE MD Jun 27, 2024 11:08
[2024-06-27] MEDS ORDERED: DOXYCYCLINE 100MG/100ML 100 ML IV ONE (11:15)
[2024-06-27] MEDS: MAGNESIUM SULFATE 1GM/100ML 100 ML IV SCH (13:00)
[2024-06-27] MEDS: DOXYCYCLINE 100MG/100ML 100 ML IV SCH (13:38)
[2024-06-28] VITALS (16 sets, daily range): BP systolic 134–159; BP diastolic 80–93; PULSE 100–154; RESP 16–20; TEMP 97.8–98.7; O2SAT 92–99
--- NOTE | 2024-06-28 10:10 | DVHPN2 ---
Subjective She is still not feeling better She is having nonproductive cough Reviewed: Care Plan, H&P, Labs, Medications Changes from previous H/P or p: Changes General: Per HPI Objective Vitals Vital Signs Date Time Temp Pulse Resp B/P (MAP) Pulse Ox O2 Delivery O2 Flow Rate FiO2 06/28/24 08:00 97.9 117 20 159/93 (115) 96 97.9 06/28/24 05:55 Nasal Cannula 3.0 06/28/24 05:55 32 Intake/Output Intake and Output 06/28/24 07:00 Intake Total 2310 ml Balance 2310 ml Intake Oral 2010 ml IV Total 300 ml # Voids 7 General Appearance: Alert, Oriented X3, Cooperative, mild distress Lungs: Other (Rhonchi bilaterally. Nasal cannula 3 L.) Cardiovascular: Regular rate, Normal S1, Normal S2 Abdomen: Normal bowel sounds, Soft, No tenderness Extremities: No edema Neuro: Normal gait, Normal speech Skin: Dry, Intact Psych/Mental Status: Mental status NL, Mood NL Medications Current Medications Medications Dose Ordered Sig/[place] Route Start Time Stop Time Status Last Admin Dose Admin Nitroglycerin 0.4 mg Q5MINP PRN SL 06/21/24 17:15 06/27/24 00:23 0.4 MG Ondansetron HCl 4 mg Q4HPRN PRN IV 06/21/24 17:15 06/24/24 18:27 4 MG Pantoprazole Sodium 40 mg DAILY@0600 PO 06/22/24 06:00 06/28/24 06:41 40 MG Dextrose 50 ml UD PRN IV 06/22/24 05:15 06/22/24 06:43 50 ML Acetaminophen 650 mg Q6HP PRN PO 06/22/24 11:30 06/22/24 17:54 650 MG Diagnostic Test (Pha) 1 strip ACHS 06/22/24 11:45 06/28/24 06:41 1 STRIP Insulin Human Regular ACHS SC 06/22/24 11:45 06/27/24 22:45 6 UNITS Morphine Sulfate 2 mg Q6HPRN PRN IV 06/23/24 12:30 06/28/24 00:32 2 MG Amino Acid Protein 30 ml DAILY PO 06/25/24 10:00 06/25/24 12:15 30 ML Ascorbic Acid 500 mg BID PO 06/24/24 22:00 06/27/24 21:48 500 MG Insulin Glargine 15 units DAILY SC 06/25/24 10:00 06/27/24 10:00 15 UNITS Levalbuterol HCl 1.25 mg Q6HR NEB 06/25/24 12:00 06/28/24 05:55 1.25 MG Ipratropium [place] 0.5 mg Q6HR NEB 06/25/24 12:00 06/28/24 05:55 0.5 MG Oxycodone/ Acetaminophen 1 tab Q6HP PRN PO 06/25/24 09:45 06/27/24 21:48 1 TAB Guaifenesin/ Dextromethorphan 10 ml Q4HP PRN PO 06/25/24 10:00 06/27/24 21:48 10 ML Metoprolol Succinate 25 mg DAILY PO 06/25/24 10:00 06/27/24 10:24 25 MG Enoxaparin Sodium 30 mg DAILY SC 06/26/24 10:00 06/27/24 10:21 30 MG Morphine Sulfate 2 mg [id number] PRN IV 06/27/24 01:15 Doxycycline Hyclate 100 ml @ 50 mls/hr Q12H IV 06/27/24 11:15 06/27/24 21:50 50 MLS/HR Laboratory Results Laboratory Tests 06/27/24 05:52 Urinalysis Test 06/21/24 15:45 Urine Color Light-yellow (Yellow) Urine Clarity Clear (Clear) Urine pH 5.0 (5.0-9.0) Urine Specific [place] 1.020 (1.001-1.035) Urine Protein Trace (Negative) H Urine Ketones 3+ (Negative) H Urine Blood Negative /uL (Negative) Urine Nitrite Negative (Negative) Urine Bilirubin Negative (Negative) Urine Urobilinogen Normal mg/dL (Negative) Urine Leukocyte Esterase Negative /uL (Negative) Urine RBC 1 /hpf (0 - 4) Urine Microscopic WBC 1 /HPF (0-5) Urine Squamous Epithelial Cells Few /hpf (<5) Urine Bacteria None seen /hpf (None Seen) Urine Yeast (Budding) Occasional /hpf (None Urine Glucose 4+ mg/dL (Normal) H Microbiology Microbiology Date/Time Source Procedure Growth Status 06/23/24 13:03 Blood Blood Culture - Preliminary NO GROWTH AFTER 72 HOURS OF INCUBATION. Resulted Assessment/Plan Assessment/Plan Acute DKA, resolved Insulin-dependent diabetes Medical noncompliance Hypertension Recent left ankle fracture Left ankle wound with possible cellulitis Anxiety Hyponatremia Left lower lobe pneumonia g positive versus Gram-negative etiology Acute hypoxic respiratory failure Thrombocytopenia, resolved Plan Continue IV antibiotic meropenem and vancomycin Rule out COVID and influenza Discontinue Holcomb Out of bed as tolerated Physical therapy The patient needs her boot for her left foot ankle which she will bring from home so she can start physical therapy Continue Lantus Monitor closely Lovenox for DVT prophylaxis Protonix for GI prophylaxis 06/27/2024: Pneumonia most likely Gram-positive cocci likely Streptococcus pneumoniae Bacteremia with Streptococcus pneumoniae Discontinue vancomycin Start doxycycline Diabetes: Continue Lantus Oxygen as needed Incentive spirometry Pulmonary consult Med neb treatments as needed Right ankle fracture: The patient is supposed to get the walking boot from home so she can start physical therapy Out of bed as tolerated Monitor closely 06/28/24: Repeat CXR Pulmonary consult IV Antibiotics Plan discussed with: Patient My Orders Orders - DEANNE AGUIRRE MD Procedure Category Date Status Time Doxycycline PHA 06/27/24 In Process 100mg/100ml 11:15 *Consult CONS 06/27/24 Transmitted / 11:07 Chest Xray 1 View XY 06/28/24 Verified 10:08 Date of Service: Jun 28, 2024 Billing Provider: DEANNE AGUIRRE MD Common Visit Codes: NOT BILLABLE DEANNE AGUIRRE MD Jun 28, 2024 10:10
--- NOTE | 2024-06-28 11:42 | DVH ---
CHEST RADIOGRAPH Indication: PNA Technique: Frontal view of the chest. Comparison: XY CHEST PORTABLE on DOS: 06/26/24, XY CHEST XRAY 1 VIEW on DOS: 06/24/24, XY CHEST XRAY 1 EW on DOS: 06/21/24, XY CHEST XRAY 1 VIEW on DOS: 06/21/24, XY CHEST PORTABLE on DOS: 06/21/24, XY CHEST PO RTABLE on DOS: 06/26/24 FINDINGS: LUNGS AND PLEURAL SPACES: Patchy airspace disease of the lower left lung field, likely pneumonia. No pneumothorax. HEART: Unremarkable. No cardiomegaly. MEDIASTINUM: Unremarkable. Normal mediastinal contour. BONES/JOINTS: Unremarkable. No acute fracture. OTHER FINDINGS: . IMPRESSION: Patchy airspace disease of the lower left lung field, likely pneumonia.
[2024-06-29] VITALS (15 sets, daily range): BP systolic 136–157; BP diastolic 74–86; PULSE 99–117; RESP 16–20; TEMP 97.7–98; O2SAT 93–99
--- NOTE | 2024-06-29 07:57 | ECG ---
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
--- NOTE | 2024-06-29 08:52 | DVHPN2 ---
Subjective Still complains of dry cough She says she is feeling somewhat better today Reviewed: Care Plan, H&P, Labs, Medications Changes from previous H/P or p: Changes General: Per HPI Objective Vitals Vital Signs Date Time Temp Pulse Resp B/P (MAP) Pulse Ox O2 Delivery O2 Flow Rate FiO2 06/29/24 06:18 115 18 144/82 06/29/24 05:43 99 06/29/24 05:37 Room Air 0.0 06/29/24 05:37 21 21 06/29/24 05:00 98.0 98.0 Intake/Output Intake and Output 06/29/24 07:00 Intake Total 1660 ml Output Total 1000 ml Balance 660 ml Intake Oral 1460 ml IV Total 200 ml Output Urine Total 1000 ml # Voids 7 General Appearance: Alert, Oriented X3, Cooperative, mild distress Lungs: Other (Rhonchi bilaterally. Nasal cannula 3 L.) Cardiovascular: Regular rate, Normal S1, Normal S2 Abdomen: Normal bowel sounds, Soft, No tenderness Extremities: No edema Neuro: Normal gait, Normal speech Skin: Dry, Intact Psych/Mental Status: Mental status NL, Mood NL Medications Current Medications Medications Dose Ordered Sig/[place] Route Start Time Stop Time Status Last Admin Dose Admin Nitroglycerin 0.4 mg Q5MINP PRN SL 06/21/24 17:15 06/27/24 00:23 0.4 MG Ondansetron HCl 4 mg Q4HPRN PRN IV 06/21/24 17:15 06/24/24 18:27 4 MG Pantoprazole Sodium 40 mg DAILY@0600 PO 06/22/24 06:00 06/29/24 05:24 40 MG Dextrose 50 ml UD PRN IV 06/22/24 05:15 06/22/24 06:43 50 ML Acetaminophen 650 mg Q6HP PRN PO 06/22/24 11:30 06/22/24 17:54 650 MG Diagnostic Test (Pha) 1 strip ACHS 06/22/24 11:45 06/29/24 06:20 1 STRIP Insulin Human Regular ACHS SC 06/22/24 11:45 06/28/24 21:19 4 UNITS Morphine Sulfate 2 mg Q6HPRN PRN IV 06/23/24 12:30 06/29/24 05:24 2 MG Amino Acid Protein 30 ml DAILY PO 06/25/24 10:00 4/6/25 12:15 30 ML Ascorbic Acid 500 mg BID PO 06/24/24 22:00 06/28/24 21:04 500 MG Insulin Glargine 15 units DAILY SC 06/25/24 10:00 06/28/24 10:00 15 UNITS Levalbuterol HCl 1.25 mg Q6HR NEB 06/25/24 12:00 06/29/24 05:37 1.25 MG Ipratropium [place] 0.5 mg Q6HR NEB 06/25/24 12:00 06/29/24 05:37 0.5 MG Oxycodone/ Acetaminophen 1 tab Q6HP PRN PO 06/25/24 09:45 06/29/24 08:21 1 TAB Guaifenesin/ Dextromethorphan 10 ml Q4HP PRN PO 06/25/24 10:00 06/28/24 17:15 10 ML Metoprolol Succinate 25 mg DAILY PO 06/25/24 10:00 06/28/24 11:02 25 MG Enoxaparin Sodium 30 mg DAILY SC 06/26/24 10:00 06/28/24 10:00 30 MG Morphine Sulfate 2 mg [id number] PRN IV 06/27/24 01:15 Doxycycline Hyclate 100 ml @ 50 mls/hr Q12H IV 06/27/24 11:15 06/28/24 22:08 50 MLS/HR Laboratory Results Laboratory Tests 06/27/24 05:52 Urinalysis Test 06/21/24 15:45 Urine Color Light-yellow (Yellow) Urine Clarity Clear (Clear) Urine pH 5.0 (5.0-9.0) Urine Specific [place] 1.020 (1.001-1.035) Urine Protein Trace (Negative) H Urine Ketones 3+ (Negative) H Urine Blood Negative /uL (Negative) Urine Nitrite Negative (Negative) Urine Bilirubin Negative (Negative) Urine Urobilinogen Normal mg/dL (Negative) Urine Leukocyte Esterase Negative /uL (Negative) Urine RBC 1 /hpf (0 - 4) Urine Microscopic WBC 1 /HPF (0-5) Urine Squamous Epithelial Cells Few /hpf (<5) Urine Bacteria None seen /hpf (None Seen) Urine Yeast (Budding) Occasional /hpf (None Urine Glucose 4+ mg/dL (Normal) H Microbiology Microbiology Date/Time Source Procedure Growth Status 06/23/24 13:03 Blood Blood Culture - Final NO GROWTH AFTER 5 DAYS OF INCUBATION. Complete Assessment/Plan Assessment/Plan Acute DKA, resolved Insulin-dependent diabetes Medical noncompliance Hypertension Recent left ankle fracture Left ankle wound with possible cellulitis Anxiety Hyponatremia Left lower lobe pneumonia g positive versus Gram-negative etiology Acute hypoxic respiratory failure Thrombocytopenia, resolved Plan Continue IV antibiotic meropenem and vancomycin Rule out COVID and influenza Discontinue [place] Out of bed as tolerated Physical therapy The patient needs her boot for her left foot ankle which she will bring from home so she can start physical therapy Continue Lantus Monitor closely Lovenox for DVT prophylaxis Protonix for GI prophylaxis 06/27/2024: Pneumonia most likely Gram-positive cocci likely Streptococcus pneumoniae Bacteremia with Streptococcus pneumoniae Discontinue vancomycin Start doxycycline Diabetes: Continue Lantus Oxygen as needed Incentive spirometry Pulmonary consult Med neb treatments as needed Right ankle fracture: The patient is supposed to get the walking boot from home so she can start physical therapy Out of bed as tolerated Monitor closely 06/28/24: Repeat CXR Pulmonary consult IV Antibiotics 06/29/2024: Repeat chest x-ray showed left lower lobe pneumonia Pulmonary consult is pending Continue home dose gabapentin Continue IV doxycycline Continue incentive spirometry Out of bed as tolerated Physical therapy Discharge planning in the next 1-2 day Plan discussed with: Patient My Orders Orders - DEANNE AGUIRRE MD Procedure Category Date Status Time Chest Xray 1 View XY 06/28/24 Resulted 10:08 Date of Service: Jun 29, 2024 Billing Provider: DEANNE AGUIRRE MD Common Visit Codes: NOT BILLABLE DEANNE AGUIRRE MD Jun 29, 2024 08:52
[2024-06-29] MEDS: GABAPENTIN 400 MG CAP PO ONE (09:09)
[2024-06-29] MEDS: GABAPENTIN 400 MG CAP PO SCH (16:43)
--- NOTE | 2024-06-29 19:37 | DVHINCON2 ---
Date of service: Jun 29, 2024 Referring Physician Ben Tay MD Reason for Consultation Pneumonia History of Present Illness A 53-year-old woman with past medical history that includes hypertension and insulin-dependent diabetes who presented to ED via EMS on 06/21/24 with chief complaint of hyperglycemia. Per EMS, patient was experiencing high blood sugar readings at home with associated substernal chest pain since night prior to presentation (06/20/24). Pain was described as sharp, 10/10 in severity. Per EMS, blood sugar read high on glucometer; reading up to 600. She was given IV fluids and 324mg of Aspirin en route to the ED. Pt reported she ran out of her Lantus 2 days prior to presentation; she was only taking the regular insulin per sliding scale. On workup in ED, patient was diagnosed with DKA and admitted for further care. Pulmonary consultation is requested for evaluation and management of pneumonia. Review of Systems: 14-point review of systems negative unless otherwise noted above. Past Medical History: Hypertension, insulin-dependent diabetes, anxiety and left ankle fracture. Past Surgical History: None Medications: Reviewed. Allergies: Fentanyl Tramadol Hydromorphone Morphine Acetaminophen Hydrocodone Lidocaine. Family History: Cerebrovascular accident Diabetes mellitus Breast cancer Cardiovascular disease. Social History: Nonsmoker. No alcohol or illicit drug use. Family History: Cerebrovascular accident (CVA) G8 MOTHER Diabetes mellitus G8 MOTHER G8 FATHER FH: breast cancer G8 MOTHER FH: cardiovascular disease G8 MOTHER G8 FATHER Allergies: Coded Allergies: Fentanyl (Verified Allergy, Severe, 05/07/24) Tramadol (Verified Allergy, Severe, itching,hives, 09/30/19) Lidocaine (Verified Allergy, Unknown, 03/13/18) Home Meds Active Scripts Insulin Glargine (Lantus) 100 Unit/Ml Inj, 15 UNIT SC BID, #1000 UNITS 3 Refills Prov:BEN TAY MD 07/03/24 Doxycycline Monohydrate (Doxycycline Monohydrate) 100 Mg Cap, 1 CAP PO BID, #14 CAP Prov:BEN TAY MD 07/03/24 Pantoprazole Sodium Sesquihydr (Protonix) 40 Mg Tab, 40 MG PO BID, #60 TAB Prov:ANDREA BEARDEN MD 04/13/20 Metoprolol Tartrate (Lopressor) 25 Mg Tb, 25 MG PO BID, #90 TAB Prov:ANDREA BEARDEN MD 04/13/20 Ibuprofen Micronized (Ibuprofen) 800 Mg Tab, 800 MG PO Q6HP PRN, #30 TAB Prov:ANDREA BEARDEN MD 04/13/20 Reported Medications Gabapentin (Gabapentin) 800 Mg Tab, 1 TAB PO TID for 30 Days, #90 06/22/24 Metformin Hydrochloride (Metformin Hcl) 500 Mg Tab, 1000 MG PO DAILY for 30 Days , MG 09/30/19 Fluoxetine Hcl (Fluoxetine Hcl) 10 Mg Cap, 10 MG PO HS for 30 Days, MG 09/30/19 Insulin Regular (Human) (Humulin R) 100 Unit/Ml Inj, 10 UNIT SC BID, INJ 09/30/19 Insulin Glargine (Lantus) 100 Unit/Ml Inj, 40 UNIT SC BID, INJ 09/30/19 Current Medications Current Medications Medications (Trade) Dose Ordered Sig/[place] Route PRN Reason Start Time Stop Time Status Last Admin Gabapentin (Neurontin Capsule) 800 mg TID PO 06/29/24 14:00 06/29/24 16:43 Vital Signs Vital Signs Date Time Temp Pulse Resp B/P (MAP) Pulse Ox O2 Delivery O2 Flow Rate FiO2 06/29/24 17:00 97.7 101 18 142/77 (98) 96 97.7 06/29/24 11:57 Room Air* 0 21 21 Physical Exam Gen.: Patient lying in bed in no apparent distress. Breathing on room air. Head: Normocephalic, atraumatic. Eyes: EOMI/PERRLA. Ears: Normal hearing. Normal anatomy. Neck/trachea: Trachea midline, supple. Nose: Normal external anatomy. Mouth: Moist mucous membranes. Chest: Decreased air entry bilaterally. No wheezing or rhonchi. Cardiovascular: Positive S1, positive S2. Regular rate and rhythm. Abdomen: Positive bowel sounds in all 4 quadrants. Soft, non-tender, non- distended. : Deferred. Rectal: Deferred. Skin: Warm, dry. Intact. Extremities: 2+ radial pulses bilaterally. No lower extremity edema. Neuro: Awake, alert, oriented x3. No gross motor or sensory deficits. Cranial nerves II through XII intact. Gait not assessed. Labs/Diagnostic Data Labs Test 06/29/24 16:46 06/27/24 05:52 06/26/24 14:20 06/25/24 16:50 Range/Units POC Glucose 88 70-106 mg/dl White Blood Count 6.7 4.4-10.8 10^3/uL Red Blood Count 3.73 L 4.0-5.20 10^6/uL Hemoglobin 11.1 L 12.2-16.2 g/dL Hematocrit 31.8 L 36.0-46.0 % Mean Corpuscular Volume 85.1 80.0-100.0 fL Mean Corpuscular Hemoglobin 29.7 28.0-32.0 pg Mean Corpuscular Hemoglobin Concent 34.9 32.0-36.0 g/dL Red Cell Distribution Width 13.7 11.8-14.3 % Platelet Count 231 140-450 10^3/uL Mean Platelet Volume 7.6 6.9-10.8 fL Neutrophils (%) (Auto) 68.7 37.0-80.0 % Lymphocytes (%) (Auto) 23.7 10.0-50.0 % Monocytes (%) (Auto) 6.3 0.0-12.0 % Eosinophils (%) (Auto) 0.8 0.0-7.0 % Basophils (%) (Auto) 0.5 0.0-2.0 % Neutrophils # (Auto) 4.6 1.6-8.6 10 ^3/uL Lymphocytes # (Auto) 1.6 0.4-5.4 10 ^3/uL Monocytes # (Auto) 0.4 0-1.3 10 ^3/uL Eosinophils # (Auto) 0.1 0-0.8 10 ^3/uL Basophils # (Auto) 0 0-0.2 10 ^3/uL Nucleated Red Blood Cells 0.1 % Sodium Level 137 136-145 mmol/L Potassium Level 3.6 3.5-5.1 mmol/L Chloride Level 98 98-107 mmol/L Carbon Dioxide Level 31 20-31 mmol/L Anion Gap 8 5-15 Blood Urea Nitrogen 6 L 9-23 mg/dL Creatinine 0.47 L 0.550-1.02 mg/dL Glomerular Filtration Rate Calc 113 >90 mL/min BUN/Creatinine Ratio 12.8 10.0-20.0 Serum Glucose 162 H 74-106 mg/dL Calcium Level 8.9 8.7-10.4 mg/dL Magnesium Level 1.7 1.6-2.6 mg/dL Influenza Type A Antigen Negative Negative Influenza Type B Antigen Negative Negative SARS-CoV-2 Antigen (Rapid) Negative NEGATIVE Vancomycin Level Trough 10.5 H 5-10 ug/mL Test 06/25/24 05:02 06/23/24 07:19 06/22/24 08:17 06/21/24 18:11 Range/Units Differential Total Cells Counted 100.0 100 Neutrophils % (Manual) 84 H 37.0-80.0 Band Neutrophils % (Manual) 0 Lymphocytes % (Manual) 11 10.0-50.0 Monocytes % (Manual) 5 0-12 Eosinophils % (Manual) 0 0-7 Basophils % (Manual) 0 0.0-2.0 Metamyelocytes % (manual) 0 Myelocytes % (Manual) 0 Promyelocytes % (Manual) 0 Blast Cells % (Manual) 0 Reactive Lymphocytes 0 Platelet Estimate Decreased Red Blood Cell Morphology Normal Total Bilirubin 0.3 0.2-1.0 mg/dL Aspartate Amino Transferase (AST) 32 13-40 U/L Alanine Aminotransferase (ALT) 20 7-40 U/L Alkaline Phosphatase 104 46-116 U/L Total Protein 4.7 L 5.7-8.2 g/dL Albumin 2.9 L 3.2-4.8 g/dL B-Type Natriuretic Peptide 125.69 0-100 pg/mL Hepatitis B Surface Antigen Negative Negative Hepatitis C Antibody Negative Negative Lactic Acid Level 4.3 *H 0.4-2.0 mmol/L Troponin I High Sensitivity 35 *H </=34 ng/L Test 06/21/24 15:50 06/21/24 15:45 06/21/24 15:31 06/21/24 14:35 Range/Units Blood Gas Specimen Type Arterial Blood Gas Sample Site Left radial Blood Gas Patient Temperature 37.0 Arterial Blood Date Drawn [id number] Arterial Blood pH 7.139 *L 7.350-7.450 Arterial Blood Partial Pressure CO2 16.4 *L 32.0-45.0 mmHg Arterial Blood Partial Pressure O2 79.6 L 83.0-108.0 mmHg Arterial Blood HCO3 5.4 L 21.0-28.0 mmol/L Arterial Blood Oxygen Saturation 93.1 L 94.0-98.0 % Arterial Blood Base Excess -21.4 L -2.0-3.0 mmol/L Arterial Blood Oxyhemoglobin 91.9 L 94.0-98.0 % Arterial Blood Carboxyhemoglobin 0.7 0.5-1.5 % Arterial Blood Methemoglobin 0.6 0.0-1.5 % Jeremy Test Yes Blood Gas Total Hemoglobin 13.80 12.0-16.0 g/dL Blood Gas Liter Flow 4.00 Blood Gas Modality Nasal cannula FiO2 % 36.0 Blood Gas Critical Value Read Back yes Blood Gas Notified Whom Blood Gas Notified Time [id number] Blood Gas Notified By 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 operator supervisor devora Urine Color Light-yellow Yellow Urine Clarity Clear Clear Urine pH 5.0 5.0-9.0 Urine Specific [place] 1.020 1.001-1.035 Urine Protein Trace H Negative Urine Ketones 3+ H Negative Urine Blood Negative Negative /uL Urine Nitrite Negative Negative Urine Bilirubin Negative Negative Urine Urobilinogen Normal Negative mg/dL Urine Leukocyte Esterase Negative Negative /uL Urine RBC 1 0 - 4 /hpf Urine Microscopic WBC 1 0-5 /HPF Urine Squamous Epithelial Cells Few <5 /hpf Urine Bacteria None seen None Seen /hpf Urine Yeast (Budding) Occasional None Seen /hpf Urine Glucose 4+ H Normal mg/dL Urine Opiates Screen Pos NEGATIVE Urine Fentanyl Screen Neg NEGATIVE Urine Barbiturates Screen Neg NEGATIVE Urine Phencyclidine Screen Neg NEGATIVE Urine Amphetamines Screen Neg NEGATIVE Urine Benzodiazepines Screen Neg NEGATIVE Urine Cocaine Screen Neg NEGATIVE Urine Cannabinoids Screen Neg NEGATIVE Phosphorus Level 6.2 H 2.4-5.1 mg/dL Beta-Hydroxybutyric Acid > 4.500 H < 0.4 mmol/L Serum Osmolality 347 H 278-298 mOsm/kg Lipase 15 12-53 U/L Microbiology Date/Time Source Procedure Growth Status 06/23/24 13:03 Blood Blood Culture - Final NO GROWTH AFTER 5 DAYS OF INCUBATION. Complete Assessment Impression: Acute hypoxic respiratory failure, resolved Pneumonia, likely strep pneumonia, gram negative, left lower lobe Diabetic ketoacidosis, resolved Atelectasis Hyponatremia, resolved. Cachexia, BMI 18.9 Plan: On room air Supplemental oxygen PRN Complete antibiotic course Blood cultures grew Streptococcus pneumoniae Continue bronchodilators Incentive spirometry WBC within normal limits. Accu-Cheks, ISS. Recommend repeat CT chest w/o contrast or chest x-ray in 6-8 weeks to document resolution of opacities. Pain control Avoid oversedation Monitor renal function. Monitor electrolytes. Supplement as necessary. Monitor ins and outs. GI prophylaxis - Protonix DVT prophylaxis - Lovenox. Prognosis: Poor given patient's multiple co-morbidities. Rest of plan per hospitalist and other consultants. Thank you, Dr. Tay, for allowing me to participate in this patient's care. Further recommendations will depend on the patient's clinical course. Please do not hesitate to contact me if you have any questions or concerns. This medical document was created using an electronic medical record system with [employer] dictation system. Although these documentations are being carefully reviewed, there may still be some phonetic and typographical changes. The errors are purely typographical, due to imperfection on the software program, and do not reflect any compromise in the patient's medical care. Plan discussed with: Patient, Other (KEITH Shook/Dr. Tay) JAMES ROACH MD Jun 29, 2024 19:37
[2024-06-30] VITALS (17 sets, daily range): BP systolic 122–156; BP diastolic 74–92; PULSE 100–118; RESP 14–20; TEMP 97.7–98.6; O2SAT 95–100
[2024-06-30 07:10] LABS: Basophils # (auto) 0.1 10 ^3/uL (0-0.2); Eosinophils # (auto) 0.1 10 ^3/uL (0-0.8); Hematocrit 35.8 % (36.0-46.0); Hemoglobin 12.1 g/dL (12.2-16.2); Lymphocytes # (auto) 2.3 10 ^3/uL (0.4-5.4); Lymphocytes % (auto) 32.1 % (10.0-50.0); Mean Corpuscular Hemoglobin 29.8 pg (28.0-32.0); Mean Corpuscular Hgb Conc. 33.8 g/dL (32.0-36.0); Mean Corpuscular Volume 88.1 fL (80.0-100.0); Monocytes # (auto) 0.5 10 ^3/uL (0-1.3); Monocytes % (auto) 6.3 % (0.0-12.0); Neutrophils # (auto) 4.3 10 ^3/uL (1.6-8.6); Neutrophils % (auto) 59.6 % (37.0-80.0); Platelet Count (auto) 440 10^3/uL (140-450); Red Blood Cells 4.06 10^6/uL (4.0-5.20); Red Cell Distribution Width 13.7 % (11.8-14.3); White Blood Cell 7.2 10^3/uL (4.4-10.8)
[2024-06-30 07:26] LABS: Alanine Aminotransferase 13 U/L (7-40); Albumin 3.8 g/dL (3.2-4.8); Anion Gap 7 (5-15); Aspartate Aminotransferase 26 U/L (13-40); BUN/Creatinine Ratio 21.9 (10.0-20.0); Blood Urea Nitrogen 14 mg/dL (9-23); Calcium 9.6 mg/dL (8.7-10.4); Carbon Dioxide 30 mmol/L (20-31); Potassium 4.9 mmol/L (3.5-5.1); Total Protein 7.3 g/dL (5.7-8.2)
[2024-06-30 07:27] LABS: Bilirubin, Total 0.3 mg/dL (0.2-1.0)
[2024-06-30 07:38] LABS: Alkaline Phosphatase 168 U/L (46-116); Chloride 98 mmol/L (98-107); Glucose 168 mg/dL (74-106); Sodium 135 mmol/L (136-145)
[2024-06-30] MEDS ORDERED: DEXTROSE (50%) 50ML SYRG IV PRN (13:00)
--- NOTE | 2024-06-30 13:04 | DVHPN2 ---
Subjective Patient with worsening chest pain. Feels like an elephant is under his chest. Reviewed: Care Plan, H&P, Labs, Medications Changes from previous H/P or p: Changes General: Per HPI Objective Vitals Vital Signs Date Time Temp Pulse Resp B/P (MAP) Pulse Ox O2 Delivery O2 Flow Rate FiO2 06/30/24 13:00 152/94 06/30/24 11:53 105 18 100 06/30/24 11:46 Nasal Cannula* 2 28 06/30/24 05:00 98.2 98.2 Intake/Output Intake and Output 06/30/24 07:00 Intake Total 1850 ml Output Total 1200 ml Balance 650 ml Intake Oral 1650 ml IV Total 200 ml Output Urine Total 1200 ml # Voids 1 # Bowel Movements 1 General Appearance: Alert, Oriented X3, Cooperative, mild distress Lungs: Other (Rhonchi bilaterally. Nasal cannula 3 L.) Cardiovascular: Regular rate, Normal S1, Normal S2 Abdomen: Normal bowel sounds, Soft, No tenderness Extremities: No edema Neuro: Normal gait, Normal speech Skin: Dry, Intact Psych/Mental Status: Mental status NL, Mood NL Medications Current Medications Medications Dose Ordered Sig/[place] Route Start Time Stop Time Status Last Admin Dose Admin Nitroglycerin 0.4 mg Q5MINP PRN SL 06/21/24 17:15 06/30/24 13:00 0.4 MG Ondansetron HCl 4 mg Q4HPRN PRN IV 06/21/24 17:15 06/24/24 18:27 4 MG Pantoprazole Sodium 40 mg DAILY@0600 PO 06/22/24 06:00 06/30/24 05:11 40 MG Dextrose 50 ml UD PRN IV 06/22/24 05:15 06/22/24 06:43 50 ML Acetaminophen 650 mg Q6HP PRN PO 06/22/24 11:30 06/22/24 17:54 650 MG Diagnostic Test (Pha) 1 strip ACHS 06/22/24 11:45 06/30/24 11:24 1 STRIP Insulin Human Regular ACHS SC 06/22/24 11:45 06/30/24 11:48 10 UNITS Morphine Sulfate 2 mg Q6HPRN PRN IV 06/23/24 12:30 06/29/24 19:51 2 MG Amino Acid Protein 30 ml DAILY PO 06/25/24 10:00 06/30/24 08:14 30 ML Ascorbic Acid 500 mg BID PO 06/24/24 22:00 06/30/24 11:23 500 MG Insulin Glargine 15 units DAILY SC 06/25/24 10:00 06/30/24 11:37 15 UNITS Levalbuterol HCl 1.25 mg Q6HR NEB 06/25/24 12:00 06/30/24 11:46 1.25 MG Ipratropium [place] 0.5 mg Q6HR NEB 06/25/24 12:00 06/30/24 11:46 0.5 MG Oxycodone/ Acetaminophen 1 tab Q6HP PRN PO 06/25/24 09:45 06/30/24 11:44 1 TAB Guaifenesin/ Dextromethorphan 10 ml Q4HP PRN PO 06/25/24 10:00 06/30/24 08:11 10 ML Metoprolol Succinate 25 mg DAILY PO 06/25/24 10:00 06/30/24 11:24 25 MG Enoxaparin Sodium 30 mg DAILY SC 06/26/24 10:00 06/30/24 11:23 30 MG Morphine Sulfate 2 mg [id number] PRN IV 06/27/24 01:15 Doxycycline Hyclate 100 ml @ 50 mls/hr Q12H IV 06/27/24 11:15 06/30/24 11:23 50 MLS/HR Gabapentin 800 mg TID PO 06/29/24 14:00 06/30/24 05:11 800 MG Laboratory Results Laboratory Tests 06/30/24 04:37 Chemistry Test 06/30/24 04:37 Albumin 3.8 g/dL (3.2-4.8) Calcium Level 9.6 mg/dL (8.7-10.4) Magnesium Level 2.0 mg/dL (1.6-2.6) Total Protein 7.3 g/dL (5.7-8.2) LFT Test 06/30/24 04:37 Alanine Aminotransferase (ALT) 13 U/L (7-40) Alkaline Phosphatase 168 U/L (46-116) H Aspartate Amino Transferase (AST) 26 U/L (13-40) Total Bilirubin 0.3 mg/dL (0.2-1.0) Urinalysis Test 4/2/25 15:45 Urine Color Light-yellow (Yellow) Urine Clarity Clear (Clear) Urine pH 5.0 (5.0-9.0) Urine Specific [place] 1.020 (1.001-1.035) Urine Protein Trace (Negative) H Urine Ketones 3+ (Negative) H Urine Blood Negative /uL (Negative) Urine Nitrite Negative (Negative) Urine Bilirubin Negative (Negative) Urine Urobilinogen Normal mg/dL (Negative) Urine Leukocyte Esterase Negative /uL (Negative) Urine RBC 1 /hpf (0 - 4) Urine Microscopic WBC 1 /HPF (0-5) Urine Squamous Epithelial Cells Few /hpf (<5) Urine Bacteria None seen /hpf (None Seen) Urine Yeast (Budding) Occasional /hpf (None Urine Glucose 4+ mg/dL (Normal) H Microbiology Microbiology Date/Time Source Procedure Growth Status 06/23/24 13:03 Blood Blood Culture - Final NO GROWTH AFTER 5 DAYS OF INCUBATION. Complete Labs and/or images reviewed: Labs reviewed by me, Image(s) reviewed by me Assessment/Plan Assessment/Plan Impression: -Acute DKA -Medical noncompliance -Hypertension -Recent left ankle fracture -Left ankle wound with possible cellulitis -Anxiety -Hyponatremia -ruled out appendicitis -hypokalemia -acute hypoxic respiratory failure -community-acquired pneumonia, probable Gram-positive/Gram-negative etiology -chest pain, rule out ACS -sepsis secondary to Streptococcus pneumoniae Plan: -events: Patient with 10/10 chest pain, described as pressure as if an elephant is on her chest. Twelve lead ECG reviewed. Serial troponins are currently pending. Cardiology consultation placed. Echocardiogram currently pending, with discussion made with technology advisor to have it read as soon as possible by Cardiology. Patient also with severe inspiratory and expiratory wheezing, for which IV steroids will be provided. Blood sugars has been uncontrolled. We will increase Lantus to 20 units q.h.s., change coverage to moderate a.c. HS scale -pulmonary consultation -Change antibiotic therapy to meropenem and vancomycin -antitussives -bronchodilators, Mucomyst -out of bed as tolerated, incentive spirometer -continue regular insulin sliding scale, decrease Lantus to daily -change pain management from [place] to Percocet -repeat labs and chest x-ray in a.m. Total time spent with patient discussing and formulating plan of care: 35 minutes. This medical document was created using an electronic medical record system with Dragon computerized dictation system. Although this document has been carefully reviewed, there may still be some phonetic and typographical errors. These areas are purely typographical due to imperfections of the software programs, and do not reflect any compromise in the patient's medical care. Plan discussed with: Patient, Other (RN) My Orders Orders - ZINA NGUYỄN NP Procedure Category Date Status Time Electrocardigram EKG 06/30/24 Logged 12:22 Chest Xray 1 View XY 06/30/24 Logged 12:49 Insulin Lantus PHA 07/01/24 Verified (Glargine) (Lantus) 10:00 Metoprolol Xl PHA 07/01/24 Verified Succinate (Toprol Xl) 10:00 Troponin-I Hs LAB 06/30/24 Verified 12:55 Troponin-I Hs LAB 06/30/24 Verified 13:55 Troponin-I Hs LAB 06/30/24 Verified 15:55 * Cardiology Consult CONS 06/30/24 Verified 12:55 Methylprednisolone PHA 06/30/24 Verified Sod Succ (Solu Medrol 13:00 Glucose Blood PHA 06/30/24 Verified (Accu-Chek Comfort 17:00 Bedtime Insulin Scale PHA 06/30/24 Verified 22:00 Moderate Insulin Ss PHA 06/30/24 Verified 17:00 Dextrose 50% Syringe PHA 06/30/24 Verified 13:00 Basic Metabolic Panel LAB 07/01/24 Verified 04:00 Complete Blood Count LAB 07/01/24 Verified 04:00 Date of Service: Jun 30, 2024 Billing Provider: ZINA NGUYỄN NP Common Visit Codes: 22969-[id number] CARE 30-74 MIN ZINA NGUYỄN NP Jun 30, 2024 13:04
--- NOTE | 2024-06-30 14:33 | DVH ---
CHEST RADIOGRAPH Indication: lll pna Technique: Single frontal view of the chest was obtained Comparison: XY CHEST XRAY 1 VIEW on DOS: 06/28/24, XY CHEST PORTABLE on DOS: 06/26/24, XY CHEST XRAY 1 EW on DOS: 06/24/24, XY CHEST XRAY 1 VIEW on DOS: 06/21/24, XY CHEST XRAY 1 VIEW on DOS: 06/21/24 FINDINGS: Lines and Tubes: None Lungs: No focal consolidation. Pleura: No effusion. No pneumothorax. Cardiomediastinal contours: Unremarkable Bones: No acute osseous abnormality. IMPRESSION: No acute cardiopulmonary disease.
[2024-06-30] MEDS: methylPREDNISolone SOD SUCC 125 MG/2 ML VL IV ONE (14:48)
--- NOTE | 2024-06-30 15:22 | DVHINCON2 ---
Date of service: Jun 30, 2024 History of Present Illness 53 yo F with hx of frailty admitted for severe PNA and DKA, (low wbc count ,fever 103, HR 130s) a week ago with +bacteremia now with chest pain. trop is - . ecg showed sinus tachy on admit. pt given sl ntg with no relief. Past Medical History reviewed Family History: Cerebrovascular accident (CVA) G8 MOTHER Diabetes mellitus G8 MOTHER G8 FATHER FH: breast cancer G8 MOTHER FH: cardiovascular disease G8 MOTHER G8 FATHER Allergies: Coded Allergies: Fentanyl (Verified Allergy, Severe, 05/07/24) Tramadol (Verified Allergy, Severe, itching,hives, 09/30/19) Lidocaine (Verified Allergy, Unknown, 03/13/18) Home Meds Active Scripts Pantoprazole Sodium Sesquihydr (Protonix) 40 Mg Tab, 40 MG PO BID, #60 TAB Prov:ANDREA BEARDEN MD 04/13/20 Metoprolol Tartrate (Lopressor) 25 Mg Tb, 25 MG PO BID, #90 TAB Prov:ANDREA BEARDEN MD 04/13/20 Ibuprofen Micronized (Ibuprofen) 800 Mg Tab, 800 MG PO Q6HP PRN, #30 TAB Prov:ANDREA BEARDEN MD 04/13/20 Reported Medications Gabapentin (Gabapentin) 800 Mg Tab, 1 TAB PO TID for 30 Days, #90 06/22/24 Metformin Hydrochloride (Metformin Hcl) 500 Mg Tab, 1000 MG PO DAILY for 30 Days, MG 09/30/19 Fluoxetine Hcl (Fluoxetine Hcl) 10 Mg Cap, 10 MG PO HS for 30 Days, MG 09/30/19 Insulin Regular (Human) (Humulin R) 100 Unit/Ml Inj, 10 UNIT SC BID, INJ 09/30/19 Insulin Glargine (Lantus) 100 Unit/Ml Inj, 40 UNIT SC BID, INJ 09/30/19 Current Medications Current Medications Medications (Trade) Dose Ordered Sig/Eugene Route PRN Reason Start Time Stop Time Status Last Admin Insulin Glargine (Lantus) 20 units DAILY SC 07/01/24 10:00 Metoprolol Succinate (Toprol Xl) 50 mg DAILY PO 07/01/24 10:00 Diagnostic Test (Pha) (Accu-Chek Comfort Curve T) 1 strip ACHS 06/30/24 17:00 Insulin Human Regular (InsuLIN R) HS SC 06/30/24 22:00 Insulin Human Regular (InsuLIN R) AC SC 06/30/24 17:00 Dextrose 50 ml UD PRN IV Blood Sugar LESS THAN 60 06/30/24 13:00 Review of Systems 10 pt ros otherwise negative Vital Signs Vital Signs Date Time Temp Pulse Resp B/P (MAP) Pulse Ox O2 Delivery O2 Flow Rate FiO2 06/30/24 13:00 152/94 06/30/24 13:00 98.0 111 18 95 98.0 06/30/24 11:46 Nasal Cannula* 2 28 Physical Exam nad s1 s2 rrr ctab soft nt/nd n oedema Labs/Diagnostic Data Labs Test 06/30/24 14:45 06/30/24 11:29 06/30/24 04:37 06/26/24 14:20 Range/Units Troponin I High Sensitivity 3 L </=34 ng/L POC Glucose 367 H 70-106 mg/dl White Blood Count 7.2 4.4-10.8 10^3/uL Red Blood Count 4.06 4.0-5.20 10^6/uL Hemoglobin 12.1 L 12.2-16.2 g/dL Hematocrit 35.8 #L 36.0-46.0 % Mean Corpuscular Volume 88.1 80.0-100.0 fL Mean Corpuscular Hemoglobin 29.8 28.0-32.0 pg Mean Corpuscular Hemoglobin Concent 33.8 32.0-36.0 g/dL Red Cell Distribution Width 13.7 11.8-14.3 % Platelet Count 440 140-450 10^3/uL Mean Platelet Volume 7.6 6.9-10.8 fL Neutrophils (%) (Auto) 59.6 37.0-80.0 % Lymphocytes (%) (Auto) 32.1 10.0-50.0 % Monocytes (%) (Auto) 6.3 0.0-12.0 % Eosinophils (%) (Auto) 1.0 0.0-7.0 % Basophils (%) (Auto) 1.0 0.0-2.0 % Neutrophils # (Auto) 4.3 1.6-8.6 10 ^3/uL Lymphocytes # (Auto) 2.3 0.4-5.4 10 ^3/uL Monocytes # (Auto) 0.5 0-1.3 10 ^3/uL Eosinophils # (Auto) 0.1 0-0.8 10 ^3/uL Basophils # (Auto) 0.1 0-0.2 10 ^3/uL Nucleated Red Blood Cells 0.0 % Sodium Level 135 L 136-145 mmol/L Potassium Level 4.9 3.5-5.1 mmol/L Chloride Level 98 98-107 mmol/L Carbon Dioxide Level 30 20-31 mmol/L Anion Gap 7 5-15 Blood Urea Nitrogen 14 9-23 mg/dL Creatinine 0.64 # 0.550-1.02 mg/dL Glomerular Filtration Rate Calc 105 >90 mL/min BUN/Creatinine Ratio 21.9 H 10.0-20.0 Serum Glucose 168 H 74-106 mg/dL Calcium Level 9.6 8.7-10.4 mg/dL Magnesium Level 2.0 1.6-2.6 mg/dL Total Bilirubin 0.3 0.2-1.0 mg/dL Aspartate Amino Transferase (AST) 26 13-40 U/L Alanine Aminotransferase (ALT) 13 7-40 U/L Alkaline Phosphatase 168 H 46-116 U/L Total Protein 7.3 5.7-8.2 g/dL Albumin 3.8 3.2-4.8 g/dL Influenza Type A Antigen Negative Negative Influenza Type B Antigen Negative Negative SARS-CoV-2 Antigen (Rapid) Negative NEGATIVE Test 06/25/24 16:50 06/25/24 05:02 06/23/24 07:19 06/22/24 08:17 Range/Units Vancomycin Level Trough 10.5 H 5-10 ug/mL Differential Total Cells Counted 100.0 100 Neutrophils % (Manual) 84 H 37.0-80.0 Band Neutrophils % (Manual) 0 Lymphocytes % (Manual) 11 10.0-50.0 Monocytes % (Manual) 5 0-12 Eosinophils % (Manual) 0 0-7 Basophils % (Manual) 0 0.0-2.0 Metamyelocytes % (manual) 0 Myelocytes % (Manual) 0 Promyelocytes % (Manual) 0 Blast Cells % (Manual) 0 Reactive Lymphocytes 0 Platelet Estimate Decreased Red Blood Cell Morphology Normal B-Type Natriuretic Peptide 125.69 0-100 pg/mL Hepatitis B Surface Antigen Negative Negative Hepatitis C Antibody Negative Negative Test 06/21/24 18:11 06/21/24 15:50 06/21/24 15:45 06/21/24 15:31 Range/Units Lactic Acid Level 4.3 *H 0.4-2.0 mmol/L Blood Gas Specimen Type Arterial Blood Gas Sample Site Left radial Blood Gas Patient Temperature 37.0 Arterial Blood Date Drawn [id number] Arterial Blood pH 7.139 *L 7.350-7.450 Arterial Blood Partial Pressure CO2 16.4 *L 32.0-45.0 mmHg Arterial Blood Partial Pressure O2 79.6 L 83.0-108.0 mmHg Arterial Blood HCO3 5.4 L 21.0-28.0 mmol/L Arterial Blood Oxygen Saturation 93.1 L 94.0-98.0 % Arterial Blood Base Excess -21.4 L -2.0-3.0 mmol/L Arterial Blood Oxyhemoglobin 91.9 L 94.0-98.0 % Arterial Blood Carboxyhemoglobin 0.7 0.5-1.5 % Arterial Blood Methemoglobin 0.6 0.0-1.5 % Jeremy Test Yes Blood Gas Total Hemoglobin 13.80 12.0-16.0 g/dL Blood Gas Liter Flow 4.00 Blood Gas Modality Nasal cannula FiO2 % 36.0 Blood Gas Critical Value Read Back yes Blood Gas Notified Whom Blood Gas Notified Time [id number] Blood Gas Notified By kardex clerk devora Urine Color Light-yellow Yellow Urine Clarity Clear Clear Urine pH 5.0 5.0-9.0 Urine Specific [place] 1.020 1.001-1.035 Urine Protein Trace H Negative Urine Ketones 3+ H Negative Urine Blood Negative Negative /uL Urine Nitrite Negative Negative Urine Bilirubin Negative Negative Urine Urobilinogen Normal Negative mg/dL Urine Leukocyte Esterase Negative Negative /uL Urine RBC 1 0 - 4 /hpf Urine Microscopic WBC 1 0-5 /HPF Urine Squamous Epithelial Cells Few <5 /hpf Urine Bacteria None seen None Seen /hpf Urine Yeast (Budding) Occasional None Seen /hpf Urine Glucose 4+ H Normal mg/dL Urine Opiates Screen Pos NEGATIVE Urine Fentanyl Screen Neg NEGATIVE Urine Barbiturates Screen Neg NEGATIVE Urine Phencyclidine Screen Neg NEGATIVE Urine Amphetamines Screen Neg NEGATIVE Urine Benzodiazepines Screen Neg NEGATIVE Urine Cocaine Screen Neg NEGATIVE Urine Cannabinoids Screen Neg NEGATIVE Phosphorus Level 6.2 H 2.4-5.1 mg/dL Beta-Hydroxybutyric Acid > 4.500 H < 0.4 mmol/L Test 06/21/24 14:35 Range/Units Serum Osmolality 347 H 278-298 mOsm/kg Lipase 15 12-53 U/L Microbiology Date/Time Source Procedure Growth Status 06/23/24 13:03 Blood Blood Culture - Final NO GROWTH AFTER 5 DAYS OF INCUBATION. Complete Assessment r/o ACS bacteremia PNA frailty DM DKA Plan/Recommendation fu trops and ecg fu echo from 2 days ago, will review personally asa, statin cont abx and sepsis treatment Plan discussed with: Patient ROBI IRVIN MD Jun 30, 2024 15:22
--- NOTE | 2024-06-30 15:35 | DVHSR ---
APPROVED REPORT EXAM: Two-dimensional and M-mode echocardiogram with Doppler and color Doppler. Blood Pressure: 124/73 mmHg INDICATION NSTEMI RISK FACTORS Height: 5'8, Weight: 120 DIMENSIONS LVDd3.1 (3.8-5.7cm)LA (2D)3.4 (1.9-4.0cm)Aortic Root3.0 (2.0-3.7cm) LVDs2.1 (2.5-4.0cm)LA (MM) (1.9-4.0cm)Aortic Cusp Exc1.5 (1.5-2.0cm) EF (%) 60.0 (55-70%)Rt. Atrium3.4 (1.9-4.0cm)Asc. Aorta2.9 cm IVSd1.2 (0.7-1.1cm)RV (D) (1.8-2.4cm) PWd1.1 (0.7-1.1cm) Mitral Valve MitralMitral Stenosis E wave0.67m/sMV Mean GR.mmHg A wave1.07m/sMV Peak GR.mmHg E/A ratio0.62D MVAcm2 DECEL [id number] 1/2 Timems Aortic Valve Aortic ValveAortic Stenosis V11.31m/Aiden Mean GR.4mmHg V21.31m/Aiden Peak GR.7mmHg LVOT Diameter2.1 (1.8-2.4cm)Doppler AVA3.46cm2 Pulmonic Valve V20.91m/s Tricuspid Valve TR Velocity2.12m/s [id number] Conclusion lvef 65% moderaete LVH normal RV function mild tricuspid regurg no obvious valve vegetaton noted moderate MAC noted
[2024-06-30] MEDS: ACCU-CHEK COMFORT CURVE STRIP VI SCH (16:49)
[2024-06-30] MEDS: InsuLIN REG 1unit/0.01ml Soln (100units/ml) SC SCH ×2 (17:12→21:34)
[2024-06-30] MEDS ORDERED: LEVALBUTEROL HCL 1.25 MG/3 ML NEB NEB PRN (21:45)
--- NOTE | 2024-06-30 23:01 | DVHPN2 ---
Progress Note - Dictate Date Seen: Jun 30, 2024 Medical Necessity Reason Pt with a Central, PICC or Fol: No Subjective Patient seen and examined at bedside. Remains on supplemental oxygen Overnight events reviewed. vital signs Vital Sign Date Time Temp Pulse Resp B/P (MAP) Pulse Ox O2 Delivery O2 Flow Rate FiO2 06/30/24 21:00 98.2 110 18 122/74 (90) 97 98.2 06/30/24 19:30 Nasal Cannula* 3 32 Total Intake and Output 06/29/24 06/29/24 06/30/24 15:00 23:00 07:00 Intake Total 100 ml 900 ml 850 ml Output Total 1200 ml Balance 100 ml -300 ml 850 ml medications Current Medications Medications Dose Ordered Sig/Eugene Route Start Time Stop Time Status Last Admin Dose Admin Nitroglycerin 0.4 mg Q5MINP PRN SL 06/21/24 17:15 06/30/24 13:00 0.4 MG Ondansetron HCl 4 mg Q4HPRN PRN IV 06/21/24 17:15 06/24/24 18:27 4 MG Pantoprazole Sodium 40 mg DAILY@0600 PO 06/22/24 06:00 06/30/24 05:11 40 MG Acetaminophen 650 mg Q6HP PRN PO 06/22/24 11:30 06/22/24 17:54 650 MG Morphine Sulfate 2 mg Q6HPRN PRN IV 06/23/24 12:30 06/30/24 16:51 2 MG Amino Acid Protein 30 ml DAILY PO 06/25/24 10:00 06/30/24 08:14 30 ML Ascorbic Acid 500 mg BID PO 06/24/24 22:00 06/30/24 21:32 500 MG Levalbuterol HCl 1.25 mg Q6HR NEB 06/25/24 12:00 06/30/24 20:38 1.25 MG Ipratropium [place] 0.5 mg Q6HR NEB 06/25/24 12:00 06/30/24 20:38 0.5 MG Oxycodone/ Acetaminophen 1 tab Q6HP PRN PO 06/25/24 09:45 06/30/24 19:53 1 TAB Guaifenesin/ Dextromethorphan 10 ml Q4HP PRN PO 06/25/24 10:00 06/30/24 21:30 10 ML Enoxaparin Sodium 30 mg DAILY SC 06/26/24 10:00 06/30/24 11:23 30 MG Morphine Sulfate 2 mg [id number] PRN IV 06/27/24 01:15 Doxycycline Hyclate 100 ml @ 50 mls/hr Q12H IV 06/27/24 11:15 06/30/24 11:23 50 MLS/HR Gabapentin 800 mg TID PO 06/29/24 14:00 06/30/24 21:30 800 MG Insulin Glargine 20 units DAILY SC 07/01/24 10:00 Metoprolol Succinate 50 mg DAILY PO 07/01/24 10:00 Diagnostic Test (Pha) 1 strip ACHS 06/30/24 17:00 06/30/24 21:34 1 STRIP Insulin Human Regular HS SC 06/30/24 22:00 06/30/24 21:34 6 UNITS Insulin Human Regular AC SC 06/30/24 17:00 06/30/24 17:12 6 UNITS Dextrose 50 ml UD PRN IV 06/30/24 13:00 Acetylcysteine 200 mg Q6HR NEB 07/01/24 00:00 07/03/24 00:00 Levalbuterol HCl 1.25 mg Q4HPRN PRN NEB 06/30/24 21:45 objective Gen.: Patient lying in bed in no apparent distress. On supplemental oxygen. Head: Normocephalic, atraumatic. Eyes: EOMI/PERRLA. Ears: Normal hearing. Normal anatomy. Neck/trachea: Trachea midline, supple. Nose: Normal external anatomy. Mouth: Moist mucous membranes. Chest: Decreased air entry bilaterally. Coarse throughout. Wheezing present. No rhonchi. Cardiovascular: Positive S1, positive S2. Regular rate and rhythm. Abdomen: Positive bowel sounds in all 4 quadrants. Soft, non-tender, non- distended. : Deferred. Rectal: Deferred. Skin: Warm, dry. Intact. Extremities: 2+ radial pulses bilaterally. No lower extremity edema. Neuro: Awake, alert, oriented x3. No gross motor or sensory deficits. Cranial nerves II through XII intact. Gait not assessed. laboratory and microbiology Laboratory Tests 06/30/24 04:37 Test 06/30/24 04:37 Range/Units Serum Glucose 168 H 74-106 mg/dL Assessment/Plan Impression: Acute hypoxic respiratory failure, resolved Pneumonia, likely strep pneumonia, gram negative, left lower lobe Diabetic ketoacidosis, resolved Atelectasis Hyponatremia, resolved. Cachexia, BMI 18.9 Events: Remains on supplemental oxygen, 3 LPM NC Taper O2 as tolerated Continue bronchodilators PRN Mucomyst Continue antibiotics Incentive spirometry Labs and imaging reviewed. Rest of plan as noted below. Plan: Supplemental oxygen Titrate to keep sats above 92% Complete antibiotic course Blood cultures grew Streptococcus pneumoniae Continue bronchodilators PRN Incentive spirometry Accu-Cheks, ISS. Recommend repeat CT chest w/o contrast or chest x-ray in 6-8 weeks to document resolution of opacities. Pain control Avoid oversedation Monitor renal function. Monitor electrolytes. Supplement as necessary. Monitor ins and outs. GI prophylaxis - Protonix DVT prophylaxis - Lovenox. Prognosis: Poor given patient's multiple co-morbidities. Rest of plan per hospitalist and other consultants. Thank you, Dr. Tay, for allowing me to participate in this patient's care. Further recommendations will depend on the patient's clinical course. Please do not hesitate to contact me if you have any questions or concerns. This medical document was created using an electronic medical record system with [employer] dictation system. Although these documentations are being carefully reviewed, there may still be some phonetic and typographical changes. The errors are purely typographical, due to imperfection on the software program, and do not reflect any compromise in the patient's medical care. Dietary Evaluation Review Recommendations by RD: Protein Supplementation Comments: 1) Initate Pro-Stat @ 30 mL qd 2) Initiate Glucerna tid; Encourage optimal PO intake 3) Initiate vitamin C @ 500 mg bid 4) Advance to 60g CCHO 2g Na diet when medically feasible, pending ESTHETICIAN approval 5) Collect HbA1C d/t elevated BG levels 6) Refer to outpatient RD/CDCES for diabetes education 7) Continue to monitor I&O, labs, and skin integrity Expected Outcomes/Goals: 1) appetite and labs to improve 2) diet to advance 3) wound to improve 4) f/u in 2-3 days Plan discussed with: Patient, Other (RN) JAMES ROACH MD Jun 30, 2024 23:01
[2024-07-01] VITALS (21 sets, daily range): BP systolic 94–168; BP diastolic 65–99; PULSE 98–112; RESP 16–20; TEMP 97.5–98.4; O2SAT 92–100
[2024-07-01] MEDS: ACETYLCYSTEINE 20%(200MG/ML) SOL 4ML NEB SCH (00:40)
[2024-07-01] MEDS ORDERED: LEVALBUTEROL HCL 1.25 MG/3 ML NEB NEB SCH (02:00)
[2024-07-01 06:11] LABS: Potassium 4.9 mmol/L (3.5-5.1)
[2024-07-01 06:12] LABS: Anion Gap 7 (5-15); Calcium 9.4 mg/dL (8.7-10.4); Carbon Dioxide 25 mmol/L (20-31)
[2024-07-01 06:13] LABS: Basophils # (auto) 0 10 ^3/uL (0-0.2); Basophils % (auto) 0.1 % (0.0-2.0); Eosinophils # (auto) 0 10 ^3/uL (0-0.8); Lymphocytes # (auto) 0.9 10 ^3/uL (0.4-5.4); Monocytes # (auto) 0.2 10 ^3/uL (0-1.3); Neutrophils # (auto) 8.5 10 ^3/uL (1.6-8.6); White Blood Cell 9.6 10^3/uL (4.4-10.8)
[2024-07-01 06:15] LABS: Hematocrit 32.6 % (36.0-46.0); Lymphocytes % (auto) 9.1 % (10.0-50.0); Mean Corpuscular Hemoglobin 29.8 pg (28.0-32.0); Mean Corpuscular Hgb Conc. 33.8 g/dL (32.0-36.0); Mean Corpuscular Volume 88.1 fL (80.0-100.0); Neutrophils % (auto) 88.8 % (37.0-80.0); Platelet Count (auto) 532 10^3/uL (140-450); Red Cell Distribution Width 13.4 % (11.8-14.3)
[2024-07-01 06:17] LABS: BUN/Creatinine Ratio 21.3 (10.0-20.0); Blood Urea Nitrogen 19 mg/dL (9-23)
[2024-07-01 07:02] LABS: Chloride 92 mmol/L (98-107); Sodium 124 mmol/L (136-145)
[2024-07-01 07:03] LABS: Glucose 495 mg/dL (74-106)
--- NOTE | 2024-07-01 09:05 | ECG ---
[facility] Test Date: 2024-06-30 Test Time: 11:13:45 Pat Name: MARTIN MINA Department: Respiratoy Room: 0212T B Gender: F It Network Administrator: DEION KRAUSB: [id number] Requested By: ZINA NGUYỄN Order Number: [id number] Reading MD: Measurements Intervals [place] Rate: 110 P: 74 AL: 132 QRS: 65 QRSD: 74 T: 67 QT: 350 QTc: 474 Interpretive Statements Sinus tachycardia Probable left atrial enlargement Probable left ventricular hypertrophy Please click the below link to view image of tracing.
[2024-07-01] MEDS: hydrALAZINE HCL 20 MG/ML VL IV ONE (09:55)
[2024-07-01] MEDS: METOPROLOL SUCCINATE XL 50 MG TAB PO SCH (09:59)
[2024-07-01] MEDS: INSULIN LANTUS (GLARGINE) 1 /0.01ml (100units/ml) SC SCH (10:01)
[2024-07-01] MEDS ORDERED: DEXTROSE (50%) 50ML SYRG IV PRN (11:15)
--- NOTE | 2024-07-01 11:21 | DVHPN2 ---
Subjective Reports chest pain is improved. Reviewed: Care Plan, H&P, Labs, Medications Changes from previous H/P or p: Changes General: Per HPI Objective Vitals Vital Signs Date Time Temp Pulse Resp B/P (MAP) Pulse Ox O2 Delivery O2 Flow Rate FiO2 07/01/24 09:59 108 138/83 07/01/24 09:00 97.5 18 97 97.5 07/01/24 07:00 Room Air* 0 21 Intake/Output Intake and Output 07/01/24 07:00 Intake Total 2300 ml Output Total 1500 ml Balance 800 ml Intake Oral 2200 ml IV Total 100 ml Output Urine Total 1500 ml # Voids 15 General Appearance: Alert, Oriented X3, Cooperative, mild distress Lungs: Other (Persistent inspiratory and expiratory wheezing. Improved from yesterday. Currently on room air.) Cardiovascular: Regular rate, Normal S1, Normal S2 Abdomen: Normal bowel sounds, Soft, No tenderness Extremities: No edema Neuro: Normal gait, Normal speech Skin: Dry, Intact Psych/Mental Status: Mental status NL, Mood NL Medications Current Medications Medications Dose Ordered Sig/Eugene Route Start Time Stop Time Status Last Admin Dose Admin Nitroglycerin 0.4 mg Q5MINP PRN SL 06/21/24 17:15 06/30/24 13:00 0.4 MG Ondansetron HCl 4 mg Q4HPRN PRN IV 06/21/24 17:15 06/24/24 18:27 4 MG Pantoprazole Sodium 40 mg DAILY@0600 PO 06/22/24 06:00 07/01/24 05:50 40 MG Acetaminophen 650 mg Q6HP PRN PO 06/22/24 11:30 06/22/24 17:54 650 MG Morphine Sulfate 2 mg Q6HPRN PRN IV 06/23/24 12:30 07/01/24 00:03 2 MG Amino Acid Protein 30 ml DAILY PO 06/25/24 10:00 06/30/24 08:14 30 ML Ascorbic Acid 500 mg BID PO 06/24/24 22:00 07/01/24 09:57 500 MG Levalbuterol HCl 1.25 mg Q6HR NEB 06/25/24 12:00 07/01/24 06:59 1.25 MG Ipratropium [place] 0.5 mg Q6HR NEB 06/25/24 12:00 07/01/24 07:00 0.5 MG Oxycodone/ Acetaminophen 1 tab Q6HP PRN PO 06/25/24 09:45 07/01/24 04:36 1 TAB Guaifenesin/ Dextromethorphan 10 ml Q4HP PRN PO 06/25/24 10:00 07/01/24 04:36 10 ML Enoxaparin Sodium 30 mg DAILY SC 06/26/24 10:00 07/01/24 10:03 30 MG Morphine Sulfate 2 mg [id number] PRN IV 06/27/24 01:15 Doxycycline Hyclate 100 ml @ 50 mls/hr Q12H IV 06/27/24 11:15 07/01/24 10:07 50 MLS/HR Gabapentin 800 mg TID PO 06/29/24 14:00 07/01/24 05:50 800 MG Insulin Glargine 20 units DAILY SC 07/01/24 10:00 07/01/24 10:01 20 UNITS Metoprolol Succinate 50 mg DAILY PO 07/01/24 10:00 07/01/24 09:59 50 MG Acetylcysteine 200 mg Q6HR NEB 07/01/24 00:00 07/03/24 00:00 07/01/24 07:00 200 MG Levalbuterol HCl 1.25 mg Q4HPRN PRN NEB 06/30/24 21:45 Diagnostic Test (Pha) 1 strip IQ4HR 07/01/24 12:00 UNV Insulin Human Regular IQ4HR SC 07/01/24 12:00 UNV Dextrose 50 ml UD PRN IV 07/01/24 11:15 UNV Laboratory Results Laboratory Tests 07/01/24 05:20 Chemistry Test 07/01/24 05:20 Calcium Level 9.4 mg/dL (8.7-10.4) Urinalysis Test 06/21/24 15:45 Urine Color Light-yellow (Yellow) Urine Clarity Clear (Clear) Urine pH 5.0 (5.0-9.0) Urine Specific [place] 1.020 (1.001-1.035) Urine Protein Trace (Negative) H Urine Ketones 3+ (Negative) H Urine Blood Negative /uL (Negative) Urine Nitrite Negative (Negative) Urine Bilirubin Negative (Negative) Urine Urobilinogen Normal mg/dL (Negative) Urine Leukocyte Esterase Negative /uL (Negative) Urine RBC 1 /hpf (0 - 4) Urine Microscopic WBC 1 /HPF (0-5) Urine Squamous Epithelial Cells Few /hpf (<5) Urine Bacteria None seen /hpf (None Seen) Urine Yeast (Budding) Occasional /hpf (None Urine Glucose 4+ mg/dL (Normal) H Microbiology Microbiology Date/Time Source Procedure Growth Status 06/29/24 21:58 Nose MRSA Screen - Final Complete 06/23/24 13:03 Blood Blood Culture - Final NO GROWTH AFTER 5 DAYS OF INCUBATION. Complete Labs and/or images reviewed: Labs reviewed by me, Image(s) reviewed by me Assessment/Plan Assessment/Plan Impression: -Acute DKA -Medical noncompliance -Hypertension -Recent left ankle fracture -Left ankle wound with possible cellulitis -Anxiety -Hyponatremia -ruled out appendicitis -hypokalemia -acute hypoxic respiratory failure -community-acquired pneumonia, probable Gram-positive/Gram-negative etiology -chest pain, rule out ACS -sepsis secondary to Streptococcus pneumoniae Plan: -events: EKG unremarkable. Troponins negative x3. Echocardiogram reviewed. Discussed case with Cardiology. Discussed with the patient that after thorough workup for possible heart attack, all tests come back negative. Blood sugars are uncontrolled. We will change to aggressive scale. -pulmonary consultation: Recommendations appreciated -Change antibiotic therapy to meropenem and vancomycin -antitussives -bronchodilators, Mucomyst -out of bed as tolerated, incentive spirometer -continue regular insulin sliding scale, decrease Lantus to daily -continue pain management -repeat labs and chest x-ray in a.m. Total time spent with patient discussing and formulating plan of care: 35 minutes. This medical document was created using an electronic medical record system with [employer] dictation system. Although this document has been carefully reviewed, there may still be some phonetic and typographical errors. These areas are purely typographical due to imperfections of the software programs, and do not reflect any compromise in the patient's medical care. Plan discussed with: Patient, Other (RN) My Orders Orders - ZINA NGUYỄN HIDES SOAKER Procedure Category Date Status Time Chest Xray 1 View XY 06/30/24 Resulted 12:49 Insulin Lantus PHA 07/01/24 In Process (Glargine) (Lantus) 10:00 Metoprolol Xl PHA 07/01/24 In Process Succinate (Toprol Xl) 10:00 * Cardiology Consult CONS 06/30/24 Transmitted 12:55 Glucose Blood PHA 07/01/24 Logged (Accu-Chek Comfort 12:00 Insulin R (Human) PHA 07/01/24 Logged (Insulin R) 12:00 Dextrose 50% Syringe PHA 07/01/24 Logged 11:15 Date of Service: Jul 01, 2024 Billing Provider: ZINA NGUYỄN NP Common Visit Codes: [id number] INP/OBS CARE(HIGH) ZINA NGUYỄN NP Jul 01, 2024 11:21
[2024-07-01] MEDS: TEMAZEPAM 15 MG CAP PO ONE (11:58)
[2024-07-01] MEDS: InsuLIN REG 1unit/0.01ml Soln (100units/ml) SC SCH (12:02)
[2024-07-01] MEDS: ACCU-CHEK COMFORT CURVE STRIP VI SCH (12:02)
--- NOTE | 2024-07-01 14:22 | DVHPN2 ---
Progress Note - Dictate Date Seen: Jul 01, 2024 Medical Necessity Reason Pt with a Central, PICC or Fol: No Subjective Patient seen and examined Overnight events reviewed vital signs Vital Sign Date Time Temp Pulse Resp B/P (MAP) Pulse Ox O2 Delivery O2 Flow Rate FiO2 07/01/24 12:43 92 Room Air* 0 21 07/01/24 12:43 110 18 07/01/24 09:59 138/83 07/01/24 09:00 97.5 97.5 Total Intake and Output 06/30/24 06/30/24 07/01/24 15:00 23:00 07:00 Intake Total 100 ml 1000 ml 1200 ml Output Total 1500 ml Balance 100 ml -500 ml 1200 ml medications Current Medications Medications Dose Ordered Sig/Eugene Route Start Time Stop Time Status Last Admin Dose Admin Nitroglycerin 0.4 mg Q5MINP PRN SL 06/21/24 17:15 06/30/24 13:00 0.4 MG Ondansetron HCl 4 mg Q4HPRN PRN IV 06/21/24 17:15 06/24/24 18:27 4 MG Pantoprazole Sodium 40 mg DAILY@0600 PO 06/22/24 06:00 07/01/24 05:50 40 MG Acetaminophen 650 mg Q6HP PRN PO 06/22/24 11:30 06/22/24 17:54 650 MG Morphine Sulfate 2 mg Q6HPRN PRN IV 06/23/24 12:30 07/01/24 00:03 2 MG Amino Acid Protein 30 ml DAILY PO 06/25/24 10:00 06/30/24 08:14 30 ML Ascorbic Acid 500 mg BID PO 06/24/24 22:00 07/01/24 09:57 500 MG Levalbuterol HCl 1.25 mg Q6HR NEB 06/25/24 12:00 07/01/24 12:40 1.25 MG Ipratropium [place] 0.5 mg Q6HR NEB 06/25/24 12:00 07/01/24 12:40 0.5 MG Oxycodone/ Acetaminophen 1 tab Q6HP PRN PO 06/25/24 09:45 07/01/24 04:36 1 TAB Guaifenesin/ Dextromethorphan 10 ml Q4HP PRN PO 06/25/24 10:00 07/01/24 04:36 10 ML Enoxaparin Sodium 30 mg DAILY SC 06/26/24 10:00 07/01/24 10:03 30 MG Morphine Sulfate 2 mg [id number] PRN IV 06/27/24 01:15 Doxycycline Hyclate 100 ml @ 50 mls/hr Q12H IV 06/27/24 11:15 07/01/24 10:07 50 MLS/HR Gabapentin 800 mg TID PO 06/29/24 14:00 07/01/24 05:50 800 MG Insulin Glargine 20 units DAILY SC 07/01/24 10:00 07/01/24 10:01 20 UNITS Metoprolol Succinate 50 mg DAILY PO 07/01/24 10:00 07/01/24 09:59 50 MG Acetylcysteine 200 mg Q6HR NEB 07/01/24 00:00 07/03/24 00:00 07/01/24 12:43 200 MG Levalbuterol HCl 1.25 mg Q4HPRN PRN NEB 06/30/24 21:45 Diagnostic Test (Pha) 1 strip IQ4HR 07/01/24 12:00 07/01/24 12:02 1 STRIP Insulin Human Regular IQ4HR SC 07/01/24 12:00 07/01/24 12:02 16 UNITS Dextrose 50 ml UD PRN IV 07/01/24 11:15 laboratory and microbiology Laboratory Tests 07/01/24 05:20 Test 07/01/24 05:20 Range/Units Serum Glucose 495 *H 74-106 mg/dL Assessment/Plan Impression Acute hypoxemic respiratory failure Pneumonia Atelectasis DKA Patient seen and examined Events S/p downgrade Low oxygen requirements On room air No distress Labs and imaging reviewed Management Supplemental oxygen as needed Titrate to maintain sats 90% or above Incentive spirometry Continue antibiotics F/u cultures Bronchodilators Monitor renal function Monitor electrolytes Supplement as needed Glycemic control Accu-checks, ISS DVT prophylaxis Dietary Evaluation Review Recommendations by RD: Protein Supplementation Comments: 1) Initate Pro-Stat @ 30 mL qd 2) Initiate Glucerna tid; Encourage optimal PO intake 3) Initiate vitamin C @ 500 mg bid 4) Advance to 60g CCHO 2g Na diet when medically feasible, pending DIETARY SERVER approval 5) Collect HbA1C d/t elevated BG levels 6) Refer to outpatient RD/CDCES for diabetes education 7) Continue to monitor I&O, labs, and skin integrity Expected Outcomes/Goals: 1) appetite and labs to improve 2) diet to advance 3) wound to improve 4) f/u in 2-3 days Plan discussed with: Patient BREE NAJERA MD Jul 01, 2024 14:22
[2024-07-02] VITALS (15 sets, daily range): BP systolic 122–147; BP diastolic 72–90; PULSE 93–112; RESP 16–18; TEMP 97.4–98.2; O2SAT 94–100
--- NOTE | 2024-07-02 13:40 | DVHPN2 ---
Progress Note - Dictate Date Seen: Jul 02, 2024 Medical Necessity Reason Pt with a Central, PICC or Fol: No Subjective Patient seen and examined Overnight events reviewed vital signs Vital Sign Date Time Temp Pulse Resp B/P (MAP) Pulse Ox O2 Delivery O2 Flow Rate FiO2 07/02/24 12:12 105 18 122/73 07/02/24 11:51 100 07/02/24 11:43 Room Air 0.0 07/02/24 11:43 21 07/02/24 09:00 97.7 97.7 Total Intake and Output 07/01/24 07/01/24 07/02/24 14:59 22:59 06:59 Intake Total 100 ml 950 ml 2225 ml Output Total 800 ml Balance 100 ml 150 ml 2225 ml medications Current Medications Medications Dose Ordered Sig/[place] Route Start Time Stop Time Status Last Admin Dose Admin Nitroglycerin 0.4 mg Q5MINP PRN SL 06/21/24 17:15 06/30/24 13:00 0.4 MG Ondansetron HCl 4 mg Q4HPRN PRN IV 06/21/24 17:15 06/24/24 18:27 4 MG Pantoprazole Sodium 40 mg DAILY@0600 PO 06/22/24 06:00 07/02/24 05:45 40 MG Acetaminophen 650 mg Q6HP PRN PO 06/22/24 11:30 06/22/24 17:54 650 MG Morphine Sulfate 2 mg Q6HPRN PRN IV 06/23/24 12:30 07/02/24 12:12 2 MG Amino Acid Protein 30 ml DAILY PO 06/25/24 10:00 07/02/24 09:31 30 ML Ascorbic Acid 500 mg BID PO 06/24/24 22:00 07/02/24 09:24 500 MG Levalbuterol HCl 1.25 mg Q6HR NEB 06/25/24 12:00 07/02/24 11:43 1.25 MG Ipratropium [place] 0.5 mg Q6HR NEB 06/25/24 12:00 07/02/24 11:43 0.5 MG Oxycodone/ Acetaminophen 1 tab Q6HP PRN PO 06/25/24 09:45 07/02/24 00:29 1 TAB Guaifenesin/ Dextromethorphan 10 ml Q4HP PRN PO 06/25/24 10:00 07/02/24 05:45 10 ML Enoxaparin Sodium 30 mg DAILY SC 06/26/24 10:00 07/02/24 09:24 30 MG Morphine Sulfate 2 mg [id number] PRN IV 06/27/24 01:15 Doxycycline Hyclate 100 ml @ 50 mls/hr Q12H IV 06/27/24 11:15 07/02/24 12:09 50 MLS/HR Gabapentin 800 mg TID PO 06/29/24 14:00 07/02/24 13:06 800 MG Insulin Glargine 20 units DAILY SC 07/01/24 10:00 07/02/24 09:37 20 UNITS Metoprolol Succinate 50 mg DAILY PO 07/01/24 10:00 07/02/24 09:30 50 MG Acetylcysteine 200 mg Q6HR NEB 07/01/24 00:00 07/03/24 00:00 07/02/24 11:43 200 MG Levalbuterol HCl 1.25 mg Q4HPRN PRN NEB 06/30/24 21:45 Diagnostic Test (Pha) 1 strip IQ4HR 07/01/24 12:00 07/02/24 12:11 1 STRIP Insulin Human Regular IQ4HR SC 07/01/24 12:00 07/02/24 12:11 12 UNITS Dextrose 50 ml UD PRN IV 07/01/24 11:15 laboratory and microbiology Laboratory Tests 07/01/24 05:20 Test 07/01/24 05:20 Range/Units Serum Glucose 495 *H 74-106 mg/dL Assessment/Plan Impression Acute hypoxemic respiratory failure Pneumonia Atelectasis DKA Patient seen and examined Events S/p downgrade Low oxygen requirements No distress Labs and imaging reviewed Management Supplemental oxygen as needed Titrate to maintain sats 90% or above Incentive spirometry Continue antibiotics F/u cultures Bronchodilators Monitor renal function Monitor electrolytes Supplement as needed Glycemic control Accu-checks, ISS DVT prophylaxis Dietary Evaluation Review Recommendations by RD: Protein Supplementation Comments: 1) Initate Pro-Stat @ 30 mL qd 2) Initiate Glucerna tid; Encourage optimal PO intake 3) Initiate vitamin C @ 500 mg bid 4) Advance to 60g CCHO 2g Na diet when medically feasible, pending AUTH[employer] MOTIVATIONAL approval 5) Collect HbA1C d/t elevated BG levels 6) Refer to outpatient RD/[facility] for diabetes education 7) Continue to monitor I&O, labs, and skin integrity Expected Outcomes/Goals: 1) appetite and labs to improve 2) diet to advance 3) wound to improve 4) f/u in 2-3 days Plan discussed with: Other (pt) BREE NAJERA MD Jul 02, 2024 13:40
[2024-07-02 16:06] LABS: Chloride 101 mmol/L (98-107); Potassium 4.3 mmol/L (3.5-5.1); Sodium 137 mmol/L (136-145)
[2024-07-02 16:07] LABS: Anion Gap 6 (5-15); Calcium 9.5 mg/dL (8.7-10.4); Carbon Dioxide 30 mmol/L (20-31)
[2024-07-02 16:12] LABS: BUN/Creatinine Ratio 35.4 (10.0-20.0); Glucose 84 mg/dL (74-106)
[2024-07-02 16:17] LABS: Blood Urea Nitrogen 29 mg/dL (9-23)
--- NOTE | 2024-07-02 17:06 | DVH ---
CT CHEST WITHOUT CONTRAST INDICATION: persistent chest pain : 53 old Female persistent chest pain EXAM DATE: 07/02/2024 04:28 PM COMPARISON: 06/24/24 RADIATION DOSE: CTDIvol: 4.79 mGy, DLP: 169.03 mGy*cm PROCEDURE: Helical CT images were obtained of the chest without intravenous contrast. Sagittal and c oronal reconstructions are provided. ADDITIONAL IMAGES / REFORMATS: None All CT scans at this medical facility are performed using dose modulation techniques as appropriate t o a performed exam including the following: Automated exposure control was utilized; adjustment of th e MA and/or KV according to patient size; and use of iterative reconstruction technique. FINDINGS: Bones: Scattered degenerative changes are noted. Old right rib fracture. Visualized Abdomen: Unchanged. Chest Wall: Normal. Soft tissues: Normal. Mediastinum: Normal. Heart: Coronary artery calcifications are noted. Vessels: Normal. Lymph Nodes: Normal. Pleura: Normal. Airways: Normal. Lung: Bibasilar consolidation is significantly improved compared to prior from 06/24/24. Other: None IMPRESSION: Bibasilar consolidation is significantly improved compared to prior from 06/24/24.
[2024-07-02] MEDS: TEMAZEPAM 15 MG CAP PO PRN (20:58)
[2024-07-03] VITALS (11 sets, daily range): BP systolic 112–156; BP diastolic 64–87; PULSE 104–112; RESP 16–18; TEMP 36.7; O2SAT 93–100
[2024-07-03 05:58] LABS: Basophils # (auto) 0 10 ^3/uL (0-0.2); Basophils % (auto) 0.7 % (0.0-2.0); Eosinophils # (auto) 0 10 ^3/uL (0-0.8); Hemoglobin 10.8 g/dL (12.2-16.2); Lymphocytes # (auto) 2.1 10 ^3/uL (0.4-5.4); Mean Corpuscular Hemoglobin 29.5 pg (28.0-32.0); Monocytes # (auto) 0.4 10 ^3/uL (0-1.3)
[2024-07-03 06:01] LABS: Eosinophils % (auto) 0.5 % (0.0-7.0); Hematocrit 32.5 % (36.0-46.0); Lymphocytes % (auto) 35.6 % (10.0-50.0); Mean Corpuscular Hgb Conc. 33.3 g/dL (32.0-36.0); Mean Corpuscular Volume 88.5 fL (80.0-100.0); Monocytes % (auto) 6.1 % (0.0-12.0); Neutrophils # (auto) 3.4 10 ^3/uL (1.6-8.6); Neutrophils % (auto) 57.1 % (37.0-80.0); Nucleated Red Blood Cells % 0.1 %; Platelet Count (auto) 530 10^3/uL (140-450); Red Blood Cells 3.67 10^6/uL (4.0-5.20); Red Cell Distribution Width 13.6 % (11.8-14.3); White Blood Cell 5.9 10^3/uL (4.4-10.8)
[2024-07-03 06:09] LABS: Anion Gap 7 (5-15); Carbon Dioxide 31 mmol/L (20-31)
[2024-07-03 06:10] LABS: Calcium 9.1 mg/dL (8.7-10.4)
[2024-07-03 06:15] LABS: BUN/Creatinine Ratio 34.6 (10.0-20.0)
[2024-07-03 06:18] LABS: Blood Urea Nitrogen 28 mg/dL (9-23); Chloride 97 mmol/L (98-107); Glucose 347 mg/dL (74-106); Sodium 135 mmol/L (136-145)
[2024-07-03] MEDS ORDERED: DOXY1CAP57 PO (11:05)
--- NOTE | 2024-07-03 11:16 | DVHDS2 ---
Discharge Summary Date of Admission Jun 21, 2024 at 17:03 Date of Discharge: Jul 03, 2024 Labs/Diagnostic Data: Laboratory Results Test 07/03/24 08:03 07/03/24 05:10 07/02/24 15:13 06/30/24 16:41 POC Glucose 50 mg/dl (70-106) White Blood Count 5.9 10^3/uL (4.4-10.8) Red Blood Count 3.67 10^6/uL (4.0-5.20) Hemoglobin 10.8 g/dL (12.2-16.2) Hematocrit 32.5 % (36.0-46.0) Mean Corpuscular Volume 88.5 fL (80.0-100.0) Mean Corpuscular Hemoglobin 29.5 pg (28.0-32.0) Mean Corpuscular Hemoglobin Concent 33.3 g/dL (32.0-36.0) Red Cell Distribution Width 13.6 % (11.8-14.3) Platelet Count 530 10^3/uL (140-450) Mean Platelet Volume 7.0 fL (6.9-10.8) Neutrophils (%) (Auto) 57.1 % (37.0-80.0) Lymphocytes (%) (Auto) 35.6 % (10.0-50.0) Monocytes (%) (Auto) 6.1 % (0.0-12.0) Eosinophils (%) (Auto) 0.5 % (0.0-7.0) Basophils (%) (Auto) 0.7 % (0.0-2.0) Neutrophils # (Auto) 3.4 10 ^3/uL (1.6-8.6) Lymphocytes # (Auto) 2.1 10 ^3/uL (0.4-5.4) Monocytes # (Auto) 0.4 10 ^3/uL (0-1.3) Eosinophils # (Auto) 0 10 ^3/uL (0-0.8) Basophils # (Auto) 0 10 ^3/uL (0-0.2) Nucleated Red Blood Cells 0.1 % Sodium Level 135 mmol/L (136-145) Potassium Level 4.0 mmol/L (3.5-5.1) Chloride Level 97 mmol/L (98-107) Carbon Dioxide Level 31 mmol/L (20-31) Anion Gap 7 (5-15) Blood Urea Nitrogen 28 mg/dL (9-23) Creatinine 0.81 mg/dL (0.550-1.02) Glomerular Filtration Rate Calc 86 mL/min (>90) BUN/Creatinine Ratio 34.6 (10.0-20.0) Serum Glucose 347 mg/dL (74-106) Calcium Level 9.1 mg/dL (8.7-10.4) Thyroid Stimulating Hormone (TSH) 1.72 uIU/mL (0.55-4.78) Troponin I High Sensitivity 4 ng/L (</=34) Test 06/30/24 04:37 06/26/24 14:20 06/25/24 16:50 06/25/24 05:02 Magnesium Level 2.0 mg/dL (1.6-2.6) Total Bilirubin 0.3 mg/dL (0.2-1.0) Aspartate Amino Transferase (AST) 26 U/L (13-40) Alanine Aminotransferase (ALT) 13 U/L (7-40) Alkaline Phosphatase 168 U/L (46-116) Total Protein 7.3 g/dL (5.7-8.2) Albumin 3.8 g/dL (3.2-4.8) Influenza Type A Antigen Negative (Negative) Influenza Type B Antigen Negative (Negative) SARS-CoV-2 Antigen (Rapid) Negative (NEGATIVE) Vancomycin Level Trough 10.5 ug/mL (5-10) Differential Total Cells Counted 100.0 (100) Neutrophils % (Manual) 84 (37.0-80.0) Band Neutrophils % (Manual) 0 Lymphocytes % (Manual) 11 (10.0-50.0) Monocytes % (Manual) 5 (0-12) Eosinophils % (Manual) 0 (0-7) Basophils % (Manual) 0 (0.0-2.0) Metamyelocytes % (manual) 0 Myelocytes % (Manual) 0 Promyelocytes % (Manual) 0 Blast Cells % (Manual) 0 Reactive Lymphocytes 0 Platelet Estimate Decreased Test 06/23/24 07:19 06/22/24 08:17 06/21/24 18:11 06/21/24 15:50 Red Blood Cell Morphology Normal B-Type Natriuretic Peptide 125.69 pg/mL (0-100) Hepatitis B Surface Antigen Negative (Negative) Hepatitis C Antibody Negative (Negative) Lactic Acid Level 4.3 mmol/L (0.4-2.0) Blood Gas Specimen Type Arterial Blood Gas Sample Site Left radial Blood Gas Patient Temperature 37.0 Arterial Blood Date Drawn [id number] Arterial Blood pH 7.139 (7.350-7.450) Arterial Blood Partial Pressure CO2 16.4 mmHg (32.0-45.0) Arterial Blood Partial Pressure O2 79.6 mmHg (83.0-108.0) Arterial Blood HCO3 5.4 mmol/L (21.0-28.0) Arterial Blood Oxygen Saturation 93.1 % (94.0-98.0) Arterial Blood Base Excess -21.4 mmol/L (-2.0-3.0) Arterial Blood Oxyhemoglobin 91.9 % (94.0-98.0) Arterial Blood Carboxyhemoglobin 0.7 % (0.5-1.5) Arterial Blood Methemoglobin 0.6 % (0.0-1.5) Jeremy Test Yes Blood Gas Total Hemoglobin 13.80 g/dL (12.0-16.0) Blood Gas Liter Flow 4.00 Blood Gas Modality Nasal cannula FiO2 % 36.0 Blood Gas Critical Value Read Back yes Blood Gas Notified Whom Blood Gas Notified Time [id number] Blood Gas Notified By prep person devora Alcal[place] 06/21/24 15:45 06/21/24 15:31 06/21/24 14:35 Urine Color Light-yellow (Yellow) Urine Clarity Clear (Clear) Urine pH 5.0 (5.0-9.0) Urine Specific [place] 1.020 (1.001-1.035) Urine Protein Trace (Negative) Urine Ketones 3+ (Negative) Urine Blood Negative /uL (Negative) Urine Nitrite Negative (Negative) Urine Bilirubin Negative (Negative) Urine Urobilinogen Normal mg/dL (Negative) Urine Leukocyte Esterase Negative /uL (Negative) Urine RBC 1 /hpf (0 - 4) Urine Microscopic WBC 1 /HPF (0-5) Urine Squamous Epithelial Cells Few /hpf (<5) Urine Bacteria None seen /hpf (None Seen) Urine Yeast (Budding) Occasional /hpf (None Urine Glucose 4+ mg/dL (Normal) Urine Opiates Screen Pos (NEGATIVE) Urine Fentanyl Screen Neg (NEGATIVE) Urine Barbiturates Screen Neg (NEGATIVE) Urine Phencyclidine Screen Neg (NEGATIVE) Urine Amphetamines Screen Neg (NEGATIVE) Urine Benzodiazepines Screen Neg (NEGATIVE) Urine Cocaine Screen Neg (NEGATIVE) Urine Cannabinoids Screen Neg (NEGATIVE) Phosphorus Level 6.2 mg/dL (2.4-5.1) Beta-Hydroxybutyric Acid > 4.500 mmol/L (< 0.4) Serum Osmolality 347 mOsm/kg (278-298) Lipase 15 U/L (12-53) Other Laboratory Tests 07/03/24 05:10 Brief Hx & Hospital Course: Final diagnoses: Acute DKA -Medical noncompliance -Hypertension -Recent left ankle fracture -Left ankle wound with possible cellulitis -Anxiety -Hyponatremia -ruled out appendicitis -hypokalemia -acute hypoxic respiratory failure -community-acquired pneumonia, probable Gram-positive/Gram-negative etiology -chest pain, rule out ACS -sepsis secondary to Streptococcus pneumoniae 53-year-old female with a history of insulin-dependent diabetes came with acute DKA because she says she ran out of her Lantus insulin that she usually takes She was admitted for DKA and treated with IV fluids and IV insulin IV antibiotics for sepsis and cellulitis of the left ankle She improved and the cellulitis improved however she was having crackles in her chest and some cough Repeat chest x-ray showed pneumonia She was treated with more antibiotics She was given incentive spirometry She was encouraged to get out of bed and physical therapy saw her however she said she does not have her walking boot that she uses for her old ankle fracture We also did a CT scan of the chest yesterday which showed improved pneumonia overall Overall the patient has been doing better now and she is sometimes on room air, she uses oxygen at home The patient can be discharged home now on doxycycline for 7 more days Resume other home medications Refill her Lantus insulin Follow up with the primary care physician as soon as possible Condition at Discharge: Stable Final Diagnosis/Problems List Acute DKA -Medical noncompliance -Hypertension -Recent left ankle fracture -Left ankle wound with possible cellulitis -Anxiety -Hyponatremia -ruled out appendicitis -hypokalemia -acute hypoxic respiratory failure -community-acquired pneumonia, probable Gram-positive/Gram-negative etiology -chest pain, rule out ACS -sepsis secondary to Streptococcus pneumoniae Discharge Disposition: Home SNF Discharge Will this Physician continue t: No Discharge Statement: "Patient was advised to return to the ER or call 911 if any headaches, dizziness, shortness of breath, chest pain, abdominal pain, bleeding, fevers, or worsening of medical condition. Patient was counseled about treatment plan, medications, possible side effects, patientverbalized understanding. All questions were answered to the best of my ability. This discharge took greater then 30 minutes in planning, reviewing documentation, counseling the patient, and discussing with other team members." ASSESSMENT ASSESSMENT Assessment Date of Service: Jul 03, 2024 Billing Provider: DEANNE AGUIRRE MD Common Visit Codes: NOT BILLABLE DEANNE AGUIRRE MD Jul 03, 2024 11:16
[2024-07-03] MEDS ORDERED: INSLANTI SC (11:17)
--- NOTE | 2024-07-04 18:21 | DVHPN2 ---
Progress Note - Dictate Date Seen: Jul 03, 2024 Medical Necessity Reason Pt with a Central, PICC or Fol: No Subjective Patient seen and examined at bedside. Breathing comfortably on room air Overnight events reviewed. vital signs Vital Sign Date Time Temp Pulse Resp B/P (MAP) Pulse Ox O2 Delivery O2 Flow Rate FiO2 07/03/24 13:53 36.7 111 18 94 07/03/24 13:00 145/87 (106) 07/03/24 12:00 Room Air* 0 21 Total Intake and Output 07/03/24 07/03/24 07/04/24 15:00 23:00 07:00 Intake Total 100 ml 1700 ml Output Total 8 ml Balance 100 ml 1692 ml objective Gen.: Patient lying in bed in no apparent distress. On room air. Head: Normocephalic, atraumatic. Eyes: EOMI/PERRLA. Ears: Normal hearing. Normal anatomy. Neck/trachea: Trachea midline, supple. Nose: Normal external anatomy. Mouth: Moist mucous membranes. Chest: Decreased air entry bilaterally. Coarse throughout. Wheezing present. No rhonchi. Cardiovascular: Positive S1, positive S2. Regular rate and rhythm. Abdomen: Positive bowel sounds in all 4 quadrants. Soft, non-tender, non- distended. : Deferred. Rectal: Deferred. Skin: Warm, dry. Intact. Extremities: 2+ radial pulses bilaterally. No lower extremity edema. Neuro: Awake, alert, oriented x3. No gross motor or sensory deficits. Cranial nerves II through XII intact. Gait not assessed. laboratory and microbiology Laboratory Tests 07/03/24 05:10 Test 07/03/24 05:10 Range/Units Serum Glucose 347 H 74-106 mg/dL Assessment/Plan Impression: Acute hypoxic respiratory failure, resolved Pneumonia, likely strep pneumonia, gram negative, left lower lobe Diabetic ketoacidosis, resolved Atelectasis Hyponatremia, resolved. Cachexia, BMI 18.9 Events: Breathing comfortably on room air Supplemental oxygen PRN CT chest on 07/02 reveals bibasilar consolidation is significantly improved compared to prior from 06/24/24. Complete antibiotics Patient is stable for discharge from the pulmonary standpoint. Labs and imaging reviewed. Plan: Supplemental oxygen PRN Titrate to keep sats above 92% Complete antibiotic course Repeat blood cultures showed no growth after [address] chest w/o contrast or chest x-ray in 6-8 weeks to document resolution of opacities. Accu-Cheks, ISS. Monitor renal function. Monitor electrolytes. Supplement as necessary. Monitor ins and outs. GI prophylaxis - Protonix DVT prophylaxis - Lovenox. Prognosis: Guarded given patient's multiple co-morbidities. Rest of plan per hospitalist and other consultants. Thank you, Dr. Tay, for allowing me to participate in this patient's care. Further recommendations will depend on the patient's clinical course. Please do not hesitate to contact me if you have any questions or concerns. This medical document was created using an electronic medical record system with [employer] dictation system. Although these documentations are being carefully reviewed, there may still be some phonetic and typographical changes. The errors are purely typographical, due to imperfection on the software program, and do not reflect any compromise in the patient's medical care. Dietary Evaluation Review Recommendations by RD: Protein Supplementation Comments: 1) Initate Pro-Stat @ 30 mL qd 2) Initiate Glucerna tid; Encourage optimal PO intake 3) Initiate vitamin C @ 500 mg bid 4) Advance to 60g CCHO 2g Na diet when medically feasible, pending ICU CLERK approval 5) Collect HbA1C d/t elevated BG levels 6) Refer to outpatient RD/[facility] for diabetes education 7) Continue to monitor I&O, labs, and skin integrity Expected Outcomes/Goals: 1) appetite and labs to improve 2) diet to advance 3) wound to improve 4) f/u in 2-3 days Plan discussed with: Patient, Other (RN) JAMES ROACH MD Jul 04, 2024 18:21
== END 2024-07-03 16:30 | disposition home or self-care (01) | DRG 637 ==
LOC: EDBD 14:06 → ER 14:06 → OVERFLOW 17:03 → TELE-CENTR 06-22 12:48
PROVIDERS: ADMIT Internal Medicine Geriatric Medicine; ATTEND Internal Medicine Geriatric Medicine
DX: E11.10 Type 2 diabetes mellitus with ketoacidosis without coma (principal); J15.4 Pneumonia due to other streptococci; J15.69 Pneumonia due to other Gram-negative bacteria; J96.01 Acute respiratory failure with hypoxia; R65.11 Systemic inflammatory response syndrome (SIRS) of non-infectious origin with acute organ dysfunction; N17.0 Acute kidney failure with tubular necrosis; L03.116 Cellulitis of left lower limb; E87.1 Hypo-osmolality and hyponatremia; J98.11 Atelectasis; R64 Cachexia; Z68.1 Body mass index [BMI] 19.9 or less, adult; N13.30 Unspecified hydronephrosis; Z20.822 Contact with and (suspected) exposure to COVID-19; I10 Essential (primary) hypertension; F41.9 Anxiety disorder, unspecified; E87.6 Hypokalemia; E83.39 Other disorders of phosphorus metabolism; D69.6 Thrombocytopenia, unspecified; I25.10 Atherosclerotic heart disease of native coronary artery without angina pectoris; Z91.199 Patient's noncompliance with other medical treatment and regimen due to unspecified reason; Z79.4 Long term (current) use of insulin; Z87.81 Personal history of (healed) traumatic fracture; Z88.6 Allergy status to analgesic agent; Z88.5 Allergy status to narcotic agent; Z83.3 Family history of diabetes mellitus; Z82.49 Family history of ischemic heart disease and other diseases of the circulatory system; Z82.3 Family history of stroke; Z80.3 Family history of malignant neoplasm of breast; Z88.8 Allergy status to other drugs, medicaments and biological substances
CPT/HCPCS: 36415; 36600; 71045; 71250; 74176; 76705; 80048; 80053; 80202; 80307; 81001; 82010; 82805; 82962; 83605; 83690; 83735; 83880; 83930; 84100; 84443; 84484; 85007; 85025; 85027; 86803; 87040; 87077; 87081; 87186; 87340; 87426; 87804; 93005; 93306; 94640; 96361; 96365; 96368; 96375; 97163; 99291; G0378; J1815; J2185; J2405; J2543; J3480

== ENCOUNTER 2024-07-21 16:00 | Inpatient (IN) | payer OTHER ==
[~2024-07-21] VITALS: Ht 172.7 cm; Wt 54.5 kg
[~2024-07-21 16:00] MED LIST changes: -APIX5TAB PO; -AUG875T PO; +DOXY1CAP57 PO; -GABA-1250 PO; -HYDR25CA PO; -LISI10TA34 PO; -METH4PAK PO; -MUPI2CRE17 EX
--- NOTE | 2024-07-21 16:13 | ED.PDOC ---
SOB-HPI HPI Comments 53-year-old brought in by EMS presents with a chief complaint of SOB x 4 hours. Patient mentions that she was diagnosed and treated for pneumonia x 4 weeks ago. Patient mentions that she finished the antibiotics that she was prescribed. Patient is also complaing of sternal chest pain, nonradiating, describes as pressure and rates her pain a 10/10 at this time. Patient was given ASA and NTG by EMS with no relief of symptoms. Patient was on home oxygen, but states that her insurance "took it away" on Wednesday. Patient is normally supposed to be on 3L via NC at home. PMHx: HTN, Anxiety, DM PSHx: , Cholecystectomy, Hysterectomy, Hernia Repair, Jaw Surgery, Foot Surgery July 03, 2024 - Final diagnoses: Acute DKA -Medical noncompliance -Hypertension -Recent left ankle fracture -Left ankle wound with possible cellulitis -Anxiety -Hyponatremia -ruled out appendicitis -hypokalemia -acute hypoxic respiratory failure -community-acquired pneumonia, probable Gram-positive/Gram-negative etiology -chest pain, rule out ACS -sepsis secondary to Streptococcus pneumoniae HPI: Poor Historian. REVIEW OF SYSTEMS: CONSTITUTIONAL: Denies acute: fever, diaphoresis, chills, HEAD: Denies acute: headache, photophobia Eyes: Denies acute: Double vision, vision loss, eye pain, eye discharge. EARS: Denies acute: tinnitus, hearing loss, ear discharge, ear pain, THROAT: Denies acute: sore throat, swelling, difficulty swallowing , pain with swallowing, change in voice. NECK: Denies acute: neck pain, neck swelling, stiff neck. HEART: Denies acute : palpitations, LUNGS: Denies acute: wheezing, cough, hemoptysis ABDOMEN: Denies acute: abdominal pain, Nausea, Vomiting, diarrhea, melena , hematemesis, hematochezia SKIN: Denies acute: rash, redness, lesions, itchiness. EXTREMITIES: Denies acute: calf pain, numbness, tingling, weakness, denies pain in extremity. Denies acute: Low back pain. Neuro: Denies acute: focal neurological deficit, motor or sensory focal neurological deficit, tremors, seizure like activity, confusion, dizziness, change in mental status, loss of bowel or bladder function, cauda equina like symptoms. : Denies acute: dysuria, hematuria, flank pain, increase in urinary frequency. PSYCH: Denies acute: hallucination, suicidal ideation, homicidal ideation. FEMALE: Denies acute: abnormal vaginal bleeding, foul odor, unusual discharge. PHYSICAL EXAM: General: ---mild-----acute distress, awake and alert. Head: normocephalic, atraumatic. Neck: supple, trachea is midline, no swelling. Throat: Normal phonation. Eyes:, no erythema, no purulent discharge, no proptosis, no icterus. Heart: regular rate, regular rhythm, no significant murmur appreciated. Lungs: no apparent respiratory distress, Able to speak in full sentences. No wheezing, no rhonchi, no crackles. No stridors Clear to auscultation bilaterally. Abdomen: non tender to palpation, non distended, soft, no guarding, no rebound, + bowel sounds. Neuro: Awake, Alert, oriented to name, self, situation, follows commands GCS=15. Speech is normal. Skin: no petechia, no purpura, no cyanosis, non-pale, not jaundice. Lower extremities: --no - Pitting edema no deformity, no focal swelling, no calf TTP. Noted chronic left foot boot in place for remote leg injury/fracture awaiting surgery this month. Makes eye contact. moves all four extremities. Face: no apparent facial droop. ED COURSE: Time Seen by MD: 16:00 Primary Care Provider: UNKNOWN Reviewed notes: Nurses Notes, Medications, Allergies Information Source: Patient, Emergency Med Personnel Mode of Arrival: EMS Severity: Moderate Past Medical History PAST MEDICAL HISTORY: Anxiety, DM, HTN Surgical History: Cholecystectomy, , Hysterectomy MANAGER CLINICAL RESEARCH History: No Pertinent MANAGER CLINICAL RESEARCH History Family History Family History: Reviewed,noncontributory to illness, Unknown Social History Smoker: Non-Smoker Alcohol: Denies ETOH Use Drugs: Denies Drug Use Lives In: Home Was a procedure done? Was a procedure done?: No Differential Dx Differential Diagnosis: Other (DDx include ACS, unstable angina, anxiety, PE, pneumothroax, neoplasm, cardiac ischemia, COPD, asthma, CHF, pleural effusion, tobacco abuse, pneumonia, hypoxia, hypercapnia, anemia., infection/sepsis., pulmonary edema. Asthma, Cardiac tamponade, infection.) X-Ray, Labs, Meds, VS Vital Signs Date Time Temp Pulse Resp B/P (MAP) Pulse Ox O2 Delivery O2 Flow Rate FiO2 07/21/24 22:14 112 166/95 07/21/24 20:14 105 162/95 07/21/24 20:00 105 18 96 Room Air 07/21/24 19:37 98.3 105 18 162/95 (117) 96 98.3 07/21/24 16:11 97.9 120 14 196/103 (134) 95 97.9 07/21/24 16:08 114 Lab Test 07/21/24 20:21 07/21/24 20:07 07/21/24 19:46 07/21/24 17:47 Range/Units Urine Color Light-yellow Yellow Urine Clarity Clear Clear Urine pH 6.0 5.0-9.0 Urine Specific [place] 1.033 1.001-1.035 Urine Protein Negative Negative Urine Ketones Negative Negative Urine Blood Negative Negative /uL Urine Nitrite Negative Negative Urine Bilirubin Negative Negative Urine Urobilinogen Normal Negative mg/dL Urine Leukocyte Esterase Negative Negative /uL Urine RBC <1 0 - 4 /hpf Urine Microscopic WBC 1 0-5 /HPF Urine Squamous Epithelial Cells Few <5 /hpf Urine Bacteria None seen None Seen /hpf Urine Glucose 4+ H Normal mg/dL POC Glucose 442 *H 70-106 mg/dl Phosphorus Level 4.6 2.4-5.1 mg/dL Magnesium Level 2.0 1.6-2.6 mg/dL Troponin I High Sensitivity 3 L 3 L </=34 ng/L Beta-Hydroxybutyric Acid 0.184 < 0.4 mmol/L Test 07/21/24 16:47 Range/Units White Blood Count 5.7 4.4-10.8 10^3/uL Red Blood Count 4.76 4.0-5.20 10^6/uL Hemoglobin 14.2 12.2-16.2 g/dL Hematocrit 42.2 36.0-46.0 % Mean Corpuscular Volume 88.6 80.0-100.0 fL Mean Corpuscular Hemoglobin 29.9 28.0-32.0 pg Mean Corpuscular Hemoglobin Concent 33.7 32.0-36.0 g/dL Red Cell Distribution Width 15.3 H 11.8-14.3 % Platelet Count 235 140-450 10^3/uL Mean Platelet Volume 8.1 6.9-10.8 fL Neutrophils (%) (Auto) 82.0 H 37.0-80.0 % Lymphocytes (%) (Auto) 14.6 10.0-50.0 % Monocytes (%) (Auto) 2.6 0.0-12.0 % Eosinophils (%) (Auto) 0.3 0.0-7.0 % Basophils (%) (Auto) 0.5 0.0-2.0 % Neutrophils # (Auto) 4.7 1.6-8.6 10 ^3/uL Lymphocytes # (Auto) 0.8 0.4-5.4 10 ^3/uL Monocytes # (Auto) 0.1 0-1.3 10 ^3/uL Eosinophils # (Auto) 0 0-0.8 10 ^3/uL Basophils # (Auto) 0 0-0.2 10 ^3/uL Nucleated Red Blood Cells 0.0 % D-Dimer, Quantitative 0.44 0.0-0.49 mg/L FEU Sodium Level 136 136-145 mmol/L Potassium Level 4.5 3.5-5.1 mmol/L Chloride Level 98 98-107 mmol/L Carbon Dioxide Level 30 20-31 mmol/L Anion Gap 8 5-15 Blood Urea Nitrogen 20 9-23 mg/dL Creatinine 0.76 0.550-1.02 mg/dL Glomerular Filtration Rate Calc 93 >90 mL/min BUN/Creatinine Ratio 26.3 H 10.0-20.0 Serum Glucose 416 *H 74-106 mg/dL Serum Osmolality 312 H 278-298 mOsm/kg Lactic Acid Level 1.6 0.4-2.0 mmol/L Calcium Level 9.8 8.7-10.4 mg/dL Magnesium Level 2.0 1.6-2.6 mg/dL Total Bilirubin 0.5 0.2-1.0 mg/dL Aspartate Amino Transferase (AST) 24 13-40 U/L Alanine Aminotransferase (ALT) 44 H 7-40 U/L Alkaline Phosphatase 222 H 46-116 U/L Troponin I High Sensitivity 3 L </=34 ng/L B-Type Natriuretic Peptide 26.30 0-100 pg/mL Total Protein 7.4 5.7-8.2 g/dL Albumin 4.6 3.2-4.8 g/dL Current Medications Medications (Trade) Dose Ordered Sig/Eugene Route Start Time Stop Time Status Last Admin Labetalol HCl (Labetalol HCl) 5 mg ONCE ONCE IV 07/21/24 16:30 07/21/24 16:31 DC 07/21/24 20:14 Piperacillin Sod/ Tazobactam Sod 100 ml @ 100 mls/hr ONCE ONCE IV 07/21/24 17:45 07/21/24 18:44 DC 07/21/24 20:17 Sodium Chloride 1,000 ml @ 1,000 mls/hr Q1H ONCE IV 07/21/24 20:15 07/21/24 21:14 DC 07/21/24 20:36 PATIENT: MARTIN MINA MACCT: [id number]: [id number] : 1970 LOC: ER ROOM / BED: / AGE / SEX: 53 / F ADM STATUS: REG ER SERVICE 1605 ORDERING PHYSICIAN: RAMEZ PETERSON DO PROCEDURE(s): CXRP - CHEST PORTABLE REASON: cp/sob ORDER NUMBER(s): [id number], ACCESSION NUMBER(s): [id number] CHEST RADIOGRAPH Indication: cp/sob Technique: Single frontal view of the chest was obtained Comparison: XY CHEST XRAY 1 VIEW on DOS: 06/30/24, XY CHEST XRAY 1 VIEW on DOS: 06/28/24, XY CHEST PORTABLE on DOS: 06/26/24 FINDINGS: Lines and Tubes: None Lungs: Right lower lobe airspace disease or atelectasis. Pleura: No effusion. No pneumothorax. Cardiomediastinal contours: Unremarkable Bones: No acute osseous abnormality. IMPRESSION: 1. Right lower lobe airspace disease or atelectasis. ATED BY: TOMER GRIMES Jr., DO DICTATED DATE/TIME: 07/21/241631 SIGNED BY: TOMER GRIMES Jr., DO SIGNED DATE/TIME: 07/21/24 163 Time of 1ST Reevaluation: 16:30 Reevaluation 1ST: Unchanged Patient Education/Counseling: Diagnosis, Treatment Family Education/Counseling: No Family Present Comments Patient presented with the above HPI.--cardiac/dyspnea----workup was initiated. patient was found with the above mentioned diagnosis. the following medications were ordered: please refer to order lists of meds and tests obtained by myself Dr. Peterson. Patient ED course and VS have been stabilized. Patient has been reassessed in the ED and remained in a stable condition. Pertinent incidental findings were discussed with the patient and/or family. Patient/family voices understanding and is agreeable with plan. Patient has been observed in the ED adequate length of time to insure improvement/stability. Escalation of care considered: Consideration of escalation to observation or admission Patient was ADMITTED to the medicine team for further evaluation and treatment of their presentation. All the reports of any imaging studies that were ordered by myself were reviewed by myself. Departure 1 Departure Time of Disposition: 17:33 Impression: Primary Impression: CHEST PAIN, UNSPECIFIED Additional Impressions: DYSPNEA, UNSPECIFIED Pneumonia Hyperglycemia due to type 2 diabetes mellitus Disposition: ADMITTED INPATIENT Admit to: Tele Condition: Guarded Discharged With: Self Critical Care Note Critical Care Time?: No I personally scribed for RAMEZ PETERSON DO ([email or web address]) on 07/21/24 at 16:13. Electronically submitted by Satish Price ([email or web address]). I personally scribed for RAMEZ PETERSON DO ([email or web address]) on 07/21/24 at 16:20. Electronically submitted by Satish Price ([email or web address]). I personally scribed for RAMZE PETERSON DO ([email or web address]) on 07/21/24 at 17:14. Electronically submitted by Satish Price ([email or web address]). RAMEZ PETERSON DO July 21, 2024 16:13
--- NOTE | 2024-07-21 16:35 | DVH ---
CHEST RADIOGRAPH Indication: cp/sob Technique: Single frontal view of the chest was obtained Comparison: XY CHEST XRAY 1 VIEW on DOS: 06/30/24, XY CHEST XRAY 1 VIEW on DOS: 06/28/24, XY CHEST VIPIN BLE on DOS: 06/26/24 FINDINGS: Lines and Tubes: None Lungs: Right lower lobe airspace disease or atelectasis. Pleura: No effusion. No pneumothorax. Cardiomediastinal contours: Unremarkable Bones: No acute osseous abnormality. IMPRESSION: 1. Right lower lobe airspace disease or atelectasis.
[2024-07-21 17:04] LABS: Basophils # (auto) 0 10 ^3/uL (0-0.2); Basophils % (auto) 0.5 % (0.0-2.0); Eosinophils # (auto) 0 10 ^3/uL (0-0.8); Eosinophils % (auto) 0.3 % (0.0-7.0); Hematocrit 42.2 % (36.0-46.0); Hemoglobin 14.2 g/dL (12.2-16.2); Lymphocytes # (auto) 0.8 10 ^3/uL (0.4-5.4); Lymphocytes % (auto) 14.6 % (10.0-50.0); Mean Corpuscular Hemoglobin 29.9 pg (28.0-32.0); Mean Corpuscular Hgb Conc. 33.7 g/dL (32.0-36.0); Mean Corpuscular Volume 88.6 fL (80.0-100.0); Monocytes # (auto) 0.1 10 ^3/uL (0-1.3); Monocytes % (auto) 2.6 % (0.0-12.0); Neutrophils # (auto) 4.7 10 ^3/uL (1.6-8.6); Platelet Count (auto) 235 10^3/uL (140-450); Red Blood Cells 4.76 10^6/uL (4.0-5.20); Red Cell Distribution Width 15.3 % (11.8-14.3); White Blood Cell 5.7 10^3/uL (4.4-10.8)
[2024-07-21 17:22] LABS: Albumin 4.6 g/dL (3.2-4.8); Anion Gap 8 (5-15); Aspartate Aminotransferase 24 U/L (13-40); BUN/Creatinine Ratio 26.3 (10.0-20.0); Bilirubin, Total 0.5 mg/dL (0.2-1.0); Blood Urea Nitrogen 20 mg/dL (9-23); Calcium 9.8 mg/dL (8.7-10.4); Carbon Dioxide 30 mmol/L (20-31); Potassium 4.5 mmol/L (3.5-5.1); Sodium 136 mmol/L (136-145); Total Protein 7.4 g/dL (5.7-8.2)
[2024-07-21 17:27] LABS: Alanine Aminotransferase 44 U/L (7-40); Alkaline Phosphatase 222 U/L (46-116); Chloride 98 mmol/L (98-107)
[2024-07-21 17:28] LABS: Glucose 416 mg/dL (74-106)
--- NOTE | 2024-07-21 19:07 | ECG ---
[facility] Test Date: 2024-07-21 Test Time: 16:08:20 Pat Name: MARTIN MINA Department: ED Room: 0222 Gender: F Podiatric Medicine Doctor: TANMAY : 1970 Requested By: RAMEZ PETERSON Order Number: [id number] Reading MD: Amadou Ritchie Measurements Intervals [place] Rate: 114 P: 81 NE: 135 QRS: 76 QRSD: 84 T: 65 QT: 262 QTc: 361 Interpretive Statements Sinus tachycardia Probable left atrial enlargement Probable anteroseptal infarct, old Borderline ST depression, diffuse leads Baseline wander in lead(s) II,III,aVR,aVL,aVF,V1,V2,V3,V4,V5,V6 Electronically Signed On 07-27-2024 20:22:41 PDT by Amadou Ritchie Please click the below link to view image of tracing.
[2024-07-21] MEDS: LABETALOL HCL 20 MG/4 ML VL IV ONE (20:14)
[2024-07-21] MEDS: PIPERACILLIN-TAZOB 3.375GM 100 ML IV ONE (20:17)
[2024-07-21] MEDS: SODIUM CHLORIDE 0.9% 1,000 ML IV ONE ×2 (20:36→23:05)
[2024-07-21 21:41] LABS: Urine Bacteria None Seen /hpf (None Seen)
[2024-07-21 21:48] LABS: Urine Blood Negative /uL (Negative); Urine Clarity Clear (Clear); Urine Color Light-Yellow (Yellow); Urine Protein, UAD Negative (Negative); Urine Specific Gravity 1.033 (1.001-1.035); Urine Squamous Epithelial Cell FEW /hpf (<5); Urine Urobilinogen Normal (Negative); Urine WBC 1 /HPF (0-5)
[2024-07-21] MEDS ORDERED: DEXTROSE (50%) 50ML SYRG IV PRN ×2 (22:45→23:15)
[2024-07-21] MEDS ORDERED: ONDANSETRON HCL 4 MG/2 ML VIAL IV PRN (22:45)
[2024-07-21] MEDS ORDERED: VANCOMYCIN PER PHARMACY 0 MG IV SCH (23:00)
[2024-07-21] MEDS ORDERED: DOCUSATE SOD 100 MG CAP PO PRN (23:00)
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
[2024-07-21] MEDS: INSULIN LANTUS (GLARGINE) 1 /0.01ml (100units/ml) SC SCH (23:11)
[2024-07-21 23:13] LABS: Phosphorus 4.6 mg/dL (2.4-5.1)
[2024-07-21] MEDS ORDERED: InsuLIN REG 1unit/0.01ml Soln (100units/ml) SC SCH (23:15)
[2024-07-21] MEDS: ACCU-CHEK COMFORT CURVE STRIP VI SCH ×2 (23:19→23:25)
[2024-07-21] MEDS: InsuLIN REG 1unit/0.01ml Soln (100units/ml) SC SCH (23:32)
[2024-07-22] MEDS ORDERED: InsuLIN REG 1unit/0.01ml Soln (100units/ml) SC SCH
[2024-07-22] MEDS ORDERED: ACCU-CHEK COMFORT CURVE STRIP VI SCH
--- NOTE | 2024-07-22 00:40 | DVH ---
CLINICAL INDICATION: Foot ulcer TECHNIQUE: XY L FOOT 3 VIEW XRAY Comparison: XY L FOOT 2 VIEW XRAY on DOS: 05/07/24 FINDINGS/IMPRESSION: : There is no evidence of acute fracture or dislocation. Hardware within the distal fibula and medial malleolus without evidence of complication. Retrocalcaneal enthesopathy. Soft tissues are unremarkable.
[2024-07-22] MEDS: InsuLIN REG 1unit/0.01ml Soln (100units/ml) IV ONE (01:19)
[2024-07-22] MEDS: HYDROcodone-ACET 5/325MG TAB PO PRN (01:20)
[2024-07-22] MEDS ORDERED: DEXTROSE (50%) 50ML SYRG IV PRN ×2 (03:15→14:30)
[2024-07-22 03:26] VITALS: PULSE 100; RESP 20; O2SAT 98
[2024-07-22] MEDS: ACETAMINOPHEN 325 MG TAB PO PRN (03:56)
[2024-07-22] MEDS: ZOLPIDEM TARTRATE 5 MG TAB PO ONE (04:00)
[2024-07-22] MEDS: InsuLIN REG 1unit/0.01ml Soln (100units/ml) SC SCH ×3 (04:00→22:33)
[2024-07-22] MEDS: ACCU-CHEK COMFORT CURVE STRIP VI SCH ×2 (04:07→17:00)
[2024-07-22 04:57] LABS: Basophils # (auto) 0 10 ^3/uL (0-0.2); Basophils % (auto) 0.3 % (0.0-2.0); Eosinophils # (auto) 0 10 ^3/uL (0-0.8); Eosinophils % (auto) 0.1 % (0.0-7.0); Hematocrit 35.9 % (36.0-46.0); Lymphocytes % (auto) 27.7 % (10.0-50.0); Mean Corpuscular Hemoglobin 29.7 pg (28.0-32.0); Mean Corpuscular Hgb Conc. 33.5 g/dL (32.0-36.0); Mean Corpuscular Volume 88.5 fL (80.0-100.0); Monocytes # (auto) 0.5 10 ^3/uL (0-1.3); Monocytes % (auto) 7.5 % (0.0-12.0); Neutrophils # (auto) 4.6 10 ^3/uL (1.6-8.6); Neutrophils % (auto) 64.4 % (37.0-80.0); Platelet Count (auto) 209 10^3/uL (140-450); Red Blood Cells 4.05 10^6/uL (4.0-5.20); Red Cell Distribution Width 15.7 % (11.8-14.3); White Blood Cell 7.2 10^3/uL (4.4-10.8)
[2024-07-22 05:16] LABS: COVID19 ANTIGEN SOFIA FIA NEGATIVE (NEGATIVE); Rapid Influenza A Negative (Negative); Rapid Influenza B Negative (Negative)
[2024-07-22 05:21] LABS: Alanine Aminotransferase 32 U/L (7-40); Albumin 4.2 g/dL (3.2-4.8); Anion Gap 10 (5-15); Aspartate Aminotransferase 17 U/L (13-40); BUN/Creatinine Ratio 32.2 (10.0-20.0); Bilirubin, Total 0.5 mg/dL (0.2-1.0); Blood Urea Nitrogen 19 mg/dL (9-23); Calcium 9.6 mg/dL (8.7-10.4); Carbon Dioxide 28 mmol/L (20-31); Chloride 101 mmol/L (98-107); Glucose 93 mg/dL (74-106); Potassium 3.6 mmol/L (3.5-5.1); Sodium 139 mmol/L (136-145); Total Protein 6.7 g/dL (5.7-8.2)
[2024-07-22 05:24] LABS: Alkaline Phosphatase 164 U/L (46-116)
[2024-07-22] MEDS: MEROPENEM 1GM IVPB 50 ML IV SCH (05:43)
[2024-07-22] MEDS: GABAPENTIN 400 MG CAP PO SCH (05:51)
--- NOTE | 2024-07-22 07:41 | DVH ---
EXAM: US Duplex Bilateral Lower Extremities Veins CLINICAL INDICATION: r/o bilateral lower extremity DVT, immobilization TECHNIQUE: Real-time duplex ultrasound scan of the bilateral lower extremity veins integrating B-mod e two-dimensional vascular structure, Doppler spectral analysis, color flow Doppler imaging and compr ession. COMPARISON: None FINDINGS: RIGHT DEEP VEINS: Unremarkable. No DVT in the right common femoral, femoral, proximal deep femoral or popliteal veins. The veins demonstrate normal color flow, are normally compressible, with normal phasic flow and/or augmentation response. RIGHT SUPERFICIAL VEINS: Unremarkable. No thrombus in the visualized right great saphenous vein. LEFT DEEP VEINS: Unremarkable. No DVT in the left common femoral, femoral, proximal deep femoral o r popliteal veins. The veins demonstrate normal color flow, are normally compressible, with normal p hasic flow and/or augmentation response. LEFT SUPERFICIAL VEINS: Unremarkable. No thrombus in the visualized left great saphenous vein. SOFT TISSUES: No acute findings. No popliteal cyst. OTHER FINDINGS: . None. IMPRESSION: No DVT.
[2024-07-22 10:10] VITALS: BP 147/68; PULSE 109; PULSE 95; RESP 17; RESP 19; TEMP 98.3; O2SAT 95; O2SAT 98
[2024-07-22] MEDS: ENOXAPARIN SOD 40 MG/0.4 ML SYRINGE SC SCH (11:02)
[2024-07-22] MEDS: PANTOPRAZOLE 40 MG/10 ML VIAL INJ IV SCH (11:02)
[2024-07-22] MEDS: METOPROLOL TARTRATE 25 MG TAB PO SCH (11:02)
[2024-07-22 13:30] VITALS: BP 158/99; PULSE 91; RESP 18; TEMP 97.9; O2SAT 99
--- NOTE | 2024-07-22 13:39 | DVHINCON2 ---
Date of service: July 22, [address] Payan Reason for Consultation Acute respirator failure History of Present Illness History Source: Patient Exam Limitations: No limitations HPI Patient is a 53-year old lady with a history of hypertension who presented with persistent cough and shortness of breath. Was seen in the emergency room where chest x-ray demonstrated resolving infiltrates and she was admitted for IV anabiotics. Patient states she was hospitalized in June 2024 for pneumonia and was discharged home on oxygen however oxygen therapy was discontinued. Pulmonology was consulted to assist in management. Home Meds Active Scripts Insulin Glargine (Lantus) 100 Unit/Ml Inj, 15 UNIT SC BID, #1000 UNITS 3 Refills Prov:DEANNE AGUIRRE MD 07/03/24 Doxycycline Monohydrate (Doxycycline Monohydrate) 100 Mg Cap, 1 CAP PO BID, #14 CAP Prov:DEANNE AGUIRRE MD 07/03/24 Pantoprazole Sodium Sesquihydr (Protonix) 40 Mg Tab, 40 MG PO BID, #60 TAB Prov:ANDREA BEARDEN MD 04/13/20 Metoprolol Tartrate (Lopressor) 25 Mg Tb, 25 MG PO BID, #90 TAB Prov:ANDREA BEARDEN MD 04/13/20 Ibuprofen Micronized (Ibuprofen) 800 Mg Tab, 800 MG PO Q6HP PRN, #30 TAB Prov:ANDREA BEARDEN MD 04/13/20 Reported Medications Gabapentin (Gabapentin) 800 Mg Tab, 1 TAB PO TID for 30 Days, #90 06/22/24 Metformin Hydrochloride (Metformin Hcl) 500 Mg Tab, 1000 MG PO DAILY for 30 Days, MG 09/30/19 Fluoxetine Hcl (Fluoxetine Hcl) 10 Mg Cap, 10 MG PO HS for 30 Days, MG 09/30/19 Insulin Regular (Human) (Humulin R) 100 Unit/Ml Inj, 10 UNIT SC BID, INJ 09/30/19 Insulin Glargine (Lantus) 100 Unit/Ml Inj, 40 UNIT SC BID, INJ 09/30/19 Past Medical History Cardiac: HTN Pulmonary: No pertinent Hx Central Nervous System: No pertinent Hx GI: No pertinent Hx Hemotology/Oncology: No pertinent Hx Hepatobiliary: No pertinent Hx Psychiatric: No pertinent Hx Musculoskeletal: No pertinent Hx Rheumotologic: No pertinent Hx Infectious Disease: No peritnent Hx ENT: No pertinent Hx Renal/: No pertinent Hx Endocrine: No pertinent Hx Dermatology: No pertinent Hx Family History: Cancer, CVA, DM Patient Family History: Cerebrovascular accident (CVA) G8 MOTHER Diabetes mellitus G8 MOTHER G8 FATHER FH: breast cancer G8 MOTHER FH: cardiovascular disease G8 MOTHER G8 FATHER Smoker: No Hx (Negative) Alocohol: None Drugs: None Lives with: With family Domestic Violence: Neg Review of Systems Constitutional: No symptom reported Ears, Nose, & Throat: No symptom reported Eyes: No symptom reported Pulmonary/Respiratory: Dyspnea, Cough Cardiovascular: No symptom reported Gastrointestinal: No symptom reported Genitourinary: No symptom reported Musculoskeletal: No symptom reported Skin: No symptom reported Psychiatric: No symptom reported Endocrine: No symptom reported Hemotologic/Lymphatic: No symptom reported H&P Exam Vital Signs Vital Signs Date Time Temp Pulse Resp B/P (MAP) Pulse Ox O2 Delivery O2 Flow Rate FiO2 07/22/24 11:02 109 147/68 07/22/24 10:10 98.3 19 98 98.3 07/22/24 08:08 Room Air* 0 21 General Appeara: Well developed, Well nourished, Normal Appearance Head Exam: Normal inspection Neck Exam: Normal inspection, Non-tender, Normal alignment Eye Exam: bilateral eye Normal inspection, bilateral eye PERRL, bilateral eye EOMI Ear Exam: bilateral ear Auricle normal, bilateral ear Canal normal, bilateral ear TM normal Nasal Exam: Normal inspection Mouth: Normal Inspection Pulmonary/Respiratory: Normal inspection, Normal breath sounds, Chest non- tender, Lungs clear Cardiovascular/Chest: Normal inspection, Regular rate, Normal Rhythm Peripheral Pulses: 4+ Radial (R), 4+ Radial (L), 4+ Brachial (R), 4+ Brachial (L) Abdominal Exam: Normal bowel sounds Labs/Xrays Labs Test 07/22/24 13:09 07/22/24 04:26 07/22/24 04:07 07/21/24 20:21 Range/Units POC Glucose 163 H 70-106 mg/dl Influenza Type A Antigen Negative Negative Influenza Type B Antigen Negative Negative SARS-CoV-2 Antigen (Rapid) Negative NEGATIVE White Blood Count 7.2 # 4.4-10.8 10^3/uL Red Blood Count 4.05 4.0-5.20 10^6/uL Hemoglobin 12.0 #L 12.2-16.2 g/dL Hematocrit 35.9 #L 36.0-46.0 % Mean Corpuscular Volume 88.5 80.0-100.0 fL Mean Corpuscular Hemoglobin 29.7 28.0-32.0 pg Mean Corpuscular Hemoglobin Concent 33.5 32.0-36.0 g/dL Red Cell Distribution Width 15.7 H 11.8-14.3 % Platelet Count 209 140-450 10^3/uL Mean Platelet Volume 7.9 6.9-10.8 fL Neutrophils (%) (Auto) 64.4 37.0-80.0 % Lymphocytes (%) (Auto) 27.7 10.0-50.0 % Monocytes (%) (Auto) 7.5 0.0-12.0 % Eosinophils (%) (Auto) 0.1 0.0-7.0 % Basophils (%) (Auto) 0.3 0.0-2.0 % Neutrophils # (Auto) 4.6 1.6-8.6 10 ^3/uL Lymphocytes # (Auto) 2.0 0.4-5.4 10 ^3/uL Monocytes # (Auto) 0.5 0-1.3 10 ^3/uL Eosinophils # (Auto) 0 0-0.8 10 ^3/uL Basophils # (Auto) 0 0-0.2 10 ^3/uL Nucleated Red Blood Cells 0.0 % Sodium Level 139 136-145 mmol/L Potassium Level 3.6 3.5-5.1 mmol/L Chloride Level 101 98-107 mmol/L Carbon Dioxide Level 28 20-31 mmol/L Anion Gap 10 5-15 Blood Urea Nitrogen 19 9-23 mg/dL Creatinine 0.59 0.550-1.02 mg/dL Glomerular Filtration Rate Calc 107 >90 mL/min BUN/Creatinine Ratio 32.2 H 10.0-20.0 Serum Glucose 93 74-106 mg/dL Hemoglobin A1c 11.6 H <5.7 % A1C Calcium Level 9.6 8.7-10.4 mg/dL Total Bilirubin 0.5 0.2-1.0 mg/dL Aspartate Amino Transferase (AST) 17 13-40 U/L Alanine Aminotransferase (ALT) 32 7-40 U/L Alkaline Phosphatase 164 H 46-116 U/L Total Protein 6.7 5.7-8.2 g/dL Albumin 4.2 3.2-4.8 g/dL Urine Color Light-yellow Yellow Urine Clarity Clear Clear Urine pH 6.0 5.0-9.0 Urine Specific [place] 1.033 1.001-1.035 Urine Protein Negative Negative Urine Ketones Negative Negative Urine Blood Negative Negative /uL Urine Nitrite Negative Negative Urine Bilirubin Negative Negative Urine Urobilinogen Normal Negative mg/dL Urine Leukocyte Esterase Negative Negative /uL Urine RBC <1 0 - 4 /hpf Urine Microscopic WBC 1 0-5 /HPF Urine Squamous Epithelial Cells Few <5 /hpf Urine Bacteria None seen None Seen /hpf Urine Glucose 4+ H Normal mg/dL Test 07/21/24 19:46 07/21/24 16:47 Range/Units Phosphorus Level 4.6 2.4-5.1 mg/dL Magnesium Level 2.0 1.6-2.6 mg/dL Troponin I High Sensitivity 3 L </=34 ng/L Beta-Hydroxybutyric Acid 0.184 < 0.4 mmol/L D-Dimer, Quantitative 0.44 0.0-0.49 mg/L FEU Serum Osmolality 312 H 278-298 mOsm/kg Lactic Acid Level 1.6 0.4-2.0 mmol/L B-Type Natriuretic Peptide 26.30 0-100 pg/mL Assessment/Plan Plan Impression Acute hypoxemic respiratory failure Resolving pneumonia Atelectasis Dyspnea Patient seen and examined Events Low oxygen requirements On 2 liters nasal cannula Vital signs stable Labs and imaging reviewed Chest x-ray shows resolving infiltrates Management Supplemental oxygen Titrate to maintain sats 90% or above Incentive spirometry Antibiotics Bronchodilators Monitor renal function Monitor electrolytes Supplement as needed DVT prophylaxis Plan discussed with: Patient BREE NAJERA MD July 22, 2024 13:39
[2024-07-22 15:00] VITALS: BP 176/103; PULSE 95; RESP 17; TEMP 98.2; O2SAT 95
[2024-07-22] MEDS: hydrALAZINE HCL 20 MG/ML VL IV PRN (15:24)
[2024-07-22] MEDS: VANCOMYCIN 750MG KIT 100 ML IV SCH (15:25)
--- NOTE | 2024-07-22 15:33 | DVHPN2 ---
Subjective The patient is seen and examined at bedside. Complain of shortness for breath. Reviewed: Care Plan, H&P, Labs, Medications, Previous Orders Changes from previous H/P or p: No Changes Eyes: No Pain, No Vision change, No Conjunctivae inflammation, No Eyelid inflammation, No Other, No Redness ENT: No Ear pain, No Ear discharge, No Nose pain, No Nose discharge, No Nose congestion, No Mouth pain, No Mouth swelling, No Throat pain, No Throat swelling, No Other Cardiovascular: No Chest Pain, No Palpitations, No Orthopnea, No Paroxysmal Noc. Dyspnea, No Edema, No Lt Headedness, No Other Respiratory: Cough, Dry, Shortness of breath; No SOB with excertion, No Wheezing, No Hemoptysis, No Pleuritic Pain, No Sputum, No Other Gastrointestinal: Nausea; No Vomiting, No Abdominal Pain, No Diarrhea; C onstipation; No Melena, No Hematochezia, No Other Genitourinary: No Dysuria; Frequency; No Incontinence, No Hematuria, No Retention, No Other Musculoskeletal: No other, No neck pain, No shoulder pain, No arm pain, No back pain, No hand pain, No leg pain, No foot pain Skin: No Rash, No Lesions, No Jaundice, No Bruising, No Other Objective Vitals Vital Signs Date Time Temp Pulse Resp B/P (MAP) Pulse Ox O2 Delivery O2 Flow Rate FiO2 07/22/24 15:24 176/103 07/22/24 11:02 109 07/22/24 10:10 98.3 19 98 98.3 07/22/24 08:08 Room Air* 0 21 Intake/Output Intake and Output 07/22/24 07:00 Intake Total 1100 ml Balance 1100 ml Intake IV Total 1100 ml General Appearance: Alert, Oriented X3, Cooperative, No acute distress HEENT: Atraumatic, PERRLA, EOMI, Mucous membr. moist/pink Neck: Supple Lungs: Clear to auscultation, Normal air movement Cardiovascular: Regular rate, Normal S1, Normal S2, No murmurs, Gallops, Rubs Abdomen: Normal bowel sounds, Soft, No tenderness Neuro: Cranial nerves 3-12 NL Psych/Mental Status: Mental status NL Medications Current Medications Medications Dose Ordered Sig/[place] Route Start Time Stop Time Status Last Admin Dose Admin Acetaminophen 325 mg Q4HP PRN PO 07/21/24 22:45 07/22/24 15:30 325 MG Ondansetron HCl 4 mg Q4HP PRN IV 07/21/24 22:45 Enoxaparin Sodium 40 mg DAILY SC 07/22/24 10:00 07/22/24 11:02 40 MG Vancomycin HCl 0 ml @ 0 mls/hr UD IV 07/21/24 23:00 Meropenem 50 ml @ 17 mls/hr Q8HR IV 07/22/24 06:00 07/22/24 05:43 17 MLS/HR Polyethylene Glycol 17 gm DAILYPRN PRN PO 07/21/24 23:00 Fluoxetine HCl 10 mg HS PO 07/22/24 22:00 Metoprolol Tartrate 25 mg BID PO 07/22/24 10:00 07/22/24 11:02 25 MG Gabapentin 800 mg TID PO 07/22/24 06:00 07/22/24 15:30 800 MG Pantoprazole Sodium 40 mg DAILY IV 07/22/24 10:00 07/22/24 11:02 40 MG Acetaminophen/ Hydrocodone Bitart 1 tab Q6HPRN PRN PO 07/22/24 00:15 07/22/24 11:05 1 TAB Vancomycin HCl 100 ml @ 100 mls/hr Q8H IV 07/22/24 13:00 07/22/24 15:25 100 MLS/HR Diagnostic Test (Pha) 1 strip ACHS 07/22/24 17:00 Insulin Human Regular HS SC 07/22/24 22:00 Insulin Human Regular AC SC 07/22/24 17:00 Dextrose 50 ml UD PRN IV 07/22/24 14:30 Insulin Glargine 20 units BID@1000,2200 SC 07/22/24 22:00 Hydralazine HCl 10 mg Q6HP PRN IV 07/22/24 14:45 07/22/24 15:24 10 MG Laboratory Results Laboratory Tests 07/22/24 04:07 Chemistry Test 07/21/24 16:47 07/21/24 19:46 07/22/24 04:07 Albumin 4.6 g/dL (3.2-4.8) 4.2 g/dL (3.2-4.8) Calcium Level 9.8 mg/dL (8.7-10.4) 9.6 mg/dL (8.7-10.4) Magnesium Level 2.0 mg/dL (1.6-2.6) 2.0 mg/dL (1.6-2.6) Total Protein 7.4 g/dL (5.7-8.2) 6.7 g/dL (5.7-8.2) Phosphorus Level 4.6 mg/dL (2.4-5.1) Coagulation Test 07/21/24 16:47 D-Dimer, Quantitative 0.44 mg/L FEU (0.0-0.49) Cardiac Markers Test 07/21/24 16:47 B-Type Natriuretic Peptide 26.30 pg/mL (0-100) LFT Test 07/21/24 16:47 07/22/24 04:07 Alanine Aminotransferase (ALT) 44 U/L (7-40) H 32 U/L (7-40) Alkaline Phosphatase 222 U/L (46-116) H 164 U/L (46-116) H Aspartate Amino Transferase (AST) 24 U/L (13-40) 17 U/L (13-40) Total Bilirubin 0.5 mg/dL (0.2-1.0) 0.5 mg/dL (0.2-1.0) HgA1c, TSH Test 07/22/24 04:07 Hemoglobin A1c 11.6 % A1C (<5.7) H Urinalysis Test 07/21/24 20:21 Urine Color Light-yellow (Yellow) Urine Clarity Clear (Clear) Urine pH 6.0 (5.0-9.0) Urine Specific [place] 1.033 (1.001-1.035) Urine Protein Negative (Negative) Urine Ketones Negative (Negative) Urine Blood Negative /uL (Negative) Urine Nitrite Negative (Negative) Urine Bilirubin Negative (Negative) Urine Urobilinogen Normal mg/dL (Negative) Urine Leukocyte Esterase Negative /uL (Negative) Urine RBC <1 /hpf (0 - 4) Urine Microscopic WBC 1 /HPF (0-5) Urine Squamous Epithelial Cells Few /hpf (<5) Urine Bacteria None seen /hpf (None Seen) Urine Glucose 4+ mg/dL (Normal) H Labs and/or images reviewed: Labs reviewed by me Assessment/Plan Assessment/Plan Community-acquired pneumonia, Gram-positive versus Gram-negative; persistent versus recurrent Noncardiac chest pain likely due to pneumonia Severe hyperglycemia without DKA Type 2 diabetes, uncontrolled, insulin dependent, A1c 11.6% Peripheral neuropathy Ulcer wound noted on the dorsal surface of the left foot Bipolar disorder? Depression, likely MDD Chronic pain? Hypertension Hypertensive heart disease Mild tricuspid regurgitation Insomnia Continuing current management. Continuing with sliding scale insulin. Continuing with hypertensive medication. Continuing with IV antibiotic. I am going to change his Accu-Cheks to q.a.c. and HS. I am going to add Lantus to her regimen. Continuing with wound care. Continuing with antidepression medication. This medical document was created using an electronic medical record system with [employer] dictation system. Although this document has been carefully reviewed, there may still be some phonetic and typographical errors. These areas are purely typographical due to imperfections of the software programs, and do not reflect any compromise in the patient's medical care. Plan discussed with: Patient My Orders Orders - OSIEL MARRUFO MD Procedure Category Date Status Time Glucose Blood PHA 07/22/24 In Process (Accu-Chek Comfort 17:00 Insulin R (Human) PHA 07/22/24 In Process (Insulin R) 22:00 Insulin R (Human) PHA 07/22/24 In Process (Insulin R) 17:00 Dextrose 50% Syringe PHA 07/22/24 In Process 14:30 Insulin Lantus PHA /06/13 In Process (Glargine) (Lantus) 22:00 Hydralazine Injection PHA 07/22/24 In Process (Apresoline Inject 14:45 Date of Service: July 22, 2024 Billing Provider: OSIEL MARRUFO MD Common Visit Codes: [id number] INP/OBS CARE(HIGH) OSIEL MARRUFO MD July 22, 2024 15:33
[2024-07-22 17:00] VITALS: BP_SYST 140; BP_SYST 159; BP_DIAS 62; BP_DIAS 95; PULSE 100; PULSE 75; RESP 18; TEMP 98.2; O2SAT 95; O2SAT 98
[2024-07-22 21:00] VITALS: BP 148/84; PULSE 100; RESP 18; TEMP 96.4; O2SAT 96
[2024-07-22] MEDS: VANCOMYCIN 1GM/200ML PM 200 ML IV ONE ×2 (21:10)
[2024-07-22] MEDS: FLUoxetine HCL 10 MG CAP PO SCH (22:14)
[2024-07-22] MEDS: INSULIN LANTUS (GLARGINE) 1 /0.01ml (100units/ml) SC SCH (22:34)
[2024-07-22] MEDS: POLYETHYLENE GLYCOL 17 GM PWDR PO PRN (22:41)
[2024-07-23] VITALS (14 sets, daily range): BP systolic 119–155; BP diastolic 74–98; PULSE 83–100; RESP 18–24; TEMP 95.9–98.1; O2SAT 93–100
[2024-07-23] MEDS: VANCOMYCIN 1GM/200ML PM 200 ML IV ONE (05:47)
[2024-07-23 06:07] LABS: Basophils # (auto) 0 10 ^3/uL (0-0.2); Basophils % (auto) 0.7 % (0.0-2.0); Eosinophils # (auto) 0 10 ^3/uL (0-0.8); Eosinophils % (auto) 0.7 % (0.0-7.0); Hematocrit 39.3 % (36.0-46.0); Hemoglobin 13.5 g/dL (12.2-16.2); Lymphocytes # (auto) 2.3 10 ^3/uL (0.4-5.4); Lymphocytes % (auto) 41.2 % (10.0-50.0); Mean Corpuscular Hemoglobin 30.2 pg (28.0-32.0); Mean Corpuscular Hgb Conc. 34.4 g/dL (32.0-36.0); Mean Corpuscular Volume 87.6 fL (80.0-100.0); Monocytes # (auto) 0.4 10 ^3/uL (0-1.3); Monocytes % (auto) 6.7 % (0.0-12.0); Neutrophils # (auto) 2.9 10 ^3/uL (1.6-8.6); Neutrophils % (auto) 50.7 % (37.0-80.0); Platelet Count (auto) 231 10^3/uL (140-450); Red Blood Cells 4.49 10^6/uL (4.0-5.20); Red Cell Distribution Width 15.7 % (11.8-14.3); White Blood Cell 5.7 10^3/uL (4.4-10.8)
--- NOTE | 2024-07-23 12:36 | DVHPN2 ---
Subjective The patient is seen and examined at bedside. Still complain of shortness a breath and cough. Asking for cough syrup. Patient also said she can not sleep and she needs her Ambien. Patient take Ambien 10 mg daily at home. Reviewed: Care Plan, H&P, Labs, Medications, Previous Orders, Radiology Changes from previous H/P or p: No Changes Eyes: No Pain, No Vision change, No Conjunctivae inflammation, No Eyelid inflammation, No Other, No Redness ENT: No Ear pain, No Ear discharge, No Nose pain, No Nose discharge, No Nose congestion, No Mouth pain, No Mouth swelling, No Throat pain, No Throat swelling, No Other Cardiovascular: No Chest Pain, No Palpitations, No Orthopnea, No Paroxysmal Noc. Dyspnea, No Edema, No Lt Headedness, No Other Respiratory: Cough, Dry, Shortness of breath; No SOB with excertion, No Wheezing, No Hemoptysis, No Pleuritic Pain, No Sputum, No Other Gastrointestinal: Nausea; No Vomiting, No Abdominal Pain, No Diarrhea; C onstipation; No Melena, No Hematochezia, No Other Genitourinary: No Dysuria; Frequency; No Incontinence, No Hematuria, No Retention, No Other Musculoskeletal: No other, No neck pain, No shoulder pain, No arm pain, No back pain, No hand pain, No leg pain, No foot pain Skin: No Rash, No Lesions, No Jaundice, No Bruising, No Other Objective Vitals Vital Signs Date Time Temp Pulse Resp B/P (MAP) Pulse Ox O2 Delivery O2 Flow Rate FiO2 07/23/24 12:23 98.0 83 18 136/86 (103) 97 98.0 07/23/24 08:27 Room Air* 0 21 Intake/Output Intake and Output 07/23/24 07:00 Intake Total 610 ml Output Total 0 ml Balance 610 ml Intake Oral 500 ml IV Total 110 ml Output Urine Total 0 ml # Voids 5 # Bowel Movements 1 General Appearance: Alert, Oriented X3, Cooperative, No acute distress HEENT: Atraumatic, PERRLA, EOMI, Mucous membr. moist/pink Neck: Supple Lungs: Clear to auscultation, Normal air movement Cardiovascular: Regular rate, Normal S1, Normal S2 Abdomen: Normal bowel sounds, Soft, No tenderness Neuro: Cranial nerves 3-12 NL Psych/Mental Status: Mental status NL Medications Current Medications Medications Dose Ordered Sig/[place] Route Start Time Stop Time Status Last Admin Dose Admin Acetaminophen 325 mg Q4HP PRN PO 07/21/24 22:45 07/23/24 09:50 325 MG Ondansetron HCl 4 mg Q4HP PRN IV 07/21/24 22:45 Enoxaparin Sodium 40 mg DAILY SC 07/22/24 10:00 07/23/24 09:46 40 MG Vancomycin HCl 0 ml @ 0 mls/hr UD IV 07/21/24 23:00 Meropenem 50 ml @ 17 mls/hr Q8HR IV 07/22/24 06:00 07/23/24 06:55 17 MLS/HR Polyethylene Glycol 17 gm DAILYPRN PRN PO 07/21/24 23:00 07/22/24 22:41 17 GM Fluoxetine HCl 10 mg HS PO 07/22/24 22:00 07/22/24 22:14 10 MG Metoprolol Tartrate 25 mg BID PO 07/22/24 10:00 07/23/24 09:46 25 MG Gabapentin 800 mg TID PO 07/22/24 06:00 07/23/24 06:55 800 MG Pantoprazole Sodium 40 mg DAILY IV 07/22/24 10:00 07/23/24 09:46 40 MG Acetaminophen/ Hydrocodone Bitart 1 tab Q6HPRN PRN PO 07/22/24 00:15 07/23/24 06:55 1 TAB Vancomycin HCl 100 ml @ 100 mls/hr Q8H IV 07/22/24 13:00 07/23/24 05:00 100 MLS/HR Diagnostic Test (Pha) 1 strip ACHS 07/22/24 17:00 07/23/24 11:11 1 STRIP Insulin Human Regular HS SC 07/22/24 22:00 07/22/24 22:33 3 UNITS Insulin Human Regular AC SC 07/22/24 17:00 07/23/24 11:09 3 UNITS Dextrose 50 ml UD PRN IV 07/22/24 14:30 Insulin Glargine 20 units BID@1000,2200 SC 07/22/24 22:00 07/23/24 11:09 20 UNITS Hydralazine HCl 10 mg Q6HP PRN IV 07/22/24 14:45 07/22/24 15:24 10 MG Laboratory Results Laboratory Tests 07/22/24 04:07 07/23/24 05:38 Urinalysis Test 07/21/24 20:21 Urine Color Light-yellow (Yellow) Urine Clarity Clear (Clear) Urine pH 6.0 (5.0-9.0) Urine Specific [place] 1.033 (1.001-1.035) Urine Protein Negative (Negative) Urine Ketones Negative (Negative) Urine Blood Negative /uL (Negative) Urine Nitrite Negative (Negative) Urine Bilirubin Negative (Negative) Urine Urobilinogen Normal mg/dL (Negative) Urine Leukocyte Esterase Negative /uL (Negative) Urine RBC <1 /hpf (0 - 4) Urine Microscopic WBC 1 /HPF (0-5) Urine Squamous Epithelial Cells Few /hpf (<5) Urine Bacteria None seen /hpf (None Seen) Urine Glucose 4+ mg/dL (Normal) H Microbiology Microbiology Date/Time Source Procedure Growth Status 07/22/24 04:26 Foot Gram Stain Pending Resulted 07/22/24 04:26 Foot Wound Culture - Preliminary Resulted 07/21/24 16:47 Blood Blood Culture - Preliminary NO GROWTH AFTER 24 HOURS OF INCUBATION. Resulted Labs and/or images reviewed: Labs reviewed by me Assessment/Plan Assessment/Plan Community-acquired pneumonia, Gram-positive versus Gram-negative; persistent versus recurrent Noncardiac chest pain likely due to pneumonia Severe hyperglycemia without DKA Type 2 diabetes, uncontrolled, insulin dependent, A1c 11.6% Peripheral neuropathy Ulcer wound noted on the dorsal surface of the left foot Bipolar disorder? Depression, likely MDD Chronic pain? Hypertension Hypertensive heart disease Mild tricuspid regurgitation Insomnia Continuing current management. Continuing with IV antibiotic vancomycin and Merrem Continuing with sliding scale insulin and Lantus. Continuing with antidepression medication. Continuing with hypertensive medication. I will add hydralazine 10 mg IV q.6 hours p.r.n. for systolic greater than 160. I will give the patient Robitussin DM 10 mL every 4 hours as needed for cough We will add Ambien 10 mg p.o. q.h.s. p.r.n. for sleep This medical document was created using an electronic medical record system with [employer] computerized dictation system. Although this document has been carefully reviewed, there may still be some phonetic and typographical errors. These areas are purely typographical due to imperfections of the software programs, and do not reflect any compromise in the patient's medical care. Plan discussed with: Patient My Orders Orders - OSIEL MARRUFO MD Procedure Category Date Status Time Glucose Blood PHA 07/22/24 In Process (Accu-Chek Comfort 17:00 Insulin R (Human) PHA 07/22/24 In Process (Insulin R) 22:00 Insulin R (Human) PHA 07/22/24 In Process (Insulin R) 17:00 Dextrose 50% Syringe PHA 07/22/24 In Process 14:30 Insulin Lantus PHA 07/22/24 In Process (Glargine) (Lantus) 22:00 Hydralazine Injection PHA 07/22/24 In Process (Apresoline Inject 14:45 Insert Midline ORDERS 07/22/24 Transmitted 16:06 Cover Wound With Foam SIDRA 07/22/24 In Process Dressing 16:03 Apply Z-Guard SIDRA 07/22/24 In Process 16:03 Date of Service: July 22, 2024 Billing Provider: OSIEL MARRUFO MD Common Visit Codes: [id number] INP/OBS CARE(HIGH) OSIEL MARRUFO MD July 23, 2024 12:36
[2024-07-23] MEDS ORDERED: BUDESONIDE (INHALATION) 0.5 MG/2 ML NEB NEB PRN (13:45)
--- NOTE | 2024-07-23 14:06 | DVHPN2 ---
Progress Note - Dictate Date Seen: July 23, 2024 Medical Necessity Reason Pt with a Central, PICC or Fol: No vital signs Vital Sign Date Time Temp Pulse Resp B/P (MAP) Pulse Ox O2 Delivery O2 Flow Rate FiO2 07/23/24 12:23 98.0 83 18 136/86 (103) 97 98.0 07/23/24 08:27 Room Air* 0 21 Total Intake and Output 07/22/24 07/22/24 07/23/24 15:00 23:00 07:00 Intake Total 50 ml 60 ml 500 ml Output Total 0 ml Balance 50 ml 60 ml 500 ml medications Current Medications Medications Dose Ordered Sig/[place] Route Start Time Stop Time Status Last Admin Dose Admin Acetaminophen 325 mg Q4HP PRN PO 07/21/24 22:45 07/23/24 09:50 325 MG Ondansetron HCl 4 mg Q4HP PRN IV 07/21/24 22:45 Enoxaparin Sodium 40 mg DAILY SC 07/22/24 10:00 07/23/24 09:46 40 MG Vancomycin HCl 0 ml @ 0 mls/hr UD IV 07/21/24 23:00 Meropenem 50 ml @ 17 mls/hr Q8HR IV 07/22/24 06:00 07/23/24 06:55 17 MLS/HR Polyethylene Glycol 17 gm DAILYPRN PRN PO 07/21/24 23:00 07/22/24 22:41 17 GM Fluoxetine HCl 10 mg HS PO 07/22/24 22:00 07/22/24 22:14 10 MG Metoprolol Tartrate 25 mg BID PO 07/22/24 10:00 07/23/24 09:46 25 MG Gabapentin 800 mg TID PO 07/22/24 06:00 07/23/24 06:55 800 MG Pantoprazole Sodium 40 mg DAILY IV 07/22/24 10:00 07/23/24 09:46 40 MG Acetaminophen/ Hydrocodone Bitart 1 tab Q6HPRN PRN PO 07/22/24 00:15 07/23/24 06:55 1 TAB Vancomycin HCl 100 ml @ 100 mls/hr Q8H IV 07/22/24 13:00 07/23/24 13:15 100 MLS/HR Diagnostic Test (Pha) 1 strip ACHS 07/22/24 17:00 07/23/24 11:11 1 STRIP Insulin Human Regular HS SC 07/22/24 22:00 07/22/24 22:33 3 UNITS Insulin Human Regular AC SC 07/22/24 17:00 07/23/24 11:09 3 UNITS Dextrose 50 ml UD PRN IV 07/22/24 14:30 Insulin Glargine 20 units BID@1000,2200 SC 07/22/24 22:00 07/23/24 11:09 20 UNITS Hydralazine HCl 10 mg Q6HP PRN IV 07/22/24 14:45 07/22/24 15:24 10 MG Guaifenesin/ Dextromethorphan 10 ml Q6HP PRN PO 07/23/24 13:45 Zolpidem Tartrate 10 mg HSPRN PRN PO 07/23/24 13:45 Ipratropium [place] 0.5 mg Q6HPRN PRN NEB 07/23/24 13:45 Budesonide 0.25 mg BID PRN NEB 07/23/24 13:45 laboratory and microbiology Laboratory Tests 07/23/24 05:38 07/22/24 04:07 Test 07/22/24 04:07 Range/Units Serum Glucose 93 74-106 mg/dL Assessment/Plan Impression Acute hypoxemic respiratory failure Resolving pneumonia Atelectasis Dyspnea Patient seen and examined Events Low oxygen requirements On 2 liters nasal cannula No acute events Labs and imaging reviewed Management Supplemental oxygen Titrate to maintain sats 90% or above Incentive spirometry Antibiotics Bronchodilators Monitor renal function Monitor electrolytes Supplement as needed home oxygen evaluation prior to discharge DVT prophylaxis Dietary Evaluation Review Recommendations by RD: Dietary education by RD, Increase Calorie Intake Comments: 1) Initiate Glucerna tid d/t underweight BMI and increased energy needs. Encourage optimal PO intake 2) Initiate Pro-Stat @ 30 mL qd 3) Initite vitamin C @ 500 mg bid and zinc sulfate @ 220 mg qd for 7-10 days 4) Refer to outpatient RD/[facility] for diabetes education and weight management 5) Continue to monitor I&O, labs, and skin integrity Expected Outcomes/Goals: 1) appetite and labs to improve 2) wound to improve 3) f/u in 3-5 days Plan discussed with: Patient BREE NAJERA MD July 23, 2024 14:06
[2024-07-23] MEDS: IPRATROPIUM BROM 0.5 MG/2.5ML INH SOL NEB PRN (15:03)
[2024-07-23] MEDS: BUDESONIDE (INHALATION) 0.5 MG/2 ML NEB NEB SCH (22:22)
[2024-07-23] MEDS: ZOLPIDEM TARTRATE 5 MG TAB PO PRN (22:53)
[2024-07-23] MEDS: guaiFENesin-DM 100/10mg/5ml SYR PO PRN (22:55)
[2024-07-24] VITALS (9 sets, daily range): BP systolic 113–157; BP diastolic 71–99; PULSE 86–99; RESP 18–20; TEMP 96.2–98.1; O2SAT 95–100
[2024-07-24 08:06] LABS: Basophils # (auto) 0 10 ^3/uL (0-0.2); Basophils % (auto) 0.6 % (0.0-2.0); Eosinophils # (auto) 0.1 10 ^3/uL (0-0.8); Eosinophils % (auto) 1.5 % (0.0-7.0); Hematocrit 36.5 % (36.0-46.0); Hemoglobin 12.4 g/dL (12.2-16.2); Lymphocytes # (auto) 1.6 10 ^3/uL (0.4-5.4); Lymphocytes % (auto) 31.6 % (10.0-50.0); Mean Corpuscular Volume 88.1 fL (80.0-100.0); Monocytes # (auto) 0.4 10 ^3/uL (0-1.3); Monocytes % (auto) 8.7 % (0.0-12.0); Neutrophils # (auto) 2.9 10 ^3/uL (1.6-8.6); Neutrophils % (auto) 57.6 % (37.0-80.0); Platelet Count (auto) 207 10^3/uL (140-450); Red Blood Cells 4.15 10^6/uL (4.0-5.20)
[2024-07-24 08:15] LABS: Chloride 105 mmol/L (98-107); Sodium 142 mmol/L (136-145)
[2024-07-24 08:16] LABS: Anion Gap 6 (5-15); Calcium 9.3 mg/dL (8.7-10.4); Carbon Dioxide 31 mmol/L (20-31)
[2024-07-24 08:21] LABS: BUN/Creatinine Ratio 34.5 (10.0-20.0); Blood Urea Nitrogen 20 mg/dL (9-23)
[2024-07-24 08:25] LABS: Glucose 107 mg/dL (74-106)
[2024-07-24] MEDS ORDERED: AUG875T PO (09:21)
[2024-07-24] MEDS ORDERED: POLY335015 PO (09:21)
--- NOTE | 2024-07-24 09:26 | DVHDS2 ---
Discharge Summary Date of Admission July 21, 2024 at 22:40 Date of Discharge: July 24, 2024 Labs/Diagnostic Data: Laboratory Results Test 07/24/24 07:34 07/24/24 06:01 07/23/24 05:38 07/22/24 04:26 White Blood Count 5.0 10^3/uL (4.4-10.8) Red Blood Count 4.15 10^6/uL (4.0-5.20) Hemoglobin 12.4 g/dL (12.2-16.2) Hematocrit 36.5 % (36.0-46.0) Mean Corpuscular Volume 88.1 fL (80.0-100.0) Mean Corpuscular Hemoglobin 30.0 pg (28.0-32.0) Mean Corpuscular Hemoglobin Concent 34.0 g/dL (32.0-36.0) Red Cell Distribution Width 15.0 % (11.8-14.3) Platelet Count 207 10^3/uL (140-450) Mean Platelet Volume 7.5 fL (6.9-10.8) Neutrophils (%) (Auto) 57.6 % (37.0-80.0) Lymphocytes (%) (Auto) 31.6 % (10.0-50.0) Monocytes (%) (Auto) 8.7 % (0.0-12.0) Eosinophils (%) (Auto) 1.5 % (0.0-7.0) Basophils (%) (Auto) 0.6 % (0.0-2.0) Neutrophils # (Auto) 2.9 10 ^3/uL (1.6-8.6) Lymphocytes # (Auto) 1.6 10 ^3/uL (0.4-5.4) Monocytes # (Auto) 0.4 10 ^3/uL (0-1.3) Eosinophils # (Auto) 0.1 10 ^3/uL (0-0.8) Basophils # (Auto) 0 10 ^3/uL (0-0.2) Nucleated Red Blood Cells 0.0 % Sodium Level 142 mmol/L (136-145) Potassium Level 4.0 mmol/L (3.5-5.1) Chloride Level 105 mmol/L (98-107) Carbon Dioxide Level 31 mmol/L (20-31) Anion Gap 6 (5-15) Blood Urea Nitrogen 20 mg/dL (9-23) Creatinine 0.58 mg/dL (0.550-1.02) Glomerular Filtration Rate Calc 107 mL/min (>90) BUN/Creatinine Ratio 34.5 (10.0-20.0) Serum Glucose 107 mg/dL (74-106) Calcium Level 9.3 mg/dL (8.7-10.4) POC Glucose 78 mg/dl (70-106) Vancomycin Level Trough 12.1 ug/mL (5-10) Influenza Type A Antigen Negative (Negative) Influenza Type B Antigen Negative (Negative) SARS-CoV-2 Antigen (Rapid) Negative (NEGATIVE) Test 07/22/24 04:07 07/21/24 20:21 07/21/24 19:46 07/21/24 16:47 Hemoglobin A1c 11.6 % A1C (<5.7) Total Bilirubin 0.5 mg/dL (0.2-1.0) Aspartate Amino Transferase (AST) 17 U/L (13-40) Alanine Aminotransferase (ALT) 32 U/L (7-40) Alkaline Phosphatase 164 U/L (46-116) Total Protein 6.7 g/dL (5.7-8.2) Albumin 4.2 g/dL (3.2-4.8) Urine Color Light-yellow (Yellow) Urine Clarity Clear (Clear) Urine pH 6.0 (5.0-9.0) Urine Specific [place] 1.033 (1.001-1.035) Urine Protein Negative (Negative) Urine Ketones Negative (Negative) Urine Blood Negative /uL (Negative) Urine Nitrite Negative (Negative) Urine Bilirubin Negative (Negative) Urine Urobilinogen Normal mg/dL (Negative) Urine Leukocyte Esterase Negative /uL (Negative) Urine RBC <1 /hpf (0 - 4) Urine Microscopic WBC 1 /HPF (0-5) Urine Squamous Epithelial Cells Few /hpf (<5) Urine Bacteria None seen /hpf (None Seen) Urine Glucose 4+ mg/dL (Normal) Phosphorus Level 4.6 mg/dL (2.4-5.1) Magnesium Level 2.0 mg/dL (1.6-2.6) Troponin I High Sensitivity 3 ng/L (</=34) Beta-Hydroxybutyric Acid 0.184 mmol/L (< 0.4) D-Dimer, Quantitative 0.44 mg/L FEU (0.0-0.49) Serum Osmolality 312 mOsm/kg (278-298) Lactic Acid Level 1.6 mmol/L (0.4-2.0) B-Type Natriuretic Peptide 26.30 pg/mL (0-100) Other Laboratory Tests 07/24/24 07:34 Brief Hx & Hospital Course: Final diagnoses: Community-acquired pneumonia, Gram-positive versus Gram-negative; Noncardiac chest pain likely due to pneumonia Severe hyperglycemia without DKA Type 2 diabetes, uncontrolled Peripheral neuropathy Ulcer wound noted on the dorsal surface of the left foot Depression, likely MDD Chronic pain? Hypertension Hypertensive heart disease Mild tricuspid regurgitation Insomnia 53-year-old female who was admitted for shortness of breaths and cough and was diagnosed with pneumonia and admitted on IV antibiotics She is on meropenem and vancomycin now she is on room air now She is still complaining of chest pain she describes it as a pressure on her chest She has a dry cough Her troponins were negative x3 EKG is negative Chest x-ray showed right lower lobe pneumonia Doppler of the legs showed no DVT She is on room air now She is stable for discharge She will be given Augmentin for 5 days She is also complaining of constipation and therefore she will be given MiraLax 17 g daily, continue Colace which she is taking at home She was also educated about taking her Lantus and regular insulin Continue Lantus 20 units in the morning and 10 in the evening Follow up with the primary care physician as soon as possible Resume other home medications Condition at Discharge: Stable Final Diagnosis/Problems List Community-acquired pneumonia, Gram-positive versus Gram-negative; Noncardiac chest pain likely due to pneumonia Severe hyperglycemia without DKA Type 2 diabetes, uncontrolled Peripheral neuropathy Ulcer wound noted on the dorsal surface of the left foot Depression, likely MDD Chronic pain? Hypertension Hypertensive heart disease Mild tricuspid regurgitation Insomnia Discharge Disposition: Home SNF Discharge Will this Physician continue t: No Discharge Instruct/Medications Diet: Consistent carbohydrate Activity: No Restrictions, As Tolerated Follow Up/Referral: PCP MARYJANE Medications: Augmentin 875 mg bid x 5 days Miralax 17 gm daily Resume other home meds Discharge Statement: "Patient was advised to return to the ER or call 911 if any headaches, dizziness, shortness of breath, chest pain, abdominal pain, bleeding, fevers, or worsening of medical condition. Patient was counseled about treatment plan, medications, possible side effects, patientverbalized understanding. All questions were answered to the best of my ability. This discharge took greater then 30 minutes in planning, reviewing documentation, counseling the patient, and discussing with other team members." ASSESSMENT ASSESSMENT Assessment Community-acquired pneumonia, Gram-positive versus Gram-negative; Noncardiac chest pain likely due to pneumonia Severe hyperglycemia without DKA Type 2 diabetes, uncontrolled Peripheral neuropathy Ulcer wound noted on the dorsal surface of the left foot Depression, likely MDD Chronic pain? Hypertension Hypertensive heart disease Mild tricuspid regurgitation Insomnia Date of Service: July 24, 2024 Billing Provider: DEANNE AGUIRRE MD Common Visit Codes: NOT BILLABLE DEANNE AGUIRRE MD July 24, 2024 09:26
--- NOTE | 2024-07-24 23:03 | DVHPN2 ---
Progress Note - Dictate Date Seen: July 24, 2024 Medical Necessity Reason Pt with a Central, PICC or Fol: No Subjective Patient seen and examined at bedside. Breathing comfortably on room air. Overnight events reviewed. vital signs Vital Sign Date Time Temp Pulse Resp B/P (MAP) Pulse Ox O2 Delivery O2 Flow Rate FiO2 07/24/24 13:00 98.1 88 18 113/99 (104) 98 98.1 07/24/24 09:34 Room Air 0.0 07/24/24 08:00 21 Total Intake and Output 07/23/24 07/23/24 07/24/24 15:00 23:00 07:00 Intake Total 367 ml 630 ml 550 ml Balance 367 ml 630 ml 550 ml objective Gen.: Patient lying in bed in no apparent distress. Breathing on room air. Head: Normocephalic, atraumatic. Eyes: EOMI/PERRLA. Ears: Normal hearing. Normal anatomy. Neck/trachea: Trachea midline, supple. Nose: Normal external anatomy. Mouth: Moist mucous membranes. Chest: Decreased air entry bilaterally. No wheezing or rhonchi. Cardiovascular: Positive S1, positive S2. Regular rate and rhythm. Abdomen: Positive bowel sounds in all 4 quadrants. Soft, non-tender, non- distended. : Deferred. Rectal: Deferred. Skin: Warm, dry. Intact. Extremities: 2+ radial pulses bilaterally. No lower extremity edema. Neuro: Awake, alert, oriented x3. No gross motor or sensory deficits. Cranial nerves II through XII intact. Gait not assessed. laboratory and microbiology Laboratory Tests 07/24/24 07:34 Test 07/24/24 07:34 Range/Units Serum Glucose 107 H 74-106 mg/dL Assessment/Plan Impression: Acute hypoxemic respiratory failure Pneumonia, likely gram negative Atelectasis Dyspnea Events: Patient seen and examined On room air Supplemental oxygen PRN No acute events Antitussive PRN Complete 7 days of abx Recommend repeat CXR in 6-8 weeks Accu-Cheks, ISS DVT/GI prophylaxis Patient is stable for discharge from the pulmonary standpoint. Disposition per hospitalist. Follow up in 1-2 weeks in Pulmonary Clinic. Labs and imaging reviewed Plan: Supplemental oxygen PRN Titrate to maintain sats 90% or above Incentive spirometry Antibiotics Bronchodilators Monitor renal function Monitor electrolytes Supplement as needed Home oxygen evaluation prior to discharge DVT prophylaxis Prognosis: Poor given patient's multiple co-morbidities. Rest of plan per hospitalist and other consultants. Thank you Dr. Tay for allowing me to participate in this patient's care. Further recommendations will depend on the patient's clinical course. Please do not hesitate to contact me if you have any questions or concerns. This medical document was created using an electronic medical record system with [employer] dictation system. Although these documentations are being carefully reviewed, there may still be some phonetic and typographical changes. The errors are purely typographical, due to imperfection on the software program, and do not reflect any compromise in the patient's medical care. Dietary Evaluation Review Recommendations by RD: Dietary education by RD, Increase Calorie Intake Comments: 1) Initiate Glucerna tid d/t underweight BMI and increased energy needs. Encourage optimal PO intake 2) Initiate Pro-Stat @ 30 mL qd 3) Initite vitamin C @ 500 mg bid and zinc sulfate @ 220 mg qd for 7-10 days 4) Refer to outpatient RD/[facility] for diabetes education and weight management 5) Continue to monitor I&O, labs, and skin integrity Expected Outcomes/Goals: 1) appetite and labs to improve 2) wound to improve 3) f/u in 3-5 days Plan discussed with: Patient, Other (KEITH Henderson) JAMES ROACH MD July 24, 2024 23:03
== END 2024-07-24 14:50 | disposition home or self-care (01) | DRG 178 ==
LOC: ER 16:00 → EDBD 16:00 → OVERFLOW 22:40 → CENTRAL 07-22 15:00
PROVIDERS: ADMIT Internal Medicine Geriatric Medicine; ATTEND Internal Medicine Geriatric Medicine
DX: J15.69 Pneumonia due to other Gram-negative bacteria (principal); J98.11 Atelectasis; L89.151 Pressure ulcer of sacral region, stage 1; L89.621 Pressure ulcer of left heel, stage 1; J15.9 Unspecified bacterial pneumonia; E11.65 Type 2 diabetes mellitus with hyperglycemia; E11.40 Type 2 diabetes mellitus with diabetic neuropathy, unspecified; E11.621 Type 2 diabetes mellitus with foot ulcer; G47.00 Insomnia, unspecified; E87.6 Hypokalemia; F41.9 Anxiety disorder, unspecified; F31.9 Bipolar disorder, unspecified; I36.1 Nonrheumatic tricuspid (valve) insufficiency; G89.29 Other chronic pain; Z20.822 Contact with and (suspected) exposure to COVID-19; K59.00 Constipation, unspecified; Z79.4 Long term (current) use of insulin; Z87.01 Personal history of pneumonia (recurrent); Z90.710 Acquired absence of both cervix and uterus; Z91.148 Patient's other noncompliance with medication regimen for other reason; Z90.49 Acquired absence of other specified parts of digestive tract; Z98.891 History of uterine scar from previous surgery; Z88.8 Allergy status to other drugs, medicaments and biological substances; Z79.899 Other long term (current) drug therapy; Z79.84 Long term (current) use of oral hypoglycemic drugs; Z82.3 Family history of stroke; Z83.3 Family history of diabetes mellitus; Z82.49 Family history of ischemic heart disease and other diseases of the circulatory system; Z80.3 Family history of malignant neoplasm of breast; I11.9 Hypertensive heart disease without heart failure
CPT/HCPCS: 36415; 71045; 73630; 80048; 80053; 80202; 81001; 82010; 82565; 82962; 83036; 83605; 83735; 83880; 83930; 84100; 84484; 85025; 85379; 87040; 87077; 87186; 87205; 87426; 87804; 93005; 93970; 94640; 96365; 96375; G0378; J1815; J2185; J2470; J2543

== ENCOUNTER 2025-02-26 16:37 | Inpatient (IN) | payer MEDICARE, OTHER ==
[~2025-02-26] VITALS: Ht 172.7 cm; Wt 48.3 kg
[~2025-02-26 16:37] MED LIST changes: +AUG875T PO; -DOXY1CAP57 PO; +POLY335015 PO
[2025-02-26 17:38] LABS: Hematocrit 44.5 % (36.0-46.0); Hemoglobin 14.7 g/dL (12.2-16.2); Mean Corpuscular Hemoglobin 29.9 pg (28.0-32.0); Mean Corpuscular Volume 90.5 fL (80.0-100.0)
--- NOTE | 2025-02-26 18:00 | DVH ---
CHEST RADIOGRAPH Indication: cp Technique: Single frontal view of the chest was obtained. Comparison: XY CHEST PORTABLE on DOS: 07/21/24 Findings: Masslike consolidation in the left lower lung . Mild background interstitial opacities. No significant pleural effusion. No pneumothorax. Stable cardiomediastinal silhouette. IMPRESSION: Masslike consolidation in the left lower lung, new from 07/21/2024. Recommend short-term follow-up radiograph after symptom improves to ensure resolution of the opacities and exclude underlying mass. Mild background interstitial opacities.
[2025-02-26 18:40] LABS: Potassium 3.6 mmol/L (3.5-5.1)
[2025-02-26 18:41] LABS: Anion Gap 30.00001 (5-15); Calcium 9.1 mg/dL (8.7-10.4)
--- NOTE | 2025-02-26 18:41 | ED.PDOC ---
HPI Comments HPI: This is a 54 year old female BIBA presenting to the ED with chief complaint of SOB. Patient reports that she has been experiencing SOB with associated left mid-back pain and elevated blood sugar since Wednesday. Patient denies any chest pain, dizziness, headache, N/V, or abdominal pain. Past Medical History: HTN, DM, Anxiety Past Surgical History: Cholecystectomy, , Hysterectomy Social History: Denies smoking, ETOH, or Drug use Medications: Reviewed Allergies: Fentanyl, Lidocaine, Tramadol Admission Diagnoses from 07/21/2024 - 07/24/2024: Community-acquired pneumonia, Gram-positive versus Gram-negative; Noncardiac chest pain likely due to pneumonia Severe hyperglycemia without DKA Type 2 diabetes, uncontrolled Peripheral neuropathy Ulcer wound noted on the dorsal surface of the left foot Depression, likely MDD Chronic pain? Hypertension Hypertensive heart disease Mild tricuspid regurgitation Insomnia WALL: 4 DAYS, TACHY, L FLANK,, HIGH SUGAR. SOB, HPI: Poor Historian. REVIEW OF SYSTEMS: CONSTITUTIONAL: Denies acute: fever, diaphoresis, chills, HEAD: Denies acute: headache, photophobia Eyes: Denies acute: Double vision, vision loss, eye pain, eye discharge. EARS: Denies acute: tinnitus, hearing loss, ear discharge, ear pain, THROAT: Denies acute: sore throat, swelling, difficulty swallowing , pain with swal lowing, change in voice. NECK: Denies acute: neck pain, neck swelling, stiff neck. HEART: Denies acute : chest pain, palpitations, LUNGS: Denies acute: wheezing, cough, hemoptysis ABDOMEN: Denies acute: abdominal pain, Nausea, Vomiting, diarrhea, melena , hematemesis, hematochezia SKIN: Denies acute: rash, redness, lesions, itchiness. EXTREMITIES: Denies acute: calf pain, numbness, tingling, weakness, denies pain in extremity. Denies acute: Low back pain. Neuro: Denies acute: focal neurological deficit, motor or sensory focal neurological deficit, tremors, seizure like activity, confusion, dizziness, change in mental status, loss of bowel or bladder function, cauda equina like symptoms. : Denies acute: dysuria, hematuria, flank pain, increase in urinary frequency. PSYCH: Denies acute: hallucination, suicidal ideation, homicidal ideation. FEMALE: Denies acute: abnormal vaginal bleeding, foul odor, unusual discharge. PHYSICAL EXAM: General: -----moderate---acute distress, awake and alert. Head: normocephalic, atraumatic. No raccoon's eyes, no mas sign. Neck: supple, trachea is midline, no swelling. Throat: Normal phonation. Eyes:, no erythema, no purulent discharge, no proptosis, no icterus. Heart: regular tachycardic,, no significant murmur appreciated. Lungs: no apparent respiratory distress, Able to speak in full sentences. No wheezing, no rhonchi, no crackles. No stridors Clear to auscultation bilaterally. Abdomen: non tender to palpation, non distended, soft, no guarding, no rebound, + bowel sounds. Neuro: Awake, Alert, oriented to name, self, situation, follows commands GCS=15. Speech is normal. Skin: no petechia, no purpura, no cyanosis, non-pale, not jaundice. Lower extremities: --no - Pitting edema no deformity, no focal swelling, no calf TTP. Makes eye contact. moves all four extremities. Face: no apparent facial droop. Left-sided CVA tenderness to percussion Ambulating in the ED with a walker ED COURSE: DISCLAIMER: This medical document was created using an electronic medical record system with voice recognition software and computerized dictation system. Although this document has been carefully reviewed, there might still be some phonetic and typographical errors. Occasional wrong-word or "sound-alike" substitutions may have occurred due to the inherent limitations of voice recognition software. These areas are purely typographical due to imperfections of the software programs and do not reflect any compromise in the patient's medical care. Please read the chart carefully and recognize, using context, where these substitutions have occurred. Chief Complaint: Palpitations Time Seen by MD: 18:38 Primary Care Provider: UNKNOWN Reviewed Notes: Medications, Allergies Allergies: Coded Allergies: Fentanyl (Verified Allergy, Severe, 05/07/24) Tramadol (Verified Allergy, Severe, itching,hives, 09/30/19) Lidocaine (Verified Allergy, Unknown, 03/13/18) Home Meds Active Scripts Polyethylene Glycol 3350 (Miralax) 17 Gm Pow, 17 GM PO DAILY for 30 Days, #510 GRAMS Prov:DEANNE AGUIRRE MD 07/24/24 Amoxicillin & Pot Clavulanate (AUGMENTIN TABLET) 875 Mg Tb, 875 MG PO BID for 5 Days, #10 TAB Prov:DEANNE AGUIRRE MD 07/24/24 Insulin Glargine (Lantus) 100 Unit/Ml Inj, 15 UNIT SC BID, #1000 UNITS 3 Refills Prov:DEANNE AGUIRRE MD 07/03/24 Pantoprazole Sodium Sesquihydr (Protonix) 40 Mg Tab, 40 MG PO BID, #60 TAB Prov:ANDREA BEARDEN MD 04/13/20 Metoprolol Tartrate (Lopressor) 25 Mg Tb, 25 MG PO BID, #90 TAB Prov:ANDREA BEARDEN MD 04/13/20 Ibuprofen Micronized (Ibuprofen) 800 Mg Tab, 800 MG PO Q6HP PRN, #30 TAB Prov:ANDREA BEARDEN MD 04/13/20 Reported Medications Gabapentin (Gabapentin) 800 Mg Tab, 1 TAB PO TID for 30 Days, #90 06/22/24 Metformin Hydrochloride (Metformin Hcl) 500 Mg Tab, 1000 MG PO DAILY for 30 Days, MG 09/30/19 Fluoxetine Hcl (Fluoxetine Hcl) 10 Mg Cap, 10 MG PO HS for 30 Days, MG 09/30/19 Insulin Regular (Human) (Humulin R) 100 Unit/Ml Inj, 10 UNIT SC BID, INJ 09/30/19 Insulin Glargine (Lantus) 100 Unit/Ml Inj, 40 UNIT SC BID, INJ 09/30/19 Information Source: Patient Mode of Arrival: EMS Was a procedure done? Was a procedure done?: No CP Differential Dx Differential Diagnosis: N/A Differential Diagnosis: Other (As far as shortness of breath, DDx include ACS, unstable angina, anxiety, PE, pneumothroax, neoplasm, cardiac ischemia, COPD, asthma, CHF, pleural effusion, tobacco abuse, pneumonia, hypoxia, hypercapnia, anemia., infection/sepsis., pulmonary edema. Asthma, Cardiac tamponade, infe ction.) X-Ray, Labs, Meds, VS Vital Signs Date Time Temp Pulse Resp B/P (MAP) Pulse Ox O2 Delivery O2 Flow Rate FiO2 02/26/25 16:40 98.7 112 18 151/84 96 98.7 02/26/25 16:38 114 Lab Test 02/26/25 17:43 02/26/25 16:45 Range/Units Magnesium Level 2.0 1.6-2.6 mg/dL Troponin I High Sensitivity 3 L 4 </=34 ng/L Thyroid Stimulating Hormone (TSH) 1.18 0.55-4.78 uIU/mL White Blood Count 13.5 H 4.4-10.8 10^3/uL Red Blood Count 4.92 4.0-5.20 10^6/uL Hemoglobin 14.7 12.2-16.2 g/dL Hematocrit 44.5 36.0-46.0 % Mean Corpuscular Volume 90.5 80.0-100.0 fL Mean Corpuscular Hemoglobin 29.9 28.0-32.0 pg Mean Corpuscular Hemoglobin Concent 33.0 32.0-36.0 g/dL Red Cell Distribution Width 13.6 11.8-14.3 % Platelet Count 283 140-450 10^3/uL Mean Platelet Volume 7.7 6.9-10.8 fL Neutrophils (%) (Auto) 37.0-80.0 % Lymphocytes (%) (Auto) 10.0-50.0 % Monocytes (%) (Auto) 0.0-12.0 % Basophils (%) (Auto) 0.0-2.0 % Neutrophils # (Auto) 1.6-8.6 10 ^3/uL Lymphocytes # (Auto) 0.4-5.4 10 ^3/uL Monocytes # (Auto) 0-1.3 10 ^3/uL Differential Total Cells Counted 100.0 100 Neutrophils % (Manual) 83.0 H 37.0-80.0 Band Neutrophils % (Manual) 5.0 Lymphocytes % (Manual) 9.0 L 10.0-50.0 Monocytes % (Manual) 3.0 0-12 Eosinophils % (Manual) 0 0-7 Basophils % (Manual) 0 0.0-2.0 Metamyelocytes % (manual) 0 Myelocytes % (Manual) 0 Promyelocytes % (Manual) 0 Blast Cells % (Manual) 0 Reactive Lymphocytes 0 Platelet Estimate Adequate Red Blood Cell Morphology Normal D-Dimer, Quantitative 1.31 H 0.0-0.49 mg/L FEU Sodium Level 135 L 136-145 mmol/L Potassium Level 3.6 3.5-5.1 mmol/L Chloride Level 95 L 98-107 mmol/L Carbon Dioxide Level < 10 *L 20-31 mmol/L Anion Gap 30.57741 H 5-15 Blood Urea Nitrogen 27 H 9-23 mg/dL Creatinine 1.17 H 0.550-1.02 mg/dL Glomerular Filtration Rate Calc 55 >90 mL/min BUN/Creatinine Ratio 23.1 H 10.0-20.0 Serum Glucose 314 H 74-106 mg/dL Calcium Level 9.1 8.7-10.4 mg/dL B-Type Natriuretic Peptide 12.56 0-100 pg/mL Current Medications Medications (Trade) Dose Ordered Sig/Eugene Route Start Time Stop Time Status Last Admin Ceftriaxone Sodium 50 ml @ 100 mls/hr ONCE ONCE IV 02/26/25 19:00 02/26/25 19:29 DC 02/26/25 23:50 Sodium Chloride 1,000 ml @ 1,000 mls/hr Q1H ONCE IV 02/26/25 19:15 02/26/25 20:14 DC 02/26/25 23:52 Sodium Chloride 1,000 ml @ 1,000 mls/hr Q1H ONCE IV 02/26/25 20:15 02/26/25 21:14 DC 02/26/25 23:52 Insulin Human Regular (InsuLIN R) 5 units ONCE ONCE IV 02/26/25 19:15 02/26/25 19:16 DC 02/26/25 23:50 [place] [id number] Ph: [phone] DIAGNOSTIC IMAGING Diagnostic Imaging Report : [id number] Signed PATIENT: MARTIN MINA ACCT: [id number] UNIT: [id number] : 1970 LOC: ER ROOM / BED: / AGE / SEX: 54 / F ADM STATUS: REG ER SERVICE 2470 ORDERING PHYSICIAN: KENDRICK RAUSCH MD PROCEDURE(s): CXRP - CHEST PORTABLE REASON: cp ORDER NUMBER(s): [id number], ACCESSION NUMBER(s): [id number] CHEST RADIOGRAPH Indication: cp Technique: Single frontal view of the chest was obtained. Comparison: XY CHEST PORTABLE on DOS: 07/21/24 Findings: Masslike consolidation in the left lower lung . Mild background interstitial opacities. No significant pleural effusion. No pneumothorax. Stable cardiomediastinal silhouette. IMPRESSION: Masslike consolidation in the left lower lung, new from 07/21/2024. Recommend short-term follow-up radiograph after symptom improves to ensure resolution of the opacities and exclude underlying mass. Mild background interstitial opacities. ATED BY: VASHTI QUACH MD DICTATED DATE/TIME: 02/26/251756 SIGNED BY: VASHTI QUACH MD SIGNED DATE/TIME: 02/26/251756 CC: [place] [address] Ph: [phone] DIAGNOSTIC IMAGING Diagnostic Imaging Report : [id number] Signed PATIENT: MARTIN MINA ACCT: [id number] UNIT: [id number] : 1970 LOC: ER ROOM / BED: / AGE / SEX: 54 / F ADM STATUS: REG ER SERVICE 06 ORDERING PHYSICIAN: RAMEZ PETERSON DO PROCEDURE(s): CTACH - CT ANGIO CHEST CONTRAST REASON: SOB/PALPIT LUNG MASS ORDER NUMBER(s): [id number], ACCESSION NUMBER(s): [id number] Exam: CT CT ANGIO CHEST CONTRAST Reason for study/ Clinical History: SOB/PALPIT LUNG MASS Comparison Study: XY CHEST PORTABLE on DOS: 02/26/25 Exam Date: 02/26/2025 07:57 PM Radiation Dose Information: CT Dose: CTDI volume is 5.69 mGy. Dose-length product is 215.09 mGy*cm TECHNIQUE: Multidetector CTA of the chest was performed of the chest with intravenous contrast. PULMONARY ANGIOGRAPHY PROTOCOL was utilized using a bolus- tracking technique centered on the main pulmonary artery. Axial, coronal and sagittal multiplanar and MIP reformats were performed. Findings: Lower neck: Unremarkable. Lungs and Pleura: Patchy left lower lobe opacities.. No pleural effusions. Lymph nodes: No mediastinal, hilar, or axillary lymphadenopathy. Cardiovascular and Mediastinum: No significant pericardial effusion. Scattered coronary calcifications. Pulmonary arteries: Limited evaluation of the distal segmental and subsegmental pulmonary arteries. Given this limitation, no pulmonary emboli. Osseous and soft tissues: No suspicious osseous lesions. Upper abdomen: No acute abnormality in the visualized upper abdomen. IMPRESSION: Limited evaluation of the distal segmental and subsegmental pulmonary arteries. Given this limitation, no pulmonary emboli. Patchy left lower lobe opacities suspicious for pneumonia. Recommend short-term follow-up radiograph after symptom improves to ensure resolution of the opacities and exclude underlying mass. ATED BY: VASHTI QUACH MD DICTATED DATE/TIME: 02/26/252043 SIGNED BY: VASHTI QUACH MD SIGNED DATE/TIME: 02/26/252043 CC: Time of 1ST Reevaluation: 19:38 Reevaluation 1ST: Unchanged Patient Education/Counseling: Diagnosis, Treatment Family Education/Counseling: No Family Present Comments MDM: patient presented with the above HPI.---dyspnea and hyperglycemia--workup was initiated. patient was found with the above mentioned diagnosis. the following medications were ordered: please refer to order lists of meds and tests obtained by myself Dr. Peterson. Patient ED course and VS have been stabilized. Patient has been reassessed in the ED and remained in a stable condition. Pertinent incidental findings were discussed with the patient and/or family. Patient/family voices understanding and is agreeable with plan. Patient has been observed in the ED adequate length of time to insure improvement/stability. Escalation of care considered: Consideration of escalation to observation or admission DKA protocol initiated. Patient was found with a ammonia, antibiotics were given. Patient was ADMITTED to the medicine team for further evaluation and treatment of their presentation. All the reports of any imaging studies that were ordered by myself were reviewed by myself. Departure 1 Departure Time of Disposition: 21:45 Impression: Primary Impression: Pneumonia Additional Impression: DKA (diabetic ketoacidosis) Disposition: ADMITTED INPATIENT Admit to: ICU Condition: Critical Discharged With: Self Critical Care Note Critical Care Time?: Yes (45 min-critical care time only) Critical care comment: Due to a high probability of clinically significant, life threatening deterioration, the patient required my highest level of preparedness to intervene emergently and I personally spent this critical care time directly and personally managing the patient. This critical care time included obtaining a history; examining the patient; pulse oximetry; ordering and review of studies; arranging urgent treatment with development of a management plan; evaluation of patient's response to treatment; frequent reassessment; and, discussions with other providers. This critical care time was performed to assess and manage the high probability of imminent, life-threatening deterioration that could result in multi-organ failure. It was exclusive of separately billable procedures and treating other patients and teaching time. Please see my other sections and the rest of the note for further information on patient assessment and treatment. Heart Score Heart Score: Heart Score Response (Comments) Value History Moderate Suspicious 1 EKG Normal 0 Age 45-64 1 Risk Factors >3 or Hx ASHD 2 Troponin Normal limit 0 Total 4 I personally scribed for RAMEZ PETERSON DO ([email or web address]) on 02/26/25 at 18:41. Electronically submitted by Rashard Gómez ([email or web address]). I personally scribed for RAMEZ PETERSON DO ([email or web address]) on 02/26/25 at 21:46. Electronically submitted by Rashard Gómez ([email or web address]). RAMEZ PETERSON DO Feb 26, 2025 18:41
[2025-02-26 18:46] LABS: BUN/Creatinine Ratio 23.1 (10.0-20.0)
[2025-02-26 19:03] LABS: Blood Urea Nitrogen 27 mg/dL (9-23); Carbon Dioxide < 10 mmol/L (20-31); Chloride 95 mmol/L (98-107); Glucose 314 mg/dL (74-106); Sodium 135 mmol/L (136-145)
[2025-02-26 19:15] LABS: Total Cells Counted 100.0 (100)
[2025-02-26 19:16] LABS: RBC Morphology Normal
--- NOTE | 2025-02-26 20:46 | DVH ---
Exam: CT CT ANGIO CHEST CONTRAST Reason for study/ Clinical History: SOB/PALPIT LUNG MASS Comparison Study: XY CHEST PORTABLE on DOS: 02/26/25 Exam Date: 02/26/2025 07:57 PM Radiation Dose Information: CT Dose: CTDI volume is 5.69 mGy. Dose-length product is 215.09 mGy*cm TECHNIQUE: Multidetector CTA of the chest was performed of the chest with intravenous contrast. PULMONARY ANGIOGRAPHY PROTOCOL was utilized using a bolus- tracking technique centered on the main pulmonary artery. Axial, coronal and sagittal multiplanar and MIP reformats were performed. Findings: Lower neck: Unremarkable. Lungs and Pleura: Patchy left lower lobe opacities.. No pleural effusions. Lymph nodes: No mediastinal, hilar, or axillary lymphadenopathy. Cardiovascular and Mediastinum: No significant pericardial effusion. Scattered coronary calcifications. Pulmonary arteries: Limited evaluation of the distal segmental and subsegmental pulmonary arteries. Given this limitation, no pulmonary emboli. Osseous and soft tissues: No suspicious osseous lesions. Upper abdomen: No acute abnormality in the visualized upper abdomen. IMPRESSION: Limited evaluation of the distal segmental and subsegmental pulmonary arteries. Given this limitation, no pulmonary emboli. Patchy left lower lobe opacities suspicious for pneumonia. Recommend short-term follow-up radiograph after symptom improves to ensure resolution of the opacities and exclude underlying mass.
[2025-02-26] MEDS ORDERED: NITROGLYCERIN 0.4 MG SL TAB SL PRN (22:15)
[2025-02-26] MEDS ORDERED: DEXTROSE (50%) 50ML SYRG IV PRN (22:15)
[2025-02-26] MEDS ORDERED: TEMAZEPAM 15 MG CAP PO PRN (22:15)
[2025-02-26] MEDS ORDERED: ONDANSETRON HCL 4 MG/2 ML VIAL IV PRN (22:15)
[2025-02-26 22:44] LABS: Base Excess -22.5 mmol/L (-2.0-3.0)
[2025-02-26 22:51] LABS: Potassium 4.0 mmol/L (3.5-5.1)
[2025-02-26 22:53] LABS: Anion Gap 29.00001 (5-15); Calcium 9.8 mg/dL (8.7-10.4)
[2025-02-26 22:58] LABS: BUN/Creatinine Ratio 21.6 (10.0-20.0)
[2025-02-26 23:00] LABS: Blood Urea Nitrogen 30 mg/dL (9-23); Chloride 93 mmol/L (98-107); Sodium 132 mmol/L (136-145)
[2025-02-26 23:04] LABS: Carbon Dioxide < 10 mmol/L (20-31); Glucose 502 mg/dL (74-106)
[2025-02-26] MEDS: InsuLIN REG 1unit/0.01ml Soln (100units/ml) IV ONE (23:50)
[2025-02-26] MEDS: SODIUM CHLORIDE 0.9% 1,000 ML IV ONE ×2 (23:52)
[2025-02-26 23:56] VITALS: BP 151/84; PULSE 112; RESP 20; TEMP 98.7; O2SAT 96
[2025-02-27] MEDS: IOHEXOL 350 MG/ML 100ML IJ ONE (00:10)
[2025-02-27 00:40] VITALS: PULSE 120; RESP 17; O2SAT 100
[2025-02-27] MEDS: ACCU-CHEK COMFORT CURVE STRIP VI SCH ×3 (00:53→17:11)
[2025-02-27] MEDS: InsuLIN REG 1unit/0.01ml Soln (100units/ml) SC SCH ×2 (00:57→17:13)
[2025-02-27] MEDS: AZITHROMYCIN 500MG/250ML 250 ML IV ONE (00:58)
--- NOTE | 2025-02-27 01:08 | DVHHP2 ---
History of Present Illness Reason for Visit: Shortness for breath History of Present Illness 54-year-old female presents for evaluation of shortness for breath. Patient reports a four day history of worsening shortness for breath with associated chills and elevated blood sugars. She states his symptoms became worse today so she presented for further evaluation. Past Medical History Diabetes mellitus, hypertension Past Surgical History Cholecystectomy, , hysterectomy Family History Noncontributory Smoke: No ALCOHOL: none Drugs: None Review of Systems Review of Systems Review of systems are currently negative otherwise addressed in HPI. Allergies: Coded Allergies: Fentanyl (Verified Allergy, Severe, 05/07/24) Tramadol (Verified Allergy, Severe, itching,hives, 09/30/19) Lidocaine (Verified Allergy, Unknown, 03/13/18) Medications Current Medications Medications Dose Ordered Sig/Eugene Route Start Time Stop Time Status Last Admin Dose Admin Metoprolol Tartrate 25 mg BID PO 02/27/25 10:00 Azithromycin 250 ml @ 125 mls/hr DAILY IV 02/27/25 10:00 Diagnostic Test (Pha) 1 strip IQ4HR 02/27/25 00:00 02/27/25 00:53 1 STRIP Insulin Human Regular IQ4HR SC 02/27/25 00:00 02/27/25 00:57 15 UNITS Dextrose 50 ml UD PRN IV 02/26/25 22:15 Temazepam 15 mg QHSP PRN PO 02/26/25 22:15 Ondansetron HCl 4 mg Q4HP PRN IV 02/26/25 22:15 Acetaminophen 650 mg Q6HP PRN PO 02/26/25 22:15 Nitroglycerin 0.4 mg Q5MINP PRN SL 02/26/25 22:15 Morphine Sulfate 2 mg Q30M PRN IV 02/26/25 22:15 Albuterol 2.5 mg Q6HPRN PRN NEB 02/26/25 22:15 Exam Vital Signs Vital Signs Date Time Temp Pulse Resp B/P (MAP) Pulse Ox O2 Delivery O2 Flow Rate FiO2 02/27/25 00:40 120 17 100 Room Air* 0 21 02/26/25 23:56 98.7 151/84 98.7 Exam Gen: 54-year-old female in moderate distress Skin: Warm, dry, normal color and texture, no rash. HEENT: Normocephalic atraumatic, mucous membranes moist and pink. Neck: Cervical and supraclavicular nodes normal without enlargement, trachea is midline, thyroid gland is normal without masses. Pulmonary: Clear to auscultation and percussion bilaterally. Cardiac: Slightly tachycardic Abdomen: Soft, nontender, nondistended, bowel sounds present all 4 quadrants, no guarding, no rigidity, no organomegaly. Extremities: No cyanosis, clubbing, no edema Neuro: Cranial nerves II through XII grossly intact, normal affect and speech, no focal motor deficits. Labs/Xrays ORDERING PHYSICIAN: RAMEZ PETERSON DO PROCEDURE(s): CTACH - CT ANGIO CHEST CONTRAST REASON: SOB/PALPIT LUNG MASS ORDER NUMBER(s): [id number], ACCESSION NUMBER(s): [id number] Exam: CT CT ANGIO CHEST CONTRAST Reason for study/ Clinical History: SOB/PALPIT LUNG MASS Comparison Study: XY CHEST PORTABLE on DOS: 02/26/25 Exam Date: 02/26/2025 07:57 PM Radiation Dose Information: CT Dose: CTDI volume is 5.69 mGy. Dose-length product is 215.09 mGy*cm TECHNIQUE: Multidetector CTA of the chest was performed of the chest with intravenous contrast. PULMONARY ANGIOGRAPHY PROTOCOL was utilized using a bolus- tracking technique centered on the main pulmonary artery. Axial, coronal and sag ittal multiplanar and MIP reformats were performed. Findings: Lower neck: Unremarkable. Lungs and Pleura: Patchy left lower lobe opacities.. No pleural effusions. Lymph nodes: No mediastinal, hilar, or axillary lymphadenopathy. Cardiovascular and Mediastinum: No significant pericardial effusion. Scattered coronary calcifications. Pulmonary arteries: Limited evaluation of the distal segmental and subsegmental pulmonary arteries. Given this limitation, no pulmonary emboli. Osseous and soft tissues: No suspicious osseous lesions. Upper abdomen: No acute abnormality in the visualized upper abdomen. IMPRESSION: Limited evaluation of the distal segmental and subsegmental pulmonary arteries. Given this limitation, no pulmonary emboli. Patchy left lower lobe opacities suspicious for pneumonia. Recommend short-term follow-up radiograph after symptom improves to ensure resolution of the opacities and exclude underlying mass. Labs Test 02/26/25 22:30 02/26/25 22:25 02/26/25 17:43 02/26/25 16:45 Range/Units Blood Gas Specimen Type Arterial Blood Gas Sample Site Right radial Blood Gas Patient Temperature 37.0 Arterial Blood Date Drawn Arterial Blood pH 7.115 *L 7.350-7.450 Arterial Blood Partial Pressure CO2 14.6 *L 32.0-45.0 mmHg Arterial Blood Partial Pressure O2 115.3 H 83.0-108.0 mmHg Arterial Blood HCO3 4.6 L 21.0-28.0 mmol/L Arterial Blood Oxygen Saturation 97.7 94.0-98.0 % Arterial Blood Base Excess -22.5 L -2.0-3.0 mmol/L Arterial Blood Oxyhemoglobin 96.0 94.0-98.0 % Arterial Blood Carboxyhemoglobin 1.0 0.5-1.5 % Arterial Blood Methemoglobin 0.7 0.0-1.5 % Arterial Blood Deoxyhemoglobin 2.3 0.0-5.0 % Jeremy Test Yes Blood Gas Total Hemoglobin 14.90 12.0-16.0 g/dL Blood Gas Modality Room air FiO2 % 21.0 Blood Gas Critical Value Read Back Yes Blood Gas Notified Whom robbin Elise Blood Gas Notified Time [id number] Blood Gas Notified By Slide Machine Tender bret phan Sodium Level 132 L 136-145 mmol/L Potassium Level 4.0 3.5-5.1 mmol/L Chloride Level 93 L 98-107 mmol/L Carbon Dioxide Level < 10 *L 20-31 mmol/L Anion Gap 29.01585 H 5-15 Blood Urea Nitrogen 30 H 9-23 mg/dL Creatinine 1.39 H 0.550-1.02 mg/dL Glomerular Filtration Rate Calc 45 >90 mL/min BUN/Creatinine Ratio 21.6 H 10.0-20.0 Serum Glucose 502 *H 74-106 mg/dL Lactic Acid Level 1.7 0.4-2.0 mmol/L Calcium Level 9.8 8.7-10.4 mg/dL Magnesium Level 2.0 1.6-2.6 mg/dL Troponin I High Sensitivity 3 L </=34 ng/L Thyroid Stimulating Hormone (TSH) 1.18 0.55-4.78 uIU/mL White Blood Count 13.5 H 4.4-10.8 10^3/uL Red Blood Count 4.92 4.0-5.20 10^6/uL Hemoglobin 14.7 12.2-16.2 g/dL Hematocrit 44.5 36.0-46.0 % Mean Corpuscular Volume 90.5 80.0-100.0 fL Mean Corpuscular Hemoglobin 29.9 28.0-32.0 pg Mean Corpuscular Hemoglobin Concent 33.0 32.0-36.0 g/dL Red Cell Distribution Width 13.6 11.8-14.3 % Platelet Count 283 140-450 10^3/uL Mean Platelet Volume 7.7 6.9-10.8 fL Neutrophils (%) (Auto) 37.0-80.0 % Lymphocytes (%) (Auto) 10.0-50.0 % Monocytes (%) (Auto) 0.0-12.0 % Basophils (%) (Auto) 0.0-2.0 % Neutrophils # (Auto) 1.6-8.6 10 ^3/uL Lymphocytes # (Auto) 0.4-5.4 10 ^3/uL Monocytes # (Auto) 0-1.3 10 ^3/uL Differential Total Cells Counted 100.0 100 Neutrophils % (Manual) 83.0 H 37.0-80.0 Band Neutrophils % (Manual) 5.0 Lymphocytes % (Manual) 9.0 L 10.0-50.0 Monocytes % (Manual) 3.0 0-12 Eosinophils % (Manual) 0 0-7 Basophils % (Manual) 0 0.0-2.0 Metamyelocytes % (manual) 0 Myelocytes % (Manual) 0 Promyelocytes % (Manual) 0 Blast Cells % (Manual) 0 Reactive Lymphocytes 0 Platelet Estimate Adequate Red Blood Cell Morphology Normal D-Dimer, Quantitative 1.31 H 0.0-0.49 mg/L FEU B-Type Natriuretic Peptide 12.56 0-100 pg/mL SEPSIS Sepsis Screen Date sepsis recognized/suspect: Feb 27, 2025 Time Sepsis recognized/suspect: 004 Recent Procedure: No On Antibiotic Therapy: No Respiratory Rate >20: No Heart Rate >90: Yes Temp<36 C (96.8 F) or >38.3 C: No SBP <90 or MAP <65 mmHG: No New Acute Mental Status Change: No Is the patient on CPAP, BIPAP,: No Physician Orders Chest Portable (02/26/25 17:09) Ct Angio Chest Contrast (02/26/25 19:07) Metoprolol Tartrate Tablet (Lopressor Ta (02/27/25 10:00) Drug Screen (02/26/25 22:07) Urinalysis (02/26/25 22:07) Azithromycin 500mg/250ml (Zithromax 500m (02/27/25 10:00) Basic Metabolic Panel (02/27/25 04:00) Abg W/ Co-Ox (02/26/25 22:07) Glucose Blood (Accu-Chek Comfort Curve T (02/27/25 00:00) Insulin R (Human) (Insulin R) (02/27/25 00:00) Dextrose 50% Syringe (02/26/25 22:15) Admit (02/26/25 22:07) Temazepam (Restoril) (02/26/25 22:15) Ondansetron Hcl (Zofran) (02/26/25 22:15) Complete Blood Count (02/27/25 04:00) Condition: Fair (02/26/25 22:07) Acetaminophen Tablet (Tylenol Tablet) (02/26/25 22:15) Bedrest With Bathroom Privileg (02/26/25 22:07) Nitroglycerin Sublingual (Ntrostat Subli (02/26/25 22:15) Morphine Sulfate Injection (02/26/25 22:15) Stat Ekg For Chest Pain (02/26/25 22:07) Notify Md Of Changes From Base (02/26/25 22:07) Putty Mixer And Applier For 24 Hours (02/26/25 22:07) Emergency Dysrhythmia Protocol (02/26/25 22:07) Rhythm Strips Once Every Shift (02/26/25 22:07) Oxygen By Nasal Cannula (02/26/25 22:07) Albuterol Medneb (Ventolin Medneb) (02/26/25 22:15) Beta-Hydroxybutyrate (02/27/25 01:01) Insulin Drip Protocol (02/27/25 ) Sodium Chloride 0.9% (02/27/25 05:15) Sodium Chloride 0.9% (02/27/25 07:15) Insulin Algorithm # 1 (02/27/25 01:15) Dextrose 50% Syringe (02/27/25 01:15) Glucose Blood (Accu-Chek Comfort Curve T (02/27/25 01:30) Osmolality, Serum (02/27/25 01:01) Basic Metabolic Panel (02/27/25 04:00) Basic Metabolic Panel (02/27/25 10:00) Basic Metabolic Panel (02/27/25 16:00) Basic Metabolic Panel (02/27/25 22:00) Urinalysis (02/27/25 01:01) Neurological Assessment (02/27/25 01:01) Vs/Hemodynamics .PER UNIT PROTOCOL (02/27/25 01:01) Long Acting Insulin (02/27/25 01:15) Long Acting Insulin (02/28/25 10:00) Sodium Bicarb 50meq/50ml Vial (02/27/25 01:15) Npo (Nothing By Mouth) Diet (02/27/25 Breakfast) Transfer Orders (02/27/25 01:01) Vital Signs Date Time Temp Pulse Resp B/P (MAP) Pulse Ox O2 Delivery O2 Flow Rate FiO2 02/27/25 00:40 120 17 100 Room Air* 0 21 02/26/25 23:56 98.7 112 20 151/84 96 98.7 Laboratory Tests Test 02/26/25 16:45 02/26/25 22:25 White Blood Count 13.5 10^3/uL (4.4-10.8) H Lactic Acid Level 1.7 mmol/L (0.4-2.0) Medications Medications Dose Ordered Sig/Eugene Route Start Time Stop Time Status Last Admin Dose Admin Azithromycin 250 ml @ 125 mls/hr ONCE ONCE IV 02/26/25 22:15 02/27/25 00:14 DC 02/27/25 00:58 125 MLS/HR Ceftriaxone Sodium 50 ml @ 100 mls/hr ONCE ONCE IV 02/26/25 19:00 02/26/25 19:29 DC 02/26/25 23:50 100 MLS/HR Diagnostic Test (Pha) 1 strip IQ4HR 02/27/25 00:00 02/27/25 00:53 1 STRIP Insulin Human Regular IQ4HR SC 02/27/25 00:00 02/27/25 00:57 15 UNITS Insulin Human Regular 5 units ONCE ONCE IV 02/26/25 19:15 02/26/25 19:16 DC 02/26/25 23:50 5 UNITS Sodium Chloride 1,000 ml @ 1,000 mls/hr Q1H ONCE IV 02/26/25 19:15 02/26/25 20:14 DC 02/26/25 23:52 1,000 MLS/HR Sodium Chloride 1,000 ml @ 1,000 mls/hr Q1H ONCE IV 02/26/25 20:15 02/26/25 21:14 DC 02/26/25 23:52 1,000 MLS/HR Assessment/Plan Assessment/Plan Assessment Community-acquired pneumonia DKA Acute kidney injury Plan Admit the patient to [facility] to the hospitalist DKA protocol Cefepime/vancomycin Med nebs Continue treatment per orders Total critical care time excluding procedures performed this 55 minutes Plan discussed with: Patient My Orders Orders - ROBBIN MUNIZ AGACNP Procedure Category Date Status Time Metoprolol Tartrate PHA 02/27/25 In Process Tablet (Lopressor Ta 10:00 Drug Screen LAB 02/26/25 Logged 22:07 Urinalysis LAB 02/26/25 Logged 22:07 Azithromycin PHA 02/27/25 In Process 500mg/250ml 10:00 Basic Metabolic Panel LAB 02/27/25 Logged 04:00 Abg W/ Co-Ox RT 02/26/25 Logged 22:07 Glucose Blood PHA 02/27/25 In Process (Accu-Chek Comfort 00:00 Insulin R (Human) PHA 02/27/25 In Process (Insulin R) 00:00 Dextrose 50% Syringe PHA 02/26/25 In Process 22:15 Admit ADMIT 02/26/25 Transmitted 22:07 Temazepam (Restoril) PHA 02/26/25 In Process 22:15 Ondansetron Hcl PHA 02/26/25 In Process (Zofran) 22:15 Complete Blood Count LAB 02/27/25 Logged 04:00 Condition: Fair [facility] 02/26/25 In Process 22:07 Acetaminophen Tablet PHA 02/26/25 In Process (Tylenol Tablet) 22:15 Bedrest With Bathroom [facility] 02/26/25 In Process Privileg 22:07 Nitroglycerin PHA 02/26/25 In Process Sublingual (Ntrostat 22:15 Morphine Sulfate PHA 02/26/25 In Process Injection 22:15 Stat Ekg For Chest [facility] 02/26/25 In Process Pain 22:07 Notify Of Changes [facility] 02/26/25 In Process From Base 22:07 Putty Mixer And Applier For [facility] 02/26/25 In Process 24 Hours 22:07 Emergency Dysrhythmia [facility] 02/26/25 In Process Protocol 22:07 Rhythm Strips Once [facility] 02/26/25 In Process Every Shift 22:07 Oxygen By Nasal RT 02/26/25 Transmitted Cannula 22:07 Albuterol Medneb [facility] 02/26/25 In Process (Ventolin Medneb) 22:15 Beta-Hydroxybutyrate LAB 02/27/25 Transmitted 01:01 Insulin Drip Protocol [facility] 02/27/25 Transmitted Sodium Chloride 0.9% PHA 02/27/25 Transmitted 05:15 Sodium Chloride 0.9% [facility] 02/27/25 Transmitted 07:15 Insulin Algorithm # 1 [facility] 02/27/25 Transmitted 01:15 Dextrose 50% Syringe PHA 02/27/25 Transmitted 01:15 Glucose Blood [facility] 02/27/25 Transmitted (Accu-Chek Comfort 01:30 Osmolality, Serum LAB 02/27/25 Transmitted 01:01 Basic Metabolic Panel LAB 02/27/25 Transmitted 04:00 Basic Metabolic Panel LAB 02/27/25 Transmitted 10:00 Basic Metabolic Panel LAB 02/27/25 Transmitted 16:00 Basic Metabolic Panel LAB 02/27/25 Transmitted 22:00 Urinalysis LAB 02/27/25 Transmitted 01:01 Neurological [facility] 02/27/25 Transmitted Assessment 01:01 Vs/Hemodynamics [facility] 02/27/25 Transmitted 01:01 Long Acting Insulin [facility] 02/27/25 Transmitted 01:15 Long Acting Insulin [facility] 02/28/25 Transmitted 10:00 Sodium Bicarb [facility] 02/27/25 Transmitted 50meq/50ml Vial 01:15 Npo (Nothing By DIET 02/27/25 Transmitted Mouth) Diet Breakfast Transfer Orders XFER 02/27/25 Transmitted 01:01 Date of Service: Feb 26, 2025 Billing Provider: ROBBIN MUNIZ Common Visit Codes: [id number] CARE 30-74 MIN ROBBIN MUNIZ Feb 27, 2025 01:08
[2025-02-27] MEDS: SODIUM BICARB 8.4% 50Meq/50ml SYR Vial IV ONE (01:37)
[2025-02-27] MEDS: INSULIN LANTUS (GLARGINE) 1 /0.01ml (100units/ml) SC ONE (02:07)
[2025-02-27] MEDS: INSULIN DRIP 100 UNIT/100ML 100 ML IV SCH ×2 (03:41→11:00)
[2025-02-27 04:38] LABS: Hematocrit 35.3 % (36.0-46.0); Hemoglobin 11.7 g/dL (12.2-16.2); Mean Corpuscular Hemoglobin 28.7 pg (28.0-32.0); Mean Corpuscular Volume 86.3 fL (80.0-100.0)
[2025-02-27 04:49] LABS: Chloride 106 mmol/L (98-107); Sodium 141 mmol/L (136-145)
[2025-02-27 04:50] LABS: Anion Gap 19 (5-15)
[2025-02-27 04:55] LABS: BUN/Creatinine Ratio 28.0 (10.0-20.0)
[2025-02-27 05:00] LABS: Blood Urea Nitrogen 26 mg/dL (9-23); Calcium 8.6 mg/dL (8.7-10.4); Carbon Dioxide 16 mmol/L (20-31); Glucose 139 mg/dL (74-106); Potassium 2.9 mmol/L (3.5-5.1)
[2025-02-27] MEDS: SODIUM CHLORIDE 0.9% 1,000 ML IV SCH ×3 (05:38→14:40)
[2025-02-27] MEDS: DEXTROSE (50%) 50ML SYRG IV PRN (06:06)
[2025-02-27 06:34] LABS: Total Cells Counted 100.0 (100)
[2025-02-27 06:35] VITALS: O2SAT 97
[2025-02-27] MEDS: AZITHROMYCIN 500MG/250ML 250 ML IV SCH (10:06)
[2025-02-27] MEDS: METOPROLOL TARTRATE 25 MG TAB PO SCH (10:13)
--- NOTE | 2025-02-27 10:17 | ECG ---
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
[2025-02-27 10:43] LABS: Sodium 141 mmol/L (136-145)
[2025-02-27 10:44] LABS: Anion Gap 10 (5-15)
[2025-02-27 10:49] LABS: BUN/Creatinine Ratio 21.1 (10.0-20.0); Blood Urea Nitrogen 20 mg/dL (9-23)
[2025-02-27 10:52] LABS: Calcium 8.6 mg/dL (8.7-10.4); Carbon Dioxide 19 mmol/L (20-31); Chloride 112 mmol/L (98-107); Glucose 140 mg/dL (74-106); Potassium 3.0 mmol/L (3.5-5.1)
[2025-02-27] MEDS ORDERED: InsuLIN REG 1unit/0.01ml Soln (100units/ml) SC ONE ×2 (13:15→13:30)
[2025-02-27] MEDS ORDERED: DEXTROSE (50%) 50ML SYRG IV ONE (13:15)
[2025-02-27] MEDS ORDERED: ACCU-CHEK COMFORT CURVE STRIP VI ONE ×2 (13:15→13:30)
[2025-02-27] MEDS: DEXTROSE (50%) 50ML SYRG IV ONE (13:27)
[2025-02-27] MEDS ORDERED: DEXTROSE (50%) 50ML SYRG IV PRN (13:45)
[2025-02-27] MEDS ORDERED: VANCOMYCIN PER PHARMACY 0 MG IV SCH (14:00)
--- NOTE | 2025-02-27 14:02 | DVHPN2 ---
Changes from previous H/P or p: Changes Objective Vitals Vital Signs Date Time Temp Pulse Resp B/P (MAP) Pulse Ox O2 Delivery O2 Flow Rate FiO2 02/27/25 12:00 98.0 92 12 130/72 (91) 96 98.0 02/27/25 07:20 Room Air* 0 21 Intake/Output Intake and Output 02/27/25 07:00 Intake Total 2550 ml Balance 2550 ml Intake IV Total 2550 ml General Appearance: Alert, Oriented X3, Cooperative, No acute distress Lungs: Clear to auscultation, Normal air movement Cardiovascular: Regular rate, Normal S1, Normal S2 Abdomen: Normal bowel sounds, Soft, No tenderness Extremities: No edema Medications Current Medications Medications Dose Ordered Sig/Eugene Route Start Time Stop Time Status Last Admin Dose Admin Metoprolol Tartrate 25 mg BID PO 02/27/25 10:00 02/27/25 10:13 25 MG Azithromycin 250 ml @ 125 mls/hr DAILY IV 02/27/25 10:00 02/27/25 10:06 125 MLS/HR Temazepam 15 mg QHSP PRN PO 02/26/25 22:15 Ondansetron HCl 4 mg Q4HP PRN IV 02/26/25 22:15 Acetaminophen 650 mg Q6HP PRN PO 02/26/25 22:15 Nitroglycerin 0.4 mg Q5MINP PRN SL 02/26/25 22:15 Morphine Sulfate 2 mg Q30M PRN IV 02/26/25 22:15 Albuterol 2.5 mg Q6HPRN PRN NEB 02/26/25 22:15 Sodium Chloride 1,000 ml @ 150 mls/hr Q6H40M IV 02/27/25 07:15 02/27/25 07:38 150 MLS/HR Insulin Glargine 15 units DAILY SC 02/28/25 10:00 Diagnostic Test (Pha) 1 strip IQ4HR 02/27/25 16:00 UNV Insulin Human Regular IQ4HR SC 02/27/25 16:00 UNV Dextrose 50 ml UD PRN IV 02/27/25 13:45 UNV Laboratory Results Laboratory Tests 02/27/25 04:07 02/27/25 10:05 Chemistry Test 02/26/25 16:45 02/26/25 17:43 02/26/25 22:25 02/27/25 04:07 Calcium Level 9.1 mg/dL (8.7-10.4) 9.8 mg/dL (8.7-10.4) 8.6 mg/dL (8.7-10.4) L Magnesium Level 2.0 mg/dL (1.6-2.6) Test 02/27/25 10:05 Calcium Level 8.6 mg/dL (8.7-10.4) L Coagulation Test 02/26/25 16:45 D-Dimer, Quantitative 1.31 mg/L FEU (0.0-0.49) H Cardiac Markers Test 02/26/25 16:45 B-Type Natriuretic Peptide 12.56 pg/mL (0-100) HgA1c, TSH Test 02/26/25 17:43 Thyroid Stimulating Hormone (TSH) 1.18 uIU/mL (0.55-4.78) Blood Gas Results Test 02/26/25 22:30 Arterial Blood pH 7.115 (7.350-7.450) FiO2 % 21.0 Assessment/Plan Assessment/Plan Left lower lobe pneumonia Acute kidney injury due to vasomotor nephropathy Acute diabetic ketoacidosis Hypokalemia Hypertension Type 2 diabetes Peripheral neuropathy Depression Chronic pain Left foot nonhealing wound rule out osteomyelitis Plan IV antibiotics Rocephin and Zithromax Add vancomycin Discontinue IV insulin drip Start Lantus Accu-Cheks Podiatry consult Downgrade to med surge Monitor closely Full code Plan discussed with: Patient My Orders Orders - DEANNE AGUIRRE MD Procedure Category Date Status Time Consistent DIET 02/27/25 Transmitted [facility]Diabetes Lunch Transfer Orders XFER 02/27/25 Transmitted 13:37 Glucose Blood PHA 02/27/25 Logged (Accu-Chek Comfort 16:00 Insulin R (Human) PHA 02/27/25 Logged (Insulin R) 16:00 Dextrose 50% Syringe PHA 02/27/25 Logged 13:45 Date of Service: Feb 27, 2025 Billing Provider: DEANNE AGUIRRE MD Common Visit Codes: NOT BILLABLE DEANNE AGUIRRE MD Feb 27, 2025 14:02
[2025-02-27] MEDS: POTASSIUM EFFERVESENT TAB 25 MEQ PO ONE (14:56)
[2025-02-27] MEDS: VANCOMYCIN 1GM/250ML KIT 250 ML IV ONE (14:57)
[2025-02-27] MEDS: MORPHINE SULFATE 4 MG/ML SYR/VIAL ONE (15:03)
[2025-02-27] MEDS: MORPHINE SULFATE INJ 2 MG/ml SYRG IV PRN (15:03)
--- NOTE | 2025-02-27 15:04 | DVH ---
EXAM: XY L FOOT 3 VIEW XRAY CLINICAL INDICATION: r/o osteo TECHNIQUE: XY L FOOT 3 VIEW XRAY COMPARISON: XY L FOOT 3 VIEW XRAY on DOS: 07/22/24, XY L FOOT 2 VIEW XRAY on DOS: 05/07/24 FINDINGS/IMPRESSION: There is no evidence of acute fracture or dislocation. The visualized joint space is well maintained. The alignment is anatomical. There is no radiopaque foreign body.
[2025-02-27] MEDS ORDERED: InsuLIN REG 1unit/0.01ml Soln (100units/ml) SC SCH (16:00)
[2025-02-27] MEDS ORDERED: ACCU-CHEK COMFORT CURVE STRIP VI SCH (16:00)
[2025-02-27 16:36] LABS: Urine Protein, UAD 1+ (Negative)
[2025-02-27 16:44] LABS: Amphetamine Screen, Urine Neg (NEGATIVE); Barbiturate Scree,Urine Neg (NEGATIVE); Benzodiazephine Screen, Urine Neg (NEGATIVE); Cannabinoid Screen, Urine Neg (NEGATIVE); Cocaine Screen, Urine Neg (NEGATIVE); Opiate Scree,Urine Pos (NEGATIVE); Phencyclidine Screen, Urine Neg (NEGATIVE)
[2025-02-27 18:42] LABS: Potassium 3.9 mmol/L (3.5-5.1); Sodium 142 mmol/L (136-145)
[2025-02-27 18:43] LABS: Anion Gap 11 (5-15); Carbon Dioxide 22 mmol/L (20-31)
[2025-02-27 18:48] LABS: BUN/Creatinine Ratio 16.1 (10.0-20.0); Blood Urea Nitrogen 15 mg/dL (9-23)
[2025-02-27 18:49] LABS: Calcium 8.3 mg/dL (8.7-10.4); Chloride 109 mmol/L (98-107); Glucose 209 mg/dL (74-106)
[2025-02-27] MEDS ORDERED: VORT10TA PO (19:57)
[2025-02-27] MEDS ORDERED: METO1TAB9 PO (19:57)
[2025-02-27] MEDS ORDERED: ACET300T57 PO (19:57)
[2025-02-27] MEDS ORDERED: ZOLP10TA6 PO (19:57)
[2025-02-27] MEDS ORDERED: DAPA1TAB4 PO (19:57)
[2025-02-27 20:40] VITALS: PULSE 103; RESP 16; O2SAT 96
[2025-02-27 20:50] VITALS: PULSE 102; RESP 18; O2SAT 99
[2025-02-27 21:00] VITALS: BP 133/76; PULSE 100; RESP 18; TEMP 98.2; O2SAT 97
[2025-02-27] MEDS: ACETAMINOPHEN 325 MG TAB PO PRN (22:13)
[2025-02-27 22:30] LABS: Chloride 107 mmol/L (98-107); Potassium 3.8 mmol/L (3.5-5.1); Sodium 142 mmol/L (136-145)
[2025-02-27 22:31] LABS: Anion Gap 10 (5-15); Carbon Dioxide 25 mmol/L (20-31)
[2025-02-27 22:36] LABS: BUN/Creatinine Ratio 21.3 (10.0-20.0); Blood Urea Nitrogen 17 mg/dL (9-23)
[2025-02-27 22:39] LABS: Calcium 8.0 mg/dL (8.7-10.4); Glucose 252 mg/dL (74-106)
[2025-02-27] MEDS: ALBUTEROL SULF 2.5 MG/0.5ML(0.5%) NEB SOLN NEB PRN (22:40)
[2025-02-28] VITALS (10 sets, daily range): BP systolic 123–163; BP diastolic 76–92; PULSE 82–104; RESP 12–18; TEMP 97.6–98; O2SAT 96–99
[2025-02-28] MEDS: HYDROcodone-ACET 7.5/325MG TAB PO ONE (01:34)
[2025-02-28] MEDS ORDERED: VANCOMYCIN 1GM/250ML KIT 250 ML IV SCH (03:00)
[2025-02-28] MEDS: VANCOMYCIN 750MG KIT 100 ML IV SCH (03:02)
[2025-02-28 07:43] LABS: Hematocrit 32.8 % (36.0-46.0); Hemoglobin 11.4 g/dL (12.2-16.2); Mean Corpuscular Hemoglobin 29.6 pg (28.0-32.0); Mean Corpuscular Volume 85.0 fL (80.0-100.0)
[2025-02-28 07:46] LABS: Alanine Aminotransferase 15 U/L (7-40)
[2025-02-28 07:47] LABS: Anion Gap 7 (5-15); BUN/Creatinine Ratio 14.7 (10.0-20.0); Blood Urea Nitrogen 11 mg/dL (9-23); Carbon Dioxide 26 mmol/L (20-31); Magnesium 1.7 mg/dL (1.6-2.6); Sodium 141 mmol/L (136-145)
[2025-02-28 07:50] LABS: Albumin 3.1 g/dL (3.2-4.8); Alkaline Phosphatase 128 U/L (46-116); Bilirubin, Total 0.2 mg/dL (0.2-1.0); Calcium 8.0 mg/dL (8.7-10.4); Chloride 108 mmol/L (98-107); Glucose 233 mg/dL (74-106); Potassium 3.2 mmol/L (3.5-5.1); Total Protein 5.4 g/dL (5.7-8.2)
[2025-02-28 09:48] LABS: Total Cells Counted 100.0 (100)
[2025-02-28] MEDS ORDERED: INSULIN LANTUS (GLARGINE) 1 /0.01ml (100units/ml) SC SCH (10:00)
--- NOTE | 2025-02-28 10:53 | DVH ---
CLINICAL INDICATION: Wound COMPARISON: XY L FOOT 3 VIEW XRAY on DOS: 02/27/25. TECHNIQUE: Multiplanar, multisequence MRI of the left foot was performed without intravenous contrast. Contrast: None. INTERPRETATION: Bones: No evidence of acute fracture. There is bone marrow edema in the proximal phalanx of the great toe. There is no corresponding T1 hypointensity in the 1st proximal phalanx. There is edema in the medial hallux sesamoid with T1 hypointensity adjacent to Soft tissue swelling an ulceration. There is susceptibility artifact in the distal tibia related to indwelling hardware. Joints: Mild 1st metatarsophalangeal joint space narrowing. 2nd through 5th hammertoes. Soft tissues: The Lisfranc ligament is intact. The medial and lateral collateral ligaments are intact at the metatarsophalangeal joints. The flexor and extensor tendons are intact. There is no plantar plate tear. There is edema in the intrinsic muscles of the foot. Soft tissue edema is present in the forefoot particularly the medial forefoot deep to the medial hallux sesamoid. No fluid collection. No soft tissue mass. IMPRESSION: 1. Osteomyelitis in the medial hallux sesamoid of the left great toe in close proximity to soft tissue swelling and ulceration in the medial forefoot deep to the medial hallux sesamoid which likely reflect cellulitis. 2. Bone marrow edema in the 1st proximal phalanx without T1 hypointensity may reflect inflammation. Osteomyelitis not entirely excluded given proximity to the infectious/ inflammatory changes described above. 3. Edema in the intrinsic muscles of the foot which may reflect denervation or myositis.
[2025-02-28] MEDS: POTASSIUM CHL 20 Meq TABLET PO ONE (11:06)
[2025-02-28] MEDS: MAGNESIUM SULFATE 1GM/100ML 100 ML IV SCH (11:09)
[2025-02-28] MEDS: INSULIN LANTUS (GLARGINE) 1 /0.01ml (100units/ml) SC SCH ×2 (12:00→22:59)
[2025-02-28] MEDS: GABAPENTIN 400 MG CAP PO SCH (13:50)
--- NOTE | 2025-02-28 15:46 | DVHPN2 ---
Subjective No new complaints BP is high MRI left foot: Osteo+ Changes from previous H/P or p: Changes Objective Vitals Vital Signs Date Time Temp Pulse Resp B/P (MAP) Pulse Ox O2 Delivery O2 Flow Rate FiO2 02/28/25 13:00 97.7 83 16 163/92 (115) 98 97.7 02/28/25 08:00 Room Air* 0 21 Intake/Output Intake and Output 02/28/25 07:00 Intake Total 2511 ml Output Total 2101 ml Balance 410 ml Intake Oral 1036 ml IV Total 1475 ml Output Urine Total 2100 ml Stool Total 1 ml # Voids 2 General Appearance: Alert, Oriented X3, Cooperative, No acute distress Lungs: Clear to auscultation, Normal air movement Cardiovascular: Regular rate, Normal S1, Normal S2 Abdomen: Normal bowel sounds, Soft, No tenderness Extremities: No edema Medications Current Medications Medications Dose Ordered Sig/Eugene Route Start Time Stop Time Status Last Admin Dose Admin Metoprolol Tartrate 25 mg BID PO 02/27/25 10:00 02/28/25 11:07 25 MG Azithromycin 250 ml @ 125 mls/hr DAILY IV 02/27/25 10:00 02/28/25 13:49 125 MLS/HR Ondansetron HCl 4 mg Q4HP PRN IV 02/26/25 22:15 Acetaminophen 650 mg Q6HP PRN PO 02/26/25 22:15 02/28/25 11:07 650 MG Nitroglycerin 0.4 mg Q5MINP PRN SL 02/26/25 22:15 Morphine Sulfate 2 mg Q30M PRN IV 02/26/25 22:15 02/27/25 15:03 2 MG Albuterol 2.5 mg Q6HPRN PRN NEB 02/26/25 22:15 02/27/25 22:40 2.5 MG Dextrose 50 ml UD PRN IV 02/27/25 13:45 Ceftriaxone Sodium 50 ml @ 100 mls/hr DAILY@09 IV 02/28/25 09:00 02/28/25 08:44 100 MLS/HR Vancomycin HCl 0 ml @ 0 mls/hr PER PHARMACY IV 02/27/25 14:00 Sodium Chloride 1,000 ml @ 75 mls/hr [id number] IV 02/27/25 14:15 02/28/25 12:15 75 MLS/HR Diagnostic Test (Pha) 1 strip ACHS 02/27/25 17:00 02/28/25 11:14 1 STRIP Insulin Glargine 15 units Q12H SC 02/28/25 10:00 02/28/25 12:00 15 UNITS Insulin Human Regular ACHS SC 02/27/25 17:00 02/28/25 12:02 6 UNITS Vancomycin HCl 100 ml @ 100 mls/hr Q12H IV 02/28/25 03:00 02/28/25 03:02 100 MLS/HR Zolpidem Tartrate 5 mg HSPRN PRN PO 02/28/25 12:15 Acetaminophen/ Hydrocodone Bitart 1 tab Q6HPRN PRN PO 02/28/25 12:15 Gabapentin 400 mg TID PO 02/28/25 14:00 02/28/25 13:50 400 MG Laboratory Results Laboratory Tests 02/28/25 06:33 Chemistry Test 02/27/25 18:04 02/27/25 21:59 02/28/25 06:33 Calcium Level 8.3 mg/dL (8.7-10.4) L 8.0 mg/dL (8.7-10.4) L 8.0 mg/dL (8.7-10.4) L Albumin 3.1 g/dL (3.2-4.8) L Magnesium Level 1.7 mg/dL (1.6-2.6) Total Protein 5.4 g/dL (5.7-8.2) L LFT Test 02/28/25 06:33 Alanine Aminotransferase (ALT) 15 U/L (7-40) Alkaline Phosphatase 128 U/L (46-116) H Aspartate Amino Transferase (AST) 11 U/L (13-40) L Total Bilirubin 0.2 mg/dL (0.2-1.0) Urinalysis Test 02/27/25 15:57 Urine Color Light-yellow (Yellow) Urine Clarity Clear (Clear) Urine pH 6.0 (5.0-9.0) Urine Specific [place] 1.037 (1.001-1.035) Urine Protein 1+ (Negative) H Urine Ketones 4+ (Negative) H Urine Blood Negative /uL (Negative) Urine Nitrite Negative (Negative) Urine Bilirubin Negative (Negative) Urine Urobilinogen Normal mg/dL (Negative) Urine Leukocyte Esterase Negative /uL (Negative) Urine RBC 1 /hpf (0 - 4) Urine Microscopic WBC 1 /HPF (0-5) Urine Squamous Epithelial Cells None seen /hpf (<5) Urine Bacteria None seen /hpf (None Seen) Urine Glucose 4+ mg/dL (Normal) H Microbiology Microbiology Date/Time Source Procedure Growth Status 02/27/25 15:57 Urine - Catheterized Urine Culture - Preliminary No growth Resulted Assessment/Plan Assessment/Plan Left lower lobe pneumonia Acute kidney injury due to vasomotor nephropathy Acute diabetic ketoacidosis Hypokalemia Hypertension Type 2 diabetes Peripheral neuropathy Depression Chronic pain Left foot nonhealing wound rule out osteomyelitis Plan IV antibiotics Rocephin and Zithromax Add vancomycin Discontinue IV insulin drip Start Lantus Accu-Cheks Podiatry consult Downgrade to med surge Monitor closely Full code 02/28/25: MRI L Foot: Osteomyelitis Sepsis due to above HTN Hypokalemia Hypomagnesemia PLAN: Change Rocephin to Meropenem Vanco Podiatry consult Wound care and culture Hydralazine prn Lopressor, add Losartan Replace K+ and Mg Plan discussed with: Patient My Orders Orders - DEANNE AGUIRRE MD Procedure Category Date Status Time Mri L Foot Wo Contrast MRI 02/28/25 Resulted 08:11 Zolpidem Tartrate PHA 02/28/25 In Process (Ambien) 12:15 Hydrocodone-Acet PHA 02/28/25 In Process 5/325mg Tab ([place] 12:15 Gabapentin Capsule PHA 02/28/25 In Process (Neurontin Capsule) 14:00 Clarification Of ORDERS 02/28/25 Transmitted Order: 12:43 * Wound Consult CONS 02/28/25 Transmitted Hydralazine Injection PHA 02/28/25 Verified (Apresoline Inject 15:45 Date of Service: Feb 28, 2025 Billing Provider: DEANNE AGUIRRE MD Common Visit Codes: NOT BILLABLE DEANNE AGUIRRE MD Feb 28, 2025 15:46
[2025-02-28] MEDS: LOSARTAN POTASSIUM 25 MG TAB PO ONE (16:32)
[2025-02-28] MEDS: MEROPENEM 1GM IVPB 50 ML IV ONE (18:24)
[2025-02-28] MEDS: MEROPENEM 1GM IVPB 50 ML IV SCH (22:26)
[2025-02-28] MEDS: HYDROcodone-ACET 5/325MG TAB PO PRN (22:28)
[2025-02-28] MEDS: ZOLPIDEM TARTRATE 5 MG TAB PO PRN (22:28)
[2025-03-01] VITALS (10 sets, daily range): BP systolic 120–171; BP diastolic 76–98; PULSE 79–97; RESP 12–18; TEMP 97.5–98.5; O2SAT 97–98
[2025-03-01 02:22] LABS: Hematocrit 34.6 % (36.0-46.0); Hemoglobin 11.9 g/dL (12.2-16.2); Mean Corpuscular Hemoglobin 29.4 pg (28.0-32.0); Mean Corpuscular Volume 85.6 fL (80.0-100.0); Nucleated Red Blood Cells % 0.0 %
[2025-03-01 02:25] LABS: Chloride 104 mmol/L (98-107); Potassium 3.6 mmol/L (3.5-5.1); Sodium 143 mmol/L (136-145)
[2025-03-01 02:26] LABS: Anion Gap 7 (5-15); Calcium 8.2 mg/dL (8.7-10.4); Carbon Dioxide 32 mmol/L (20-31)
[2025-03-01 02:31] LABS: BUN/Creatinine Ratio 27.5 (10.0-20.0); Blood Urea Nitrogen 11 mg/dL (9-23); Glucose 88 mg/dL (74-106)
[2025-03-01 02:32] LABS: Magnesium 2.1 mg/dL (1.6-2.6)
[2025-03-01] MEDS: LOSARTAN POTASSIUM 25 MG TAB PO SCH (08:50)
--- NOTE | 2025-03-01 10:23 | DVHPN2 ---
Subjective No complaints MRI showed osteomyelitis Continue IV antibiotics Podiatry consult is pending Changes from previous H/P or p: Changes Objective Vitals Vital Signs Date Time Temp Pulse Resp B/P (MAP) Pulse Ox O2 Delivery O2 Flow Rate FiO2 03/01/25 08:50 120/76 03/01/25 08:50 84 03/01/25 08:36 98.1 16 97 98.1 02/28/25 20:00 Room Air* 0 21 Intake/Output Intake and Output 03/01/25 07:00 Intake Total 4440 ml Balance 4440 ml Intake Oral 4440 ml # Voids 16 General Appearance: Alert, Oriented X3, Cooperative, No acute distress Lungs: Clear to auscultation, Normal air movement Cardiovascular: Regular rate, Normal S1, Normal S2 Abdomen: Normal bowel sounds, Soft, No tenderness Extremities: No edema Medications Current Medications Medications Dose Ordered Sig/Eugene Route Start Time Stop Time Status Last Admin Dose Admin Metoprolol Tartrate 25 mg BID PO 02/27/25 10:00 03/01/25 08:50 25 MG Ondansetron HCl 4 mg Q4HP PRN IV 02/26/25 22:15 Acetaminophen 650 mg Q6HP PRN PO 02/26/25 22:15 02/28/25 11:07 650 MG Nitroglycerin 0.4 mg Q5MINP PRN SL 02/26/25 22:15 Morphine Sulfate 2 mg Q30M PRN IV 02/26/25 22:15 02/27/25 15:03 2 MG Albuterol 2.5 mg Q6HPRN PRN NEB 02/26/25 22:15 02/27/25 22:40 2.5 MG Dextrose 50 ml UD PRN IV 02/27/25 13:45 Vancomycin HCl 0 ml @ 0 mls/hr PER PHARMACY IV 02/27/25 14:00 Sodium Chloride 1,000 ml @ 75 mls/hr [id number] IV 02/27/25 14:15 03/01/25 05:53 75 MLS/HR Diagnostic Test (Pha) 1 strip ACHS 02/27/25 17:00 03/01/25 06:27 1 STRIP Insulin Human Regular ACHS SC 02/27/25 17:00 02/28/25 23:00 4 UNITS Vancomycin HCl 100 ml @ 100 mls/hr Q12H IV 02/28/25 03:00 03/01/25 03:14 100 MLS/HR Zolpidem Tartrate 5 mg HSPRN PRN PO 02/28/25 12:15 02/28/25 22:28 5 MG Acetaminophen/ Hydrocodone Bitart 1 tab Q6HPRN PRN PO 02/28/25 12:15 02/28/25 22:28 1 TAB Gabapentin 400 mg TID PO 02/28/25 14:00 03/01/25 05:00 400 MG Hydralazine HCl 10 mg Q6HP PRN IV 02/28/25 15:45 Meropenem 50 ml @ 17 mls/hr Q8HR IV 02/28/25 23:00 03/01/25 05:00 17 MLS/HR Losartan Potassium 25 mg DAILY PO 03/01/25 10:00 03/01/25 08:50 25 MG Insulin Glargine 20 units Q12H SC 02/28/25 22:00 02/28/25 22:59 20 UNITS Laboratory Results Laboratory Tests 03/01/25 02:03 Chemistry Test 03/01/25 02:03 Calcium Level 8.2 mg/dL (8.7-10.4) L Magnesium Level 2.1 mg/dL (1.6-2.6) Urinalysis Test 02/27/25 15:57 Urine Color Light-yellow (Yellow) Urine Clarity Clear (Clear) Urine pH 6.0 (5.0-9.0) Urine Specific [place] 1.037 (1.001-1.035) Urine Protein 1+ (Negative) H Urine Ketones 4+ (Negative) H Urine Blood Negative /uL (Negative) Urine Nitrite Negative (Negative) Urine Bilirubin Negative (Negative) Urine Urobilinogen Normal mg/dL (Negative) Urine Leukocyte Esterase Negative /uL (Negative) Urine RBC 1 /hpf (0 - 4) Urine Microscopic WBC 1 /HPF (0-5) Urine Squamous Epithelial Cells None seen /hpf (<5) Urine Bacteria None seen /hpf (None Seen) Urine Glucose 4+ mg/dL (Normal) H Microbiology Microbiology Date/Time Source Procedure Growth Status 02/27/25 15:57 Urine - Catheterized Urine Culture - Preliminary No growth Resulted Assessment/Plan Assessment/Plan Left lower lobe pneumonia Acute kidney injury due to vasomotor nephropathy Acute diabetic ketoacidosis Hypokalemia Hypertension Type 2 diabetes Peripheral neuropathy Depression Chronic pain Left foot nonhealing wound rule out osteomyelitis Plan IV antibiotics Rocephin and Zithromax Add vancomycin Discontinue IV insulin drip Start Lantus Accu-Cheks Podiatry consult Downgrade to med surge Monitor closely Full code 02/28/25: MRI L Foot: Osteomyelitis Sepsis due to above HTN Hypokalemia Hypomagnesemia PLAN: Change Rocephin to Meropenem Vanco Podiatry consult Wound care and culture Hydralazine prn Lopressor, add Losartan Replace K+ and Mg 03/01/2025: Osteomyelitis left foot: Continue IV antibiotics Podiatry consult Wound care Meropenem Vancomycin Plan discussed with: Patient My Orders Orders - DEANNE AGUIRRE MD Procedure Category Date Status Time Zolpidem Tartrate PHA 02/28/25 In Process (Ambien) 12:15 Hydrocodone-Acet PHA 02/28/25 In Process 5/325mg Tab ([place] 12:15 Gabapentin Capsule PHA 02/28/25 In Process (Neurontin Capsule) 14:00 Clarification Of ORDERS 02/28/25 Transmitted Order: 12:43 * Wound Consult CONS 02/28/25 Transmitted Hydralazine Injection PHA 02/28/25 In Process (Apresoline Inject 15:45 *Podiatry Consult CONS 02/28/25 Transmitted [place]usson(Dvmg) 15:39 Meropenem 1gm Ivpb PHA 02/28/25 In Process (Merrem 1gm/50ml) 23:00 * Wound Consult CONS 02/28/25 Transmitted Losartan Tablet PHA 03/01/25 In Process (Cozaar Tablet) 10:00 Insulin Lantus PHA 02/28/25 In Process (Glargine) (Lantus) 22:00 Apply/Change Dressing SIDRA 02/28/25 In Process 17:23 Date of Service: Mar 01, 2025 Billing Provider: DEANNE AGUIRRE MD Common Visit Codes: NOT BILLABLE DEANNE AGUIRRE MD Mar 01, 2025 10:23
--- NOTE | 2025-03-01 12:53 | DVHCONRES ---
Date Seen: Mar 01, 2025 Reason for Consultation Left foot wound History of Present Illness 54-year-old female presents for evaluation of shortness for breath. Patient reports a four day history of worsening shortness for breath with associated chills and elevated blood sugars. She states his symptoms became worse today so she presented for further evaluation. Past Medical History See H&P Past Surgical History See H&P Family History: Cerebrovascular accident (CVA) G8 MOTHER Diabetes mellitus G8 MOTHER G8 FATHER FH: breast cancer G8 MOTHER FH: cardiovascular disease G8 MOTHER G8 FATHER Allergies: Coded Allergies: Fentanyl (Verified Allergy, Severe, 05/07/24) Tramadol (Verified Allergy, Severe, itching,hives, 09/30/19) Lidocaine (Verified Allergy, Unknown, 03/13/18) Home Meds Reported Medications Dapagliflozin Propanediol (Farxiga) 10 Mg Tab, 1 TAB PO DAILY 02/27/25 Vortioxetine Hydrobromide (Trintellix) 10 Mg Tab, 1 TAB PO DAILY 02/27/25 Metoprolol Succinate (Metoprolol Succinate Er) 100 Mg Tab, 1 TAB PO DAILY 02/27/25 Zolpidem Tartrate (Zolpidem Tartrate) 10 Mg Tab, 1 TAB PO QHSP PRN for FOR INSOMNIA 02/27/25 Acetaminophen W/ Codeine (Acetaminophen/Codeine #4 300-60 mg) 1 Tab Tab, TAB PO TAKE 1-2 TABLET BY MOUTH EVERY 4 HRS NEEDED. 02/27/25 Gabapentin (Gabapentin) 800 Mg Tab, 1 TAB PO TID for 30 Days, #90 06/22/24 Insulin Glargine (Lantus) 100 Unit/Ml Inj, 30 UNIT SC BID, INJ 09/30/19 Current Medications Current Medications Medications (Trade) Dose Ordered Sig/Eugene Route PRN Reason Start Time Stop Time Status Last Admin Gabapentin (Neurontin Capsule) 400 mg TID PO 02/28/25 14:00 03/01/25 05:00 Hydralazine HCl (Apresoline Injection) 10 mg Q6HP PRN IV SBP>150 02/28/25 15:45 Meropenem 50 ml @ 17 mls/hr Q8HR IV 02/28/25 23:00 03/01/25 05:00 Losartan Potassium (Cozaar Tablet) 25 mg DAILY PO 03/01/25 10:00 03/01/25 08:50 Insulin Glargine (Lantus) 20 units Q12H SC 02/28/25 22:00 03/01/25 10:47 Vital Signs Vital Signs Date Time Temp Pulse Resp B/P (MAP) Pulse Ox O2 Delivery O2 Flow Rate FiO2 03/01/25 08:50 120/76 03/01/25 08:50 84 03/01/25 08:36 98.1 16 97 98.1 03/01/25 08:00 Room Air* 0 21 Physical Exam Dermatological: Skin is dry with mild erythema and some maceration around the wound site No gross deformities noted Mild non-pitting edema present bilaterally Tingling left plantar 1st metatarsal wound with hyperkeratosis mixed fibrotic granular base Vascular: Dorsalis pedis and posterior tibial pulses are 1+ bilaterally Capillary refill is under 2 seconds Skin temperature is warm bilaterally Neurologic: Protective sensation is absent on the plantar forefoot bilaterally Monofilament testing reveals decreased sensation in multiple plantar sites Musculoskeletal: Range of motion at the ankle and MTP joints is within normal limits. Strength is 5/5 in all tested muscle groups. Gait is antalgic due to offloading of the affected limb. Labs/Diagnostic Data Labs Test 03/01/25 10:40 03/01/25 02:03 02/28/25 06:33 02/27/25 15:57 Range/Units POC Glucose 198 H 70-106 mg/dl White Blood Count 4.5 # 4.4-10.8 10^3/uL Red Blood Count 4.04 4.0-5.20 10^6/uL Hemoglobin 11.9 L 12.2-16.2 g/dL Hematocrit 34.6 L 36.0-46.0 % Mean Corpuscular Volume 85.6 80.0-100.0 fL Mean Corpuscular Hemoglobin 29.4 28.0-32.0 pg Mean Corpuscular Hemoglobin Concent 34.3 32.0-36.0 g/dL Red Cell Distribution Width 13.1 11.8-14.3 % Platelet Count 238 140-450 10^3/uL Mean Platelet Volume 6.9 6.9-10.8 fL Neutrophils (%) (Auto) 38.0 37.0-80.0 % Lymphocytes (%) (Auto) 52.6 H 10.0-50.0 % Monocytes (%) (Auto) 8.5 0.0-12.0 % Eosinophils (%) (Auto) 0.1 0.0-7.0 % Basophils (%) (Auto) 0.8 0.0-2.0 % Neutrophils # (Auto) 1.7 1.6-8.6 10 ^3/uL Lymphocytes # (Auto) 2.4 0.4-5.4 10 ^3/uL Monocytes # (Auto) 0.4 0-1.3 10 ^3/uL Eosinophils # (Auto) 0 0-0.8 10 ^3/uL Basophils # (Auto) 0 0-0.2 10 ^3/uL Nucleated Red Blood Cells 0.0 % Sodium Level 143 136-145 mmol/L Potassium Level 3.6 3.5-5.1 mmol/L Chloride Level 104 98-107 mmol/L Carbon Dioxide Level 32 H 20-31 mmol/L Anion Gap 7 5-15 Blood Urea Nitrogen 11 9-23 mg/dL Creatinine 0.40 #L 0.550-1.02 mg/dL Glomerular Filtration Rate Calc 117 >90 mL/min BUN/Creatinine Ratio 27.5 H 10.0-20.0 Serum Glucose 88 74-106 mg/dL Calcium Level 8.2 L 8.7-10.4 mg/dL Magnesium Level 2.1 1.6-2.6 mg/dL Vancomycin Level Trough 10.4 H 5-10 ug/mL Differential Total Cells Counted 100.0 100 Neutrophils % (Manual) 50 37.0-80.0 Band Neutrophils % (Manual) 1 Lymphocytes % (Manual) 39 10.0-50.0 Monocytes % (Manual) 8 0-12 Eosinophils % (Manual) 1 0-7 Basophils % (Manual) 0 0.0-2.0 Metamyelocytes % (manual) 0 Myelocytes % (Manual) 1 Promyelocytes % (Manual) 0 Blast Cells % (Manual) 0 Reactive Lymphocytes 0 Platelet Estimate Adequate Total Bilirubin 0.2 0.2-1.0 mg/dL Aspartate Amino Transferase (AST) 11 L 13-40 U/L Alanine Aminotransferase (ALT) 15 7-40 U/L Alkaline Phosphatase 128 H 46-116 U/L Total Protein 5.4 L 5.7-8.2 g/dL Albumin 3.1 L 3.2-4.8 g/dL Urine Color Light-yellow Yellow Urine Clarity Clear Clear Urine pH 6.0 5.0-9.0 Urine Specific [place] 1.037 H 1.001-1.035 Urine Protein 1+ H Negative Urine Ketones 4+ H Negative Urine Blood Negative Negative /uL Urine Nitrite Negative Negative Urine Bilirubin Negative Negative Urine Urobilinogen Normal Negative mg/dL Urine Leukocyte Esterase Negative Negative /uL Urine RBC 1 0 - 4 /hpf Urine Microscopic WBC 1 0-5 /HPF Urine Squamous Epithelial Cells None seen <5 /hpf Urine Bacteria None seen None Seen /hpf Urine Glucose 4+ H Normal mg/dL Urine Opiates Screen Pos NEGATIVE Urine Fentanyl Screen Neg NEGATIVE Urine Barbiturates Screen Neg NEGATIVE Urine Phencyclidine Screen Neg NEGATIVE Urine Amphetamines Screen Neg NEGATIVE Urine Benzodiazepines Screen Neg NEGATIVE Urine Cocaine Screen Neg NEGATIVE Urine Cannabinoids Screen Neg NEGATIVE Test 02/26/25 22:30 02/26/25 22:25 02/26/25 17:43 02/26/25 16:45 Range/Units Blood Gas Specimen Type Arterial Blood Gas Sample Site Right radial Blood Gas Patient Temperature 37.0 Arterial Blood Date Drawn Arterial Blood pH 7.115 *L 7.350-7.450 Arterial Blood Partial Pressure CO2 14.6 *L 32.0-45.0 mmHg Arterial Blood Partial Pressure O2 115.3 H 83.0-108.0 mmHg Arterial Blood HCO3 4.6 L 21.0-28.0 mmol/L Arterial Blood Oxygen Saturation 97.7 94.0-98.0 % Arterial Blood Base Excess -22.5 L -2.0-3.0 mmol/L Arterial Blood Oxyhemoglobin 96.0 94.0-98.0 % Arterial Blood Carboxyhemoglobin 1.0 0.5-1.5 % Arterial Blood Methemoglobin 0.7 0.0-1.5 % Arterial Blood Deoxyhemoglobin 2.3 0.0-5.0 % Jeremy Test Yes Blood Gas Total Hemoglobin 14.90 12.0-16.0 g/dL Blood Gas Modality Room air FiO2 % 21.0 Blood Gas Critical Value Read Back Yes Blood Gas Notified Whom corey Elise Blood Gas Notified Time [id number] Blood Gas Notified By bret Sullivan Serum Osmolality 338 H 278-298 mOsm/kg Lactic Acid Level 1.7 0.4-2.0 mmol/L Beta-Hydroxybutyric Acid > 4.500 H < 0.4 mmol/L Troponin I High Sensitivity 3 L </=34 ng/L Thyroid Stimulating Hormone (TSH) 1.18 0.55-4.78 uIU/mL Red Blood Cell Morphology Normal D-Dimer, Quantitative 1.31 H 0.0-0.49 mg/L FEU B-Type Natriuretic Peptide 12.56 0-100 pg/mL Microbiology Date/Time Source Procedure Growth Status 02/27/25 15:57 Urine - Catheterized Urine Culture - Preliminary No growth Resulted Problems(with codes): (1) Pyelonephritis (2) Right ankle sprain (3) Major depression (4) Overdose of antidepressant (5) Chest pain, atypical (6) Overdose of anticonvulsant (7) Acute pancreatitis (8) Acute abdominal pain (9) Constipation (10) Acute anxiety (11) Paroxysmal atrial fibrillation (12) Muscle strain (13) Right foot pain (14) Hordeolum externum left upper eyelid (15) Allergic reaction caused by a drug (16) Lymphadenitis (17) Acute cervical adenitis (18) Hypertension (19) Hand pain (20) Perforated eardrum (21) Cellulitis (22) Osteomyelitis (23) Uncontrolled diabetes mellitus (24) Hypokalemia (25) Hyperphosphatemia (26) Elevated troponin (27) Sepsis (28) R06.00 (29) R07.9 (30) Hyperglycemia due to type 2 diabetes mellitus (31) Pneumonia (32) DKA (diabetic ketoacidosis) Plan/Recommendation ASSESSMENT: Patient is a 54 year old seen on the floor for a worsening ulcer PLAN: - The patients chart was reviewed, clinical findings were discussed with the patient, the etiologies of the conditions were discussed in detail, and a treatment plan was agreed to at this time, with both oral and written instructions provided. - reviewed advanced imaging - discussed plan is to perform an incision and drainage - patient will be NPO at midnight - take her to the OR tomorrow - we will get cultures in the OR - can weightbear as tolerated in postoperative shoe All questions were answered and concerns addressed to the patient's satisfaction. The patient was given the phone number to the clinic and was told how to make contact with the clinic should any concerns or questions arise. Patient understands that if any questions or concerns arise prior to the next appointment, we should be contacted immediately. FOLLOW-UP: Continue to follow while inpatient Plan discussed with: Patient Visit Coding Podiatry Date of Service if different f: Mar 01, 2025 Billing Provider: ALICIA QUINONEZ DPM Podiatry Common Visit Codes: CONSULT ONLY Podiatry Consult Codes: [id number] NEW/EST HI 80 ALICIA QUINONEZ DPM Mar 01, 2025 12:53
[2025-03-01] MEDS: VANCOMYCIN 1.25GM/250ML 250 ML IV SCH (16:57)
[2025-03-01] MEDS: hydrALAZINE HCL 20 MG/ML VL IV PRN (17:12)
[2025-03-02] VITALS (11 sets, daily range): BP systolic 132–154; BP diastolic 82–95; PULSE 83–97; RESP 17–20; TEMP 92.7–98.2; O2SAT 94–98
--- NOTE | 2025-03-02 10:38 | DVHPN2 ---
Subjective No new complaints Scheduled for surgery today Changes from previous H/P or p: Changes Objective Vitals Vital Signs Date Time Temp Pulse Resp B/P (MAP) Pulse Ox O2 Delivery O2 Flow Rate FiO2 03/02/25 09:21 90 143/87 03/02/25 09:00 92.7 18 97 92.7 03/01/25 21:10 0.0 21 03/01/25 20:00 Room Air* Intake/Output Intake and Output 03/02/25 07:00 Intake Total 3820 ml Output Total 1200 ml Balance 2620 ml Intake Oral 1920 ml IV Total 350 ml Tube Feeding 1550 ml Output Urine Total 1200 ml # Voids 7 General Appearance: Alert, Oriented X3, Cooperative, No acute distress Lungs: Clear to auscultation, Normal air movement Cardiovascular: Regular rate, Normal S1, Normal S2 Abdomen: Normal bowel sounds, Soft, No tenderness Extremities: No edema Medications Current Medications Medications Dose Ordered Sig/[place] Route Start Time Stop Time Status Last Admin Dose Admin Metoprolol Tartrate 25 mg BID PO 02/27/25 10:00 03/02/25 09:21 25 MG Ondansetron HCl 4 mg Q4HP PRN IV 02/26/25 22:15 Acetaminophen 650 mg Q6HP PRN PO 02/26/25 22:15 02/28/25 11:07 650 MG Nitroglycerin 0.4 mg Q5MINP PRN SL 02/26/25 22:15 Morphine Sulfate 2 mg Q30M PRN IV 02/26/25 22:15 02/27/25 15:03 2 MG Albuterol 2.5 mg Q6HPRN PRN NEB 02/26/25 22:15 02/27/25 22:40 2.5 MG Dextrose 50 ml UD PRN IV 02/27/25 13:45 Vancomycin HCl 0 ml @ 0 mls/hr PER PHARMACY IV 02/27/25 14:00 Sodium Chloride 1,000 ml @ 75 mls/hr [id number] IV 02/27/25 14:15 03/01/25 21:13 75 MLS/HR Diagnostic Test (Pha) 1 strip ACHS 02/27/25 17:00 03/01/25 21:18 1 STRIP Insulin Human Regular ACHS SC 02/27/25 17:00 03/01/25 21:35 4 UNITS Zolpidem Tartrate 5 mg HSPRN PRN PO 02/28/25 12:15 03/01/25 21:15 5 MG Acetaminophen/ Hydrocodone Bitart 1 tab Q6HPRN PRN PO 02/28/25 12:15 03/02/25 06:14 1 TAB Gabapentin 400 mg TID PO 02/28/25 14:00 03/02/25 05:13 400 MG Hydralazine HCl 10 mg Q6HP PRN IV 02/28/25 15:45 03/01/25 17:12 10 MG Meropenem 50 ml @ 17 mls/hr Q8HR IV 02/28/25 23:00 03/02/25 05:14 17 MLS/HR Losartan Potassium 25 mg DAILY PO 03/01/25 10:00 03/02/25 09:20 25 MG Insulin Glargine 20 units Q12H SC 02/28/25 22:00 03/01/25 21:17 20 UNITS Vancomycin HCl 250 ml @ 200 mls/hr Q12H IV 03/01/25 15:00 03/02/25 02:20 200 MLS/HR Laboratory Results Laboratory Tests 03/01/25 02:03 03/02/25 04:50 Urinalysis Test 02/27/25 15:57 Urine Color Light-yellow (Yellow) Urine Clarity Clear (Clear) Urine pH 6.0 (5.0-9.0) Urine Specific [place] 1.037 (1.001-1.035) Urine Protein 1+ (Negative) H Urine Ketones 4+ (Negative) H Urine Blood Negative /uL (Negative) Urine Nitrite Negative (Negative) Urine Bilirubin Negative (Negative) Urine Urobilinogen Normal mg/dL (Negative) Urine Leukocyte Esterase Negative /uL (Negative) Urine RBC 1 /hpf (0 - 4) Urine Microscopic WBC 1 /HPF (0-5) Urine Squamous Epithelial Cells None seen /hpf (<5) Urine Bacteria None seen /hpf (None Seen) Urine Glucose 4+ mg/dL (Normal) H Microbiology Microbiology Date/Time Source Procedure Growth Status 02/27/25 15:57 Urine - Catheterized Urine Culture - Final Complete Assessment/Plan Assessment/Plan Left lower lobe pneumonia Acute kidney injury due to vasomotor nephropathy Acute diabetic ketoacidosis Hypokalemia Hypertension Type 2 diabetes Peripheral neuropathy Depression Chronic pain Left foot nonhealing wound rule out osteomyelitis Plan IV antibiotics Rocephin and Zithromax Add vancomycin Discontinue IV insulin drip Start Lantus Accu-Cheks Podiatry consult Downgrade to med surge Monitor closely Full code 02/28/25: MRI L Foot: Osteomyelitis Sepsis due to above HTN Hypokalemia Hypomagnesemia PLAN: Change Rocephin to Meropenem Vanco Podiatry consult Wound care and culture Hydralazine prn Lopressor, add Losartan Replace K+ and Mg 03/01/2025: Osteomyelitis left foot: Continue IV antibiotics Podiatry consult Wound care Meropenem Vancomycin 03/02/2025: picc Surgery per Podiatry today Continue IV antibiotics Bipolar disorder: Resume home medications Plan discussed with: Patient My Orders Orders - DEANNE AGUIRRE MD Procedure Category Date Status Time Vancomycin PHA 03/01/25 In Process 1.25gm/250ml 15:00 Vancomycin,Trough LAB 03/03/25 Verified 02:00 Vancomycin Per SIDRA 03/03/25 In Process [facility] 03:00 Date of Service: Mar 02, 2025 Billing Provider: DEANNE AGUIRRE MD Common Visit Codes: NOT BILLABLE DEANNE AGUIRRE MD Mar 02, 2025 10:38
--- NOTE | 2025-03-02 10:55 | DVHPN2 ---
Subjective 54-year-old female presents for evaluation of shortness for breath. Patient reports a four day history of worsening shortness for breath with associated chills and elevated blood sugars. She states his symptoms became worse today so she presented for further evaluation. Changes from previous H/P or p: No Changes Objective Vitals Vital Signs Date Time Temp Pulse Resp B/P (MAP) Pulse Ox O2 Delivery O2 Flow Rate FiO2 03/02/25 09:21 90 143/87 03/02/25 09:00 92.7 18 97 92.7 03/01/25 21:10 0.0 21 03/01/25 20:00 Room Air* Intake/Output Intake and Output 03/02/25 07:00 Intake Total 3820 ml Output Total 1200 ml Balance 2620 ml Intake Oral 1920 ml IV Total 350 ml Tube Feeding 1550 ml Output Urine Total 1200 ml # Voids 7 Exam Dermatological: Skin is dry with mild erythema and some maceration around the wound site No gross deformities noted Mild non-pitting edema present bilaterally Tingling left plantar 1st metatarsal wound with hyperkeratosis mixed fibrotic granular base Vascular: Dorsalis pedis and posterior tibial pulses are 1+ bilaterally Capillary refill is under 2 seconds Skin temperature is warm bilaterally Neurologic: Protective sensation is absent on the plantar forefoot bilaterally Monofilament testing reveals decreased sensation in multiple plantar sites Musculoskeletal: Range of motion at the ankle and MTP joints is within normal limits. Strength is 5/5 in all tested muscle groups. Gait is antalgic due to offloading of the affected limb. General Appearance: Alert, Oriented X3, Cooperative, No acute distress Lungs: Clear to auscultation, Normal air movement Cardiovascular: Regular rate, Normal S1, Normal S2 Abdomen: Normal bowel sounds, Soft, No tenderness Extremities: No edema Medications Current Medications Medications Dose Ordered Sig/Eugene Route Start Time Stop Time Status Last Admin Dose Admin Metoprolol Tartrate 25 mg BID PO 02/27/25 10:00 03/02/25 09:21 25 MG Ondansetron HCl 4 mg Q4HP PRN IV 02/26/25 22:15 Acetaminophen 650 mg Q6HP PRN PO 02/26/25 22:15 02/28/25 11:07 650 MG Nitroglycerin 0.4 mg Q5MINP PRN SL 02/26/25 22:15 Morphine Sulfate 2 mg Q30M PRN IV 02/26/25 22:15 02/27/25 15:03 2 MG Albuterol 2.5 mg Q6HPRN PRN NEB 02/26/25 22:15 02/27/25 22:40 2.5 MG Dextrose 50 ml UD PRN IV 02/27/25 13:45 Vancomycin HCl 0 ml @ 0 mls/hr PER PHARMACY IV 02/27/25 14:00 Sodium Chloride 1,000 ml @ 75 mls/hr [id number] IV 02/27/25 14:15 03/01/25 21:13 75 MLS/HR Diagnostic Test (Pha) 1 strip ACHS 02/27/25 17:00 03/01/25 21:18 1 STRIP Insulin Human Regular ACHS SC 02/27/25 17:00 03/01/25 21:35 4 UNITS Zolpidem Tartrate 5 mg HSPRN PRN PO 02/28/25 12:15 03/01/25 21:15 5 MG Acetaminophen/ Hydrocodone Bitart 1 tab Q6HPRN PRN PO 02/28/25 12:15 03/02/25 06:14 1 TAB Gabapentin 400 mg TID PO 02/28/25 14:00 03/02/25 05:13 400 MG Hydralazine HCl 10 mg Q6HP PRN IV 02/28/25 15:45 03/01/25 17:12 10 MG Meropenem 50 ml @ 17 mls/hr Q8HR IV 02/28/25 23:00 03/02/25 05:14 17 MLS/HR Losartan Potassium 25 mg DAILY PO 03/01/25 10:00 03/02/25 09:20 25 MG Insulin Glargine 20 units Q12H SC 02/28/25 22:00 03/01/25 21:17 20 UNITS Vancomycin HCl 250 ml @ 200 mls/hr Q12H IV 03/01/25 15:00 03/02/25 02:20 200 MLS/HR Morphine Sulfate 4 mg Q4HPRN PRN IV 03/02/25 10:45 Laboratory Results Laboratory Tests 03/01/25 02:03 03/02/25 04:50 Urinalysis Test 02/27/25 15:57 Urine Color Light-yellow (Yellow) Urine Clarity Clear (Clear) Urine pH 6.0 (5.0-9.0) Urine Specific [place] 1.037 (1.001-1.035) Urine Protein 1+ (Negative) H Urine Ketones 4+ (Negative) H Urine Blood Negative /uL (Negative) Urine Nitrite Negative (Negative) Urine Bilirubin Negative (Negative) Urine Urobilinogen Normal mg/dL (Negative) Urine Leukocyte Esterase Negative /uL (Negative) Urine RBC 1 /hpf (0 - 4) Urine Microscopic WBC 1 /HPF (0-5) Urine Squamous Epithelial Cells None seen /hpf (<5) Urine Bacteria None seen /hpf (None Seen) Urine Glucose 4+ mg/dL (Normal) H Microbiology Microbiology Date/Time Source Procedure Growth Status 02/27/25 15:57 Urine - Catheterized Urine Culture - Final Complete Assessment/Plan Assessment/Plan ASSESSMENT: Patient is a 54 year old seen on the floor for a worsening ulcer PLAN: - The patients chart was reviewed, clinical findings were discussed with the patient, the etiologies of the conditions were discussed in detail, and a treatment plan was agreed to at this time, with both oral and written instructions provided. - reviewed advanced imaging - discussed plan is to perform an incision and drainage with the osteotomy - patient has been NPO since midnight - take her to the OR today - we will get cultures in the OR - can weightbear as tolerated in postoperative shoe - patient will need 6 weeks IV antibiotics - can weightbear as tolerated in her boot - follow up 1 week after discharge - patient can be discharged after PICC line and IV antibiotics All questions were answered and concerns addressed to the patient's satisfaction. The patient was given the phone number to the clinic and was told how to make contact with the clinic should any concerns or questions arise. Patient understands that if any questions or concerns arise prior to the next appointment, we should be contacted immediately. FOLLOW-UP: Continue to follow while inpatient Plan discussed with: Patient My Orders Orders - ALICIA QUINONEZ DPM Procedure Category Date Status Time Npo After Midnight SIDRA 03/01/25 In Process 12:51 Npo (Nothing By DIET 03/02/25 Transmitted Mouth) Diet Breakfast Obtain Consent For: ORDERS 03/01/25 Transmitted 12:53 Problem List: (1) Pneumonia (2) DKA (diabetic ketoacidosis) (3) Constipation (4) Acute pancreatitis (5) Hypokalemia (6) Hyperphosphatemia (7) Muscle strain (8) Acute abdominal pain (9) Cellulitis (10) Lymphadenitis (11) Major depression (12) Pyelonephritis (13) Hand pain (14) Sepsis (15) Paroxysmal atrial fibrillation (16) Hypertension (17) Osteomyelitis (18) Perforated eardrum (19) Allergic reaction caused by a drug (20) Uncontrolled diabetes mellitus (21) Elevated troponin (22) Right foot pain (23) Chest pain, atypical (24) Overdose of anticonvulsant (25) Overdose of antidepressant (26) Right ankle sprain (27) Hordeolum externum left upper eyelid (28) Acute anxiety (29) Acute cervical adenitis (30) Hyperglycemia due to type 2 diabetes mellitus (31) R06.00 (32) R07.9 Visit Coding Podiatry Date of Service if different f: Mar 02, 2025 Billing Provider: ALICIA QUINONEZ DPM Podiatry Common Visit Codes: [id number] INP/OBS CARE(HIGH) ALICIA QUINONEZ DPM Mar 02, 2025 10:55
[2025-03-02] MEDS ORDERED: MORPHINE SULFATE INJ 2 MG/ml SYRG IV PRN (11:00)
[2025-03-02] MEDS ORDERED: METOCLOPRAMIDE HCL 5MG/ml INJ 2ml VIAL IV PRN (11:00)
[2025-03-02] MEDS ORDERED: HYDROmorphone HCL 2 MG/ML VL/or syr IV PRN ×2 (11:00)
[2025-03-02] MEDS ORDERED: MORPHINE SULFATE 4 MG/ML SYR/VIAL IV PRN (11:00)
[2025-03-02] MEDS ORDERED: MEPERIDINE HCL (25 MG/ML) 1ML VIAL ONE (11:02)
[2025-03-02] MEDS ORDERED: PROPOFOL 10 MG/ML 20 ML IV ONE (11:02)
[2025-03-02] MEDS ORDERED: ONDANSETRON HCL 4 MG/2 ML VIAL ONE (11:02)
[2025-03-02] MEDS ORDERED: MIDAZOLAM HCL 2MG/2ML 2ml VIAL (1mg/ml) ONE (11:02)
[2025-03-02] MEDS ORDERED: KETAMINE 50mg/ML 1ml syringe ONE (11:02)
[2025-03-02] MEDS: BUPIVACAINE 0.5% P/F INJ 10 ML VIAL ONE (11:13)
--- NOTE | 2025-03-02 11:24 | DVHOP2 ---
Operative Report - 2 Report Details Date: 03/02/25 Preop Diagnosis: 1. Left foot diabetic ulcer 2. Left foot abscess 3. Left foot cellulitis 4. Left foot pes cavus 5. Left foot metatarsalgia Postop Diagnosis: The same as preop Surgeon: Alicia Quinonez MD Anesthesiologist: See anesthesia Anesthesia: Mac Consent: The patient was informed of the risks and benefits of the procedure. These include but are not limited to complications of anesthesia, postoperative infection, incomplete relief of symptoms, recurrence of symptoms, damage to blood vessels, nerves and tendons, deep venous thrombosis, pulmonary embolism and possible need for repeat surgery in the future. Complications: None Estimated Blood Loss: Minimal Fluids: See anesthesia Findings: Consistent with the diagnosis Indications for Surgery: Worsening foot wound Name of Procedure Performed 1. Left foot I&D to bone (45952) 2. Left foot first metatarsal bone biopsy () 3. Left foot first metatarsal osteotomy (90842) Procedure Details Procedure Details: PRE-PROCEDURE INFORMATION: In the pre-op holding area, the extremity to be operated on was clearly marked and the patient verified correct laterality of the marking. The patient was transferred to the OR table and placed in a supine position. A timeout was performed in which identification of the correct patient, procedure, location, and materials was done. The left foot and leg were prepped and draped in normal sterile fashion. DESCRIPTION OF PROCEDURE: Attention was directed to the left where area of fluctuance was noted. An incision was made over this area and was deepened through blunt dissection. The incision was deepened to the level of abscess and bone. Care was taken to the dissection to avoid any neurovascular and tendinous structures. The incision was deepened to the bone, and the abscess appeared to be purulent fluid consistent with pus. The cortices of the bone was then removed with rongeur an all necrotic tissue. After the abscess was drained, the area was irrigated with 3 L normal saline using cysto tubing. Deep cultures were then obtained from the wound. A bone biopsy was then taken of the 1st metatarsal which was deepened to the muscle belly and tendons. The bone was then sent to pathology to determine the extent of osteomyelitis. The area was then inspected and any areas of tracking, especially along the tendons were also drained. The wound was packed with Betadine-soaked gauze and we will need to be closed at a later date. Attention was directed to the left 1st metatarsal metatarsal head where a stab incision was made. The incision was deepened through blunt and sharp dissection. Care was taken to avoid damage to neurovascular structures throughout dissection. Incision was carried to the level of the 1st metatarsal head, it was noted there was significant plantar flexion of the metatarsal head. Using an MIS bur, the an osteotomy was performed across the neck of the metatarsal head. The metatarsal head was then able to float. POSTOPERATIVE INFORMATION: The patient tolerated the above noted procedure and anesthesia well and was transferred to the PACU with vital signs stable, and vascular status intact with capillary refill intact to all digits. Patient can weightbear as tolerated. Change every other day with Betadine-soaked gauze, Kerlix, Adam. Patient will need 6 weeks IV antibiotics. Specimen: Left first metatarsal Condition Good Disposition Still a Patient Visit Coding Podiatry Date of Service if different f: Mar 02, 2025 Billing Provider: ALICIA QUINONEZ DPM Podiatry Common Visit Codes: PROCEDURE ONLY ALICIA QUINONEZ DPM Mar 02, 2025 11:24
[2025-03-02] MEDS: MORPHINE SULFATE 4 MG/ML SYR/VIAL IV PRN (12:28)
[2025-03-02 14:48] LABS: INR 1.06 (0.9-1.15); Partial Thromboplastin Time 30.1 SEC (24.5-34.5); Prothrombin Time 11.2 sec (9.3-11.8)
[2025-03-02] MEDS: ACCU-CHEK COMFORT CURVE STRIP VI ONE (17:51)
[2025-03-02] MEDS: KETOROLAC TROMETH 30 MG/ML 1ML VIAL IV ONE (17:51)
[2025-03-03] VITALS (10 sets, daily range): BP systolic 108–180; BP diastolic 64–104; PULSE 72–104; RESP 14–20; TEMP 97.8–98.4; O2SAT 95–100
[2025-03-03 02:38] LABS: Chloride 100 mmol/L (98-107); Potassium 4.6 mmol/L (3.5-5.1); Sodium 139 mmol/L (136-145)
[2025-03-03 02:39] LABS: Anion Gap 5 (5-15)
[2025-03-03 02:45] LABS: BUN/Creatinine Ratio 46.7 (10.0-20.0); Blood Urea Nitrogen 28 mg/dL (9-23); Calcium 8.3 mg/dL (8.7-10.4); Carbon Dioxide 34 mmol/L (20-31); Glucose 159 mg/dL (74-106)
[2025-03-03 03:02] LABS: Magnesium 2.0 mg/dL (1.6-2.6)
--- NOTE | 2025-03-03 11:01 | DVHPN2 ---
Subjective Complains of constipation Had surgery yesterday She needs IV antibiotics for 6 weeks Changes from previous H/P or p: Changes Objective Vitals Vital Signs Date Time Temp Pulse Resp B/P (MAP) Pulse Ox O2 Delivery O2 Flow Rate FiO2 03/03/25 09:42 156/85 03/03/25 09:42 104 03/03/25 09:00 98.2 20 97 98.2 03/03/25 06:35 Room Air 0.0 03/03/25 06:35 21 Intake/Output Intake and Output 03/03/25 07:00 Intake Total 1950 ml Output Total 700 ml Balance 1250 ml Intake Oral 1500 ml IV Total 450 ml Output Urine Total 700 ml # Voids 15 General Appearance: Alert, Oriented X3, Cooperative, No acute distress Lungs: Clear to auscultation, Normal air movement Cardiovascular: Regular rate, Normal S1, Normal S2 Abdomen: Normal bowel sounds, Soft, No tenderness Extremities: No edema Medications Current Medications Medications Dose Ordered Sig/Eugene Route Start Time Stop Time Status Last Admin Dose Admin Metoprolol Tartrate 25 mg BID PO 02/27/25 10:00 03/03/25 09:42 25 MG Ondansetron HCl 4 mg Q4HP PRN IV 02/26/25 22:15 Acetaminophen 650 mg Q6HP PRN PO 02/26/25 22:15 02/28/25 11:07 650 MG Nitroglycerin 0.4 mg Q5MINP PRN SL 02/26/25 22:15 Morphine Sulfate 2 mg Q30M PRN IV 02/26/25 22:15 02/27/25 15:03 2 MG Albuterol 2.5 mg Q6HPRN PRN NEB 02/26/25 22:15 02/27/25 22:40 2.5 MG Dextrose 50 ml UD PRN IV 02/27/25 13:45 Vancomycin HCl 0 ml @ 0 mls/hr PER PHARMACY IV 02/27/25 14:00 Sodium Chloride 1,000 ml @ 75 mls/hr [id number] IV 02/27/25 14:15 03/01/25 21:13 75 MLS/HR Diagnostic Test (Pha) 1 strip ACHS 02/27/25 17:00 03/03/25 07:00 1 STRIP Insulin Human Regular ACHS SC 02/27/25 17:00 03/02/25 17:01 4 UNITS Zolpidem Tartrate 5 mg HSPRN PRN PO 02/28/25 12:15 03/02/25 23:59 5 MG Acetaminophen/ Hydrocodone Bitart 1 tab Q6HPRN PRN PO 02/28/25 12:15 03/03/25 09:41 1 TAB Gabapentin 400 mg TID PO 02/28/25 14:00 03/03/25 06:00 400 MG Hydralazine HCl 10 mg Q6HP PRN IV 02/28/25 15:45 03/01/25 17:12 10 MG Meropenem 50 ml @ 17 mls/hr Q8HR IV 02/28/25 23:00 03/03/25 10:03 17 MLS/HR Losartan Potassium 25 mg DAILY PO 03/01/25 10:00 03/03/25 09:42 25 MG Insulin Glargine 20 units Q12H SC 02/28/25 22:00 03/03/25 09:46 20 UNITS Morphine Sulfate 4 mg Q4HPRN PRN IV 03/02/25 10:45 03/03/25 06:30 4 MG Sodium Chloride 10 ml QSHIFT@10,22 IV 03/03/25 10:00 Laboratory Results Laboratory Tests 03/01/25 02:03 03/03/25 02:14 Chemistry Test 03/03/25 02:14 Calcium Level 8.3 mg/dL (8.7-10.4) L Magnesium Level 2.0 mg/dL (1.6-2.6) Coagulation Test 03/02/25 14:08 Prothrombin Time 11.2 sec (9.3-11.8) Prothrombin Time INR 1.06 (0.9-1.15) Activated Partial Thromboplast Time 30.1 SEC (24.5-34.5) Urinalysis Test 02/27/25 15:57 Urine Color Light-yellow (Yellow) Urine Clarity Clear (Clear) Urine pH 6.0 (5.0-9.0) Urine Specific [place] 1.037 (1.001-1.035) Urine Protein 1+ (Negative) H Urine Ketones 4+ (Negative) H Urine Blood Negative /uL (Negative) Urine Nitrite Negative (Negative) Urine Bilirubin Negative (Negative) Urine Urobilinogen Normal mg/dL (Negative) Urine Leukocyte Esterase Negative /uL (Negative) Urine RBC 1 /hpf (0 - 4) Urine Microscopic WBC 1 /HPF (0-5) Urine Squamous Epithelial Cells None seen /hpf (<5) Urine Bacteria None seen /hpf (None Seen) Urine Glucose 4+ mg/dL (Normal) H Microbiology Microbiology Date/Time Source Procedure Growth Status 03/02/25 15:27 Foot Left Gram Stain Pending Resulted 03/02/25 15:27 Foot Left Anaerobic Culture Pending Resulted 03/02/25 15:27 Foot Left Aerobic Culture - Preliminary Resulted 02/27/25 15:57 Urine - Catheterized Urine Culture - Final Complete Assessment/Plan Assessment/Plan Left lower lobe pneumonia Acute kidney injury due to vasomotor nephropathy Acute diabetic ketoacidosis Hypokalemia Hypertension Type 2 diabetes Peripheral neuropathy Depression Chronic pain Left foot nonhealing wound rule out osteomyelitis Plan IV antibiotics Rocephin and Zithromax Add vancomycin Discontinue IV insulin drip Start Lantus Accu-Cheks Podiatry consult Downgrade to med surge Monitor closely Full code 02/28/25: MRI L Foot: Osteomyelitis Sepsis due to above HTN Hypokalemia Hypomagnesemia PLAN: Change Rocephin to Meropenem Vanco Podiatry consult Wound care and culture Hydralazine prn Lopressor, add Losartan Replace K+ and Mg 03/01/2025: Osteomyelitis left foot: Continue IV antibiotics Podiatry consult Wound care Meropenem Vancomycin 03/02/2025: picc Surgery per Podiatry today Continue IV antibiotics Bipolar disorder: Resume home medications 03/03/2025: Constipation: Lactulose Physical therapy evaluation Continue IV antibiotics meropenem and vancomycin Continue wound care Arrange IV antibiotics at home for 6 weeks based on culture Monitor closely Plan discussed with: Patient My Orders Orders - DEANNE AGUIRRE MD Procedure Category Date Status Time Change Dressing Prn SIDRA 03/03/25 In Process 09:41 Sodium Chloride Lock PHA 03/03/25 In Process (Saline Lock Ns) 10:00 Do Not Use Picc For [facility] 03/03/25 In Process Blood Cult 09:41 May Draw Blood From [facility] 03/03/25 In Process Picc 09:41 Ok To Use Picc [facility] 03/03/25 In Process 09:41 Change Picc Dressing [facility] 03/03/25 In Process Q7 Days 09:41 Us Guided Vascular US 03/03/25 Taken Access 09:45 Vancomycin,Random LAB 03/03/25 Logged 10:43 Pt Request For Service PT 03/03/25 Logged 10:57 Lactulose Oral PHA 03/03/25 Logged 11:00 Lactulose Oral PHA 03/04/25 Logged 10:00 Basic Metabolic Panel LAB 03/04/25 Verified 04:00 Complete Blood Count LAB 03/04/25 Verified 04:00 Magnesium LAB 03/04/25 Verified 04:00 Date of Service: Mar 03, 2025 Billing Provider: DEANNE AGUIRRE MD Common Visit Codes: NOT BILLABLE DEANNE AGUIRRE MD Mar 03, 2025 11:01
[2025-03-03] MEDS: SODIUM CHLOR 0.9% PF (SALINE LOCK) 10ML VIAL/SYR IV SCH (12:58)
[2025-03-03] MEDS: LACTULOSE 20Gm/30ML SOLN PO ONE (12:59)
[2025-03-03] MEDS: VANCOMYCIN 1GM/250ML KIT 250 ML IV SCH (14:23)
[2025-03-04] VITALS (14 sets, daily range): BP systolic 106–182; BP diastolic 64–109; PULSE 69–115; RESP 14–20; TEMP 97.7–98.2; O2SAT 94–99
[2025-03-04 07:56] LABS: Hematocrit 33.6 % (36.0-46.0); Hemoglobin 11.2 g/dL (12.2-16.2); Mean Corpuscular Hemoglobin 29.0 pg (28.0-32.0); Mean Corpuscular Volume 87.2 fL (80.0-100.0); Nucleated Red Blood Cells % 0.1 %
[2025-03-04 08:09] LABS: Anion Gap 8 (5-15); Chloride 100 mmol/L (98-107); Potassium 4.1 mmol/L (3.5-5.1); Sodium 140 mmol/L (136-145)
[2025-03-04 08:10] LABS: Calcium 8.5 mg/dL (8.7-10.4); Carbon Dioxide 32 mmol/L (20-31)
[2025-03-04 08:15] LABS: BUN/Creatinine Ratio 33.3 (10.0-20.0); Blood Urea Nitrogen 21 mg/dL (9-23)
[2025-03-04 08:16] LABS: Glucose 137 mg/dL (74-106); Magnesium 2.3 mg/dL (1.6-2.6)
[2025-03-04] MEDS: LACTULOSE 20Gm/30ML SOLN PO SCH (10:05)
--- NOTE | 2025-03-04 12:07 | DVHPN2 ---
Subjective No new complaints Changes from previous H/P or p: Changes Objective Vitals Vital Signs Date Time Temp Pulse Resp B/P (MAP) Pulse Ox O2 Delivery O2 Flow Rate FiO2 03/04/25 10:44 78 14 133/86 03/04/25 09:00 97.7 96 97.7 03/04/25 07:40 Room Air 0.0 03/04/25 07:40 21 Intake/Output Intake and Output 03/04/25 07:00 Intake Total 3690 ml Output Total 1210 ml Balance 2480 ml Intake Oral 3040 ml IV Total 650 ml Output Urine Total 1210 ml General Appearance: Alert, Oriented X3, Cooperative, No acute distress Lungs: Clear to auscultation, Normal air movement Cardiovascular: Regular rate, Normal S1, Normal S2 Abdomen: Normal bowel sounds, Soft, No tenderness Extremities: No edema Medications Current Medications Medications Dose Ordered Sig/Eugene Route Start Time Stop Time Status Last Admin Dose Admin Metoprolol Tartrate 25 mg BID PO 02/27/25 10:00 03/04/25 10:06 25 MG Ondansetron HCl 4 mg Q4HP PRN IV 02/26/25 22:15 Acetaminophen 650 mg Q6HP PRN PO 02/26/25 22:15 02/28/25 11:07 650 MG Nitroglycerin 0.4 mg Q5MINP PRN SL 02/26/25 22:15 Morphine Sulfate 2 mg Q30M PRN IV 02/26/25 22:15 02/27/25 15:03 2 MG Albuterol 2.5 mg Q6HPRN PRN NEB 02/26/25 22:15 02/27/25 22:40 2.5 MG Dextrose 50 ml UD PRN IV 02/27/25 13:45 Vancomycin HCl 0 ml @ 0 mls/hr PER PHARMACY IV 02/27/25 14:00 Sodium Chloride 1,000 ml @ 75 mls/hr [id number] IV 02/27/25 14:15 03/03/25 13:02 75 MLS/HR Diagnostic Test (Pha) 1 strip ACHS 02/27/25 17:00 03/04/25 06:07 1 STRIP Insulin Human Regular ACHS SC 02/27/25 17:00 03/04/25 06:06 3 UNITS Zolpidem Tartrate 5 mg HSPRN PRN PO 02/28/25 12:15 03/03/25 23:12 5 MG Acetaminophen/ Hydrocodone Bitart 1 tab Q6HPRN PRN PO 02/28/25 12:15 03/03/25 09:41 1 TAB Gabapentin 400 mg TID PO 02/28/25 14:00 03/04/25 05:26 400 MG Hydralazine HCl 10 mg Q6HP PRN IV 02/28/25 15:45 03/01/25 17:12 10 MG Meropenem 50 ml @ 17 mls/hr Q8HR IV 02/28/25 23:00 03/04/25 05:26 17 MLS/HR Losartan Potassium 25 mg DAILY PO 03/01/25 10:00 03/04/25 10:06 25 MG Insulin Glargine 20 units Q12H SC 02/28/25 22:00 03/04/25 10:00 20 UNITS Morphine Sulfate 4 mg Q4HPRN PRN IV 03/02/25 10:45 03/04/25 10:44 4 MG Sodium Chloride 10 ml QSHIFT@10,22 IV 03/03/25 10:00 03/04/25 10:05 10 ML Lactulose 15 ml DAILY PO 03/04/25 10:00 03/04/25 10:05 15 ML Vancomycin HCl 250 ml @ 250 mls/hr Q12H IV 03/03/25 15:00 03/04/25 03:20 250 MLS/HR Laboratory Results Laboratory Tests 03/04/25 05:05 Chemistry Test 03/04/25 05:05 Calcium Level 8.5 mg/dL (8.7-10.4) L Magnesium Level 2.3 mg/dL (1.6-2.6) Urinalysis Test 02/27/25 15:57 Urine Color Light-yellow (Yellow) Urine Clarity Clear (Clear) Urine pH 6.0 (5.0-9.0) Urine Specific [place] 1.037 (1.001-1.035) Urine Protein 1+ (Negative) H Urine Ketones 4+ (Negative) H Urine Blood Negative /uL (Negative) Urine Nitrite Negative (Negative) Urine Bilirubin Negative (Negative) Urine Urobilinogen Normal mg/dL (Negative) Urine Leukocyte Esterase Negative /uL (Negative) Urine RBC 1 /hpf (0 - 4) Urine Microscopic WBC 1 /HPF (0-5) Urine Squamous Epithelial Cells None seen /hpf (<5) Urine Bacteria None seen /hpf (None Seen) Urine Glucose 4+ mg/dL (Normal) H Microbiology Microbiology Date/Time Source Procedure Growth Status 03/02/25 15:27 Foot Left Gram Stain Pending Resulted 03/02/25 15:27 Foot Left Anaerobic Culture - Preliminary No growth Resulted 03/02/25 15:27 Foot Left Aerobic Culture - Preliminary Resulted 02/27/25 15:57 Urine - Catheterized Urine Culture - Final Complete Assessment/Plan Assessment/Plan Left lower lobe pneumonia Acute kidney injury due to vasomotor nephropathy Acute diabetic ketoacidosis Hypokalemia Hypertension Type 2 diabetes Peripheral neuropathy Depression Chronic pain Left foot nonhealing wound rule out osteomyelitis Plan IV antibiotics Rocephin and Zithromax Add vancomycin Discontinue IV insulin drip Start Lantus Accu-Cheks Podiatry consult Downgrade to med surge Monitor closely Full code 02/28/25: MRI L Foot: Osteomyelitis Sepsis due to above HTN Hypokalemia Hypomagnesemia PLAN: Change Rocephin to Meropenem Vanco Podiatry consult Wound care and culture Hydralazine prn Lopressor, add Losartan Replace K+ and Mg 03/01/2025: Osteomyelitis left foot: Continue IV antibiotics Podiatry consult Wound care Meropenem Vancomycin 03/02/2025: picc Surgery per Podiatry today Continue IV antibiotics Bipolar disorder: Resume home medications 03/03/2025: Constipation: Lactulose Physical therapy evaluation Continue IV antibiotics meropenem and vancomycin Continue wound care Arrange IV antibiotics at home for 6 weeks based on culture Monitor closely 03/04/2025: Continue the current management We will order antibiotics for 6 weeks based on culture Plan discussed with: Patient My Orders Orders - DEANNE AGUIRRE MD Procedure Category Date Status Time Vancomycin 1gm/250ml PHA 03/03/25 In Process Kit 15:00 Vancomycin,Trough LAB 03/05/25 Verified 02:00 Vancomycin Per SIDRA 03/05/25 In Process Pharmacy Protoc 03:00 Consistent DIET 03/04/25 Transmitted Carb(Ccho)Diabetes Lunch Complete Blood Count LAB 03/05/25 Verified 02:00 Creatinine LAB 03/05/25 Verified 02:00 Date of Service: Mar 04, 2025 Billing Provider: DEANNE AGUIRRE MD Common Visit Codes: NOT BILLABLE DEANNE AGUIRRE MD Mar 04, 2025 12:07
[2025-03-05] VITALS (9 sets, daily range): BP systolic 117–151; BP diastolic 71–89; PULSE 84–92; RESP 16–18; TEMP 98–98.8; O2SAT 96–99
[2025-03-05 02:22] LABS: Hematocrit 32.9 % (36.0-46.0); Hemoglobin 11.1 g/dL (12.2-16.2); Mean Corpuscular Hemoglobin 29.3 pg (28.0-32.0); Mean Corpuscular Volume 86.6 fL (80.0-100.0); Nucleated Red Blood Cells % 0.0 %
--- NOTE | 2025-03-05 10:23 | DVHPN2 ---
Subjective No new complaints Awaiting the culture results to order IV antibiotics at home Changes from previous H/P or p: Changes Objective Vitals Vital Signs Date Time Temp Pulse Resp B/P (MAP) Pulse Ox O2 Delivery O2 Flow Rate FiO2 03/05/25 09:58 91 18 147/88 03/05/25 08:55 98.1 96 98.1 03/05/25 08:01 Room Air* 0 21 Intake/Output Intake and Output 03/05/25 06:59 Intake Total 3650 ml Balance 3650 ml Intake Oral 3600 ml IV Total 50 ml # Voids 9 # Bowel Movements 1 General Appearance: Alert, Oriented X3, Cooperative, No acute distress Lungs: Clear to auscultation, Normal air movement Cardiovascular: Regular rate, Normal S1, Normal S2 Abdomen: Normal bowel sounds, Soft, No tenderness Extremities: No edema Medications Current Medications Medications Dose Ordered Sig/[place] Route Start Time Stop Time Status Last Admin Dose Admin Metoprolol Tartrate 25 mg BID PO 02/27/25 10:00 03/05/25 09:58 25 MG Ondansetron HCl 4 mg Q4HP PRN IV 02/26/25 22:15 Acetaminophen 650 mg Q6HP PRN PO 02/26/25 22:15 02/28/25 11:07 650 MG Nitroglycerin 0.4 mg Q5MINP PRN SL 02/26/25 22:15 Morphine Sulfate 2 mg Q30M PRN IV 02/26/25 22:15 02/27/25 15:03 2 MG Albuterol 2.5 mg Q6HPRN PRN NEB 02/26/25 22:15 03/04/25 18:48 2.5 MG Dextrose 50 ml UD PRN IV 02/27/25 13:45 Vancomycin HCl 0 ml @ 0 mls/hr PER PHARMACY IV 02/27/25 14:00 Sodium Chloride 1,000 ml @ 75 mls/hr [id number] IV 02/27/25 14:15 03/04/25 14:15 75 MLS/HR Diagnostic Test (Pha) 1 strip ACHS 02/27/25 17:00 03/05/25 06:21 1 STRIP Insulin Human Regular ACHS SC 02/27/25 17:00 03/04/25 21:23 4 UNITS Zolpidem Tartrate 5 mg HSPRN PRN PO 02/28/25 12:15 03/04/25 22:57 5 MG Acetaminophen/ Hydrocodone Bitart 1 tab Q6HPRN PRN PO 02/28/25 12:15 03/05/25 06:28 1 TAB Gabapentin 400 mg TID PO 02/28/25 14:00 03/05/25 05:08 400 MG Hydralazine HCl 10 mg Q6HP PRN IV 02/28/25 15:45 03/01/25 17:12 10 MG Meropenem 50 ml @ 17 mls/hr Q8HR IV 02/28/25 23:00 03/05/25 05:07 17 MLS/HR Losartan Potassium 25 mg DAILY PO 03/01/25 10:00 03/05/25 09:58 25 MG Insulin Glargine 20 units Q12H SC 02/28/25 22:00 03/05/25 09:55 20 UNITS Morphine Sulfate 4 mg Q4HPRN PRN IV 03/02/25 10:45 03/05/25 09:58 4 MG Sodium Chloride 10 ml QSHIFT@10,22 IV 03/03/25 10:00 03/04/25 21:22 10 ML Lactulose 15 ml DAILY PO 03/04/25 10:00 03/05/25 09:58 15 ML Vancomycin HCl 250 ml @ 250 mls/hr Q8H IV 03/05/25 11:00 Laboratory Results Laboratory Tests 03/04/25 05:05 03/05/25 01:53 Urinalysis Test 02/27/25 15:57 Urine Color Light-yellow (Yellow) Urine Clarity Clear (Clear) Urine pH 6.0 (5.0-9.0) Urine Specific [place] 1.037 (1.001-1.035) Urine Protein 1+ (Negative) H Urine Ketones 4+ (Negative) H Urine Blood Negative /uL (Negative) Urine Nitrite Negative (Negative) Urine Bilirubin Negative (Negative) Urine Urobilinogen Normal mg/dL (Negative) Urine Leukocyte Esterase Negative /uL (Negative) Urine RBC 1 /hpf (0 - 4) Urine Microscopic WBC 1 /HPF (0-5) Urine Squamous Epithelial Cells None seen /hpf (<5) Urine Bacteria None seen /hpf (None Seen) Urine Glucose 4+ mg/dL (Normal) H Microbiology Microbiology Date/Time Source Procedure Growth Status 03/02/25 15:27 Foot Left Gram Stain Pending Resulted 03/02/25 15:27 Foot Left Anaerobic Culture - Preliminary No growth Resulted 03/02/25 15:27 Foot Left Aerobic Culture - Preliminary Resulted 02/27/25 15:57 Urine - Catheterized Urine Culture - Final Complete Assessment/Plan Assessment/Plan Left lower lobe pneumonia Acute kidney injury due to vasomotor nephropathy Acute diabetic ketoacidosis Hypokalemia Hypertension Type 2 diabetes Peripheral neuropathy Depression Chronic pain Left foot nonhealing wound rule out osteomyelitis Plan IV antibiotics Rocephin and Zithromax Add vancomycin Discontinue IV insulin drip Start Lantus Accu-Cheks Podiatry consult Downgrade to med surge Monitor closely Full code 02/28/25: MRI L Foot: Osteomyelitis Sepsis due to above HTN Hypokalemia Hypomagnesemia PLAN: Change Rocephin to Meropenem Vanco Podiatry consult Wound care and culture Hydralazine prn Lopressor, add Losartan Replace K+ and Mg 03/01/2025: Osteomyelitis left foot: Continue IV antibiotics Podiatry consult Wound care Meropenem Vancomycin 03/02/2025: picc Surgery per Podiatry today Continue IV antibiotics Bipolar disorder: Resume home medications 03/03/2025: Constipation: Lactulose Physical therapy evaluation Continue IV antibiotics meropenem and vancomycin Continue wound care Arrange IV antibiotics at home for 6 weeks based on culture Monitor closely 03/04/2025: Continue the current management We will order antibiotics for 6 weeks based on culture 03/05/2025: Continue meropenem and vancomycin Awaiting the cultures from the surgical site that was done 3 days ago to order IV antibiotics at home The plan is to send the patient home on IV antibiotics with home health for 6 weeks Monitor closely in the hospital until the culture is available Plan discussed with: Patient My Orders Orders - DEANNE AGUIRRE MD Procedure Category Date Status Time Vancomycin 1gm/250ml PHA 03/05/25 In Process Kit 11:00 Vancomycin Per SIDRA 03/05/25 In Process Pharmacy Protoc 11:00 Creatinine LAB 03/06/25 Verified 04:00 Vancomycin,Trough LAB 03/06/25 Verified 02:00 Date of Service: Mar 05, 2025 Billing Provider: DEANNE AGUIRRE MD Common Visit Codes: NOT BILLABLE DEANNE AGUIRRE MD Mar 05, 2025 10:23
[2025-03-05] MEDS: VANCOMYCIN 1GM/250ML IV SCH (11:29)
[2025-03-06] VITALS (8 sets, daily range): BP systolic 102–143; BP diastolic 64–83; PULSE 79–96; RESP 16–18; TEMP 98.1–98.6; O2SAT 97–99
[2025-03-06 02:44] LABS: Chloride 102 mmol/L (98-107); Potassium 4.2 mmol/L (3.5-5.1); Sodium 141 mmol/L (136-145)
[2025-03-06 02:45] LABS: Anion Gap 6 (5-15); Calcium 8.7 mg/dL (8.7-10.4)
[2025-03-06 02:48] LABS: Carbon Dioxide 33 mmol/L (20-31)
[2025-03-06 02:50] LABS: BUN/Creatinine Ratio 35.5 (10.0-20.0); Blood Urea Nitrogen 22 mg/dL (9-23)
[2025-03-06 02:51] LABS: Glucose 62 mg/dL (74-106)
--- NOTE | 2025-03-06 09:19 | DVH ---
CHEST RADIOGRAPH INDICATION: Chest pain TECHNIQUE: Single frontal view of the chest was obtained COMPARISON: XY CHEST PORTABLE on DOS: 02/26/25. FINDINGS: Lines and Tubes: Left PICC terminates in the superior cavoatrial junction. Lungs: No focal consolidation. Pleura: No effusion. No pneumothorax. Cardiomediastinal contours: Unremarkable Bones: No acute osseous abnormality. IMPRESSION: 1. No acute cardiopulmonary disease.
--- NOTE | 2025-03-06 09:55 | DVHPN2 ---
Subjective She is complaining of chest pressure this morning Chest x-ray was negative Do EKG Check troponin Changes from previous H/P or p: Changes Objective Vitals Vital Signs Date Time Temp Pulse Resp B/P (MAP) Pulse Ox O2 Delivery O2 Flow Rate FiO2 03/06/25 08:55 119/75 03/06/25 08:55 89 03/06/25 08:47 98.6 18 97 98.6 03/06/25 07:40 Room Air* 0 21 Intake/Output Intake and Output 03/06/25 07:00 Intake Total 2750 ml Balance 2750 ml Intake Oral 2100 ml IV Total 650 ml # Voids 10 General Appearance: Alert, Oriented X3, Cooperative, No acute distress Lungs: Clear to auscultation, Normal air movement Cardiovascular: Regular rate, Normal S1, Normal S2 Abdomen: Normal bowel sounds, Soft, No tenderness Extremities: No edema Medications Current Medications Medications Dose Ordered Sig/[place] Route Start Time Stop Time Status Last Admin Dose Admin Metoprolol Tartrate 25 mg BID PO 02/27/25 10:00 03/06/25 08:55 25 MG Ondansetron HCl 4 mg Q4HP PRN IV 02/26/25 22:15 Acetaminophen 650 mg Q6HP PRN PO 02/26/25 22:15 02/28/25 11:07 650 MG Nitroglycerin 0.4 mg Q5MINP PRN SL 02/26/25 22:15 Morphine Sulfate 2 mg Q30M PRN IV 02/26/25 22:15 02/27/25 15:03 2 MG Dextrose 50 ml UD PRN IV 02/27/25 13:45 Vancomycin HCl 0 ml @ 0 mls/hr PER PHARMACY IV 02/27/25 14:00 Sodium Chloride 1,000 ml @ 75 mls/hr [id number] IV 02/27/25 14:15 03/05/25 16:56 75 MLS/HR Diagnostic Test (Pha) 1 strip ACHS 02/27/25 17:00 03/06/25 06:24 1 STRIP Insulin Human Regular ACHS SC 02/27/25 17:00 03/05/25 21:55 3 UNITS Zolpidem Tartrate 5 mg HSPRN PRN PO 02/28/25 12:15 03/05/25 21:48 5 MG Acetaminophen/ Hydrocodone Bitart 1 tab Q6HPRN PRN PO 02/28/25 12:15 03/05/25 22:50 1 TAB Gabapentin 400 mg TID PO 02/28/25 14:00 03/06/25 05:54 400 MG Hydralazine HCl 10 mg Q6HP PRN IV 02/28/25 15:45 03/01/25 17:12 10 MG Meropenem 50 ml @ 17 mls/hr Q8HR IV 02/28/25 23:00 03/06/25 05:54 17 MLS/HR Losartan Potassium 25 mg DAILY PO 03/01/25 10:00 03/06/25 08:55 25 MG Morphine Sulfate 4 mg Q4HPRN PRN IV 03/02/25 10:45 03/06/25 07:44 4 MG Sodium Chloride 10 ml QSHIFT@10,22 IV 03/03/25 10:00 03/06/25 08:55 10 ML Lactulose 15 ml DAILY PO 03/04/25 10:00 03/06/25 08:53 15 ML Vancomycin HCl 250 ml @ 250 mls/hr Q8H IV 03/05/25 11:00 03/05/25 18:52 250 MLS/HR Insulin Glargine 10 units Q12H SC 03/06/25 22:00 Laboratory Results Laboratory Tests 03/05/25 01:53 03/06/25 02:07 Chemistry Test 03/06/25 02:07 Calcium Level 8.7 mg/dL (8.7-10.4) Urinalysis Test 02/27/25 15:57 Urine Color Light-yellow (Yellow) Urine Clarity Clear (Clear) Urine pH 6.0 (5.0-9.0) Urine Specific [place] 1.037 (1.001-1.035) Urine Protein 1+ (Negative) H Urine Ketones 4+ (Negative) H Urine Blood Negative /uL (Negative) Urine Nitrite Negative (Negative) Urine Bilirubin Negative (Negative) Urine Urobilinogen Normal mg/dL (Negative) Urine Leukocyte Esterase Negative /uL (Negative) Urine RBC 1 /hpf (0 - 4) Urine Microscopic WBC 1 /HPF (0-5) Urine Squamous Epithelial Cells None seen /hpf (<5) Urine Bacteria None seen /hpf (None Seen) Urine Glucose 4+ mg/dL (Normal) H Microbiology Microbiology Date/Time Source Procedure Growth Status 03/02/25 15:27 Foot Left Gram Stain Pending Resulted 03/02/25 15:27 Foot Left Anaerobic Culture - Preliminary Resulted 03/02/25 15:27 Aerobic Culture - Final Proteus mirabilis Resulted 02/27/25 15:57 Urine - Catheterized Urine Culture - Final Complete Assessment/Plan Assessment/Plan Left lower lobe pneumonia Acute kidney injury due to vasomotor nephropathy Acute diabetic ketoacidosis Hypokalemia Hypertension Type 2 diabetes Peripheral neuropathy Depression Chronic pain Left foot nonhealing wound rule out osteomyelitis Plan IV antibiotics Rocephin and Zithromax Add vancomycin Discontinue IV insulin drip Start Lantus Accu-Cheks Podiatry consult Downgrade to med surge Monitor closely Full code 02/28/25: MRI L Foot: Osteomyelitis Sepsis due to above HTN Hypokalemia Hypomagnesemia PLAN: Change Rocephin to Meropenem Vanco Podiatry consult Wound care and culture Hydralazine prn Lopressor, add Losartan Replace K+ and Mg 03/01/2025: Osteomyelitis left foot: Continue IV antibiotics Podiatry consult Wound care Meropenem Vancomycin 03/02/2025: picc Surgery per Podiatry today Continue IV antibiotics Bipolar disorder: Resume home medications 03/03/2025: Constipation: Lactulose Physical therapy evaluation Continue IV antibiotics meropenem and vancomycin Continue wound care Arrange IV antibiotics at home for 6 weeks based on culture Monitor closely 03/04/2025: Continue the current management We will order antibiotics for 6 weeks based on culture 03/05/2025: Continue meropenem and vancomycin Awaiting the cultures from the surgical site that was done 3 days ago to order IV antibiotics at home The plan is to send the patient home on IV antibiotics with home health for 6 weeks Monitor closely in the hospital until the culture is available 03/06/2025: Dressing change of the left foot Discontinue all antibiotics Start ertapenem 1 g IV daily She will need IV ertapenem IV 1 g daily for 6 weeks Consult home health for wound care and IV antibiotics Wound culture showed Proteus mirabilis sensitive to ertapenem Plan discussed with: Patient My Orders Orders - DEANNE AGUIRRE MD Procedure Category Date Status Time * Retrieval Specialist CONS 03/06/25 Transmitted Consult Troponin-I Hs LAB 03/06/25 Logged 08:40 Chest Xray 1 View XY 03/06/25 Resulted 08:40 Electrocardigram EKG 03/06/25 Logged 08:40 Insulin Lantus PHA 03/06/25 In Process (Glargine) (Lantus) 22:00 Date of Service: Mar 06, 2025 Billing Provider: DEANNE AGUIRRE MD Common Visit Codes: NOT BILLABLE DEANNE AGUIRRE MD Mar 06, 2025 09:55
[2025-03-06] MEDS: ERTAPENEM SOD INJ 1 GM in SODIUM CHL 0.9% 50 ML IV SCH (13:47)
[2025-03-06] MEDS: INSULIN LANTUS (GLARGINE) 1 /0.01ml (100units/ml) SC SCH (21:30)
[2025-03-07] VITALS (7 sets, daily range): BP systolic 109–146; BP diastolic 65–83; PULSE 85–92; RESP 15–18; TEMP 97.6–98.6; O2SAT 96–98
[2025-03-07] MEDS ORDERED: LOS25T PO (08:36)
--- NOTE | 2025-03-07 08:45 | DVHDS2 ---
Discharge Summary Date of Admission Feb 26, 2025 at 22:07 Date of Discharge: Mar 07, 2025 Labs/Diagnostic Data: Laboratory Results Test 03/07/25 05:44 03/06/25 02:07 03/05/25 01:53 03/04/25 05:05 POC Glucose 99 mg/dl (70-106) Sodium Level 141 mmol/L (136-145) Potassium Level 4.2 mmol/L (3.5-5.1) Chloride Level 102 mmol/L (98-107) Carbon Dioxide Level 33 mmol/L (20-31) Anion Gap 6 (5-15) Blood Urea Nitrogen 22 mg/dL (9-23) Creatinine 0.62 mg/dL (0.550-1.02) Glomerular Filtration Rate Calc 105 mL/min (>90) BUN/Creatinine Ratio 35.5 (10.0-20.0) Serum Glucose 62 mg/dL (74-106) Calcium Level 8.7 mg/dL (8.7-10.4) Troponin I High Sensitivity 7 ng/L (</=34) Vancomycin Level Trough 22.8 ug/mL (5-10) White Blood Count 6.5 10^3/uL (4.4-10.8) Red Blood Count 3.80 10^6/uL (4.0-5.20) Hemoglobin 11.1 g/dL (12.2-16.2) Hematocrit 32.9 % (36.0-46.0) Mean Corpuscular Volume 86.6 fL (80.0-100.0) Mean Corpuscular Hemoglobin 29.3 pg (28.0-32.0) Mean Corpuscular Hemoglobin Concent 33.8 g/dL (32.0-36.0) Red Cell Distribution Width 13.0 % (11.8-14.3) Platelet Count 260 10^3/uL (140-450) Mean Platelet Volume 7.2 fL (6.9-10.8) Neutrophils (%) (Auto) 54.6 % (37.0-80.0) Lymphocytes (%) (Auto) 33.3 % (10.0-50.0) Monocytes (%) (Auto) 7.4 % (0.0-12.0) Eosinophils (%) (Auto) 4.1 % (0.0-7.0) Basophils (%) (Auto) 0.6 % (0.0-2.0) Neutrophils # (Auto) 3.6 10 ^3/uL (1.6-8.6) Lymphocytes # (Auto) 2.2 10 ^3/uL (0.4-5.4) Monocytes # (Auto) 0.5 10 ^3/uL (0-1.3) Eosinophils # (Auto) 0.3 10 ^3/uL (0-0.8) Basophils # (Auto) 0 10 ^3/uL (0-0.2) Nucleated Red Blood Cells 0.0 % Magnesium Level 2.3 mg/dL (1.6-2.6) Test 03/03/25 12:04 03/02/25 14:08 02/28/25 06:33 02/27/25 15:57 Random Vancomycin Level 13.1 ug/mL (5-10) Prothrombin Time 11.2 sec (9.3-11.8) Prothrombin Time INR 1.06 (0.9-1.15) Activated Partial Thromboplast Time 30.1 SEC (24.5-34.5) Differential Total Cells Counted 100.0 (100) Neutrophils % (Manual) 50 (37.0-80.0) Band Neutrophils % (Manual) 1 Lymphocytes % (Manual) 39 (10.0-50.0) Monocytes % (Manual) 8 (0-12) Eosinophils % (Manual) 1 (0-7) Basophils % (Manual) 0 (0.0-2.0) Metamyelocytes % (manual) 0 Myelocytes % (Manual) 1 Promyelocytes % (Manual) 0 Blast Cells % (Manual) 0 Reactive Lymphocytes 0 Platelet Estimate Adequate Total Bilirubin 0.2 mg/dL (0.2-1.0) Aspartate Amino Transferase (AST) 11 U/L (13-40) Alanine Aminotransferase (ALT) 15 U/L (7-40) Alkaline Phosphatase 128 U/L (46-116) Total Protein 5.4 g/dL (5.7-8.2) Albumin 3.1 g/dL (3.2-4.8) Urine Color Light-yellow (Yellow) Urine Clarity Clear (Clear) Urine pH 6.0 (5.0-9.0) Urine Specific [place] 1.037 (1.001-1.035) Urine Protein 1+ (Negative) Urine Ketones 4+ (Negative) Urine Blood Negative /uL (Negative) Urine Nitrite Negative (Negative) Urine Bilirubin Negative (Negative) Urine Urobilinogen Normal mg/dL (Negative) Urine Leukocyte Esterase Negative /uL (Negative) Urine RBC 1 /hpf (0 - 4) Urine Microscopic WBC 1 /HPF (0-5) Urine Squamous Epithelial Cells None seen /hpf (<5) Urine Bacteria None seen /hpf (None Seen) Urine Glucose 4+ mg/dL (Normal) Urine Opiates Screen Pos (NEGATIVE) Urine Fentanyl Screen Neg (NEGATIVE) Urine Barbiturates Screen Neg (NEGATIVE) Urine Phencyclidine Screen Neg (NEGATIVE) Urine Amphetamines Screen Neg (NEGATIVE) Urine Benzodiazepines Screen Neg (NEGATIVE) Urine Cocaine Screen Neg (NEGATIVE) Urine Cannabinoids Screen Neg (NEGATIVE) Test 02/26/25 22:30 02/26/25 22:25 02/26/25 17:43 02/26/25 16:45 Blood Gas Specimen Type Arterial Blood Gas Sample Site Right radial Blood Gas Patient Temperature 37.0 Arterial Blood Date Drawn Arterial Blood pH 7.115 (7.350-7.450) Arterial Blood Partial Pressure CO2 14.6 mmHg (32.0-45.0) Arterial Blood Partial Pressure O2 115.3 mmHg (83.0-108.0) Arterial Blood HCO3 4.6 mmol/L (21.0-28.0) Arterial Blood Oxygen Saturation 97.7 % (94.0-98.0) Arterial Blood Base Excess -22.5 mmol/L (-2.0-3.0) Arterial Blood Oxyhemoglobin 96.0 % (94.0-98.0) Arterial Blood Carboxyhemoglobin 1.0 % (0.5-1.5) Arterial Blood Methemoglobin 0.7 % (0.0-1.5) Arterial Blood Deoxyhemoglobin 2.3 % (0.0-5.0) Jeremy Test Yes Blood Gas Total Hemoglobin 14.90 g/dL (12.0-16.0) Blood Gas Modality Room air FiO2 % 21.0 Blood Gas Critical Value Read Back Yes Blood Gas Notified Whom corey Elise Blood Gas Notified Time [id number] Blood Gas Notified By Inside Sales Director bret phan Serum Osmolality 338 mOsm/kg (278-298) Lactic Acid Level 1.7 mmol/L (0.4-2.0) Beta-Hydroxybutyric Acid > 4.500 mmol/L (< 0.4) Thyroid Stimulating Hormone (TSH) 1.18 uIU/mL (0.55-4.78) Red Blood Cell Morphology Normal D-Dimer, Quantitative 1.31 mg/L FEU (0.0-0.49) B-Type Natriuretic Peptide 12.56 pg/mL (0-100) Other Laboratory Tests 03/06/25 02:07 03/05/25 01:53 Brief Hx & Hospital Course: Final diagnoses: Left foot osteomyelitis Left lower lobe pneumonia Acute kidney injury due to vasomotor nephropathy Acute diabetic ketoacidosis Hypokalemia Hypertension Type 2 diabetes Peripheral neuropathy Depression Chronic pain Initially admitted for pneumonia and was started on IV antibiotics but she also had a wound on her left foot and therefore we did an MRI which showed osteomyelitis requiring IV antibiotics Podiatry was consulted and she required incision and drainage of the wound She recovered successfully postoperatively The culture from the wound came with Proteus mirabilis sensitive to most antibiotics Because she had osteomyelitis it was recommended to have antibiotics for 6 weeks and therefore she was started on ertapenem She will be discharged home with home health on IV ertapenem for 6 weeks and wound care She has a PICC line done Resume the home medications Follow up with Podiatry in 1-2 weeks and with her PCP as soon as possible Condition at Discharge: Stable Final Diagnosis/Problems List Left foot osteomyelitis Left lower lobe pneumonia Acute kidney injury due to vasomotor nephropathy Acute diabetic ketoacidosis Hypokalemia Hypertension Type 2 diabetes Peripheral neuropathy Depression Chronic pain Discharge Disposition: Home with Health Services SNF Discharge Will this Physician continue t: No Discharge Instruct/Medications Diet: Consistent carbohydrate, Cardiac 2g Na,low cholest Activity: No Restrictions, As Tolerated Follow Up/Referral: Dr. Brandt 1-2 weeks PCP MARYJANE Medications: Resume home meds Scheduled Dapagliflozin Propanediol (Farxiga), 1 TAB PO DAILY, (Reported) Gabapentin (Gabapentin), 1 TAB PO TID, (Reported) Insulin Glargine (Lantus), 30 UNIT SC BID, (Reported) Losartan Potassium (Losartan Potassium), 25 MG PO DAILY Metoprolol Succinate (Metoprolol Succinate Er), 1 TAB PO DAILY, (Reported) Vortioxetine Hydrobromide (Trintellix), 1 TAB PO DAILY, (Reported) Scheduled PRN Zolpidem Tartrate (Zolpidem Tartrate), 1 TAB PO QHSP PRN for FOR INSOMNIA, (Reported) Miscellaneous Medications Acetaminophen W/ Codeine (Acetaminophen/Codeine #4 300-60 mg), TAB PO, (Reported) Discharge Statement: "Patient was advised to return to the ER or call 911 if any headaches, dizziness, shortness of breath, chest pain, abdominal pain, bleeding, fevers, or worsening of medical condition. Patient was counseled about treatment plan, medications, possible side effects, patientverbalized understanding. All questions were answered to the best of my ability. This discharge took greater then 30 minutes in planning, reviewing documentation, counseling the patient, and discussing with other team members." ASSESSMENT ASSESSMENT Assessment Left foot osteomyelitis Left lower lobe pneumonia Acute kidney injury due to vasomotor nephropathy Acute diabetic ketoacidosis Hypokalemia Hypertension Type 2 diabetes Peripheral neuropathy Depression Chronic pain Date of Service: Mar 07, 2025 Billing Provider: DEANNE AGUIRRE MD Common Visit Codes: NOT BILLABLE DEANNE AGUIRRE MD Mar 07, 2025 08:45
--- NOTE | 2025-03-08 09:04 | ECG ---
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
== END 2025-03-07 17:01 | disposition home health service (06) | DRG 853 ==
LOC: EDSEX 16:37 → ER 16:37 → EDBD 16:37 → OVERFLOW 22:07 → TELE-WESTW 02-27 17:26 → WEST WING 03-02 23:57
PROVIDERS: ADMIT Internal Medicine Geriatric Medicine; ATTEND Internal Medicine Geriatric Medicine
PROC: 0J9R0ZZ Drainage of Left Foot Subcutaneous Tissue and Fascia, Open Approach (ICD-10-PCS; 2025-03-02)
PROC: 0QBP0ZX Excision of Left Metatarsal, Open Approach, Diagnostic (ICD-10-PCS; principal; 2025-03-02 11:07)
PROC: 02HV33Z Insertion of Infusion Device into Superior Vena Cava, Percutaneous Approach (ICD-10-PCS; 2025-03-03)
PROC: B548ZZA Ultrasonography of Superior Vena Cava, Guidance (ICD-10-PCS; 2025-03-03)
DX: A41.9 Sepsis, unspecified organism (principal); E11.10 Type 2 diabetes mellitus with ketoacidosis without coma; J18.9 Pneumonia, unspecified organism; N17.0 Acute kidney failure with tubular necrosis; E83.39 Other disorders of phosphorus metabolism; L03.116 Cellulitis of left lower limb; L02.612 Cutaneous abscess of left foot; M86.8X7 Other osteomyelitis, ankle and foot; F32.A Depression, unspecified; I10 Essential (primary) hypertension; E11.69 Type 2 diabetes mellitus with other specified complication; E87.6 Hypokalemia; G89.29 Other chronic pain; E11.42 Type 2 diabetes mellitus with diabetic polyneuropathy; E83.42 Hypomagnesemia; K59.00 Constipation, unspecified; E11.621 Type 2 diabetes mellitus with foot ulcer; L97.529 Non-pressure chronic ulcer of other part of left foot with unspecified severity; M77.42 Metatarsalgia, left foot; Z90.49 Acquired absence of other specified parts of digestive tract; Z98.891 History of uterine scar from previous surgery; Z90.710 Acquired absence of both cervix and uterus; Z88.5 Allergy status to narcotic agent; Z82.3 Family history of stroke; Z83.3 Family history of diabetes mellitus; Z82.49 Family history of ischemic heart disease and other diseases of the circulatory system; Z80.3 Family history of malignant neoplasm of breast; Z79.4 Long term (current) use of insulin; F41.9 Anxiety disorder, unspecified
CPT/HCPCS: 36415; 36569; 36600; 71045; 71275; 73630; 73718; 76937; 80048; 80053; 80202; 80307; 81001; 82010; 82565; 82805; 82962; 83605; 83735; 83880; 83930; 84443; 84484; 85007; 85025; 85027; 85379; 85610; 85730; 87070; 87075; 87076; 87077; 87086; 87186; 87205; 93005; 94640; 97110; 97116; 97163; 97530; 99291; G0378; J1335; J1815; J2185; J2250; J2405; J2704; J3490